=== PATIENT | female | born 1960 | race Caucasian/White ===

== ENCOUNTER → 2017-12-06 09:48 | Outpatient (CLI) | payer BC, SELFPAY ==
--- NOTE | 2017-12-06 09:54 | RAD_ITS ---
STUDY: X-RAY - LUMBAR SPINE REASON FOR EXAM: Female, 57 years old. Low back pain TECHNIQUE: 5 view(s) of the lumbar spine were obtained. COMPARISON: Prior study of 09/21/2014 FINDINGS: There is straightening of the normal lumbar lordosis. There is no substantial scoliosis. There is a 5 mm anterolisthesis of L3 relative to L4, stable in the interval. There are status post posterior spinal fusion changes with interpedicular screws and rods from L3 to S1. There are status post laminectomy changes of L3-L5. There is multi-level degenerative disc disease with multi-level disc space narrowing. There is no evidence of acute fracture. There are calcified plaques of the abdominal aorta. RAD/L/S Spine Min 4 Views IMPRESSION: Status post posterior spinal fusion changes with interpeduncular screws and rods from L3 to S1. Status post laminectomy of L3-L5. Multilevel disc space narrowing. There is no evidence of acute fracture. 5 mm anterolisthesis of L3 relative to L4. Findings are similar to the previous study. Electronically Signed: Linwood Cevallos MD at 23:57 EDT , Service support ,
== END ==
PROVIDERS: Family Provider Family Medicine; PCP Family Medicine; Referring Provider Anesthesiology Pain Medicine; Visit Provider Anesthesiology Pain Medicine
DX: M51.36 Other intervertebral disc degeneration, lumbar region (principal); M48.061 Spinal stenosis, lumbar region without neurogenic claudication; Z98.1 Arthrodesis status
CPT/HCPCS: 72110

== ENCOUNTER 2017-12-28 11:06 | Observation (INO) | payer BC, SELFPAY ==
[2017-12-28] VITALS (8 sets, daily range): BP systolic 113–155; BP diastolic 68–114; PULSE 81–96; RESP 14–20; TEMP 36.7–36.8; O2SAT 93–96; BMI 32.1
--- NOTE | 2017-12-28 13:09 | MRI_ITS ---
STUDY: MRA NECK WITH AND WITHOUT CONTRAST REASON FOR EXAM: Female, 57 years old. Vertigo TECHNIQUE: 3-D yzyp-yh-ccafam (TOF) imaging was performed in an 1.5 T MRI scanner. 9 ml of Gadavist was administered for the contrast enhanced images. # of Images: 324 COMPARISON: None. FINDINGS: RIGHT CAROTID ARTERIES: Normal right common carotid artery (CCA). Normal right common carotid bulb. Normal origin of the right internal carotid (ICA) artery without a hemodynamically significant stenosis. Normal visualized cervical portion of the right internal carotid artery. Normal origin of the right external carotid artery (ECA). LEFT CAROTID ARTERIES: Normal left common carotid artery (CCA). Normal left common carotid bulb. Normal origin of the left internal carotid (ICA) artery without a hemodynamically significant stenosis. Normal visualized cervical portion of the left internal carotid artery. Normal origin of the left external carotid artery (ECA). VERTEBRAL ARTERIES: Normal antegrade flow within the bilateral vertebral artery with minor diffuse narrowing of the distal right vertebral. MRI/MRA Neck WITH and W/O Contrast IMPRESSION: Mild diffuse narrowing of the distal right vertebral. No evidence for hemodynamically significant stenosis of the carotids Electronically Signed: Miles Ruano MD at 17:46 EDT , Service support ,
--- NOTE | 2017-12-28 13:09 | MRI_ITS ---
STUDY: MRI BRAIN WITHOUT CONTRAST REASON FOR EXAM: Female, 57 years old. Posttraumatic vertigo TECHNIQUE: Standardized multiplanar fat and water weighted pulse sequences were obtained. # of Images: 284 COMPARISON: None. FINDINGS: Normal size of the ventricles and extra-axial spaces for the patient's age. Minor periventricular white matter ischemic changes without evidence for mass effect or restricted diffusion. Mild chronic ischemic changes within the jace. Chronic ischemic changes within the left cerebellar hemisphere Normal bilateral basal ganglia. Normal thalami. There is no extra-axial fluid accumulation. Normal flow voids within the major intracranial circulation suggesting patency by spin echo criteria. Normal sella turcica, pituitary gland, infundibular stalk, optic chiasm and hypothalamus. Normal tectal plate and pineal gland. Normal midbrain, and medulla. Normal basal cisterns. Normal bilateral temporal bones. Normal bilateral internal auditory canals. There is signal dropout within the inferior frontal lobes on the gradient echo weighted imaging sequence which could represent hemosiderin secondary to old hemorrhagic contusions. No demonstrated orbital abnormality, within the constraints of a routine brain study. Advanced mucosal thickening in the right maxillary and ethmoid sinuses. Normal calvarium and skull base. Normal visualized soft tissue structures. Normal visualized upper cervical spine. MRI/Brain without Contrast IMPRESSION: Minor periventricular white matter ischemic changes without evidence for acute infarct. Chronic ischemic changes within the jace and left cerebellar hemisphere. Findings which may be consistent with old hemorrhagic contusions within the frontal lobes. Recommend correlation with clinical history Electronically Signed: Miles Ruano MD at 17:35 EDT , Service support ,
--- NOTE | 2017-12-28 13:09 | MRI_ITS ---
STUDY: MRA OF THE HEAD WITHOUT CONTRAST REASON FOR EXAM: Female, 57 years old. Vertigo TECHNIQUE: 3-D guph-fy-psiznt (TOF) imaging was performed with MIPs. The study was performed unenhanced. # of Images: 195 COMPARISON: None. FINDINGS: Normal bilateral petrous carotid arteries. Normal right cavernous carotid artery with a normal supraclinoid bifurcation. Normal left cavernous carotid artery with a normal supraclinoid bifurcation. Normal right A1 segments of the anterior cerebral artery. Normal left A1 segments of the anterior cerebral artery. Normal intact anterior communicating artery (ACOM). Normal bilateral A2 segments of the anterior cerebral arteries. Normal right M1 and M2 segments of the middle cerebral arteries, with a normal M1 bifurcation. Normal left M1 and M2 segments of the middle cerebral arteries, with a normal M1 bifurcation. Normal right posterior communicating artery (PCOM). Left posterior communicating artery not identified consistent with normal variant. Normal bilateral vertebral arteries. Normal basilar artery with a normal basilar bifurcation. The visualized bilateral superior cerebellar (SCA) arteries are normal. Normal bilateral P1, P2 and visualized P3 segments of the posterior cerebral arteries. There is no demonstrated aneurysm of the [place]. There is no major vessel occlusion or hemodynamically significant stenosis. There is no demonstrated abnormality of the visualized brain. MRI/MRA Head ONLY without Contrast IMPRESSION: Normal MRA of the head Electronically Signed: Miles Ruano MD at 17:45 EDT , Service support ,
[2017-12-28] MEDS: Rivaroxaban 20 MG Tablet PO (13:15)
[2017-12-28] MEDS: diazePAM 2 MG Tablet PO ×3 (13:15→22:01)
[2017-12-28] MEDS: oxyCODONE 5 MG Tablet PO (13:16)
[2017-12-28] MEDS: oxyCODONE 5 MG Tablet 10 MG PO (15:18)
[2017-12-28] MEDS: Gabapentin 400 MG Capsule PO ×2 (17:48)
[2017-12-28] MEDS: Sertraline 100 MG Tablet PO ×2 (17:49)
--- NOTE | 2017-12-28 18:01 | PCM.HP.STD ---
Problem List (1) Dizziness Status: Acute History of Present Illness Date of Admission: 12/28/17 Chief Complaint: Dizziness, ataxia The patient is a 57 year old F who was placed directly into observation status on PCU from [facility] with complaints of dizziness and ataxia which started last night approximately 9:30 PM. Patient states that she cannot walk without maximal effort because she feels unsteady and wobbly. Patient denies any focal motor deficits, she denies any visual disturbances, and she denies any speech disturbances. She sought medical attention this morning at [facility] ER and a workup was done including a CT of the brain and lab work all of which were unremarkable. It was felt that the patient needed an MRI to rule out the presence of an acute CVA and she was placed into observation status here on PCU. Past Medical History Allergies No Known Allergies Allergy (Verified 12/28/17 15:21) Home Medications: Ambulatory Orders Medication Instructions Recorded Levothyroxine [Synthroid] 75 mcg PO DAILY 11/12/13 Albuterol Sulfate [Proventil Hfa] 2 puff IH Q4H PRN PRN 12/28/17 Baclofen [Lioresal] 10 mg PO BID PRN 12/28/17 Gabapentin [Neurontin] 400 mg PO 1500 12/28/17 Gabapentin [Neurontin] 400 mg PO BREAKFAST 12/28/17 Gabapentin [Neurontin] 800 mg PO QHS 12/28/17 Ipratropium/Albuterol Sulfate 3 ml INHALATION TID 12/28/17 [Duoneb] Oxycodone HCl/Acetaminophen 1 tablet PO TID 12/28/17 [Percocet 5/325] Rivaroxaban [Xarelto] 20 mg PO DAILY 12/28/17 Sertraline HCl [Zoloft] 100 mg PO DAILY 12/28/17 Surgical History: cholecystectomy, tonsillectomy, - - 2 lumbar spinal fusions Psychiatric History: Depression 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 Lives: Alone Smoking Status: Former smoker Tobacco Use: Cigarettes Alcohol: Occasional Drugs: None - *Family History Maternal History Items: Diabetes, Hypertension Paternal History Items: Stroke Review of Systems Constitutional: Denies: Anorexia, Chills, Fever, Night Sweats, Malaise, Weakness, Weight Change, Fatigue Eyes: Denies: Blurred vision, Cataracts, Conjunctivae Inflammation, Double vision, Drainage HEENT: Denies: Difficulty Swallowing, Dysphasia, Ear Pain, Eye Pain, Hearing Changes, Nasal bleeding, Nasal Congestion, Post Nasal Drip Cardiovascular: Denies: Chest Pain, Claudication, Chest Pressure, Chest Tightness, Edema, Heaviness, Light Headedness, Orthopnea, Palpitations Respiratory: Denies: Cough, Hemoptysis, Pleuritic Pain, Shortness of Breath, Shortness of breath at rest, Shortness of breath upon exertion, Sputum production Gastrointestinal: Denies: Abdominal Pain, Constipation, Diarrhea, Hematemesis, Hematochezia, Nausea, Melena, Vomiting Genitourinary: Denies: Dysuria, Frequency, Hematuria, Hesitancy, Incontinence, Nocturia, Urgency Gynecological: Denies: Breast symptoms Musculoskeletal: Reports: Back Pain. Denies: Foot Pain, Hand Pain, Joint Pain, Joint stiffness, Joint swelling, Joint Tenderness, Leg Pain, Neck Pain Skin: Denies: Dryness, Jaundice, Pruritis, Rash Neurological: Reports: Balance problems, Headaches - Patient reports a mild headache since this a.m. predominantly on the right side. Denies: Blurred vision, Double vision, Change in Speech, Slurred speech, Difficulty swallowing, Focal weakness, Numbness, Tingling, Tremor Psychiatric: Reports: Depression. Denies: Anxiety, Homicidal Ideations, Suicidal Ideations Endocrine: Denies: Change in Body Habitus, Heat/ Cold Intolerance, Polydipsia, Polyuria Hematologic/ Lymphatic: Denies: Adenopathy, Anemia, Easy Bruising, Easy Bleeding, Petechiae, Purpura VTE Information - Inpt Only VTE Present on Admission: No VTE Mechan Device Prophylaxis: None VTE Pharm Prophylaxis ordered?: Yes Patient Problems: Active and Suspected Problems Dizziness (Acute) - Physical Exam General: Alert, Oriented x3, Cooperative, No apparent distress, Well developed, Well nourished HEENT: Atraumatic, PERRLA, EOMI, Normocephalic Oral: Moist Mucosa Neck: Supple, No JVD, Negative Carotid Bruits, No Nuchal Rigidity, Trachea Midline, Thyroid Normal Size and Texture Lungs: Clear to auscultation, Normal air movement, No rhonchi, No wheeze, No rales Cardiovascular: Regular rate, Regular Rhythm, Normal S1, Normal S2, No murmurs, No Ectopic Activity, PMI Normal, No rub noted, No Gallop Abdomen: Bowel Sounds Present, Soft, Non Tender, Non-Distended, No hernias noted Extremities: No clubbing, No cyanosis, No edema, Capillary Refill Less than 3 Seconds Skin: No rashes, No breakdown Musculoskeletal: No Tenderness to Palpation of Joints or Extremities Neurological: Cranial nerves II-XII grossly intact, Neuro grossly intact, Motor Exam 5/5 strength throughout, Muscle tone normal, Sensory exam intact to light touch and pain Psych/Mental Status: Normal Affect, Appropriate, Alert and oriented to time, place, person, mood and affect Vital Signs Temp Pulse Resp BP Pulse Ox 98.1 F 87 16 136/90 H 93 12/28/17 17:57 12/28/17 17:57 12/28/17 17:57 12/28/17 17:57 12/28/17 17:57 Oxygen Delivery Method Room Air Weight: 85.049 kg Body Mass Index (BMI) 32.1 Intake and Output for Last 24 Hours 12/26/17 12/27/17 12/28/17 23:59 23:59 23:59 Intake Total 120 / 120 Balance 120 / 120 Assessment/Plan All Active Problems Dizziness (Acute) #1 dizziness-patient was placed and observation status on PCU, she will be seen by PT and OT, NIH stroke scores will be obtained at periodic intervals, MRA of the head and neck and MRI of the brain will be obtained. 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 Patient will remain on Xarelto during this hospitalization Code Visit OBSV E&M: 49435 Initial observation care L3
--- NOTE | 2017-12-28 18:06 | HP.PCM_ITS ---
Problem List (1) Dizziness Status: Acute History of Present Illness Date of Admission: 12/28/17 Chief Complaint: Dizziness, ataxia The patient is a 57 year old F who was placed directly into observation status on PCU from [facility] with complaints of dizziness and ataxia which started last night approximately 9:30 PM. Patient states that she cannot walk without maximal effort because she feels unsteady and wobbly. Patient denies any focal motor deficits, she denies any visual disturbances, and she denies any speech disturbances. She sought medical attention this morning at [facility] ER and a workup was done including a CT of the brain and lab work all of which were unremarkable. It was felt that the patient needed an MRI to rule out the presence of an acute CVA and she was placed into observation status here on PCU. Past Medical History Allergies No Known Allergies Allergy (Verified 12/28/17 15:21) Home Medications: Ambulatory Orders Medication Instructions Recorded Levothyroxine [Synthroid] 75 mcg PO DAILY 11/12/13 Albuterol Sulfate [Proventil Hfa] 2 puff IH Q4H PRN PRN 12/28/17 Baclofen [Lioresal] 10 mg PO BID PRN 12/28/17 Gabapentin [Neurontin] 400 mg PO 1500 12/28/17 Gabapentin [Neurontin] 400 mg PO BREAKFAST 12/28/17 Gabapentin [Neurontin] 800 mg PO QHS 12/28/17 Ipratropium/Albuterol Sulfate 3 ml INHALATION TID 12/28/17 [Duoneb] Oxycodone HCl/Acetaminophen 1 tablet PO TID 12/28/17 [Percocet 5/325] Rivaroxaban [Xarelto] 20 mg PO DAILY 12/28/17 Sertraline HCl [Zoloft] 100 mg PO DAILY 12/28/17 Surgical History: cholecystectomy, tonsillectomy, - - 2 lumbar spinal fusions Psychiatric History: Depression 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 Lives: Alone Smoking Status: Former smoker Tobacco Use: Cigarettes Alcohol: Occasional Drugs: None - *Family History Maternal History Items: Diabetes, Hypertension Paternal History Items: Stroke Review of Systems Constitutional: Denies: Anorexia, Chills, Fever, Night Sweats, Malaise, Weakness, Weight Change, Fatigue Eyes: Denies: Blurred vision, Cataracts, Conjunctivae Inflammation, Double vision, Drainage HEENT: Denies: Difficulty Swallowing, Dysphasia, Ear Pain, Eye Pain, Hearing Changes, Nasal bleeding, Nasal Congestion, Post Nasal Drip Cardiovascular: Denies: Chest Pain, Claudication, Chest Pressure, Chest Tightness, Edema, Heaviness, Light Headedness, Orthopnea, Palpitations Respiratory: Denies: Cough, Hemoptysis, Pleuritic Pain, Shortness of Breath, Shortness of breath at rest, Shortness of breath upon exertion, Sputum production Gastrointestinal: Denies: Abdominal Pain, Constipation, Diarrhea, Hematemesis, Hematochezia, Nausea, Melena, Vomiting Genitourinary: Denies: Dysuria, Frequency, Hematuria, Hesitancy, Incontinence, Nocturia, Urgency Gynecological: Denies: Breast symptoms Musculoskeletal: Reports: Back Pain. Denies: Foot Pain, Hand Pain, Joint Pain, Joint stiffness, Joint swelling, Joint Tenderness, Leg Pain, Neck Pain Skin: Denies: Dryness, Jaundice, Pruritis, Rash Neurological: Reports: Balance problems, Headaches - Patient reports a mild headache since this a.m. predominantly on the right side. Denies: Blurred vision, Double vision, Change in Speech, Slurred speech, Difficulty swallowing, Focal weakness, Numbness, Tingling, Tremor Psychiatric: Reports: Depression. Denies: Anxiety, Homicidal Ideations, Suicidal Ideations Endocrine: Denies: Change in Body Habitus, Heat/ Cold Intolerance, Polydipsia, Polyuria Hematologic/ Lymphatic: Denies: Adenopathy, Anemia, Easy Bruising, Easy Bleeding, Petechiae, Purpura VTE Information - Inpt Only VTE Present on Admission: No VTE Mechan Device Prophylaxis: None VTE Pharm Prophylaxis ordered?: Yes Patient Problems: Active and Suspected Problems Dizziness (Acute) - Physical Exam General: Alert, Oriented x3, Cooperative, No apparent distress, Well developed, Well nourished HEENT: Atraumatic, PERRLA, EOMI, Normocephalic Oral: Moist Mucosa Neck: Supple, No JVD, Negative Carotid Bruits, No Nuchal Rigidity, Trachea Midline, Thyroid Normal Size and Texture Lungs: Clear to auscultation, Normal air movement, No rhonchi, No wheeze, No rales Cardiovascular: Regular rate, Regular Rhythm, Normal S1, Normal S2, No murmurs, No Ectopic Activity, PMI Normal, No rub noted, No Gallop Abdomen: Bowel Sounds Present, Soft, Non Tender, Non-Distended, No hernias noted Extremities: No clubbing, No cyanosis, No edema, Capillary Refill Less than 3 Seconds Skin: No rashes, No breakdown Musculoskeletal: No Tenderness to Palpation of Joints or Extremities Neurological: Cranial nerves II-XII grossly intact, Neuro grossly intact, Motor Exam 5/5 strength throughout, Muscle tone normal, Sensory exam intact to light touch and pain Psych/Mental Status: Normal Affect, Appropriate, Alert and oriented to time, place, person, mood and affect Vital Signs Temp Pulse Resp BP Pulse Ox 98.1 F 87 16 136/90 H 93 12/28/17 17:57 12/28/17 17:57 12/28/17 17:57 12/28/17 17:57 12/28/17 17:57 Oxygen Delivery Method Room Air Weight: 85.049 kg Body Mass Index (BMI) 32.1 Intake and Output for Last 24 Hours 12/26/17 12/27/17 12/28/17 23:59 23:59 23:59 Intake Total 120 / 120 Balance 120 / 120 Assessment/Plan All Active Problems Dizziness (Acute) #1 dizziness-patient was placed and observation status on PCU, she will be seen by PT and OT, NIH stroke scores will be obtained at periodic intervals, MRA of the head and neck and MRI of the brain will be obtained. 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 Patient will remain on Xarelto during this hospitalization Code Visit OBSV E&M: 15969 Initial observation care L3
[2017-12-28] MEDS: Ipratropium/Albuterol Sulfate 3 ML AMPUL.NEB INHALATION (18:48)
[2017-12-28] MEDS: Gabapentin 400 MG Capsule 800 MG PO (21:59)
[2017-12-29 03:00] VITALS: PULSE 74
[2017-12-29 04:00] VITALS: BP 140/85; PULSE 89; RESP 14; TEMP 36.8; O2SAT 93
[2017-12-29 07:17] VITALS: PULSE 76
[2017-12-29] MEDS: Ipratropium/Albuterol Sulfate 3 ML AMPUL.NEB INHALATION (07:34)
[2017-12-29 07:35] VITALS: PULSE 91; RESP 18
[2017-12-29 09:01] VITALS: BP 136/79; PULSE 89; RESP 18; TEMP 36.8; O2SAT 93
--- NOTE | 2017-12-29 09:01 | DCINST_ITS ---
- Discharge Diagnoses Current Active Problems: Current Active and Chronic Problems Dizziness (Acute) You will use the following diet at home:: No restrictions Your food should be the consistency of: Regular Your liquids should be the consistency of: Regular/Thin Discharge Activity: Return to Normal Activity Weight Bearing Status: Full weight bearing Allergies/Adverse Reactions: Allergies No Known Allergies Allergy (Verified 12/28/17 15:21) Medications to take at Discharge Levothyroxine [Synthroid] 75 mcg PO DAILY 11/12/13 Albuterol Sulfate [Proventil Hfa] 2 puff IH Q4H PRN PRN 12/28/17 Baclofen [Lioresal] 10 mg PO BID PRN 12/28/17 Gabapentin [Neurontin] 400 mg PO 1500 12/28/17 Gabapentin [Neurontin] 400 mg PO BREAKFAST 12/28/17 Gabapentin [Neurontin] 800 mg PO QHS 12/28/17 Ipratropium/Albuterol Sulfate [Duoneb] 3 ml INHALATION TID 12/28/17 Oxycodone HCl/Acetaminophen [Percocet 5-325] 1 tablet PO TID 12/28/17 Rivaroxaban [Xarelto] 20 mg PO DAILY 12/28/17 Sertraline HCl [Zoloft] 100 mg PO DAILY 12/28/17 Diazepam [Valium] 2 mg PO 4X/DAY PRN PRN 7 Days #20 tab 12/29/17 The following prescriptions were given: Diazepam [Valium] 2 mg PO 4X/DAY PRN PRN 7 Days #20 tab PRN Reason: Dizziness Primary Care Physician: Kirby Bautista [Primary Care Provider] - Please follow up with your Primary Care Physician in: in 1-2 weeks Test Results: Test results from this visit will be discussed in further detail at your follow- up appointment, if applicable.
[2017-12-29] MEDS: Rivaroxaban 20 MG Tablet PO (09:06)
[2017-12-29] MEDS: Gabapentin 400 MG Capsule PO (09:06)
[2017-12-29] MEDS: diazePAM 2 MG Tablet PO (09:06)
--- NOTE | 2017-12-30 09:12 | DS.PCM_ITS ---
Discharge Date and Diagnosis Date of Admission: 12/28/17 Date of Discharge: 12/29/17 - Primary Discharge Diagnosis #1 benign vertigo #2 chronic back pain #3 hypothyroidism #4 degenerative joint disease of the lumbar spine #5 COPD Hospital Course and Treatment Operations: None Procedures: None Summary of Care Provided: The patient is a 57 year old F was directly admitted to PCU from [facility] with complaints of dizziness and ataxia. Workup in the emergency room at [facility] included a CT of the brain which was unremarkable, patient's labs were also unremarkable. Patient was placed and observation status on PCU, neurochecks initially were carried out on the patient, patient had an MRA of the head and neck and an MRI of the brain, these tests did not show any acute process and it was felt that the patient did not have a stroke. It was felt that the patient's ataxia and dizzy sensation was from benign vertigo. She was seen by PT and OT. Physical exam: On examination she appeared in good health and spirits. Vital signs as documented. Skin warm and dry and without overt rashes. Neck without JVD. Lungs clear. Heart exam notable for regular rhythm, normal sounds and absence of murmurs, rubs or gallops. Abdomen unremarkable and without evidence of organomegaly, masses, or abdominal aortic enlargement. Extremities nonedematous. Neuro: Cranial nerves II through XII are grossly intact, no focal motor deficits were noted, sensation was intact to light touch and pinprick. Psych: Patient was alert and oriented x3, she did not appear to be anxious or de pressed. Patient was placed on Valium during her hospital stay and this improved her vertiginous symptoms. On 12/29/17, patient was seen and examined and felt to be in stable condition for discharge home - Physical Exam Vital Signs Temp Pulse Resp BP Pulse Ox 98.3 F 89 18 136/79 H 93 12/29/17 09:01 12/29/17 09:01 12/29/17 09:01 12/29/17 09:01 12/29/17 09:01 Oxygen Delivery Method Room Air Weight: 85.049 kg Body Mass Index (BMI) 32.1 Intake and Output for Last 24 Hours 12/28/17 12/29/17 12/30/17 23:59 23:59 23:59 Intake Total 120 / 120 Balance 120 / 120 Discharge Activity: Return to Normal Activity Weight Bearing Status: Full weight bearing Home Medications: Medications to take at Discharge Levothyroxine [Synthroid] 75 mcg PO DAILY 11/12/13 Albuterol Sulfate [Proventil Hfa] 2 puff IH Q4H PRN PRN 12/28/17 Baclofen [Lioresal] 10 mg PO BID PRN 12/28/17 Gabapentin [Neurontin] 400 mg PO 1500 12/28/17 Gabapentin [Neurontin] 400 mg PO BREAKFAST 12/28/17 Gabapentin [Neurontin] 800 mg PO QHS 12/28/17 Ipratropium/Albuterol Sulfate [Duoneb] 3 ml INHALATION TID 12/28/17 Oxycodone HCl/Acetaminophen [Percocet 5-325] 1 tablet PO TID 12/28/17 Rivaroxaban [Xarelto] 20 mg PO DAILY 12/28/17 Sertraline HCl [Zoloft] 100 mg PO DAILY 12/28/17 Diazepam [Valium] 2 mg PO 4X/DAY PRN PRN 7 Days #20 tab 12/29/17 Following Prescrptions Were Given to Patient: Diazepam [Valium] 2 mg PO 4X/DAY PRN PRN 7 Days #20 tab PRN Reason: Dizziness Primary Care Physician: Kirby Bautista [Primary Care Provider] - Please follow up with your Primary Care Physician in: in 1-2 weeks Disposition: Home Minutes spent on discharge:: 31 Patient Condition:: Stable Medical Necessity - Tobacco Use Smoking Status: Former smoker Tobacco Use: Cigarettes Meaningful Use Info Meaningful Use Diagnoses (Choose all that apply): None applicable Code Visit OBSV E&M: 93171 Observation care discharge
== END 2017-12-29 09:00 | disposition home or self-care (01) ==
PROVIDERS: Admitting Provider Internal Medicine; Family Provider Family Medicine; PCP Family Medicine; Referring Provider Internal Medicine; Visit Provider Internal Medicine
DX: R42 Dizziness and giddiness (principal); M47.896 Other spondylosis, lumbar region; J44.9 Chronic obstructive pulmonary disease, unspecified; E03.9 Hypothyroidism, unspecified; Z79.899 Other long term (current) drug therapy; Z79.01 Long term (current) use of 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; Z79.891 Long term (current) use of opiate analgesic; Z87.891 Personal history of nicotine dependence; F32.9 Major depressive disorder, single episode, unspecified; G89.4 Chronic pain syndrome; Z86.711 Personal history of pulmonary embolism
CPT/HCPCS: 70544; 70549; 70551; 94640; 99218; A9585; G0378

== ENCOUNTER → 2021-12-23 | Outpatient (CLI) | payer BC, SELFPAY ==
[2021-12-23 09:29] LABS: Erythrocyte Sedimentation Rate 14 mm/hr (0-30)
[2021-12-23 09:30] LABS: Absolute Lymphocyte Count 2.28 X10^3/uL (0.83-4.51); Basophil# 0.09 X10^3/uL; Basophil% 1.2 % (0-1); Eosinophil# 0.29 X10^3/uL; Hematocrit 41.6 % (37-47); Hemoglobin 14.1 g/dL (12.0-15.0); Lymphocyte # 2.28 X10^3/ul (0.83-4.51); Lymphocyte % 31.4 % (19-41); Mean Corp Hgb Conc 33.9 g/dL (32-36); Mean Corpuscular Hgb 29.4 pg (27.0-32.0); Mean Corpuscular Volume 86.7 fL (81-99); Mean Platelet Vol. 9.5 fl (6.2-12.0); Monocyte# 0.64 X10^3/uL; Monocyte% 8.8 % (0-10); NRBC Flagged by Analyzer 0 % (0-5); Neutrophil # 3.96 X10^3/uL (2.7-7.7); Neutrophil % 54.5 % (47-70); Platelet Count 151 K/mm3 (150-450); RBC Distribution Width CV 12.3 % (11.6-14.6); RBC Distribution Width SD 38.9 fl (35.1-43.9); White Blood Count 7.3 K/mm3 (4.4-11.0)
[2021-12-23 10:02] LABS: ALB/GLOB Ratio 0.9 RATIO (0.9-2.4); AST(SGOT) 19 U/L (15-37); Alanine Aminotransfer ALT/SGPT 28 U/L (13-56); Albumin, Serum 3.7 g/dL (3.2-5.0); Alkaline Phosphatase 77 U/L (45-117); Anion Gap 6 (5-15); BUN 14 mg/dL (7-18); BUN/Creat Ratio 19.5 RATIO (10-20); CRP 4.46 mg/L (0.0-3.0); Chloride 109 mmol/L (98-107); Creatinine, Serum 0.72 mg/dL (0.55-1.02); EST Glomerular Filtration Rate 88 mL/min (>60); Est Glom Filt Rate - Afr Amer 106 mL/min (>60); Glucose 100 mg/dL (74-106); LDH 206 U/L (84-246); Potassium 3.7 mmol/L (3.5-5.1); Protein, Total 7.7 g/dL (6.4-8.2); Sodium Level 143 mmol/L (136-145)
[2021-12-26 16:09] LABS: Endomysial Antibody IgA Negative (Negative)
[2021-12-26 18:48] LABS: Immunoglobulin A 406 mg/dL (87-352); t-Transglutaminase IgA <2 U/mL (0-3)
[2021-12-27 14:29] LABS: Anti-Centromere B Ab <0.2 AI (0.0-0.9); Anti-Chromatin <0.2 AI (0.0-0.9); Anti-Jo <0.2 AI (0.0-0.9); Anti-Scleroderma-70 AB <0.2 AI (0.0-0.9); RNP Ab 0.8 AI (0.0-0.9); SJOGREN'S Anti-SS-A test < 0.2 AI (0.0-0.9); SJOGREN'S Anti-SS-B test < 0.2 AI (0.0-0.9); Smith Ab <0.2 AI (0.0-0.9)
[2021-12-27 16:11] LABS: Anti-dsDNA Ab 2 IU/mL (0-9)
[2021-12-31 02:07] LABS: Alpha-1-Globulins 0.3 g/dL (0.0-0.4); Alpha-2-Globulins 0.7 g/dL (0.4-1.0); Gamma Globulin 0.9 g/dL (0.4-1.8); Immunoglobulin A 395 mg/dL (87-352); Immunoglobulin G 1003 mg/dL (586-1602); Immunoglobulin M 57 mg/dL (26-217); PROEL- TOTAL PROTEIN 7.1 g/dL (6.0-8.5)
[2022-01-01 09:47] LABS: IMMUNOFIXATION RESULT,S Comment: (.); Immunoglobulin E 72 IU/mL (6-495)
== END | disposition home or self-care (01) ==
PROVIDERS: PCP Internal Medicine Infectious Disease; Referring Provider Nurse Practitioner Adult Health; Visit Provider Nurse Practitioner Adult Health
DX: K52.9 Noninfective gastroenteritis and colitis, unspecified (principal)
CPT/HCPCS: 36415; 80053; 82784; 82785; 83516; 83615; 84165; 85025; 85652; 86140; 86225; 86235; 86255; 86334

== ENCOUNTER 2022-02-15 07:42 | Day surgery (SDC) | payer BC, SELFPAY ==
[2022-02-15] VITALS (8 sets, daily range): BP systolic 109–159; BP diastolic 56–93; PULSE 72–88; RESP 16–18; TEMP 36.4–37.1; O2SAT 93–98; BMI 27.6
--- NOTE | 2022-02-15 07:54 | HP.PCM_ITS ---
History and Physical Date of Admission: 02/15/22 [facility] [address] [place] [address] OFFICE VISIT Date of Service:? 12/23/21 MR#: [id number] Acct: [id number] Name:SOFIA WHITAKER Rep #: [id number] : 1960 ? ? Provider: ?RAGINI Parker Age/Sex:? 61/F ? ? [place] [facility] [place] Status: Signed Intake Vital Signs ? 12/28/1810:34 12/23/2206:55 Height 5 ft 4 in 5 ft 4 in Weight: ? 167 lb BMI ? 28.6 BP ? 173/107 H Blood Pressure LocationB ? Rt brachial Position ? Sitting Pulse ? 68 Pulse Oximetry (%) ? 96 Oxygen Delivery Method ? room air Intake Visit Reasons:?HISTORY OF COLON POLYPS Chief Complaint: diarrhea Allergies No Known Allergies Allergy (Verified 12/23/21 07:55) Medications albuterol sulfate 90 mcg/actuation aerosol inhaler (Proventil HFA) 2 puff IH Q4H PRN PRN Sob &/Or Wheezing 12/28/17 [History Confirmed 12/23/21] gabapentin 400 mg capsule (Neurontin) 800 mg PO QHS 12/28/17 [History Confirmed 11/23/21] ipratropium 0.5 mg-albuterol 3 mg (2.5 mg base)/3 mL nebulization soln 3 ml inhalation TID SOB 12/28/17 [History Confirmed 11/23/21] oxycodone-acetaminophen 5 mg-325 mg tablet 1 tab PO TID 12/28/17 [History Confirmed 12/23/21] rivaroxaban 20 mg tablet (Xarelto) 20 mg PO DAILY 12/28/17 [History Confirmed 11/23/21] sertraline 100 mg tablet 100 mg PO DAILY 12/28/17 [History Confirmed 11/23/21] atorvastatin 10 mg tablet 10 mg PO DAILY 11/23/21 [History Confirmed 11/23/21] celecoxib 200 mg capsule (Celebrex) 200 mg PO BID 11/23/21 [History Confirmed 11/23/21] levothyroxine 88 mcg capsule 88 mcg PO DAILY 11/23/21 [History Confirmed 11/23/21] lisinopril 10 mg tablet 20 mg PO DAILY 11/23/21 [History Confirmed 11/23/21] melatonin 10 mg capsule 10 mg PO HS PRN 11/23/21 [History Confirmed 11/23/21] tizanidine 4 mg capsule 4 mg PO TID PRN 11/23/21 [History Confirmed 11/23/21] trazodone 50 mg tablet 50 mg PO QHS PRN 11/23/21 [History Confirmed 11/23/21] cholestyramine (with sugar) 4 gram oral powder 4 g PO BID #378 grams 12/23/21 [Rx Confirmed 12/23/21] PFSH Medical History?(Reviewed 12/23/21 @ 08:50 by Jenni Parker DIRECTOR OF OFFICIATING, DIRECTOR OF OFFICIATING-C) Acute insomnia CAD (coronary artery disease) COPD (chronic obstructive pulmonary disease) Depression Diarrhea ROY (dyspnea on exertion) DVT (deep venous thrombosis) History of colon polyps Hyperglycemia Hypotension Hypothyroidism IBS (irritable bowel syndrome) residential (current) use of 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 Neuropathy Other pulmonary embolism without acute cor pulmonale Paroxysmal atrial fibrillation PAT (paroxysmal atrial tachycardia) Renal insufficiency Rotator cuff tear SOB (shortness of breath) Weight gain Surgical History? History of cholecystectomy Family History? Mother Diabetes Social History?(Reviewed 12/23/21 @ 08:50 by Jenni Parker DIRECTOR OF OFFICIATING, DIRECTOR OF OFFICIATING-C) Smoking Status:? Former smoker alcohol intake:? current alcohol intake frequency: a few times a week HPI HPI Chief Complaint: diarrhea Details: SOFIA HINDS, is a 61 F who presents to the office today for chronic diarrhea which began more than 12 yrs ago. This diarrhea didn't begin immediately after her cholecystectomy in 2006. Diarrhea is like water, urgent, rare fecal incontinence. Only has semi-formed stool once a month or so. At least 6 BMs per day but typically many more. Diarrhea can wake her up. Gets immed diarrhea after eating, so she limits her intake. No relief with dicyclomine, pepto bismol, imodium, fiber. [facility] ED visit in 09/2021 for dehydration due to diarrhea. Stools tests in 09/2021 negative for O&P, enteric pathogens and C diff. 10/05/21 CT: liquid stool in colon, small bowel changes suggestive of enteritis, diverticula. Remote hx of EGD. Most recent colonoscopy 2018. Review of records shows diagnosis of collagenous colitis in 2009. Treated for parasite infection in , had diarrhea then but it resolved with treatment. Has had hemorrhoids since then. They bleed frequently. Works 3rd shift at [employer] Const Constitutional: No fatigue Eyes Eyes: Positive for visual disturbances ENT ENT: No difficulty swallowing Gastro GI: Positive for diarrhea; No abdominal pain, belching, bloating, change in bowel habits, change in stool character, coffee ground emesis, constipation, cramping, heartburn, difficulty swallowing, feeling full early, excessive flatus, incontinent of stools, Vomiting blood/hematemesis, Blood in stool, loose stools, Black,tarry stools, nausea/dyspepsia, pain with swallowing, vomiting or other Musc Musculoskeletal: Positive for back pain; No joint pain Skin Skin: No yellowing of the eye or itchy eyes Neuro Neurology: Positive for visual disturbances Psych Psychiatric: No anxiety and No depression Endo Endocrine: No fatigue Aller/Imm Allergy/Immunologic: No itchy eyes Marvel/Lymp Hematologic/Lymphatic: No easy bleeding or easy bruising Exam Const General: cooperative and comfortable Nutritional Appearance: overweight Orientation: alert, awake and oriented x3 HENMT Head: normal to inspection Eyes General: appearance normal, both eyes and all related structures Neck Neck: normal visual inspection Chest Chest palpation & inspection: normal inspection of the chest Resp Effort & Inspection: normal respiratory effort GI Inspection: normal to inspection Palpation: soft, no hepatosplenomegaly, no masses and nontender Skin General: no jaundice Quality Reporting Tobacco Screening ([facility] 138) Smoking Status: Former smoker Assessment and Plan Assessment and Plan (1) Chronic diarrhea: ?Status:?Chronic ?Plan: 61 yr old female with >12 yrs of chronic watery urgent diarrhea. DDx includes microscopic colitis, IBD, bile acid diarrhea. Recent tests for infection were negative. We will get blood tests to include labs for IBD, celiac, stool tests for inflammation. Start cholestyramine bid, let me know how that works. Consider rx for budesonide considering hx of collagenous colitis. Consider capsule endoscopy. Will schedule her for EGD and colonoscopy, f/u 2 wks after that. ? ? ? Orders: Orders Comprehensive Metabolic Profil Today K52.9 - Noninfective gastroenteritis and colitis, unspecified ? CRP Today K52.9 - Noninfective gastroenteritis and colitis, unspecified ? LDH Today K52.9 - Noninfective gastroenteritis and colitis, unspecified ? CBC W/Diff, Automated Today K52.9 - Noninfective gastroenteritis and colitis, unspecified ? Erythrocyte Sed Rate Today K52.9 - Noninfective gastroenteritis and colitis, unspecified ? OMI Comprehensive Panel Today K52.9 - Noninfective gastroenteritis and colitis, unspecified ? Calprotectin, Stool Today K52.9 - Noninfective gastroenteritis and colitis, unspecified ? Stool Lactoferrin/WBC Today K52.9 - Noninfective gastroenteritis and colitis, unspecified ? Celiac Disease Profile Today K52.9 - Noninfective gastroenteritis and colitis, unspecified ? Immunoglobulins G/A/M/E Today K52.9 - Noninfective gastroenteritis and colitis, unspecified ? RORY + Protein Elect, Serum Today K52.9 - Noninfective gastroenteritis and colitis, unspecified ? Miscellaneous Lab Procedure Today K52.9 - Noninfective gastroenteritis and colitis, unspecified ? Medications: New cholestyramine (with sugar) 4 gram ?? administer w/meal; avoid other meds within 1hr before or 4 hr after dose 4 grams? PO BID 378 grams 1RF ? ? I have examined the patient and the H&P has been reviewed. There are no clinical changes since date of exam.
[2022-02-15] MEDS: Lactated Ringers 1,000 ML 15 ML IV (08:35)
--- NOTE | 2022-02-15 08:45 | IMM_PTH ---
PATIENT: SOFIA HINDS LOC: EN U#:[id number] AGE/SX: 61/F ROOM: RE02/15/[address]: Dr. Cruz Zavala DO : 1960 BED: DIS: 02/15/2022 SPEC #: [id number] RECD: 02/15/22 15:17 STATUS: YG REQ #: [id number] JOHNY: 02/15/22 08:[address]: Cruz Zavala DEPT: IMMUNOHISTOCHEMISTRY RECD BY: Verónica Diaz ENTERED: 02/15/22 15:17 SP TYPE: IMMUNO OTHR DR: Dr. Shae Durham MD Tissues: A - Stomach, NOS Procedures: H Pylori (initial) PHYSICIAN & [place] [address] SPECIMEN INFORMATION: Tissue Source: A ? Gastric antrum Clinical Info: Chronic diarrhea Specimen Number: [id number] CPT code: 66792 METHODOLOGY: Deparaffinized sections of prefer/formalin-fixed tissue or PAP/DQ stained slides are incubated with monoclonal/polyclonal antibodies/oligonucleotide probes. Localization is made via biotin free immunoperoxidase method. Appropriate controls are performed and reacted as expected. Results on target cell population are indicated in the following table: RESULTS: ANTIBODY / CLONE RESULT Block A H Pylori (polyclonal) negative These tests were developed and their performance characteristics determined by [facility]. They may not have been cleared or approved by the U.S. Food and Drug Administration. The FDA has determined that such clearance or approval is not necessary. The above immunohistochemical/dualISH markers are ordered and reviewed by the Pathologist. INTERPRETATION: A. Gastric antrum, biopsy: Negative for Helicobacter pylori organisms. AM:sena 02/16/2022
--- NOTE | 2022-02-15 08:45 | EGD_PTH ---
PATIENT: SOFIA HINDS LOC: EN U#:[id number] AGE/SX: 61/F ROOM: RE02/15/[address]: Dr. Cruz Zavala DO : 1960 BED: DIS: 02/15/2022 SPEC #: [id number] RECD: 02/15/22 12:42 STATUS: YG REEricka #: [id number] JOHNY: 02/15/22 08:[address]: Cruz Zavala DEPT: SURGICAL PATHOLOGY RECD BY: Anny Brown ENTERED: 02/15/22 13:28 SP TYPE: EGD BIOPSY OT DR: Dr. Shae Durham MD Tissues: A - Gastric mucous membrane B - Duodenum, NOS C - Esophagus, NOS D - Ileum, NOS E - COLON BIOPSY Procedures: Trichrome (control) Special Stain Group II Surgery Specimen Level IV Alcian Blue/PAS (control) HEADER OPERATION: Colonoscopy, EGD (MAC), biopsy, electrohemostasis PRE-OP DIAGNOSIS: Chronic diarrhea TISSUE SUBMITTED: A ? Gastric antrum biopsy for histo and H. pylori, B ? Duodenum biopsy, C ? Distal esophagus biopsy, D ? Terminal ileum biopsy, E ? Random colonic biopsy MICROSCOPIC DIAGNOSIS A. Gastric antrum, biopsy: Chronic gastritis. See comment. B. Duodenum, biopsy: No pathologic change. C. Distal esophagus, biopsy: Gastroesophageal junction with chronic inflammation. Focal changes of reflux. No evidence of goblet cell metaplasia. See comment. D. Terminal ileum, biopsy: No pathologic change. E. Colon, random biopsy: Consistent with lymphocytic colitis. See comment. AM:sena 02/16/2022 COMMENT A. The results of immunohistochemistry for Helicobacter pylori will be reported separately ([id number]). C. Alcian blue/PAS stain with matched control supports the above diagnosis. E. Trichrome stain with matched control was used in the evaluation of this case. Case has been reviewed in consultation with Dr. Marie who concurs with the above diagnosis. IDC:RENATO MICROSCOPIC DESCRIPTION Slides are reviewed. GROSS DESCRIPTION A - Received in fixative is one container labeled with the patient's name and designated antrum biopsy. The specimen consists of multiple irregular fragments of light jj soft tissue that in aggregate measure 2 x 0.3 x 0.1 cm. The specimen is totally submitted in one cassette. B - Received in fixative is one container labeled with the patient's name and designated duodenum biopsy. The specimen consists of multiple irregular fragments of light jj soft tissue that in aggregate measure 1.5 x 0.2 x 0.1 cm. The specimen is totally submitted in one cassette. C - Received in fixative is one container labeled with the patient's name and designated distal esophagus biopsy. The specimen consists of multiple irregular fragments of light jj soft tissue that in aggregate measure 1 x 0.3 x 0.1 cm. The specimen is totally submitted in one cassette. D - Received in fixative is one container labeled with the patient's name and designated terminal ileum biopsy. The specimen consists of two irregular fragments of light jj soft tissue that in aggregate measure 0.6 x 0.5 x 0.1 cm. The specimen is totally submitted in one cassette. E - Received in fixative is one container labeled with the patient's name and designated random colon biopsy. The specimen consists of multiple irregular fragments of light jj soft tissue that in aggregate measure 2.5 x 0.7 x 0.1 cm. The specimen is totally submitted in one cassette. / SJ:rg 02/15/2022 TC:3 CPT: 40370 x5, 39766 x2
--- NOTE | 2022-02-15 09:06 | OP.EGD_ITS ---
Patient Name: Opal Adamson Procedure Date: 02/15/2022 8:27 AM Date of : 1960 Age: 61 Procedure: Upper GI endoscopy Indications: Dyspepsia, Suspected esophageal reflux, Failure to respond to medical treatment Providers: Cruz Zavala DO Referring MD: Shae Durham Medicines: Monitored Anesthesia Care Patient Profile: This is a 61 year old female. Refer to note in patient chart for documentation of history and physical. Patient has symptoms of chronic abdominal cramping, chronic epigastric abdominal pain, chronic dyspepsia and chronic nausea. Complications: No immediate complications. Procedure: Pre-Anesthesia Assessment: - Prior to the procedure, a History and Physical was performed, and patient medications and allergies were reviewed. The risks and benefits of the procedure and the sedation options and risks were discussed with the patient. All questions were answered and informed consent was obtained. Patient identification and proposed procedure were verified by the physician. Mental Status Examination: normal. Respiratory Examination: clear to auscultation. Prophylactic Antibiotics: The patient does not require prophylactic antibiotics. Prior Anticoagulants: The patient has taken no previous anticoagulant or antiplatelet agents. ASA Grade Assessment: II - A patient with mild systemic disease. After reviewing the risks and benefits, the patient was deemed in satisfactory condition to undergo the procedure. The anesthesia plan was to use monitored anesthesia care (MAC). Immediately prior to administration of medications, the patient was re-assessed for adequacy to receive sedatives. The heart rate, respiratory rate, oxygen saturations, blood pressure, adequacy of pulmonary ventilation, and response to care were monitored throughout the procedure. The physical status of the patient was re-assessed after the procedure. After obtaining informed consent, the endoscope was passed under direct vision. Throughout the procedure, the patient's blood pressure, pulse, and oxygen saturations were monitored continuously. The pediatric colonoscope was introduced through the mouth, and advanced to the second part of duodenum. The upper GI endoscopy was accomplished without difficulty. The patient tolerated the procedure well. Scope In: 8:38:18 AM Scope Out: 8:43:03 AM Total Procedure Duration Time 0 hours 4 minutes 45 seconds Findings: LA Grade A (one or more mucosal breaks less than 5 mm, not extending between tops of 2 mucosal folds) esophagitis with no bleeding was found 35 to 37 cm from the incisors. Biopsies were taken with a cold forceps for histology. Verification of patient identification for the specimen was done. Estimated blood loss was minimal. A small hiatal hernia was present. Patchy moderate inflammation characterized by erosions and erythema was found in the gastric body and at the pylorus. Biopsies were taken with a cold forceps for histology. Verification of patient identification for the specimen was done. Estimated blood loss was minimal. Patchy moderate inflammation characterized by erythema and granularity was found in the duodenal bulb and in the first portion of the duodenum. Impression: - LA Grade A reflux esophagitis. Biopsied. - Small hiatal hernia. - Gastritis. Biopsied. - Duodenitis. Recommendation: - Discharge patient to home. - Resume previous diet. - Continue present medications. - Await pathology results. - Repeat upper endoscopy for surveillance based on pathology results. Procedure Code(s): --- Professional --- 50213, Esophagogastroduodenoscopy, flexible, transoral; with biopsy, single or multiple CPT copyright 2017 [employer]. All rights reserved. The codes documented in this report are preliminary and upon animal humane agent supervisor review may be revised to meet current compliance requirements. Cruz Zavala DO 02/15/2022 9:06:00 AM This report has been signed electronically. Number of Addenda: 0 Note Initiated On: 02/15/2022 8:27 AM
--- NOTE | 2022-02-15 09:07 | OP.CCLET_ITS ---
02/15/2022 Shae Durham [address] [place] [address] Re : Upper GI endoscopy procedure for Opal Snow Dear Dr. Durham This procedure was performed on Tuesday, February 15, 2022. My impressions and recommendations are as follows: Impressions : - LA Grade A reflux esophagitis. Biopsied. - Small hiatal hernia. - Gastritis. Biopsied. - Duodenitis. Recommendations : - Discharge patient to home. - Resume previous diet. - Continue present medications. - Await pathology results. - Repeat upper endoscopy for surveillance based on pathology results. My findings are described in the full procedure note, which is enclosed. If I can be of further assistance, please feel free to contact me at . Sincerely, Cruz Zavala, 02/15/2022 9:06:00 AM This report has been signed electronically.
--- NOTE | 2022-02-15 09:13 | OP.CCLET_ITS ---
02/15/2022 Shae Durham [address] [place] [address] Re : Colonoscopy procedure for Opal Adamson Dear Dr. Durham This procedure was performed on Tuesday, February 15, 2022. My impressions and recommendations are as follows: Impressions : - Congested mucosa in the sigmoid colon, in the descending colon, in the transverse colon, at the hepatic flexure and in the ascending colon. Biopsied. - Diverticulosis in the sigmoid colon. - Two bleeding colonic angiodysplastic lesions. Treated with a heater probe. - The examined portion of the ileum was normal. Biopsied. Recommendations : - Discharge patient to home. - Resume previous diet. - Continue present medications. - Await pathology results. - Repeat colonoscopy in 5 years for surveillance. My findings are described in the full procedure note, which is enclosed. If I can be of further assistance, please feel free to contact me at . Sincerely, Cruz Zavala, 02/15/2022 9:12:35 AM This report has been signed electronically.
--- NOTE | 2022-02-15 09:13 | OP.COLON_ITS ---
Patient Name: Opal Adamson Procedure Date: 02/15/2022 8:43 AM Date of : 1960 Age: 61 Procedure: Colonoscopy Indications: Clinically significant diarrhea of unexplained origin Providers: Cruz Zavala DO Referring MD: Shae Durham Medicines: Monitored Anesthesia Care Patient Profile: This is a 61 year old female. Refer to note in patient chart for documentation of history and physical. Patient has symptoms of chronic abdominal cramping, chronic epigastric abdominal pain, chronic dyspepsia and chronic nausea. Last Colonoscopy: within the past 3 years. Complications: No immediate complications. Procedure: Pre-Anesthesia Assessment: - Prior to the procedure, a History and Physical was performed, and patient medications and allergies were reviewed. The risks and benefits of the procedure and the sedation options and risks were discussed with the patient. All questions were answered and informed consent was obtained. Patient identification and proposed procedure were verified by the physician. Mental Status Examination: normal. Respiratory Examination: clear to auscultation. Prophylactic Antibiotics: The patient does not require prophylactic antibiotics. Prior Anticoagulants: The patient has taken no previous anticoagulant or antiplatelet agents. ASA Grade Assessment: II - A patient with mild systemic disease. After reviewing the risks and benefits, the patient was deemed in satisfactory condition to undergo the procedure. The anesthesia plan was to use monitored anesthesia care (MAC). Immediately prior to administration of medications, the patient was re-assessed for adequacy to receive sedatives. The heart rate, respiratory rate, oxygen saturations, blood pressure, adequacy of pulmonary ventilation, and response to care were monitored throughout the procedure. The physical status of the patient was re-assessed after the procedure. After I obtained informed consent, the scope was passed under direct vision. Throughout the procedure, the patient's blood pressure, pulse, and oxygen saturations were monitored continuously. The pediatric colonoscope was introduced through the anus and advanced to the terminal ileum. The colonoscopy was performed without difficulty. The patient tolerated the procedure well. The quality of the bowel preparation was good. Scope In: 8:45:17 AM Scope Withdrawal Time 0 hours 11 minutes 7 seconds Scope Out: 8:59:13 AM Total Procedure Duration Time 0 hours 13 minutes 56 seconds Findings: The perianal and digital rectal examinations were normal. An area of mildly congested mucosa was found in the sigmoid colon, in the descending colon, in the transverse colon, at the hepatic flexure and in the ascending colon. Biopsies were taken with a cold forceps for histology. Verification of patient identification for the specimen was done. Estimated blood loss was minimal. A few small-mouthed diverticula were found in the sigmoid colon. Two medium-sized localized angiodysplastic lesions with bleeding were found in the sigmoid colon and in the cecum. Coagulation for hemostasis using heater probe was successful. Estimated blood loss was minimal. The terminal ileum appeared normal. Biopsies were taken with a cold forceps for histology. Verification of patient identification for the specimen was done. Estimated blood loss was minimal. Non-bleeding hemorrhoids were found [Method Found]. [Size/Grade]. Impression: - Congested mucosa in the sigmoid colon, in the descending colon, in the transverse colon, at the hepatic flexure and in the ascending colon. Biopsied. - Diverticulosis in the sigmoid colon. - Two bleeding colonic angiodysplastic lesions. Treated with a heater probe. - The examined portion of the ileum was normal. Biopsied. Recommendation: - Discharge patient to home. - Resume previous diet. - Continue present medications. - Await pathology results. - Repeat colonoscopy in 5 years for surveillance. Procedure Code(s): --- Professional --- 65267, 59, Colonoscopy, flexible; with control of bleeding, any method 70716, Colonoscopy, flexible; with biopsy, single or multiple CPT copyright 2017 [employer]. All rights reserved. The codes documented in this report are preliminary and upon floor framer review may be revised to meet current compliance requirements. Cruz Zavala DO 02/15/2022 9:12:35 AM This report has been signed electronically. Number of Addenda: 0 Note Initiated On: 02/15/2022 8:43 AM
== END 2022-02-15 10:20 | disposition home or self-care (01) ==
LOC: EN 07:42 → AC 07:43
PROVIDERS: PCP Internal Medicine Infectious Disease; Referring Provider Internal Medicine Infectious Disease; Visit Provider Internal Medicine Gastroenterology
PROC: 0DJD8ZZ Inspection of Lower Intestinal Tract, Via Natural or Artificial Opening Endoscopic (ICD-10-PCS; CPT 45378; principal; 2022-02-15 08:40)
DX: J44.9 Chronic obstructive pulmonary disease, unspecified (principal); I48.0 Paroxysmal atrial fibrillation; K44.9 Diaphragmatic hernia without obstruction or gangrene; K29.80 Duodenitis without bleeding; K29.50 Unspecified chronic gastritis without bleeding; K57.30 Diverticulosis of large intestine without perforation or abscess without bleeding; K64.9 Unspecified hemorrhoids; K21.00 Gastro-esophageal reflux disease with esophagitis, without bleeding; K52.832 Lymphocytic colitis; I25.10 Atherosclerotic heart disease of native coronary artery without angina pectoris; F32.A Depression, unspecified; I10 Essential (primary) hypertension; E03.9 Hypothyroidism, unspecified; Z86.718 Personal history of other venous thrombosis and embolism; Z79.899 Other long term (current) drug therapy; Z86.010 Personal history of colon polyps; Z86.711 Personal history of pulmonary embolism; Z87.891 Personal history of nicotine dependence; Z79.01 Long term (current) use of 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; K31.89 Other diseases of stomach and duodenum
CPT/HCPCS: 45380; 45382; 43239; 88305; 88313; 88342; J7120; J2405

== ENCOUNTER → 2022-08-28 | Outpatient (CLI) | payer BC, SELFPAY ==
[2022-08-29 14:09] LABS: Albumin 3.6 g/dL (2.9-4.4); Alpha-1-Globulins 0.2 g/dL (0.0-0.4); Alpha-2-Globulins 0.8 g/dL (0.4-1.0); Gamma Globulin 0.9 g/dL (0.4-1.8); Immunoglobulin A 395 mg/dL (87-352); Immunoglobulin G 878 mg/dL (586-1602); Immunoglobulin M 51 mg/dL (26-217); PROEL- TOTAL PROTEIN 6.7 g/dL (6.0-8.5)
== END | disposition home or self-care (01) ==
LOC: LAB 08:18
PROVIDERS: PCP Internal Medicine Infectious Disease; Referring Provider Nurse Practitioner Adult Health; Visit Provider Nurse Practitioner Adult Health
DX: R77.8 Other specified abnormalities of plasma proteins (principal)
CPT/HCPCS: 36415; 82784; 84165; 86334

== ENCOUNTER 2023-04-04 08:37 | Day surgery (SDC) | payer BC, SELFPAY ==
--- NOTE | 2023-03-27 07:31 | EKG12_ITS ---
Test Reason : PRE OP Blood Pressure : / mmHG Vent. Rate : 088 BPM Atrial Rate : 088 BPM P-R Int : 164 ms QRS Dur : 070 ms QT Int : 352 ms P-R-T Axes : 080 074 088 degrees QTc Int : 425 ms Normal sinus rhythm Nonspecific ST abnormality Abnormal ECG Confirmed by TARUN GIVENS, RICARDO ([id number]), clinical editor VERENA FRAGA ([id number]) on 03/27/2023 1:04:15 PM Referred By: Freedom Luciano Confirmed By:RICARDO MCNEIL MD
[2023-03-27 08:35] LABS: Hemoglobin 13.8 g/dL (12.0-15.0); Mean Corp Hgb Conc 32.9 g/dL (32-36); Mean Corpuscular Volume 88.2 fL (81-99); Mean Platelet Vol. 9.1 fl (6.2-12.0); Platelet Count 236 K/mm3 (150-450); RBC Distribution Width CV 13.1 % (11.6-14.6); RBC Distribution Width SD 42.5 fl (35.1-43.9); Red Blood Count 4.76 M/mm3 (4.2-5.4); White Blood Count 11.5 K/mm3 (4.4-11.0)
[2023-03-27 09:10] LABS: Anion Gap 3 (5-15); BUN 36 mg/dL (7-18); BUN/Creat Ratio 30.8 RATIO (10-20); Calcium,Total 9.4 mg/dL (8.5-10.1); Chloride 105 mmol/L (98-107); Creatinine, Serum 1.17 mg/dL (0.55-1.02); EST Glomerular Filtration Rate 50 mL/min (>60); Est Glom Filt Rate - Afr Amer 60 mL/min (>60); Glucose 159 mg/dL (74-106); Potassium 4.4 mmol/L (3.5-5.1); Sodium Level 137 mmol/L (136-145); Thyroid Stim Hormone (TSH) 0.83 uIU/mL (0.358-3.74)
[2023-04-04] VITALS (22 sets, daily range): BP systolic 96–188; BP diastolic 64–151; PULSE 85–123; RESP 16–19; TEMP 36.4–37.2; O2SAT 88–95; BMI 29.5
--- OUTSIDE RECORDS SUMMARY | 2023-04-04 09:09 | XMS RPT_ITS | CCD ---
Author Name Unknown Address [address] [facility] [place] [address] Organization [facility] Care Team Providers Care Pegger Name Role Phone BERT WARD Attending Unavailable IMCA Referring Unavailable MOOK MCCLAIN Primary Care Unavailable BERT WARD Attending Unavailable IMCA Referring Unavailable MOOK MCCLAIN Primary Care Unavailable BERT WARD Attending Unavailable MOOK MCCLAIN Referring Unavailable MOOK MCCLAIN Primary Care Unavailable BERT WARD Attending Unavailable MOOK MCCLAIN Referring Unavailable MOOK MCCLAIN Primary Care Unavailable Bert Ward MD Unavailable Anastasia Mendezsser Primary Care Provider [phone] Syd Ramirez Unavailable [phone] Bert Ward MD Unavailable Chuyita Mendez Primary Care Provider Syd Ramirez Unavailable [phone] Bert Ward MD Unavailable Chuyita Mendez MD Primary Care Provider Syd Ramirez Unavailable Chuyita Mendez MD Primary Care Provider DHARA DIAZ Attending Unavailable PRIETO THACKER Referring Unavailable OMRAN, YASSER Primary Care Unavailable CHELSIE BELLE Attending Unavailable OMRAN, YASSER Primary Care Unavailable PRIETO THACKER Attending Unavailable OMRAN, YASSER Primary Care Unavailable PRIETO THACKER Referring Unavailable OMRAN, YASSER Primary Care Unavailable PRIETO THACKER Referring Unavailable OMRAN, YASSER Primary Care Unavailable OMRAN, YASSER MD Primary Care Unavailable CHUYITA MENDEZ MD Consulting Unavailable CHUYITA MENDEZ MD Attending Unavailable CHUYITA MENDEZ MD Admitting Unavailable PROVIDER, UNKNOWN Consulting Unavailable PROVIDER, UNKNOWN Consulting Unavailable PROVIDER, UNKNOWN Consulting Unavailable CHUYITA MENDEZ MD Primary Care Unavailable CHUYITA MENDEZ MD Consulting Unavailable CHUYITA MENDEZ MD Attending Unavailable CHUYITA MENDEZ MD Admitting Unavailable PROVIDER, UNKNOWN Consulting Unavailable PROVIDER, UNKNOWN Consulting Unavailable PROVIDER, UNKNOWN Consulting Unavailable CHUYITA MENDEZ MD Consulting Unavailable CHUYITA MENDEZ MD Referring Unavailable JAIME MCKENNA MD Primary Care Unavailable JAIME MCKENNA MD Attending Unavailable JAIME MCKENNA MD Admitting Unavailable PROVIDER, UNKNOWN Consulting Unavailable PROVIDER, UNKNOWN Consulting Unavailable PROVIDER, UNKNOWN Consulting Unavailable VIKTOR SOMMER MD Primary Care Unavailable VIKTOR SOMMER MD Attending Unavailable CHUYITA MENDEZ MD Consulting Unavailable VIKTOR SOMMER MD Admitting Unavailable PROVIDER, UNKNOWN Consulting Unavailable PROVIDER, UNKNOWN Consulting Unavailable PROVIDER, UNKNOWN Consulting Unavailable VIKTOR SOMMER MD Primary Care Unavailable VIKTOR SOMMER MD Attending Unavailable VIKTOR SOMMER MD Admitting Unavailable CHUYITA MENDEZ MD Consulting Unavailable PROVIDER, UNKNOWN Consulting Unavailable PROVIDER, UNKNOWN Consulting Unavailable PROVIDER, UNKNOWN Consulting Unavailable MUKESH CHAMBERS Attending Unavailable CHUYITA MENDEZ MD Consulting Unavailable MUKESH CHAMBERS Admitting Unavailable MUKESH CHAMBERS Primary Care Unavailable PROVIDER, UNKNOWN Consulting Unavailable PROVIDER, UNKNOWN Consulting Unavailable PROVIDER, UNKNOWN Consulting Unavailable Allergies Allergy Classification Reported Allergen(s) Allergy Type Date of Onset Reaction(s) Facility (11 sources) Metoprolol; Translations: [METOPROLOL] Drug Allergy 7 Intolerance [facility] (11 sources) predniSONE; Translations: [PREDNISONE] Drug Allergy 7 Mental Status Change [facility] Medications Current Medications Medication Drug Class(es) Dates Sig (Normalized) Sig (Original) baclofen 10 mg oral tablet (1 source) gamma-Aminobutyri c Acid-ergic Agonist Start: 03-08-2016 End: 07-21-2021 take 1 tablet by mouth every twelve hours as needed baclofen (LIORESAL) 10 mg tablet Take 1 tablet by mouth twice daily as needed. 0 03/08/2016 07/21/2021 Discontinued Completed/Discontinued Medications Medication Drug Class(es) Dates Sig (Normalized) Sig (Original) acetaminophen 325 mg / oxyCODONE hydrochloride 5 mg oral tablet (9 sources) Opioid Agonist Start: 04-12-2016 take 1 tablet by mouth every four hours as needed oxyCODONE-acetami nophen (PERCOCET) 5-325 mg tablet Take 1 tablet by mouth every 4 hours as needed for Pain. 80 tablet 0 04/12/2016 Active Problems Active Problems Problem Classification Problem Date Documented Da te Episodic/Chronic Aortic and peripheral arterial embolism or thrombosis (9 sources) Lower limb arterial embolus; Translations: [Embolism and thrombosis of arteries of the lower extremities] Onset: 04-28-2016 04-28-2016 Chronic Cardiac dysrhythmias (2 sources) Atrial paroxysmal tachycardia; Translations: [Supraventricular tachycardia] Onset: 04-14-2022 Chronic Chronic obstructive pulmonary disease and bronchiectasis (9 sources) Chronic obstructive lung disease; Translations: [Chronic obstructive pulmonary disease, unspecified] 05-31-2016 Chronic Coronary atherosclerosis and other heart disease (11 sources) Coronary arteriosclerosis; Translations: [Atherosclerotic heart disease of [place] coronary artery without angina pectoris] Onset: 10-06-2016 11-03-2016 Chronic Diabetes mellitus without complication (1 source) Hyperglycemia, unspecified; Translations: [Hyperglycemia, unspecified] Onset: 10-30-2022 Episodic Disorders of lipid metabolism (11 sources) Mixed hyperlipidemia; Translations: [Mixed hyperlipidemia] Onset: 05-31-2016 05-31-2016 Chronic Nonspecific chest pain (9 sources) Chest pain; Translations: [Chest pain, unspecified] 05-31-2016 Episodic Other acquired deformities (1 source) Scoliosis, unspecified; Translations: [Scoliosis, unspecified scoliosis type, unspecified spinal region] Onset: 08-11-2021 Chronic Other aftercare (1 source) Long-term current use of anticoagulant; Translations: [MCFP (current) use of 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] Episodic Other aftercare (1 source) 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; Translations: [Chronic anticoagulation] Onset: 04-14-2022 Episodic Peripheral and visceral atherosclerosis (2 sources) Peripheral vascular disease; Translations: [Peripheral vascular disease, unspecified] Onset: 04-14-2022 Chronic Spondylosis; intervertebral disc disorders; other back problems (2 sources) Lumbar spondylosis; Translations: [Spondylosis without myelopathy or radiculopathy, lumbar region] Onset: 07-21-2021 Chronic Substance-related disorders (9 sources) Tobacco dependence in remission; Translations: [Nicotine dependence, unspecified, in remission] Onset: 05-31-2016 05-31-2016 Chronic Thyroid disorders (1 source) Hypothyroidism, unspecified; Translations: [Hypothyroidism, unspecified] Onset: 10-30-2022 Chronic Unclassified (2 sources) Coronary artery disease involving [place] heart, angina presence unspecified, unspecified vessel or lesion type Onset: 11-03-2016 Past or Other Problems Problem Classification Problem Date Documented Date Episodic/Chronic Other connective tissue disease (9 sources) Pain in left lower limb; Translations: [Pain in left leg] Onset: 04-28-2016 04-28-2016 Episodic Other screening for suspected conditions (not mental disorders or infectious disease) (3 sources) Radiology result abnormal; Translations: [Abnormal findings on diagnostic imaging of other parts of musculoskeletal system] Onset: 07-21-2021 Episodic Pulmonary heart disease (9 sources) Pulmonary embolism; Translations: [Other pulmonary embolism without acute cor pulmonale] Onset: 04-28-2016 04-28-2016 Episodic Spondylosis; intervertebral disc disorders; other back problems (18 sources) Acute back pain with sciatica; Translations: [Lumbago with sciatica, left side] Onset: 08-11-2021 Episodic Results Test Name Value Interpretation Reference Range Facil ity Vital Signs Date Time Vital Sign Value Performing Clinician Deshawn gonzales 04-14-2022 08:38-0500 Body height 162.6 cm Chelsie Belle APRN.CNP Work Phone: [facility] 04-14-2022 08:38-0500 Body weight 78.02 kg Chelsie Belle APRN.CNP Work Phone: [facility] 04-14-2022 08:38-0500 Diastolic blood pressure 72 mm[Hg] Chelsie Belle APRN.CNP Work Phone: [facility] 04-14-2022 08:38-0500 Heart rate 87 /min Chelsie Belle APRN.CNP Work Phone: [facility] 04-14-2022 08:38-0500 SaO2% (BldA) [Mass fraction] 96 % Chelsie Blele [employer] SUPERVISOR.[employer] CLEANING SUPERVISOR Work Phone: [facility] 04-14-2022 08:38-0500 Systolic blood pressure 140 mm[Hg] Chelsie Belle [employer] SUPERVISOR.[employer] CLEANING SUPERVISOR Work Phone: [facility] 08-11-2021 11:11-0400 Body height 162.6 cm Dhara Curtis MD Work Phone: [facility] 08-11-2021 11:11-0400 Body weight 76.5 kg Dhara Curtis MD Work Phone: [facility] 08-11-2021 11:11-0400 Diastolic blood pressure 84 mm[Hg] Dhara Curtis MD Work Phone: [facility] 08-11-2021 11:11-0400 Heart rate 76 /min Dhara Curtis MD Work Phone: [facility] 08-11-2021 11:11-0400 SaO2% (BldA) [Mass fraction] 97 % Dhara Curtis MD Work Phone: [facility] 08-11-2021 11:11-0400 Systolic blood pressure 138 mm[Hg] Dhara Curtis MD Work Phone: [facility] 07-21-2021 08:58-0400 Body height 162.6 cm Prieto Thacker PA-C Work Phone: [facility] 07-21-2021 08:58-0400 Body weight 76.2 kg Prieto Thacker PA-C Work Phone: [facility] 07-21-2021 08:58-0400 Diastolic blood pressure 81 mm[Hg] Prieto Thacker PA-C Work Phone: [facility] 07-21-2021 08:58-0400 Heart rate 88 /min Prieto Thacker PA-C Work Phone: [facility] 07-21-2021 08:58-0400 Respiratory rate 16 /min Prieto Thacker PA-C Work Phone: [facility] 07-21-2021 08:58-0400 SaO2% (BldA) [Mass fraction] 98 % Prieto Thacker PA-C Work Phone: [facility] 07-21-2021 08:58-0400 Systolic blood pressure 132 mm[Hg] Prieto Thacker PA-C Work Phone: [facility] Encounters Encounter Date Encounter Type Care Provider Facility Start: 10-30-2022 End: 10-30-2022 ambulatory CHUYITA GIVENS [facility] Start: 09-29-2022 End: 09-29-2022 ambulatory VIKTOR GIVENS [facility] Start: 07-12-2022 End: 07-12-2022 Emergency department patient visit CHYUITA GIVENS [facility] Start: 07-11-2022 End: 07-11-2022 ambulatory VIKTOR GIVENS [facility] Start: 04-18-2022 Patient encounter procedure [facility] Provider [facility] Department Start: 04-14-2022 End: 04-14-2022 ambulatory CHELSIE COLPO Facility:[facility] Start: 04-14-2022 End: 04-14-2022 Patient encounter procedure Chelsie Colpo [employer] SUPERVISOR.[employer] CLEANING SUPERVISOR Work Phone: [facility] Procedures Date Procedure Procedure Detail Performing Clinician Start: 10-30-2022 Urinalysis CHUYITA SUE Plan of Treatment Date Care Activity Detail Author Start: 08-07-2024 LIPID SCREEN LIPID SCREEN [facility] Start: 06-08-2024 DIABETES SCREEN DIABETES SCREEN [facility] Start: 04-14-2022 End: 06-14-2022 CBC W Auto Differential panel - Blood CBC + DIFF Lab Routine Chronic anticoagulation Expected: 04/14/2022, Expires: 06/14/2022 [facility] Work Phone: Payers Date Payer Category Payer Unknown [employer] P[employer] [id number] 2021-Present [phone] [address] [place] [address] PPO [id number] 2021 Unknown [employer] PPO [id number] 2021-Present [phone] [address] [place] [address] PPO [id number] 2021 Unknown [id number] 1960 Unknown [id number] 1960 Unknown [id number] 1960 Unknown [id number] 1960 Unknown [id number] 1960 Unknown [id number] 1960 Unknown [id number] 1960 Unknown [id number] 1960 Unknown [id number] 1960 Unknown [id number] 1960 Unknown [id number] Unknown [id number] Social History Date Type Detail Facility Start: 05-31-2016 End: 04-14-2022 Tobacco smoking status NHIS Ex-smoker [facility] End: 04-02-2016 History of tobacco use Current smoker [facility] End: 04-02-2016 History of tobacco use Cigarette Smoker [facility] Start: 05-31-2016 End: 04-14-2022 Tobacco use and exposure Smokeless tobacco non-user [facility] Start: 07-21-2021 End: 04-14-2022 Alcohol intake Current drinker of alcohol (finding) [facility] Start: 04-28-2016 History SDOH Alcohol Comment social [facility] Start: 1960 Sex Assigned At Not on file C [facility] Start: 07-11-2021 End: 08-11-2021 Exposure to SARS-CoV-2 (event) Not sure [facility] Clinical Notes 07-21-2021 to 04-14-2022 Patient InstructionsErnestine Shanks, LILIANE - 04/14/2022 8:36 AM ESTScamilla Belle APRN.CNP - 04/14/2022 8:30 AM ESTTelephone Encounter - Calli Cole, LILIANE - 03/07/2022 11:40 AM EST Note Date & Type Note Facility 04-14-2022 Note HNO ID: [id number] Author: Chelsie Belle APRN.CNP Service: ? Author Type: Nurse Practitioner Type: Progress Notes Filed: 04/14/2022 9:30 AM Note Text: Chief Complaint: Patient presents with: Cardiology Follow Up : Mixed hyperlipidemia History of Present Illness: Sofia Hinds is a 61 year old female with history of paroxysmal atrial tachycardia -found on the 30-day monitor, after having findings of thrombus requiring embolectomy, and right lung PE. History of PVD, moderate nonobstructive CAD, history of hypertension, hyperlipidemia, COPD and previous tobacco abuse. As you recall, she presented in 2016 with acute left foot pain found to have arterial thrombus, status post thrombectomy of the left common iliac artery. She has previous history of right upper lobe PE at the same time as well. She had heart cath during that admission with findings of moderate nonobstructive CAD, and subsequent thrombectomy. Patient is known to Dr. Ward who has just retired, she was seen in the office in February 2021 today she is seen for follow-up appointment. She seems to be doing fairly well, currently she denies complaints of chest pain, palpitations, orthopnea, or PND. She has had no dizziness, no lightheadedness and no near, jean-pierre syncope. She did have a fall about a week ago she was carrying a load of laundry up the stairs Over a baby gate to keep her dog away from her cat who resides upstairs, and fell, she did hit the back of her head she did not seek emergency evaluation. She seems stable today, I did caution her if she would fall again and hit her head likely should should be evaluated given her use of Xarelto. 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 Recently she has had some diarrhea issues that have been chronic and persistent despite use of Previous Questran she had EGD and colonoscopy recently, EGD revealed chronic gastritis and small hiatal hernia, colonoscopy apparently showed diverticulosis, and 2 bleeding angiodysplastic lesions requiring heater probe. She has been diagnosed with lymphocytic colitis. She is currently on budesonide. Her diarrhea has improved, she denies any bleeding issues in her gut.. PAST MEDICAL HISTORY Diagnosis Date CAD (coronary artery disease) 10/06/2016 mild to moderate noted on heart cath done 10-06-2016 Chest pain COPD (chronic obstructive pulmonary disease) (HCC) Embolism (HCC) 03/2016 LT LOWER EXT Hyperlipidemia Hypothyroidism Ulcerative colitis (HCC) PAST SURGICAL HISTORY Procedure Laterality Date BACK SURGERY HX CARDIAC CATH 10/06/2016 Right and Left CHOLECYSTECTOMY ECHO TRANSESOPHAG CONGEN PROBE [facility] IMGNG IANDR 04/10/2016 EVENT MONITOR 05/17/2016 30 day LUMBAR SPINE FUSION COMBINED L4-S1 Dr. Proctor 2013 NUCLEAR STRESS LEXISCAN (CARD) 06/20/2016 PAST SURGICAL HISTORY OF 04/07/2016 LEFT LOWER EXT EMBOLECTOMY FAMILY HISTORY Problem Relation Age of Onset Stroke Father Heart Attack Maternal Grandmother Social History Tobacco Use Smoking status: Former Years: 40.00 Types: Cigarettes Quit date: 04/02/2016 Years since quittin.0 Smokeless tobacco: Never Vaping Use Vaping Use: Never used Substance Use Topics Alcohol use: Yes Comment: social Drug use: No Current Outpatient Medications Medication Sig budesonide, enteric coated (ENTOCORT EC) 3 mg 24 hr capsule TAKE 3 CAPSULES BY MOUTH ONCE DAILY IN THE MORNING tiZANidine (ZANAFLEX) 4 mg tablet TAKE 1 TABLET BY MOUTH UP TO THREE TIMES DAILY NEEDED FOR SPASM traZODone (DESYREL) 50 mg tablet Take 50 mg by mouth daily at bedtime. lisinopril (ZESTRIL, PRINIVIL) 10 mg tablet Take 1 tablet by mouth once daily. levothyroxine (SYNTHROID) 88 mcg tablet 1 tablet by mouth daily celecoxib (CELEBREX) 200 mg capsule Take 200 mg by mouth twice daily. ipratropium-albuterol (DUONEB) 0.5 mg-3 mg(2.5 mg base)/3 mL nebu three times daily. As needed. albuterol HFA (PROVENTIL HFA, VENTOLIN HFA) 90 mcg/actuation inhaler Inhale 2 Puffs as instructed every 4 hours as needed. gabapentin (NEURONTIN) 400 mg capsule Take 800 mg by mouth three times daily. sertraline (ZOLOFT) 100 mg tablet Take 1 tablet by mouth once daily. oxyCODONE-acetaminophen (PERCOCET) 5-325 mg tablet Take 1 tablet by mouth every 4 hours as needed for Pain. rivaroxaban (XARELTO) 20 mg tablet Take 1 tablet by mouth once daily. atorvastatin (LIPITOR) 10 mg tablet TAKE 1 TABLET BY MOUTH ONCE DAILY. NEED FOLLOW UP APPOINTMENT WITH iv contrast (will be provided with radiology test) MRI LSP Inject, intravenously, once for 1 dose. No IV access, insert saline lock prior to the beginning of sedation, infusion, injection of imaging exam. Discontinue saline lock post exam. If Pt. has a central line or IVAD, may access for administration according to line specific nursing protocol. Once exam is complete flush line and de-access according to (more content not included)... [facility] 04-14-2022 Instructions Chelsie Belle APRN.CAR CLEANING SUPERVISOR - 04/14/2022 8:58 AM EST Images from the original note were not included. Coronary Artery Disease View image View image What is coronary artery disease? Coronary artery disease (CAD) is a type of heart disease caused by a problem with the blood vessels that bring blood and oxygen to the heart muscle. These arteries are called the coronary arteries. This disease increases your risk for heart attack and sudden . What is the cause? Fatty deposits called plaque may build up in blood vessels and make them narrower. The narrowing decreases the amount of blood flow to the heart. Plaque also increases the chance that blood clots may form and block a blood vessel, which can cause a heart attack or stroke. Your risk for CAD may be higher if you: Have a family history of coronary artery disease at an early age Smoke Have high blood pressure Have diabetes Are very overweight Don t get enough exercise Have high levels of blood fat--for example, high cholesterol What are the symptoms? Coronary artery disease may not cause any symptoms. When there are symptoms, the most common one is chest pain, called angina. You may feel: A feeling of tightness or heaviness in the chest Squeezing, pressure, or burning in the chest Angina symptoms usually: Last for 5 minutes or less and go away with rest or medicine such as nitroglycerin. Happen when the heart has to work harder, such as after a heavy meal or during physical activity or emotional stress. Angina may also happen when you are resting. Call 911 for emergency help right away if you have symptoms of a heart attack. The most common symptoms include: Chest pain or pressure, squeezing, or fullness in the center of your chest that lasts more than a few minutes, or goes away and comes back (may feel like indigestion or heartburn) Pain or discomfort in one or both arms or shoulders, or in your back, neck, jaw, or stomach Trouble breathing Breaking out in a cold sweat for no known reason If your provider has prescribed nitroglycerin for angina, pain that does not go away after taking your nitroglycerin as directed Along with these symptoms, you may also feel very tired, faint, or be sick to your stomach. How is it diagnosed? Your healthcare provider will ask about your symptoms and medical history and examine you. Tests may include: Blood tests An ECG (also called an EKG or electrocardiogram), which measures and records your heartbeat. An exercise treadmill test to see how your heart works when you exercise An echocardiogram, which uses sound waves (ultrasound) to see how well your heart is pumping Angiogram, which is a series of X-rays taken after your healthcare provider injects a special dye into your blood vessels to show the fontana of the arteries and any blockage CT scan, which uses X-rays and a computer to show detailed pictures of the arteries How is it treated? Your treatment depends on many factors, such as your age, heart muscle function, and other health problems. At first, treatment may include diet changes and an exercise program. Your healthcare provider may prescribe medicine. Many people need to take 2 or more medicines to help prevent a heart attack or stroke. It may take several weeks or months to find the best treatment for you. Your provider may also prescribe other types of medicine to lower blood pressure, help stop chest pain, control an irregular heartbeat, help prevent blood clots, or lower blood fat (cholesterol). Your provider may recommend a daily low dose of aspirin. Taking an aspirin every day may lower your risk for a heart attack or stroke. Not everyone should take aspirin. Daily use of aspirin can cause problems, such as stomach irritation, bleeding, and hearing loss. Ask your healthcare provider if you should take aspirin and if so, how much to take. If your coronary arteries are badly blocked, you may need balloon angioplasty or bypass surgery. A balloon angioplasty opens blocked blood vessels and improves blood flow. A metal mesh device called a stent is usually left in the blood vessels to help keep them open. Bypass surgery uses blood vessels from other parts of the body, or manmade material, to make a new path around a blocked area. How can I take care of myself? If you have coronary artery disease, there are things you can do to take care of yourself now and prevent problems in the future. Follow your provider's advice about activity, exercise, medicine, and follow-up visits. Lower the amount of salt, saturated and trans fats, and cholesterol in your diet. Work with your healthcare provider to control diabetes, blood pressure, or other health problems you may have. Try to keep a healthy weight. If you are overweight, talk to your provider about ways to lose weight. If you smoke, try to quit. Talk to your healthcare provider about ways to quit smoking. Ask your healthcare provider: How and when you will hear your test results How long it will take to recover What activities you should avoid and when you can return to your normal activities How to take care of yourself at home What symptoms or problems you should watch for and what to do if you have them Make sure you know when you should come back for a checkup. How can I help prevent coronary artery disease? You can prevent this disease with a heart-healthy lifestyle: Eat a healthy diet and keep a healthy weight. Stay fit with the right kind of exercise for you. Find ways to manage stress. Don t smoke. Limit your use of alcohol. Talk to your healthcare provider about your personal and family medical history and your lifestyle habits. This will help you know what you can do to lower your risk for coronary artery disease. If you have a strong family history of CAD, a healthy lifestyle may slow the start of the disease and maybe even keep you from getting it. However, you must have regular checkups to keep a close watch on the health of your heart. Developed by [employer]. Published by [employer]. Copyright 2014 [employer] and/or one of its subsidiaries. All rights reserved. documented in this encounter [facility] 04-14-2022 Nurse Note Patient denies any cardiac complains or symptoms. Ernestine Shanks LPN documented in this encounter [facility] 04-14-2022 History of Presen t illness Narrative Chief Complaint: Patient presents with: Cardiology Follow Up : Mixed hyperlipidemia History of Present Illness: Sofia Hinds is a 61 year old female with history of paroxysmal atrial tachycardia -found on the 30-day monitor, after having findings of thrombus requiring embolectomy, and right lung PE. History of PVD, moderate nonobstructive CAD, history of hypertension, hyperlipidemia, COPD and previous tobacco abuse. As you recall, she presented in 2017 with acute left foot pain found to have arterial thrombus, status post thrombectomy of the left common iliac artery. She has previous history of right upper lobe PE at the same time as well. She had heart cath during that admission with findings of moderate nonobstructive CAD, and subsequent thrombectomy. Patient is known to Dr. Ward who has just retired, she was seen in the office in February 2021 today she is seen for follow-up appointment. She seems to be doing fairly well, currently she denies complaints of chest pain, palpitations, orthopnea, or PND. She has had no dizziness, no lightheadedness and no near, jean-pierre syncope. She did have a fall about a week ago she was carrying a load of laundry up the stairs Over a baby gate to keep her dog away from her cat who resides upstairs, and fell, she did hit the back of her head she did not seek emergency evaluation. She seems stable today, I did caution her if she would fall again and hit her head likely should should be evaluated given her use of Xarelto. 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 Recently she has had some diarrhea issues that have been chronic and persistent despite use of Previous Questran she had EGD and colonoscopy recently, EGD revealed chronic gastritis and small hiatal hernia, colonoscopy apparently showed diverticulosis, and 2 bleeding angiodysplastic lesions requiring heater probe. She has been diagnosed with lymphocytic colitis. She is currently on budesonide. Her diarrhea has improved, she denies any bleeding issues in her gut.. PAST MEDICAL HISTORY Diagnosis Date CAD (coronary artery disease) 10/06/2016 mild to moderate noted on heart cath done 10-06-2016 Chest pain COPD (chronic obstructive pulmonary disease) (HCC) Embolism (HCC) 03/2016 LT LOWER EXT Hyperlipidemia Hypothyroidism Ulcerative colitis (HCC) PAST SURGICAL HISTORY Procedure Laterality Date BACK SURGERY HX CARDIAC CATH 10/06/2016 Right and Left CHOLECYSTECTOMY ECHO TRANSESOPHAG CONGEN PROBE [facility] IMGNG I&R 04/10/2016 EVENT MONITOR 05/17/2016 30 day LUMBAR SPINE FUSION COMBINED L4-S1 Dr. Proctor 2013 NUCLEAR STRESS LEXISCAN (CARD) 06/20/2016 PAST SURGICAL HISTORY OF 04/07/2016 LEFT LOWER EXT EMBOLECTOMY FAMILY HISTORY Problem Relation Age of Onset Stroke Father Heart Attack Maternal Grandmother Social History Tobacco Use Smoking status: Former Years: 40.00 Types: Cigarettes Quit date: 04/02/2016 Years since quittin.0 Smokeless tobacco: Never Vaping Use Vaping Use: Never used Substance Use Topics Alcohol use: Yes Comment: social Drug use: No Current Outpatient Medications Medication Sig budesonide, enteric coated (ENTOCORT EC) 3 mg 24 hr capsule TAKE 3 CAPSULES BY MOUTH ONCE DAILY IN THE MORNING tiZANidine (ZANAFLEX) 4 mg tablet TAKE 1 TABLET BY MOUTH UP TO THREE TIMES DAILY NEEDED FOR SPASM traZODone (DESYREL) 50 mg tablet Take 50 mg by mouth daily at bedtime. lisinopril (ZESTRIL, PRINIVIL) 10 mg tablet Take 1 tablet by mouth once daily. levothyroxine (SYNTHROID) 88 mcg tablet 1 tablet by mouth daily celecoxib (CELEBREX) 200 mg capsule Take 200 mg by mouth twice daily. ipratropium-albuterol (DUONEB) 0.5 mg-3 mg(2.5 mg base)/3 mL nebu three times daily. As needed. albuterol HFA (PROVENTIL HFA, VENTOLIN HFA) 90 mcg/actuation inhaler Inhale 2 Puffs as instructed every 4 hours as needed. gabapentin (NEURONTIN) 400 mg capsule Take 800 mg by mouth three times daily. sertraline (ZOLOFT) 100 mg tablet Take 1 tablet by mouth once daily. oxyCODONE-acetaminophen (PERCOCET) 5-325 mg tablet Take 1 tablet by mouth every 4 hours as needed for Pain. rivaroxaban (XARELTO) 20 mg tablet Take 1 tablet by mouth once daily. atorvastatin (LIPITOR) 10 mg tablet TAKE 1 TABLET BY MOUTH ONCE DAILY. NEED FOLLOW UP APPOINTMENT WITH iv contrast (will be provided with radiology test) MRI LSP Inject, intravenously, once for 1 dose. No IV access, insert saline lock prior to the beginning of sedation, infusion, injection of imaging exam. Discontinue saline lock post exam. If Pt. has a central line or IVAD, may access for administration according to line specific nursing protocol. Once exam is complete flush line and de-access according to line specific nursing protocol in the MR contrast administration guidelines link. No current facility-administered medications for this visit. ALLERGIES Allergen Reactions Metoprolol Intolerance Significant joint pain Prednisone Mental Status Change Review of Systems: Review of Systems Constitutional: Positive for malaise/fatigue and weight loss (up and down). Negative for chills, diaphoresis and fever. HENT: Negative for congestion, ear pain, hearing loss, nosebleeds, sore throat and tinnitus. Eyes: Negative for blurred vision, double vision, photophobia and redness. Respiratory: Negative for cough, shortness of breath, wheezing and stridor. Cardiovascular: Negative for chest pain, palpitations, orthopnea, claudication, leg swelling and PND. Gastrointestinal: Positive for diarrhea (Better). Negative for abdominal pain, blood in stool, constipation, heartburn, melena, nausea and vomiting. Genitourinary: Negative for dysuria, flank pain, frequency, hematuria and urgency. Musculoskeletal: Positive for falls (fell recently/tripped over a baby gate going up the stairs). Negative for back pain, joint pain, myalgias and neck pain. Skin: Negative for rash. Neurological: Negative for dizziness, tingling, tremors, sensory change, speech change, focal weakness, seizures, loss of consciousness, weakness and headaches. Endo/Heme/Allergies: Negative for environmental allergies and polydipsia. Does not bruise/bleed easily. Psychiatric/Behavioral: Negative for depression, hallucinations, memory loss, substance abuse and suicidal ideas. The patient is not nervous/anxious and does not have insomnia. Physical Examination: BP 140/72 (BP Site: Left Arm, BP Position: Sitting, BP Cuff Size: Regular Adult) Pulse 87 Ht 5' 4 (1.626 m) Wt 172 lb (78 kg) SpO2 96% BMI 29.52 kg/m BMI 29.52 kg/(m^2) Physical Exam Constitutional: Appearance: Normal appearance. HENT: Head: Normocephalic and atraumatic. Eyes: General: No scleral icterus. Conjunctiva/sclera: Conjunctivae normal. Neck: Vascular: No carotid bruit or JVD. Cardiovascular: Rate and Rhythm: Normal rate and regular rhythm. Pulses: Normal pulses. Radial pulses are 2+ on the right side and 2+ on the left side. Dorsalis pedis pulses are 2+ on the right side and 2+ on the left side. Heart sounds: Normal heart sounds, S1 normal and S2 normal. Heart sounds not distant. No murmur heard. No systolic murmur is present. No diastolic murmur is present. No friction rub. No gallop. No S3 sounds. Pulmonary: Effort: Pulmonary effort is normal. No respiratory distress. Breath sounds: Normal breath sounds. No wheezing or rales. Chest: Chest wall: No tenderness. Abdominal: General: Bowel sounds are normal. There is no distension. Palpations: Abdomen is soft. Tenderness: There is no abdominal tenderness. There is no guarding. Musculoskeletal: General: No tenderness. Normal range of motion. Cervical back: Normal range of motion and neck supple. Right lower leg: No edema. Left lower leg: No edema. Skin: General: Skin is warm and dry. Coloration: Skin is not pale. Findings: No erythema or rash. Neurological: Mental Status: She is alert and oriented to person, place, and time. Cranial Nerves: No cranial nerve deficit. Coordination: Coordination normal. Gait: Gait is intact. Psychiatric: Mood and Affect: Mood and affect normal. Cognition and Memory: Memory normal. Judgment: Judgment normal. Cardiac Testing and Procedures: EKG 02/15/2021: Normal sinus rhythm, heart rate 69 bpm BAMBI April 2016: EF 60 to 65%, normal left atrium, found to have ulcerated plaque in the descending thoracic aorta with mild LVH Lexiscan stress 06/20/2016: Negative ischemia, negative scar EF 85% Cardiac catheterization 03/08/2017: Left main moderate-sized vessel, LAD moderate sized with 30 to 40% diffuse stenosis, single diagonal artery present, left circumflex with 2 OM arteries, OM1 50 to 60% diffuse stenosis, OM 2 small vessel, 50 to 60% ostial/proximal stenosis, RCA dominant posterior circulation, 40 to 50% diffuse stenosis in the PDA. Pulmonary wedge pressure 16 mmHg, medical treatment. ABIs in May 2016: normal perfusion bilaterally to her ankles, resting ankle indices normal, right digital branch normal, left digital branch with marked diminished waveforms, suggestive of severe distal small vessel arterial closer disease left lower extremity. 30-day event monitor 04/17/2016 through 05/17/2016: Sinus rhythm with bursts of PAT, 69 beats, rates to 180 Recommendations: 1. CAD: She presented as above, she had cardiac cath by Dr. Ward in 2017 with findings of moderate nonobstructive CAD recommended for medical treatment, she is on Xarelto and lieu of aspirin, she is on lisinopril and statin. She has thankfully quit smoking in 2017 encouraged heart healthy diet, regular daily exercise, and efforts at weight loss. 2. PVD: She presented as above, felt to have acute foot pain and status post left common iliac artery thrombectomy. She had followed with Dr. Ba previously is no longer following with her apparently. She is on Xarelto, and statin she should continue aggressive risk factor modifications. Encouraged walking program. 3. Hypertension: Blood pressure is a little elevated, this morning appointment she is not taking her meds she takes them in the evening before work. Would continue lisinopril. 4. Hyperlipidemia: She is on low-dose atorvastatin, she is due for lipids we will send for lipid lab work as well as hepatic profile. 5. COPD: Previously she was a heavy smoker she has quit since 2017. 6. Diarrhea: She had problems with diarrhea she recently had EGD and colonoscopy as above. We will set up for repeat CBC to reassess her blood count given that she is on Xarelto. 7. Remote history of right upper PE Follow-up: She will follow-up to establish as new with Dr. Astudillo in [place], she is instructed to call with other symptoms or complaints. Thank you Chelsie Belle APRN.[employer] Please Note: This office note has been created using [employer], a speech recognition software program, and may contain errors including punctuation, grammar, spelling, gender, and inappropriate words or phrases that pertain to the sytem. documented in this encounter [facility] 03-07-2022 Miscellaneous Notes Last seen 02/15/2021. Patient missed appointment scheduled for 02/15/2022. Please call patient with over due appointment. Calli Galvan LPN documented in this encounter [facility] 03-07-2022 Miscellaneous Notes Patient's request for medication is as follows: Requested Prescriptions Pending Prescriptions Disp Refills XARELTO 20 mg tablet [Pharmacy Med Name: Xarelto 20 MG Oral Tablet] 30 tablet 0 Sig: Take 1 tablet by mouth once daily Last seen 02/15/2021. Patient missed appointment scheduled for 02/15/2022. Message sent to clerical requesting they call patient with over due appointment. Prescription(s) as above. Please process accordingly. Calli Galvan LPN documented in this encounter [facility] 01-17-2022 Miscellaneous Notes Opened in Error Yina Louis LPN documented in this encounter [facility] 08-11-2021 Note HNO ID: [id number] Author: Dhara Camacho I, MD Service: ? Author Type: Physician Type: Progress Notes Filed: 08/11/2021 11:41 AM Note Text: NEUROSURGERY FOLLOW UP OFFICE NOTE Chair, Clinical Neurosciences Director, Spinal Neurosurgery [facility] Date of visit: August 11, 2021 Patient Name: Ms.Marilee Micheal Hinds Date of : 1960 Current Age: [age] year old Sex: female MRN/E# [id number] Last Office Visit: 07/21/2021 Chief Complaint: Patient presents with: Established Patient Past Medical/Surgical History: Sofia Hinds is a 60 year old female who is self-referred for neurosurgical evaluation of lumbar spine. She has a known history of DVT, PE, thrombectomy on Xarelto, pain management, nonobstructive CAD, COPD and former smoker. She reports social alcohol use. HPI: She presented to the office as a new patient 07/21/2021 and was seen by Prieto Thacker PA-C. She has a prior history of lumbar fusion in the 80s followed by L3-S1 fusion by Dr. Proctor in 2012. She found both surgeries to be very helpful. She reported a 3 to 4-week history of central low back pain which started when she awoke from sleep. Her pain was worse if she leaned forward. She had radicular leg pain worse on the left with discomfort that traveled down the back of her left leg stopping at the knee. She had not had any leg pain over the past week. She denied any motor weakness. No fever, chills, weight loss or recent injury. She did have some discomfort to her left hip and stated that she had bad arthritis and had been told that she needed a hip replacement. Conservative options versus more definitive evaluation with lumbar spine MRI were discussed and patient elected to undergo MRI. She presents to the office today for follow up and image review. She states that her symptoms started a couple months ago with no inciting event. She states they feel very similar to her preoperative symptoms and this was concerning to her. She describes midline low back pain into the bilateral gluteal regions that travels the posterior thighs stopping at the knee L>R. She states the the bilateral gluteal regions can be the most bothersome to her when sitting. She denies any numbness or tingling. Reports some discomfort in the left hip. She denies any bowel/bladder incontinence but reports urinary/bowel urgency. She has not had any recent conservative treatment other than oral medications. Has underwent lumbar CHAYA around a year prior. She presents for image review, evaluation and plan of care. ? Symptoms: midline low back pain into the bilateral gluteal regions that travels the posterior thighs stopping at the knee L>R ? ? PREVIOUS CONSERVATIVE TREATMENTS: Pain management Injections Percocet Muscle Relaxants Gabapentin NSAIDS; celebrex ? PREVIOUS SURGERY: L3-S1 fusion Dr Proctor 2012 ? PAIN EVALUATION 08/11/2021 1109 Pain Level: 7 Pain Location: Back-Lower L leg, L buttock Description: Numbness;Tingling;Aching;Radiat ing Duration Amount of Time: 2 Duration Units: Months Frequency: Intermittent Intervention/Comfort measure: Medication PAST MEDICAL HISTORY Diagnosis Date - CAD (coronary artery disease) 10/06/2016 mild to moderate noted on heart cath done 10-06-2016 - Chest pain - COPD (chronic obstructive pulmonary disease) (HCC) - Embolism (HCC) 03/2016 LT LOWER EXT - Hyperlipidemia - Hypothyroidism PAST SURGICAL HISTORY Procedure Laterality Date - BACK SURGERY HX - CARDIAC CATH 10/06/2016 Right and Left - CHOLECYSTECTOMY - ECHO TRANSESOPHAG CONGEN PROBE [facility] IMGNG IANDR 04/10/2016 - EVENT MONITOR 05/17/2016 30 day - LUMBAR SPINE FUSION COMBINED L4-S1 Dr. Proctor 2012 - NUCLEAR STRESS LEXISCAN (CARD) 06/20/2016 - PAST SURGICAL HISTORY OF 04/07/2016 LEFT LOWER EXT EMBOLECTOMY FAMILY HISTORY Problem Relation Age of Onset - Stroke Father - Heart Attack Maternal Grandmother ALLERGIES Allergen Reactions - Metoprolol Intolerance Significant joint pain - Prednisone Mental Status Change Current Outpatient Medications Medication Sig Dispense Refill - rivaroxaban (XARELTO) 20 mg tablet Take 1 tablet by mouth once daily. 90 tablet 3 - atorvastatin (LIPITOR) 10 mg tablet Take 1 tablet by mouth once daily 90 tablet 3 - tiZANidine (ZANAFLEX) 4 mg tablet TAKE 1 TABLET BY MOUTH UP TO THREE TIMES DAILY NEEDED FOR SPASM - traZODone (DESYREL) 50 mg tablet Take 50 mg by mouth daily at bedtime. - lisinopril (ZESTRIL, PRINIVIL) 10 mg tablet Take 1 tablet by mouth once daily. 90 tablet 3 - levothyroxine (SYNTHROID) 88 mcg tablet 1 tablet by mouth daily - celecoxib (CELEBREX) 200 mg capsule Take 200 mg by mouth twice daily. - ipratropium-albuterol (DUONEB) 0.5 mg-3 mg(2.5 mg base)/3 mL nebu three times daily. As needed. - albuterol HFA (PROVENTIL HFA, VENTOLIN HFA) 90 mcg/actuation inhaler Inhale 2 Puffs as instructed every 4 (more content not included)... [facility] 08-11-2021 History of Presen t illness Narrative Images from the original note were not included. NEUROSURGERY FOLLOW UP OFFICE NOTE Chair, Clinical Neurosciences Director, Spinal Neurosurgery [facility] Date of visit: August 11, 2021 Patient Name: Ms.Marilee Micheal Hinds Date of : 1960 Current Age: [age] year old Sex: female MRN/E# [id number] Last Office Visit: 07/21/2021 Chief Complaint: Patient presents with: Established Patient Past Medical/Surgical History: Sofia Hinds is a 60 year old female who is self-referred for neurosurgical evaluation of lumbar spine. She has a known history of DVT, PE, thrombectomy on Xarelto, pain management, nonobstructive CAD, COPD and former smoker. She reports social alcohol use. HPI: She presented to the office as a new patient 07/21/2021 and was seen by Prieto Thacker PA-C. She has a prior history of lumbar fusion in the 80s followed by L3-S1 fusion by Dr. Proctor in 2012. She found both surgeries to be very helpful. She reported a 3 to 4-week history of central low back pain which started when she awoke from sleep. Her pain was worse if she leaned forward. She had radicular leg pain worse on the left with discomfort that traveled down the back of her left leg stopping at the knee. She had not had any leg pain over the past week. She denied any motor weakness. No fever, chills, weight loss or recent injury. She did have some discomfort to her left hip and stated that she had bad arthritis and had been told that she needed a hip replacement. Conservative options versus more definitive evaluation with lumbar spine MRI were discussed and patient elected to undergo MRI. She presents to the office today for follow up and image review. She states that her symptoms started a couple months ago with no inciting event. She states they feel very similar to her preoperative symptoms and this was concerning to her. She describes midline low back pain into the bilateral gluteal regions that travels the posterior thighs stopping at the knee L>R. She states the the bilateral gluteal regions can be the most bothersome to her when sitting. She denies any numbness or tingling. Reports some discomfort in the left hip. She denies any bowel/bladder incontinence but reports urinary/bowel urgency. She has not had any recent conservative treatment other than oral medications. Has underwent lumbar CHAYA around a year prior. She presents for image review, evaluation and plan of care. Symptoms: midline low back pain into the bilateral gluteal regions that travels the posterior thighs stopping at the knee L>R PREVIOUS CONSERVATIVE TREATMENTS: Pain management Injections Percocet Muscle Relaxants Gabapentin NSAIDS; celebrex PREVIOUS SURGERY: L3-S1 fusion Dr Proctor 2013 PAIN EVALUATION 08/11/2021 1109 Pain Level: 7 Pain Location: Back-Lower L leg, L buttock Description: Numbness;Tingling;Aching;Radiat ing Duration Amount of Time: 2 Duration Units: Months Frequency: Intermittent Intervention/Comfort measure: Medication PAST MEDICAL HISTORY Diagnosis Date CAD (coronary artery disease) 10/06/2016 mild to moderate noted on heart cath done 10-06-2016 Chest pain COPD (chronic obstructive pulmonary disease) (HCC) Embolism (HCC) 03/2016 LT LOWER EXT Hyperlipidemia Hypothyroidism PAST SURGICAL HISTORY Procedure Laterality Date BACK SURGERY HX CARDIAC CATH 10/06/2016 Right and Left CHOLECYSTECTOMY ECHO TRANSESOPHAG CONGEN PROBE [facility] IMGNG I&R 04/10/2016 EVENT MONITOR 05/17/2016 30 day LUMBAR SPINE FUSION COMBINED L4-S1 Dr. Proctor 2013 NUCLEAR STRESS LEXISCAN (CARD) 06/20/2016 PAST SURGICAL HISTORY OF 04/07/2016 LEFT LOWER EXT EMBOLECTOMY FAMILY HISTORY Problem Relation Age of Onset Stroke Father Heart Attack Maternal Grandmother ALLERGIES Allergen Reactions Metoprolol Intolerance Significant joint pain Prednisone Mental Status Change Current Outpatient Medications Medication Sig Dispense Refill rivaroxaban (XARELTO) 20 mg tablet Take 1 tablet by mouth once daily. 90 tablet 3 atorvastatin (LIPITOR) 10 mg tablet Take 1 tablet by mouth once daily 90 tablet 3 tiZANidine (ZANAFLEX) 4 mg tablet TAKE 1 TABLET BY MOUTH UP TO THREE TIMES DAILY NEEDED FOR SPASM traZODone (DESYREL) 50 mg tablet Take 50 mg by mouth daily at bedtime. lisinopril (ZESTRIL, PRINIVIL) 10 mg tablet Take 1 tablet by mouth once daily. 90 tablet 3 levothyroxine (SYNTHROID) 88 mcg tablet 1 tablet by mouth daily celecoxib (CELEBREX) 200 mg capsule Take 200 mg by mouth twice daily. ipratropium-albuterol (DUONEB) 0.5 mg-3 mg(2.5 mg base)/3 mL nebu three times daily. As needed. albuterol HFA (PROVENTIL HFA, VENTOLIN HFA) 90 mcg/actuation inhaler Inhale 2 Puffs as instructed every 4 hours as needed. gabapentin (NEURONTIN) 400 mg capsule Take 800 mg by mouth three times daily. sertraline (ZOLOFT) 100 mg tablet Take 1 tablet by mouth once daily. oxyCODONE-acetaminophen (PERCOCET) 5-325 mg tablet Take 1 tablet by mouth every 4 hours as needed for Pain. 80 tablet 0 iv contrast (will be provided with radiology test) MRI LSP Inject, intravenously, once for 1 dose. No IV access, insert saline lock prior to the beginning of sedation, infusion, injection of imaging exam. Discontinue saline lock post exam. If Pt. has a central line or IVAD, may access for administration according to line specific nursing protocol. Once exam is complete flush line and de-access according to line specific nursing protocol in the MR contrast administration guidelines link. 1 Each 0 No current facility-administered medications for this visit. REVIEW OF SYSTEMS Review of Systems Constitutional: Negative for chills, fatigue and fever. HENT: Negative for congestion, ear discharge and trouble swallowing. Eyes: Negative for discharge, itching and visual disturbance. Respiratory: Negative for cough, shortness of breath and wheezing. Cardiovascular: Negative for chest pain, palpitations and leg swelling. Gastrointestinal: Negative for constipation, diarrhea, nausea and vomiting. Endocrine: Negative for cold intolerance and heat intolerance. Genitourinary: Negative for difficulty urinating, frequency and urgency. Musculoskeletal: Positive for back pain. Negative for gait problem and neck pain. Skin: Negative for rash and wound. Allergic/Immunologic: Negative for environmental allergies and food allergies. Neurological: Negative for dizziness, weakness and numbness. Hematological: Does not bruise/bleed easily. Psychiatric/Behavioral: Negative for agitation. The patient is not nervous/anxious. OBJECTIVE: BP 138/84 Pulse 76 Ht 5' 4 (1.63m) Wt 168 lb 10.4 oz (76.5kg) SpO2 97% BMI 28.93 kg/(m^2). On examination today in clinic patient looks well. No acute distress. On motor examination patient has 5-5 power throughout the upper and lower extremities bilaterally. Reflexes are normal in the upper extremities and slightly decreased in the lowers. Sensory exam is unremarkable. Data Review IMAGING STUDIES: In clinic today reviewed x-rays as well as a lumbar MRI scan the lumbar MRI imaging there is evidence of prior fusion from L3 down through S1 with associated laminectomy there. The most significant finding is that of moderate central canal stenosis/adjacent segment disease at L to 3. It does result in narrowing of the spinal canal at that level with a small right-sided acute disc herniation. On flexion-extension films the patient has reasonable alignment. No evidence of subluxation on flexion compared to extension. Assessment & Plan: An extensive conversation with the patient in clinic today regarding her imaging. 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 Options for treatment include nonsurgical ones such as physical therapy and consideration for an epidural steroid at L2-3. Failing that then she would be a candidate for a surgical approach. Possibly laminectomy alone versus an extension of her fusion. After thorough discussion she is elected to try nonsurgical intervention first and will follow up with her pain management physician next week to discuss injection. She is also willing to try physical therapy and we prescribed some core muscle strengthening for her at today's visit. If her symptoms are not improved with these then she will give us a call to follow-up in 6 to 8 weeks time. At that time I will have her undergo scoliosis films as well as CT scan to check the structural integrity of the fusion and then further discuss surgical options. 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 If not, she has options. The following portions of the patient's history were reviewed, confirmed, and updated as necessary: allergies, current medications, past family history, past medical history, past social history, past surgical history, problem list, HPI, and ROS obtained by others. Some elements may be copied from a previous office note and have been reviewed/updated where appropriate. All portions reflect current medical decision making from today. The clinical and radiographic findings as well as the risks, benefits and alternatives of treatment have been reviewed in detail with the patient. Advised to call the office if symptoms worsen or new symptoms develop. Patient expressed understanding and is in agreement with plan. Dhara Camacho MD Chair, Clinical Neurosciences Director, Spinal Neurosurgery [facility] This note was partially generated using [email or web address] voice recognition system, and there may be some incorrect words, spellings, and punctuation that were not noted in checking the note before saving. documented in this encounter [facility] 08-11-2021 Note HNO ID: [id number] Author: RT Evin(Nikia) Service: Radiology Author Type: Technologist Type: Progress Notes Filed: 08/11/2021 10:23 AM Note Text: Radiology Service Progress Note DATE OF SERVICE: August 11, 2021 TIME: 10:22 AM PATIENT IDENTITY VERIFICATION COMPLETED USING TWO (2) STANDARD IDENTIFIERS: Name and Date of confirmed by patient verbally. FALL SCREENING: Has the patient had 2 falls in the last year or 1 fall with injury or currently using an Ambulatory Assistive Device (Walker, Cane, Wheelchair, Crutches, etc.)? No PATIENT GENDER DATA: Female. status: : No status: NO. PATIENT RELEVANT IMPLANT DATA REVIEWED: Yes ALLERGIES: Reviewed and unchanged CONTRAST ALLERGY: NO. EXAM: MRI - CONTRAST TYPE: GROUP II PERIPHERAL IV DATA: Ambulatory: A peripheral IV was started in the Right antecubital site with a Butterfly: 25 gauge. RADIOLOGY DEPARTMENT: MR; Exam(s) Completed: Spine: Lumbar spine SIGNATURE: RT Evin(R) PATIENT NAME: Sofia Hinds DATE: August 11, 2021 TIME: 10:22 AM [facility] 08-11-2021 History of Presen t illness Narrative Radiology Service Progress Note DATE OF SERVICE: August 11, 2021 TIME: 10:22 AM PATIENT IDENTITY VERIFICATION COMPLETED USING TWO (2) STANDARD IDENTIFIERS: Name and Date of confirmed by patient verbally. FALL SCREENING: Has the patient had 2 falls in the last year or 1 fall with injury or currently using an Ambulatory Assistive Device (Walker, Cane, Wheelchair, Crutches, etc.)? No PATIENT GENDER DATA: Female. status: : No status: NO. PATIENT RELEVANT IMPLANT DATA REVIEWED: Yes ALLERGIES: Reviewed and unchanged CONTRAST ALLERGY: NO. EXAM: MRI - CONTRAST TYPE: GROUP II PERIPHERAL IV DATA: Ambulatory: A peripheral IV was started in the Right antecubital site with a Butterfly: 25 gauge. RADIOLOGY DEPARTMENT: MR; Exam(s) Completed: Spine: Lumbar spine SIGNATURE: RT Evin(Nikia) PATIENT NAME: Sofia Hinds DATE: August 11, 2021 TIME: 10:22 AM documented in this encounter [facility] 07-21-2021 Note HNO ID: [id number] Author: Prieto Thacker PA-C Service: ? Author Type: Physician Special Education Educational Assistant Type: Progress Notes Filed: 07/21/2021 9:37 AM Note Text: NEUROSURGERY CONSULT NOTE Prieto Thacker PA-C Date of visit: July 21, 2021 Patient Name: Ms.Marilee Micheal Hinds Date of : 1960 Current Age: [age] year old Sex: female MRN/E# [id number] Chief Complaint: Patient presents with: New Patient LBP x 3-4 weeks HISTORY OF PRESENT ILLNESS : The patient is a 60 year old female who is self referred for neurosurgical evaluation. HPI This is a very pleasant 60-year-old female with prior history of lumbar fusion in the 80s followed by L3-S1 fusion by Dr. Proctor in 2012. She found both surgeries to be very helpful. She also has a known history of DVT, PE, thrombectomy on Xarelto, pain management, nonobstructive CAD, COPD and remote history of tobacco use. She comes in today with a 3 to 4-week history of central low back pain which started when she awoke from sleep. Her pain is worse if she leans forward. She has had radicular leg pain worse on the left with discomfort that travels down the back of her left leg stopping at the knee. She has not had any leg pain over the past week. She denies any motor weakness. No fever, chills, weight loss or recent injury. She does have some discomfort to her left hip and tells me that she has bad arthritis and has been told that she needs a hip replacement. Symptoms: LBP x 3-4 weeks DERMATOMAL DISTRIBUTION: ll defined PREVIOUS CONSERVATIVE TREATMENTS: Pain management Injections Percocet PREVIOUS SURGERY: L3-S1 fusion L3-S1 Dr Proctor 2012 PAIN EVALUATION 07/21/2021 0856 Pain Level: 7 Pain Location: Back-Lower Description: Aching;Sore;Sharp;Shooting Duration Amount of Time: 3 Duration Units: Weeks Frequency: Continuous PAST MEDICAL HISTORY Diagnosis Date - CAD (coronary artery disease) 10/06/2016 mild to moderate noted on heart cath done 10-06-2016 - Chest pain - COPD (chronic obstructive pulmonary disease) (HCC) - Embolism (HCC) 03/2016 LT LOWER EXT - Hyperlipidemia - Hypothyroidism PAST SURGICAL HISTORY Procedure Laterality Date - BACK SURGERY HX - CARDIAC CATH 10/06/2016 Right and Left - CHOLECYSTECTOMY - ECHO TRANSESOPHAG CONGEN PROBE [facility] IMGNG IANDR 04/10/2016 - EVENT MONITOR 05/17/2016 30 day - LUMBAR SPINE FUSION COMBINED L4-S1 Dr. Proctor 2012 - NUCLEAR STRESS LEXISCAN (CARD) 06/20/2016 - PAST SURGICAL HISTORY OF 04/07/2016 LEFT LOWER EXT EMBOLECTOMY Social History Tobacco Use - Smoking status: Former Smoker Years: 40.00 Types: Cigarettes Quit date: 04/02/2016 Years since quittin.3 - Smokeless tobacco: Never Used Vaping Use - Vaping Use: Never used Substance Use Topics - Alcohol use: Yes Comment: social - Drug use: No FAMILY HISTORY Problem Relation Age of Onset - Stroke Father - Heart Attack Maternal Grandmother ALLERGIES Allergen Reactions - Metoprolol Intolerance Significant joint pain - Prednisone Mental Status Change Current Outpatient Medications Medication Sig Dispense Refill - rivaroxaban (XARELTO) 20 mg tablet Take 1 tablet by mouth once daily. 90 tablet 3 - atorvastatin (LIPITOR) 10 mg tablet Take 1 tablet by mouth once daily 90 tablet 3 - tiZANidine (ZANAFLEX) 4 mg tablet TAKE 1 TABLET BY MOUTH UP TO THREE TIMES DAILY NEEDED FOR SPASM - traZODone (DESYREL) 50 mg tablet Take 50 mg by mouth daily at bedtime. - lisinopril (ZESTRIL, PRINIVIL) 10 mg tablet Take 1 tablet by mouth once daily. 90 tablet 3 - levothyroxine (SYNTHROID) 88 mcg tablet 1 tablet by mouth daily - celecoxib (CELEBREX) 200 mg capsule Take 200 mg by mouth twice daily. - ipratropium-albuterol (DUONEB) 0.5 mg-3 mg(2.5 mg base)/3 mL nebu three times daily. As needed. - albuterol HFA (PROVENTIL HFA, VENTOLIN HFA) 90 mcg/actuation inhaler Inhale 2 Puffs as instructed every 4 hours as needed. - gabapentin (NEURONTIN) 400 mg capsule Take 800 mg by mouth three times daily. - sertraline (ZOLOFT) 100 mg tablet Take 1 tablet by mouth once daily. - oxyCODONE-acetaminophen (PERCOCET) 5-325 mg tablet Take 1 tablet by mouth every 4 hours as needed for Pain. 80 tablet 0 - iv contrast (will be provided with radiology test) MRI LSP Inject, intravenously, once for 1 dose. No IV access, insert saline lock prior to the beginning of sedation, infusion, injection of imaging exam. Discontinue saline lock post exam. If Pt. has a central line or IVAD, may access for administration according to line specific nursing protocol. Once exam is complete flush line and de-access according to line specific nursing protocol in the MR contrast administration guidelines link. 1 Each 0 No current facility-administered medications for this visit. REVIEW OF SYSTEMS Review of Systems Constitutional: Negative for activity change, chills, diaphoresis, fatigue and unexpected weigh (more content not included)... [facility] 07-21-2021 History of Presen t illness Narrative NEUROSURGERY CONSULT NOTE Prieto Thacker PA-C Date of visit: July 21, 2021 Patient Name: Ms.Marilee Micheal Hinds Date of : 1960 Current Age: [age] year old Sex: female MRN/E# [id number] Chief Complaint: Patient presents with: New Patient LBP x 3-4 weeks HISTORY OF PRESENT ILLNESS : The patient is a 60 year old female who is self referred for neurosurgical evaluation. HPI This is a very pleasant 60-year-old female with prior history of lumbar fusion in the 80s followed by L3-S1 fusion by Dr. Proctor in 2012. She found both surgeries to be very helpful. She also has a known history of DVT, PE, thrombectomy on Xarelto, pain management, nonobstructive CAD, COPD and remote history of tobacco use. She comes in today with a 3 to 4-week history of central low back pain which started when she awoke from sleep. Her pain is worse if she leans forward. She has had radicular leg pain worse on the left with discomfort that travels down the back of her left leg stopping at the knee. She has not had any leg pain over the past week. She denies any motor weakness. No fever, chills, weight loss or recent injury. She does have some discomfort to her left hip and tells me that she has bad arthritis and has been told that she needs a hip replacement. Symptoms: LBP x 3-4 weeks DERMATOMAL DISTRIBUTION: ll defined PREVIOUS CONSERVATIVE TREATMENTS: Pain management Injections Percocet PREVIOUS SURGERY: L3-S1 fusion L3-S1 Dr Proctor 2012 PAIN EVALUATION 07/21/2021 0856 Pain Level: 7 Pain Location: Back-Lower Description: Aching;Sore;Sharp;Shooting Duration Amount of Time: 3 Duration Units: Weeks Frequency: Continuous PAST MEDICAL HISTORY Diagnosis Date CAD (coronary artery disease) 10/06/2016 mild to moderate noted on heart cath done 10-06-2016 Chest pain COPD (chronic obstructive pulmonary disease) (HCC) Embolism (HCC) 03/2016 LT LOWER EXT Hyperlipidemia Hypothyroidism PAST SURGICAL HISTORY Procedure Laterality Date BACK SURGERY HX CARDIAC CATH 10/06/2016 Right and Left CHOLECYSTECTOMY ECHO TRANSESOPHAG CONGEN PROBE [facility] IMGNG I&R 04/10/2016 EVENT MONITOR 05/17/2016 30 day LUMBAR SPINE FUSION COMBINED L4-S1 Dr. Proctor 2013 NUCLEAR STRESS LEXISCAN (CARD) 06/20/2016 PAST SURGICAL HISTORY OF 04/07/2016 LEFT LOWER EXT EMBOLECTOMY Social History Tobacco Use Smoking status: Former Smoker Years: 40.00 Types: Cigarettes Quit date: 04/02/2016 Years since quittin.3 Smokeless tobacco: Never Used Vaping Use Vaping Use: Never used Substance Use Topics Alcohol use: Yes Comment: social Drug use: No FAMILY HISTORY Problem Relation Age of Onset Stroke Father Heart Attack Maternal Grandmother ALLERGIES Allergen Reactions Metoprolol Intolerance Significant joint pain Prednisone Mental Status Change Current Outpatient Medications Medication Sig Dispense Refill rivaroxaban (XARELTO) 20 mg tablet Take 1 tablet by mouth once daily. 90 tablet 3 atorvastatin (LIPITOR) 10 mg tablet Take 1 tablet by mouth once daily 90 tablet 3 tiZANidine (ZANAFLEX) 4 mg tablet TAKE 1 TABLET BY MOUTH UP TO THREE TIMES DAILY NEEDED FOR SPASM traZODone (DESYREL) 50 mg tablet Take 50 mg by mouth daily at bedtime. lisinopril (ZESTRIL, PRINIVIL) 10 mg tablet Take 1 tablet by mouth once daily. 90 tablet 3 levothyroxine (SYNTHROID) 88 mcg tablet 1 tablet by mouth daily celecoxib (CELEBREX) 200 mg capsule Take 200 mg by mouth twice daily. ipratropium-albuterol (DUONEB) 0.5 mg-3 mg(2.5 mg base)/3 mL nebu three times daily. As needed. albuterol HFA (PROVENTIL HFA, VENTOLIN HFA) 90 mcg/actuation inhaler Inhale 2 Puffs as instructed every 4 hours as needed. gabapentin (NEURONTIN) 400 mg capsule Take 800 mg by mouth three times daily. sertraline (ZOLOFT) 100 mg tablet Take 1 tablet by mouth once daily. oxyCODONE-acetaminophen (PERCOCET) 5-325 mg tablet Take 1 tablet by mouth every 4 hours as needed for Pain. 80 tablet 0 iv contrast (will be provided with radiology test) MRI LSP Inject, intravenously, once for 1 dose. No IV access, insert saline lock prior to the beginning of sedation, infusion, injection of imaging exam. Discontinue saline lock post exam. If Pt. has a central line or IVAD, may access for administration according to line specific nursing protocol. Once exam is complete flush line and de-access according to line specific nursing protocol in the MR contrast administration guidelines link. 1 Each 0 No current facility-administered medications for this visit. REVIEW OF SYSTEMS Review of Systems Constitutional: Negative for activity change, chills, diaphoresis, fatigue and unexpected weight change. Respiratory: Negative for chest tightness. Cardiovascular: Negative for chest pain. Genitourinary: Negative for difficulty urinating. Musculoskeletal: Positive for back pain. Neurological: Positive for numbness ( Medial left thigh since thrombectomy 2017). Negative for weakness. Psychiatric/Behavioral: Negative for agitation. The patient is not nervous/anxious. OBJECTIVE: BP 132/81 Pulse 88 Resp 16 Ht 5' 4 (1.63m) Wt 167 lb 15.9 oz (76.2kg) SpO2 98% BMI 28.82 kg/(m^2). Physical Exam Neurological Exam Mental State : Alert, memory function unremarkable. Attention span and concentration Normal for patient's age. Recent and remote memory normal Orientation : Oriented to time place and person Higher Cortical Function : Intact speech and language. Spontaneous speech and comprehension normal. Fund of knowledge intact for pt level of education. Cranial Nerves : II: No visual field cut no blurring. Makes and sustains eye contact III, IV, normal, no double vision or drooping. Pupils equal and reactive to light. Extraocular muscles intact. No nystagmus V Normal sensation on the face, normal jaw movements VII No paresis on either side. VIII No gross hearing deficit IX Normal palatal movements XI Good and equal shoulder shrus XII Tongue midline, no fasciculation Sensory : Normal Sensation in upper and lower extremities and trunk to touch and Noxious stimuli. Motor : Normal muscle tone and bulk. No tremor or uncontrollable movements No spasticity . Strength: Upper Extremities : R L Deltoid 5 5 Biceps 5 5 Triceps 5 5 Wrist Ext 5 5 Wrist Flx 5 5 Hand Int. 5 5 Lower Extremities : Hip Flexors 5 5 Hip Extensors 5 5 Hip Abductors 5 5 Hip Adductors 5 5 Quads 5 5 Hamstrings 5 5 Ankle dorsiflex 5 5 Ankle plantars 5 5 Reflexes : Biceps 2 2 Triceps 2 2 Wrist 2 2 Patellar 2 2 Achilles 2 2 Holm's Neg Neg Plantars Neg Neg Gait and Station: Normal Data Review IMAGING STUDIES: Prior CT scan of the lumbar spine from 2013 shows instrumentation be in good position without evidence of hardware failure. There does appear to be some degree of fusion at surgical levels from L3-S1 as well. Personal review of medical records: I reviewed with the patient, history, physical exam, the images and the chart. ASSESSMENT/PLAN: 1. Lumbar spondylosis - ICD9: 721.3, ICD10: M47.816 (primary diagnosis) - XR LUMBAR MOTION 4V AP/LAT/ FLEX/EXT 2. Abnormal findings on diagnostic imaging of other parts of musculoskeletal system - ICD9: 793.7, ICD10: R93.7 - MRI LUMBAR SPINE WO/W IVCON This is a very pleasant 60-year-old female comes in with a 3 to 4-week history of central low back pain. She has some degree of chronic low back pain with recent exacerbation. Her symptoms feel somewhat similar to her back pain she experienced before surgery previously. I have discussed both conservative options versus more definitive evaluation with lumbar spine MRI. She would like to figure out what is going on with her back and has subsequently opted to undergo MRI. I have ordered lumbar spine MRI with and without contrast. She will follow-up with Dr. Camacho afterwards to discuss results and treatment options. Prieto Thacker PA-C documented in this encounter [facility] Diagnosis Acute midline low back pain with bilateral sciatica- Primary Spinal stenosis of lumbar region without neurogenic claudication Spinal stenosis, lumbar region, without neurogenic claudication [facility] Diagnosis Abnormal findings on diagnostic imaging of other parts of musculoskeletal system [facility] Diagnosis PVD (peripheral vascular disease) (HCC)- Primary Peripheral vascular disease, unspecified Coronary artery disease involving [place] heart without angina pectoris, unspecified vessel or lesion type PAT (paroxysmal atrial tachycardia) (HCC) Paroxysmal supraventricular tachycardia Chronic anticoagulation Long-term (current) use of 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 Mixed hyperlipidemia [facility] Diagnostic Procedure Only (Routine) - Closed Specialty Diagnoses / Procedures Referred By Brionnaac t Referred To Contact XR IMAGING Diagnoses Lumbar spondylosis Procedures XR LUMBAR MOTION 4V AP/LAT/ FLEX/EXT RADEX SPINE LUMBOSACRAL MINIMUM 4 VIEWS Prieto Thacker PA-C [address] [facility] [place] [address] Xr Imaging Referral ID Status Reason Start Date Expiration Date V isits Requested Visits Authorized [id number] Closed Auto-Generate d Referral 07/21/2021 08/20/2022 1 1 * MRI/CT (Routine) - Additional Clinical Info Needed Specialty Diagnoses / Procedures Referred By Contac t Referred To Contact MR IMAGING Diagnoses Abnormal findings on diagnostic imaging of other parts of musculoskeletal system Procedures MRI LUMBAR SPINE WO/W IVCON MRI SPINAL CANAL LUMBAR W/O & W/CONTR MATRL Prieto Thacker PA-C [address] [place] [address] Mr Imaging Referral ID Status Reason Start Date Expiration Date Visits Requested Visits Authorized [id number] Additional Clinical Info Needed Auto-Generat ed Referral 07/21/2021 08/20/2022 1 1 [facility] Diagnostic Procedure Only (Routine) - Closed Specialty Diagnoses / Procedures Referred By Contac t Referred To Contact XR IMAGING Diagnoses Lumbar spondylosis Procedures XR LUMBAR MOTION 4V AP/LAT/ FLEX/EXT RADEX SPINE LUMBOSACRAL MINIMUM 4 VIEWS Prieto Thacker PA-C [address] [place] [address] Xr Imaging Referral ID Status Reason Start Date Expiration Date V isits Requested Visits Authorized [id number] Closed Auto-Generate d Referral 07/21/2021 08/20/2022 1 1 [facility] Summary Purpose Family History No Family History Records FoundNo Family History Records FoundNo Family History Records FoundNo Family History Records FoundNo Family History Records FoundNo Family History Records Found Advance Directives No Advanced Directives Records FoundNo Advanced Directives Records FoundNo Advanced Directives Records FoundNo Advanced Directives Records FoundNo Advanced Directives Records FoundNo Advanced Directives Records Found Reason for Referral Specialty Diagnoses / Procedures Referred By Contac t Referred To Contact [facility] Diagnoses Acute midline low back pain with bilateral sciatica Procedures CONSULT TO PHYSICAL THERAPY PHYSICAL THERAPY EVALUATION HIGH COMPLEX 45 MINS Dhara Camacho I, MD [address] [facility] [address] [facility] [place] [address] [place] [address] Referral ID Status Reason Start Date Expiration Date Visits Requested Visits Authorized [id number] Pending Review Auto-Generat ed Referral 08/11/2021 08/11/2022 1 1 Specialty Diagnoses / Procedures Referred By Contac t Referred To Contact MR IMAGING Diagnoses Abnormal findings on diagnostic imaging of other parts of musculoskeletal system Procedures MRI LUMBAR SPINE WO/W IVCON MRI SPINAL CANAL LUMBAR W/O & W/CONTR SCOOBYL Prieto Thacker PA-C [address] [place] [address] Mr Imaging Referral ID Status Reason Start Date Expiration Date V isits Requested Visits Authorized [id number] Closed Auto-Generate d Referral 07/21/2021 08/19/2021 1 1 Additional Source Comments INFORMATION SOURCE (unrecogn ized section and content) DATE CREATED AUTHOR AUTHOR'S ORGANIZ ATION 08/14/2018 [facility] ([place]) DATE CREATED AUTHOR AUTHOR'S ORGANIZ ATION 03/19/2021 [facility] DATE CREATED AUTHOR AUTHOR'S ORGANIZ ATION 04/15/2022 [facility] DATE CREATED AUTHOR AUTHOR'S ORGANIZ ATION 10/31/2022 [facility] DATE CREATED AUTHOR AUTHOR'S ORGANIZ ATION 11/01/2022 [facility] Source Comments (unrecognize d section and content) In the event this informatio n is protected by the Federal Confidentiality of Alcohol and Drug Abuse Patient Records regulations: The Federal rules restrict any use of the information to criminally investigate or prosecute any alcohol or drug abuse patient.[facility] the event this information is protected by the Federal Confidentiality of Alcohol and Drug Abuse Patient Records regulations: The Federal rules restrict any use of the information to criminally investigate or prosecute any alcohol or drug abuse patient.[facility] the event this information is protected by the Federal Confidentiality of Alcohol and Drug Abuse Patient Records regulations: The Federal rules restrict any use of the information to criminally investigate or prosecute any alcohol or drug abuse patient.[facility] the event this information is protected by the Federal Confidentiality of Alcohol and Drug Abuse Patient Records regulations: The Federal rules restrict any use of the information to criminally investigate or prosecute any alcohol or drug abuse patient.[facility] Hospital[facility] the event this information is protected by the Federal Confidentiality of Alcohol and Drug Abuse Patient Records regulations: The Federal rules restrict any use of the information to criminally investigate or prosecute any alcohol or drug abuse patient.[facility] Hospital[facility] the event this information is protected by the Federal Confidentiality of Alcohol and Drug Abuse Patient Records regulations: The Federal rules restrict any use of the information to criminally investigate or prosecute any alcohol or drug abuse patient.[facility] Hospital[facility] the event this information is protected by the Federal Confidentiality of Alcohol and Drug Abuse Patient Records regulations: The Federal rules restrict any use of the information to criminally investigate or prosecute any alcohol or drug abuse patient.[facility] the event this information is protected by the Federal Confidentiality of Alcohol and Drug Abuse Patient Records regulations: The Federal rules restrict any use of the information to criminally investigate or prosecute any alcohol or drug abuse patient.[facility] HospitalIn the event this information is protected by the Federal Confidentiality of Alcohol and Drug Abuse Patient Records regulations: The Federal rules restrict any use of the information to criminally investigate or prosecute any alcohol or drug abuse patient.[facility] Reason for Visit (unrecogniz ed section and content) Specialty Diagnoses / Procedures Referred By Contac t Referred To Contact Neurosurgery / NEUROSURGERY Diagnoses Lumbar getting worse saw 2013 - needs work up Procedures OFFICE/OUTPATIENT NEW MODERATE MDM 45-59 MINUTES NEW PATIENT Self Prieto Thacker PA-C [address] [place] [place] [address] Referral ID Status Reason Start Date Expiration Date V isits Requested Visits Authorized [id number] Closed Financial Clearance Required - Self Pay Patient Cleared - Admin/Optical Model Maker And Tester /Director advise to proceed 07/18/2021 10/16/2021 1 1 Reason Comments Established Patient Specialty Diagnoses / Procedures Referred By Contac t Referred To Contact XR IMAGING Diagnoses Lumbar spondylosis Procedures XR LUMBAR MOTION 4V AP/LAT/ FLEX/EXT RADEX SPINE LUMBOSACRAL MINIMUM 4 VIEWS Prieto Thacker PA-C [address] [facility] [address] Xr Imaging Referral ID Status Reason Start Date Expiration Date V isits Requested Visits Authorized [id number] Closed Auto-Generate d Referral 07/21/2021 08/20/2022 1 1 Specialty Diagnoses / Procedures Referred By Contac t Referred To Contact MR IMAGING Diagnoses Abnormal findings on diagnostic imaging of other parts of musculoskeletal system Procedures MRI LUMBAR SPINE WO/W IVCON MRI SPINAL CANAL LUMBAR W/O & W/CONTR MATRL Prieto Thacker PA-C [address] [facility] [place] [address] Mr Imaging Referral ID Status Reason Start Date Expiration Date V isits Requested Visits Authorized [id number] Closed Auto-Generate d Referral 07/21/2021 08/19/2021 1 1 Reason Onset Date Comments Opened In Error 01/17/2022 Reason Comments Appointment Reason Comments Refill Request Reason Comments Cardiology Follow Up Mixed hyperlipidemi a Care Teams (unrecognized sec tion and content) Pegger Relationship Specialty Start Date End Date Chuyita Mendez [address] [place] [address] PCP - General Infectious Diseases 12/19/19 Bert Ward MD [address] [place] [address] Cardiology 09/15/16 Pegger Relationship Specialty Start Date End Date Chuyita Mendez [address] [place] [address] PCP - General Infectious Diseases 12/19/19 Bert Ward MD [address] [place] [address] Cardiology 09/15/16 Syd Ramirez [address] [place] [address] Pain Management 08/11/21 Pegger Relationship Specialty Start Date End Date Chuyita Mendez [address] [place] [address] PCP - General Infectious Diseases 12/19/19 Bert Ward MD [address] [place] [address] Cardiology 09/15/16 Syd Ramirez [address] [place] [address] Pain Management 08/11/21 Pegger Relationship Specialty Start Date End Date Chuyita Mendez [address] [place] [address] PCP - General Infectious Diseases 12/19/19 Bert Ward MD [address] [place] [address] Cardiology 09/15/16 Syd Ramirez [address] [place] [address] Pain Management 08/11/21 Pegger Relationship Specialty Start Date End Date Chuyita Mendez MD [address] [place] [address] PCP - General Infectious Diseases 12/19/19 Bert Ward MD [address] [place] [address] Cardiology 09/15/16 Syd Ramirez [address] [place] [address] Pain Management 08/11/21 Pegger Relationship Specialty Start Date End Date Chuyita Mendez MD [address] [place] [address] PCP - General Infectious Diseases 12/19/19 Bert Ward MD [address] [place] [address] Cardiology 09/15/16 Syd aRmirez [address] [place] [address] Pain Management 08/11/21 Pegger Relationship Specialty Start Date End Date Chuyita Mendez MD [address] [place] [address] PCP - General Infectious Diseases 12/19/19 Bert Ward MD [address] [place] [address] Cardiology 09/15/16 Linda Ramirezshilo Castaneda [address] [place], [place] [address] Pain Management 08/11/21 Pegger Relationship Specialty Start Date End Date Chuyita Mendez MD [address] [place] [address] PCP - General Infectious Diseases 12/19/19 Bert Ward MD [address] [place] [address] Cardiology 09/15/16 Linda Ramirezshilo Castaneda [address] [place], [place] [id number] Pain Management 08/11/21 FOR RECORDS PERTAINING TO PATIENTS WHO ARE OR HAVE BEEN ENROLLED IN A CHEMICAL DEPENDENCY/SUBSTANCEABUSE PROGRAM, SOME INFORMATION MAY BE OMITTED. This clinical summary was aggregated from multiple sources. Caution should be exercised in using it in the provision of clinical care. This summary normalizes information from multiple sources, and as a consequence, information in this document may materially change the coding, format and clinical context of patient data. In addition, data may be omitted in some cases. CLINICAL DECISIONS SHOULD BE BASED ON THE PRIMARY CLINICAL RECORDS. [facility]. provides no warranty or guarantee of the accuracy or completeness of information in this document.
[2023-04-04] MEDS: Lactated Ringers 1,000 ML 15 ML IV (09:11)
--- NOTE | 2023-04-04 11:19 | PCM.HP.STD ---
HPI - General General Date of Admission: 04/04/23 Chief Complaint: Significant stress incontinence and urgency HPI Narrative SOFIA HINDS, is a 62 F who presents for placement of a tension-free vaginal sling on cystoscopy and exam she was found to have significant stress incontinence she does report also a lot of urgency she understands the sling will help with her stress incontinence but it may not address her urgency incontinence and this will be have to manage with other methods such as pharmaceutical methods or interventions but for now organ to proceed with a tension-free vaginal sling to improve her bladder control and stress incontinence FORMERLY [facility], [facility] Medical History Alcohol use Arthritis Back pain Bite from insect CAD (coronary artery disease) Cardiology follow-up encounter COPD (chronic obstructive pulmonary disease) Depression ROY (dyspnea on exertion) DVT (deep venous thrombosis) Easy bruising Former smoker History of atrial fibrillation History of colon polyps History of hiatal hernia History of stress test Hyperglycemia Hypertension Hypothyroidism IBS (irritable bowel syndrome) Leg cramps FCI (current) use of 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 Neuropathy Other pulmonary embolism without acute cor pulmonale Pain PAT (paroxysmal atrial tachycardia) Renal insufficiency Wears glasses Weight gain Home Medications albuterol sulfate 90 mcg/actuation aerosol inhaler (Proventil HFA) 2 puff IH Q4H PRN PRN Sob &/Or Wheezing 12/28/17 [History Last Taken Unknown] gabapentin 400 mg capsule (Neurontin) 800 mg PO QHS 12/28/17 [History Last Taken 04/03/23] ipratropium 0.5 mg-albuterol 3 mg (2.5 mg base)/3 mL nebulization soln 3 ml inhalation TID PRN SOB 12/28/17 [History Last Taken Unknown] oxycodone-acetaminophen 5 mg-325 mg tablet 1 tab PO BID Pain 12/28/17 [History Last Taken 04/03/23] rivaroxaban 20 mg tablet (Xarelto) 20 mg PO DAILY 12/28/17 [History Last Taken 03/31/23] sertraline 100 mg tablet 100 mg PO DAILY 12/28/17 [History Last Taken 04/03/23] atorvastatin 10 mg tablet 10 mg PO DAILY 11/23/21 [History Last Taken 04/04/23] celecoxib 200 mg capsule (Celebrex) 200 mg PO BID 11/23/21 [History Last Taken 04/03/23] levothyroxine 88 mcg capsule 88 mcg PO QHS 11/23/21 [History Last Taken 04/03/23] lisinopril 10 mg tablet 20 mg PO DAILY 11/23/21 [History Last Taken 04/04/23] melatonin 10 mg capsule 10 mg PO HS PRN Sleep 11/23/21 [History Last Taken 04/03/23] tizanidine 4 mg capsule 4 mg PO TID PRN MUSCLE RELAX 11/23/21 [History Last Taken Unknown] trazodone 50 mg tablet 50 mg PO QHS PRN Sleep 11/23/21 [History Last Taken Unknown] budesonide 3 mg capsule,delayed,extended release 9 mg (3 x 3 mg) PO QAM 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 ea 08/28/22 [Rx Last Taken 04/04/23] amlodipine 5 mg tablet 5 mg PO DAILY 03/26/23 [History Last Taken 04/04/23] Allergy/AdvReac Type Severity Reaction Status Date / Time No Known Allergies Allergy Verified 04/04/23 08:47 Family History Mother Diabetes Surgical History History of cholecystectomy Hx of colonoscopy Social History Smoking Status: Former smoker alcohol intake: current alcohol intake frequency: a few times a week Vital Signs Vital Signs Vital Signs: 04/04/23 09:12 04/04/23 09:12 Temperature 98.6 F Temperature Source Temporal Pulse Rate 87 Respiratory Rate 17 Respiratory Pattern Normal Blood Pressure 141/85 H Blood Pressure Mean 103 Blood Pressure Source Monitor Blood Pressure Position Semi-Fowlers Blood Pressure Location Left Arm Pulse Ox 95 Oxygen Delivery Method Room Air Weight Weight: 78 kg Body Mass Index (BMI) 29.5 Results Lab / Micro Data 03/27/23 07:50 03/27/23 07:50
--- NOTE | 2023-04-04 11:20 | DCINST_ITS ---
Discharge Instructions Diet Discharge Diet: No restrictions Activity Discharge Activity: Return to Normal Activity and May Not Drive (while taking narcotic pain medications.) Dressing / Incision Call your doctor if you observe: Fever of 101 or Higher Follow Up Care Please Follow Up With: Freedom Luciano MD When: Call [phone] for an appointment Test Results: Test results from this visit will be discussed in further detail at your follow- up appointment, if applicable. Discharge Plan Admission Primary Reason for Your Visit: TVT sling Attending Provider: Freedom Luciano Primary Care Provider: Shae Durham Discharge Orders/Prescriptions Prescriptions: Continued lisinopril 10 mg tablet 20 mg PO DAILY celecoxib [Celebrex] 200 mg capsule 200 mg PO BID levothyroxine 88 mcg capsule 88 mcg PO QHS trazodone 50 mg tablet 50 mg PO QHS PRN (Reason: Sleep) atorvastatin 10 mg tablet 10 mg PO DAILY melatonin 10 mg capsule 10 mg PO HS PRN (Reason: Sleep) tizanidine 4 mg capsule 4 mg PO TID PRN (Reason: MUSCLE RELAX) budesonide 3 mg capsule,delayed,extend.release 9 mg PO QAM Qty: 270 3RF oxycodone-acetaminophen 1 TABLET tablet 1 tab PO BID Patient Comments: PAIN albuterol sulfate [Proventil HFA] 6.7 GM HFA aerosol inhaler 2 puff IH Q4H PRN PRN (Reason: Sob &/Or Wheezing) Patient Comments: COPD Xarelto 20 MG tablet 20 mg PO DAILY Patient Comments: BLOOD THINNER ipratropium-albuterol 3 ML solution for nebulization 3 ml inhalation TID PRN (Reason: SOB) gabapentin [Neurontin] 400 MG capsule 800 mg PO QHS amlodipine 5 mg tablet 5 mg PO DAILY Patient Comments: TAKE ONE TABLET BY MOUTH DAILY Held sertraline 100 MG tablet 100 mg PO DAILY Hold Instructions: Resume on 04/11/23. Referrals / Follow Up: Freedom Luciano MD [Med Staff - Active Staff] - Shae Durham MD [Primary Care Provider] - Disposition Disposition (needs filled in before D/C Order can be placed): Home, Self Care
[2023-04-04] MEDS: Cefazolin 2 GM in 0.9% Normal Saline (100mL Bag) 100 ML IV (11:49)
[2023-04-04] MEDS: Lidocaine 1% /Epi 1:100 (20ml) 20 ML Vial (12:13)
--- NOTE | 2023-04-04 12:36 | OP.PCM_ITS ---
Report of Operation Date of Procedure: 04/04/23 Pre-Operative Diagnosis: Stress urinary incontinence Post-Operative Diagnosis: Stress urinary incontinence Surgery/Procedure Performed:: Placement of a tension-free vaginal sling Description of Surgical Findings:: Patient presents today for placement of a tension-free vaginal sling, she has a diagnosis of incontinence and has been evaluated in the preoperative setting. We discussed how the procedure will be done what to expect afterwards. She understands is possible she may need a catheter in the short-term. We discussed the risk of bleeding and also the possibility of infection with the placement of the sling. We discussed the fact that we can be using artificial mesh and that there is a small risk of infection, erosion into the urethra, vaginal area, bladder and a small risk that she may require surgery down the road to address any problems or erosions with the mesh in the long-term. She was also given no guarantees as to how well the sling would work and that her incontinence may not improved to her satisfaction. After reviewing this with the patient she agreed to proceed with the placement of the sling. Patient was taken back to the operating room, after smooth induction of general anesthesia she was placed in dorsolithotomy position. She underwent vaginal prep and was placed in dorsolithotomy position. A Kelley catheter was placed into the bladder and Inflated with 10 cc of sterile water into the balloon. I then marked out the bladder neck with a marking pen and marked out the mid urethra. The urethra was then infiltrated with lidocaine with 1:1000 epin ephrine, after the injecting into the urethra then a midline incision was made in the urethra long enough to create a space for the trocar. I then used curved Metzenbaum scissors to dissect periurethrally up to the right side underneath the pubic bone, and then dissect periurethrally up to the left side underneath the pubic bone creating the tunnel for the sling. I then went up to the pubic bone and the patient was in Trendelenburg position and marked two incision site 2 cm from the midline on the left and right side. I then infiltrated the skin with lidocaine and then made a small stab incision in the right and left side exactly where the cameron were above the pubic bone. Making sure that the bladder was completely empty I then guided the suprpubid desera trocar top-down on the right side first coming behind the pubic bone following it into the incision below the urethra. Once the suprapubic trocar was passed then I deflated the balloon and remove the Kelley catheter went into the bladder with a 70 degree lens and inspected the bladder and there was no perforation damage or injury to the bladder, no damage to the ureter, and no damage to the urethra. I then hooked the end of the desara sling to the suprapubic trocar and advanced it up through the tunnel and then put a snap on the end of the sling. I then went to the other side to pass the sling. The 18fr Kelley catheter was replaced into the bladder with 10 cc of water into the balloon and then drained the bladder completely and then I guided the suprapubic trocar down on the left side from top down behind the pubic bone into the incision below the urethra. I then deflated the balloon removed the Kelley catheter and performed a cystoscopy again and inspected the bladder with a 70 degree there was no injury to the bladder, the ureter, or the urethra on inspection. I then grabbed the other end of the sling and using the suprapubic trocar pulled the sling on the other side and put a snap on the sling end. I then put a snap in the middle the sling and then both ends of the slings were then pulled up and then the sling was tensioned below the urethra ensuring that the sling was flat that there was no kinking or pulling or twisting and laid nicely tension-free underneath the urethra. Then both ends of the slings were cut and then the plastic sheath covering the mesh was removed deploying the sling, the excess mesh was then trimmed from the suprapubic area and the mesh ends were dunked down deep in the subcutaneous fat. The Kelley catheter was removed and we checked the bladder with a 30 and 70 degree lens making sure there is no injury to the urethra, bladder and no perforation with a mesh. The urine was nice and clear with no blood. I then closed the incision below the urethra with a running 3-0 Vicryl and thenclosed the 2 suprapubic incisions with interrupted 4-0 Monocryl. The bladder was left empty anesthetic was reversed and she was taken back to the PACU and will undergo a voiding trial before discharge. Surgeon: Freedom Luciano Type of Anesthesia: General Drains: kelley Estimated Blood Loss (mL): 5 Admit VTE Documentation VTE Present on Admission: No VTE Mechan Device Prophylaxis: SCD's VTE Pharm Prophylaxis ordered?: No
[2023-04-04] MEDS: Ipratropium/Albuterol Sulfate 3 ML AMPUL.NEB INHALATION (14:30)
--- NOTE | 2023-04-04 15:26 | RAD_ITS ---
STUDY: X-RAY CHEST REASON FOR EXAM: Female, 62 years old. SOB HYPOXIA TECHNIQUE: Single AP portable view of the chest. COMPARISON: None. FINDINGS: EKG electrodes are seen. Hyperinflation. Mild increased linear markings at the left lung base suggestive of lingular atelectasis. There is no demonstrated pleural abnormality. Normal size heart. Normal mediastinum and bashir. Normal visualized pulmonary arteries. Normal visualized aortic arch and descending thoracic aorta. Normal visualized thoracic spine. Normal visualized ribs, clavicles, and shoulders. There is no demonstrated abnormality of the visualized soft tissue structures of the upper abdomen. RAD/Chest 1 View (Portable) IMPRESSION: Hyperinflation. Mild increased linear markings at the left lung base suggestive of the linear atelectasis. Electronically Signed: Abram Jones MD at 15:42 EST ,
[2023-04-04] MEDS: oxyCODONE 5 MG Tablet PO (15:57)
[2023-04-04] MEDS: Acetaminophen 325 MG Tablet 650 MG PO (15:57)
[2023-04-04] MEDS: Cephalexin 500 MG Capsule PO (18:11)
== END 2023-04-04 18:30 | disposition home or self-care (01) ==
LOC: SDC 08:42 → AC 08:43
PROVIDERS: Anesthesiology; PCP Internal Medicine Infectious Disease; Referring Provider Urology; Visit Provider Urology
PROC: (CPT 57288; principal; 2023-04-04 10:50)
DX: N39.3 Stress incontinence (female) (male) (principal); J44.9 Chronic obstructive pulmonary disease, unspecified; I10 Essential (primary) hypertension; I25.10 Atherosclerotic heart disease of native coronary artery without angina pectoris; F32.A Depression, unspecified; E03.9 Hypothyroidism, unspecified; Z79.899 Other long term (current) drug therapy; Z79.01 Long term (current) use of 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; Z87.891 Personal history of nicotine dependence; Z86.718 Personal history of other venous thrombosis and embolism; Z86.010 Personal history of colon polyps; Z86.711 Personal history of pulmonary embolism
CPT/HCPCS: 51990; 36415; 71045; 80048; 84443; 85027; 93005; 94640; J7120; C1771; J2405

== ENCOUNTER → 2023-04-19 | Outpatient (CLI) | payer BC, SELFPAY | END | disposition home or self-care (01) | PROVIDERS: PCP Internal Medicine Infectious Disease; Referring Provider Urology; Visit Provider Urology | DX: R30.9 Painful micturition, unspecified (principal) | CPT/HCPCS: 87086 ==

== ENCOUNTER → 2023-05-03 | Outpatient (CLI) | payer BC, SELFPAY ==
--- NOTE | 2023-05-03 16:50 | CT_ITS ---
EXAM: CT ABDOMEN AND PELVIS WITH INTRAVENOUS CONTRAST CLINICAL INDICATION: ABD PAIN TECHNIQUE: Helically acquired images were obtained of the abdomen and pelvis with intravenous contrast. This CT exam was performed using one or more of the following dose reduction techniques: automated exposure control, adjustment of the mA and/or kV according to patient size, and/or use of iterative reconstruction technique. CONTRAST: IV 100mL [id number] COMPARISON: MRI lumbar spine, 09/30/2014 and whole-body bone scan, 09/11/2013 FINDINGS: LOWER THORAX: No significant abnormality. Lung bases are clear. No cardiomegaly. No significant pericardial effusion. ABDOMEN: LIVER: No significant abnormality. Homogeneous. No focal mass. GALLBLADDER AND BILE DUCTS: Nonvisualized likely surgically absent gallbladder. No intra- or extrahepatic biliary ductal dilation. PANCREAS: No significant abnormality. No focal cystic or solid mass. SPLEEN: No significant abnormality. Normal size without focal cystic or solid mass. ADRENALS: No significant abnormality. No nodules. KIDNEYS AND URETERS: No significant abnormality. Normal renal size and position. No hydronephrosis. STOMACH AND BOWEL: Mild distal colorectal stool retention. Colonic diverticulosis without evidence of diverticulitis. No stomach or bowel distention. PELVIS: APPENDIX: No evidence of acute appendicitis. BLADDER: Thickening of the urinary bladder wall likely secondary to its decompressed state. No overwhelming evidence of cystitis. REPRODUCTIVE: Normal as visualized. No mass. ABDOMEN and PELVIS: INTRAPERITONEAL SPACE: No significant abnormality. No ascites or other fluid collection. No free air. BONES/JOINTS: Status post L3-S1 posterior fusion with multilevel lower lumbar laminectomy. Anterolisthesis of L3 upon L4. Bony fusion from L3 through S1 posteriorly. Additional degenerative changes in the visualized thoracic and lumbar spine. No suspicious lytic or blastic abnormality. SOFT TISSUES: Fat-containing umbilical hernia. VASCULATURE: Atherosclerosis of the aorta and its branch vessels. Abdominal aorta is non-dilated. LYMPH NODES: No significant abnormality. No enlarged lymph nodes. CT/Abdomen/Pelvis WITH Contrast IMPRESSION: 1. Thickening of the urinary bladder wall likely secondary to its decompressed state. No overwhelming evidence of cystitis. 2. Status post L3-S1 posterior fusion with multilevel lower lumbar laminectomy. Anterolisthesis of L3 upon L4. Bony fusion from L3 through S1 posteriorly. Additional degenerative changes in the visualized thoracic and lumbar spine. 3. Mild distal colorectal stool retention. 4. Colonic diverticulosis without evidence of diverticulitis. Electronically Signed: Solomon Martin DO at 22:38 EST ,
[2023-05-03 17:28] LABS: CREATININE FINGERSTICK < 1.0 mg/dL (0.55-1.02); EGFR FINGERSTICK > 60.0000 mL/min (>60)
--- OUTSIDE RECORDS SUMMARY | 2023-05-03 19:25 | XMS RPT_ITS | CCD ---
Author Name Unknown Address [address] [facility] [facility] [address] [place] [address] Organization [facility] Care Team Providers Care Housing Director Name Role Phone BERT WARD Attending Unavailable IMCA Referring Unavailable MOOK MCCLAIN Primary Care Unavailable BERT WARD Attending Unavailable IMCA Referring Unavailable MOOK MCCLAIN Primary Care Unavailable BERT WARD Attending Unavailable MOOK MCCLAIN Referring Unavailable MOOK MCCLAIN Primary Care Unavailable BERT WARD Attending Unavailable MOOK MCCLAIN Referring Unavailable MOOK MCCLAIN Primary Care Unavailable Bert Ward MD Unavailable Anastsaia Mendezsser Primary Care Provider Syd Ramirez Unavailable [phone] Bert Ward MD Unavailable Chuyita Mendez Primary Care Provider Syd Ramirez Unavailable [phone] Bert Ward MD Unavailable Chuyita Mendez MD [...] Consulting Unavailable CHUYITA MENDEZ MD Attending Unavailable CHUIYTA MENDEZ MD Admitting Unavailable PROVIDER, UNKNOWN Consulting [...] Metoprolol; Translations: [METOPROLOL] Drug Allergy 7 Intolerance [facility] Repository (11 sources) predniSONE; Translations: [PREDNISONE] Drug Allergy 7 Mental Status Change [facility] Repository Medications Current Medications Medication Drug Class(es) [...] Coronary arteriosclerosis; Translations: [Atherosclerotic heart disease of [place] coronary artery without angina pectoris] Onset: 10-06-2016 [...] source) Long-term current use of anticoagulant; Translations: [[facility] (current) use of 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] Episodic Other aftercare (1 source) [facility] (current) use of 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; Translations: [Chronic anticoagulation] [...] Unclassified (2 sources) Coronary artery disease involving [place] heart, angina presence unspecified, unspecified vessel or [...] 162.6 cm Chelsie Belle APRN.CNP Work Phone: [facility] 04-14-2022 08:38-0500 Body weight 78.02 kg Chelsie Belle APRN.CNP Work Phone: [facility] 04-14-2022 08:38-0500 Diastolic blood pressure 72 mm[Hg] Chelsie Belle APRN.CNP Work Phone: [facility] 04-14-2022 08:38-0500 Heart rate 87 /min Chelsie Belle APRN.CNP Work Phone: [facility] 04-14-2022 08:38-0500 SaO2% (BldA) [Mass fraction] 96 % Chelsie Belle CAMERA PERSON.PLANE TABLEMAN Work Phone: [facility] 04-14-2022 08:38-0500 Systolic blood pressure 140 mm[Hg] Chelsie Belle CAMERA PERSON.PLANE TABLEMAN Work Phone: [facility] 08-11-2021 11:11-0400 Body height 162.6 cm Dhara Curtis MD Work Phone: [facility] 08-11-2021 11:11-0400 Body weight 76.5 kg Dhara Curtis MD Work Phone: [facility] 08-11-2021 11:11-0400 Diastolic blood pressure 84 mm[Hg] Dhara Curtis MD Work Phone: [facility] 08-11-2021 11:11-0400 Heart rate 76 /min Dhara Curtis MD Work Phone: [facility] 08-11-2021 11:11-0400 SaO2% (BldA) [Mass fraction] 97 % Dhara Curtis MD Work Phone: [facility] 08-11-2021 11:11-0400 Systolic blood pressure 138 mm[Hg] Dhara Curtis MD Work Phone: [facility] 07-21-2021 08:58-0400 Body height 162.6 cm Prieto Thacker PA-C Work Phone: [facility] 07-21-2021 08:58-0400 Body weight 76.2 kg Prieto Thacker PA-C Work Phone: [facility] 07-21-2021 08:58-0400 Diastolic blood pressure 81 mm[Hg] Prieto Thacker PA-C Work Phone: [facility] 07-21-2021 08:58-0400 Heart rate 88 /min Prieto Thacker PA-C Work Phone: [facility] 07-21-2021 08:58-0400 Respiratory rate 16 /min Prieto Thacker PA-C Work Phone: [facility] 07-21-2021 08:58-0400 SaO2% (BldA) [Mass fraction] 98 % Prieto Thacker PA-C Work Phone: [facility] 07-21-2021 08:58-0400 Systolic blood pressure 132 mm[Hg] Prieto Thacker PA-C Work Phone: [facility] Encounters Encounter Date Encounter Type Care Provider Facility Start: 10-30-2022 End: 10-30-2022 ambulatory CHUYITA GIVENS [facility] Start: 09-29-2022 End: 09-29-2022 ambulatory VIKTOR GIVENS [facility] Start: 07-12-2022 End: 07-12-2022 Emergency department patient visit CHUYITA GIVENS [facility] Start: 07-11-2022 End: 07-11-2022 ambulatory VIKTOR GIVENS [facility] Start: 04-18-2022 Patient encounter procedure [facility] Provider [facility] Department Start: 04-14-2022 End: 04-14-2022 ambulatory CHELSIE COLPO Facility:[facility] Start: 04-14-2022 End: 04-14-2022 Patient encounter procedure Chelsie Colpo CAMERA PERSON.PLANE TABLEMAN Work Phone: [facility] Procedures Date Procedure Procedure Detail Performing Clinician Start: 10-30-2022 Urinalysis CHUYITA SUE Plan of Treatment Date Care Activity Detail Author Start: 08-07-2024 LIPID SCREEN LIPID SCREEN [facility] Start: 06-08-2024 DIABETES SCREEN DIABETES SCREEN [facility] Start: 04-14-2022 End: 06-14-2022 CBC W Auto Differential panel - Blood CBC + DIFF Lab Routine Chronic anticoagulation Expected: 04/14/2022, Expires: 06/14/2022 [facility] Work Phone: Payers Date Payer Category Payer Unknown [employer] PPO [id number] 2021-Present [phone] [address] [place] [address] PPO [id number] 2021 Unknown [employer] PPO [id number] 2021-Present [phone] [address] [place] [address] PPO [id number] 2021 Unknown [id number] 1960 Unknown [id number] 1960 Unknown [id number] 1960 Unknown [id number] 1960 Unknown [id number] 1960 Unknown [id number] [id number] 1960 Unknown [id number] [id number] 1960 Unknown [id number] [id number] 1960 Unknown [id number] [id number] 1960 Unknown [id number] 1960 Unknown [id number] Unknown [id number] Social History Date Type Detail Facility Start: 05-31-2016 End: 04-14-2022 Tobacco smoking status NHIS Ex-smoker [facility] End: 04-02-2016 History of tobacco use Current smoker [facility] End: 04-02-2016 History of tobacco use Cigarette Smoker [facility] Start: 05-31-2016 End: 04-14-2022 Tobacco use and exposure Smokeless tobacco non-user [facility] Start: 07-21-2021 End: 04-14-2022 Alcohol intake Current drinker of alcohol (finding) [facility] Start: 04-28-2016 History SDOH Alcohol Comment social [facility] Start: 1960 Sex Assigned At Not on file [facility] Start: 07-11-2021 End: 08-11-2021 Exposure to SARS-CoV-2 (event) Not sure [facility] Clinical Notes 07-21-2021 to 04-14-2022 Patient InstructionsErnestine Shanks, LILIANE - 04/14/2022 8:36 AM ESTScamilla Belle APRN.CNP - 04/14/2022 8:30 AM ESTTelephone Encounter - Calli Cole, LILIANE - 03/07/2022 11:40 AM EST Note Date & Type Note Facility 04-14-2022 Note HNO ID: [id number] Author: Chelsie Belle APRN.CNP Service: ? 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 Recently she has had some diarrhea issues [...] and Left CHOLECYSTECTOMY ECHO TRANSESOPHAG CONGEN [facility]BE [facility] IMGNG IANDR 04/10/2016 EVENT MONITOR 05/17/2016 30 [...] de-access according to (more content not included)... [facility] 04-14-2022 Instructions Chelsie Belle APRN.PLANE TABLEMAN - 04/14/2022 8:58 AM EST Images from [...] the health of your heart. Developed by [employer]. Published by [employer]. Copyright 2014 [employer] and/or one of its subsidiaries. All rights reserved. documented in this encounter [facility] 04-14-2022 Nurse Note Patient denies any cardiac complains or symptoms. 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 Recently she has had some diarrhea issues [...] and Left CHOLECYSTECTOMY ECHO TRANSESOPHAG CONGEN PROBE [facility] IMGNG I&R 04/10/2016 EVENT MONITOR 05/17/2016 30 [...] establish as new with Dr. Astudillo in [place], she is instructed to call with other symptoms or complaints. Thank you Chelsie Belle APRN.PLANE TABLEMAN Please Note: This office note has been created using [employer], a speech recognition software program, and may contain errors including punctuation, grammar, spelling, gender, and inappropriate words or phrases that pertain to the sytem. documented in this encounter [facility] 03-07-2022 Miscellaneous Notes Last seen 02/15/2021. Patient missed appointment scheduled for 02/15/2022. Please call patient with over due appointment. Calli Galvan LPN documented in this encounter [facility] 03-07-2022 Miscellaneous Notes Patient's request for [...] Calli Galvan LPN documented in this encounter [facility] 01-17-2022 Miscellaneous Notes Opened in Error Yina Louis LPN documented in this encounter [facility] 08-11-2021 Note HNO ID: [id number] Author: Dhara Camacho I, MD Service: ? Author Type: Physician Type: Progress Notes Filed: 08/11/2021 11:41 AM Note Text: NEUROSURGERY FOLLOW UP OFFICE NOTE Chair, Clinical Neurosciences Director, Spinal Neurosurgery [facility] Date of visit: August 11, 2021 Patient Name: Ms.Marilee Micheal Hinds Date of : 1960 Current Age: [age] year old Sex: female MRN/E# [id number] Last Office Visit: 07/21/2021 Chief Complaint: Patient [...] - CHOLECYSTECTOMY - ECHO TRANSESOPHAG CONGEN [facility]BE [facility] IMGNG IANDR 04/10/2016 - EVENT MONITOR 05/17/2016 [...] instructed every 4 (more content not included)... [facility] 08-11-2021 History of Presen t illness Narrative Images from the original note were not included. NEUROSURGERY FOLLOW UP OFFICE NOTE Chair, Clinical Neurosciences Director, Spinal Neurosurgery [facility] Date of visit: August 11, 2021 Patient Name: Ms.Marilee Micheal Hinds Date of : 1960 Current Age: [age] year old Sex: female MRN/E# [id number] Last Office Visit: 07/21/2021 Chief Complaint: Patient [...] and Left CHOLECYSTECTOMY ECHO TRANSESOPHAG CONGEN PROBE [facility] IMGNG I&R 04/10/2016 EVENT MONITOR 05/17/2016 30 [...] MD Chair, Clinical Neurosciences Director, Spinal Neurosurgery [facility] This note was partially generated using citizenmade voice recognition system, and there may be some incorrect words, spellings, and punctuation that were not noted in checking the note before saving. documented in this encounter [facility] 08-11-2021 Note HNO ID: [id number] Author: RT Evin(Nikia) Service: Radiology Author Type: [...] DATE: August 11, 2021 TIME: 10:22 AM [facility] 08-11-2021 History of Presen t illness [...] TIME: 10:22 AM documented in this encounter [facility] 07-21-2021 Note HNO ID: [id number] Author: Prieto Thacker PA-C Service: ? Author Type: Physician Rn Licensed Practical Type: Progress Notes Filed: 07/21/2021 9:37 AM Note Text: NEUROSURGERY CONSULT NOTE Prieto Thacker PA-C Date of visit: July 21, 2021 Patient Name: Ms.Marilee Micheal Hinds Date of : 1960 Current Age: [age] year old Sex: female MRN/E# [id number] Chief Complaint: Patient presents with: New Patient [...] - CHOLECYSTECTOMY - ECHO TRANSESOPHAG CONGEN PROBE [facility] IMGNG IANDR 04/10/2016 - EVENT MONITOR 05/17/2016 [...] and unexpected weigh (more content not included)... [facility] 07-21-2021 History of Presen t illness Narrative NEUROSURGERY CONSULT NOTE Prieto Thacker PA-C Date of visit: July 21, 2021 Patient Name: Ms.Marilee Micheal Hinds Date of : 1960 Current Age: [age] year old Sex: female MRN/E# [id number] Chief Complaint: Patient presents with: New Patient [...] and Left CHOLECYSTECTOMY ECHO TRANSESOPHAG CONGEN PROBE [facility] IMGNG I&R 04/10/2016 EVENT MONITOR 05/17/2016 30 [...] Prieto Thacker PA-C documented in this encounter [facility] documented [facility] this [facility] Diagnosis Acute midline low back pain with bilateral sciatica- Primary Spinal stenosis of lumbar region without neurogenic claudication Spinal stenosis, lumbar region, without neurogenic claudication [facility] Diagnosis Abnormal findings on diagnostic imaging of other parts of musculoskeletal system documented [facility] Diagnosis PVD (peripheral vascular disease) (HCC)- Primary Peripheral vascular disease, unspecified Coronary artery disease involving [place] heart without angina pectoris, unspecified vessel or lesion type PAT (paroxysmal atrial tachycardia) (HCC) Paroxysmal supraventricular tachycardia Chronic anticoagulation Long-term (current) use of 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 Mixed hyperlipidemia [facility] this [facility] Diagnostic Procedure Only (Routine) - Closed Specialty Diagnoses / Procedures Referred By Brionnaac t Referred To Contact XR IMAGING Diagnoses Lumbar spondylosis Procedures XR LUMBAR MOTION 4V AP/LAT/ FLEX/EXT RADEX SPINE LUMBOSACRAL MINIMUM 4 VIEWS Prieto Thacker PA-C [address] [place] [address] Xr Imaging Referral ID Status Reason Start Date Expiration Date V isits Requested Visits Authorized [id number] Closed Auto-Generate d Referral 07/21/2021 08/20/2022 1 [...] [address] [place] [address] Mr Imaging Referral ID Status Reason Start Date Expiration Date Visits Requested Visits Authorized [id number] Additional Clinical Info Needed Auto-Generat ed Referral 07/21/2021 08/20/2022 1 1 [facility]* Diagnostic Procedure Only (Routine) - Closed Specialty Diagnoses / Procedures Referred By Contac t Referred To Contact XR IMAGING Diagnoses Lumbar spondylosis Procedures XR LUMBAR MOTION 4V AP/LAT/ FLEX/EXT RADEX SPINE LUMBOSACRAL MINIMUM 4 VIEWS Prieto Thacker PA-C [address] [place] [address] Xr Imaging Referral ID Status Reason Start Date Expiration Date V isits Requested Visits Authorized [id number] Closed Auto-Generate d Referral 07/21/2021 08/20/2022 1 1 [facility] Summary Purpose Family History No Family [...] MINS Dhara Camacho I, MD [address] [place] [address] [facility] [place] [address] [place] [address] Referral ID Status Reason Start Date Expiration Date Visits Requested Visits Authorized [id number] Pending Review Auto-Generat ed Referral 08/11/2021 08/11/2022 1 1 Specialty Diagnoses / Procedures Referred By Contac t Referred To Contact MR IMAGING Diagnoses Abnormal findings on diagnostic imaging of other parts of musculoskeletal system Procedures MRI LUMBAR SPINE WO/W IVCON MRI SPINAL CANAL LUMBAR W/O & W/CONTR SCOOBYL Prieto Thacker PA-C [address] [place] [address] Mr Imaging Referral ID Status Reason Start Date Expiration Date V isits Requested Visits Authorized [id number] Closed Auto-Generate d Referral 07/21/2021 08/19/2021 1 1 Additional Source Comments INFORMATION SOURCE (unrecogn ized section and content) DATE CREATED AUTHOR AUTHOR'S ORGANIZ ATION 08/14/2018 [facility] ([place]) DATE CREATED AUTHOR AUTHOR'S ORGANIZ ATION 03/19/2021 [facility] DATE CREATED AUTHOR AUTHOR'S ORGANIZ ATION 04/15/2022 [facility] DATE CREATED AUTHOR AUTHOR'S ORGANIZ ATION 10/31/2022 [facility] DATE CREATED AUTHOR AUTHOR'S ORGANIZ ATION 11/01/2022 [facility] Source Comments (unrecognize d section and content) In the event this informatio n is protected by the Federal Confidentiality of Alcohol and Drug Abuse Patient Records regulations: The Federal rules restrict any use of the information to criminally investigate or prosecute any alcohol or drug abuse patient.[facility] the event this information is protected by the Federal Confidentiality of Alcohol and Drug Abuse Patient Records regulations: The Federal rules restrict any use of the information to criminally investigate or prosecute any alcohol or drug abuse patient.[facility] the event this information is protected by the Federal Confidentiality of Alcohol and Drug Abuse Patient Records regulations: The Federal rules restrict any use of the information to criminally investigate or prosecute any alcohol or drug abuse patient.[facility] the event this information is protected by the Federal Confidentiality of Alcohol and Drug Abuse Patient Records regulations: The Federal rules restrict any use of the information to criminally investigate or prosecute any alcohol or drug abuse patient.[facility] the event this information is protected by the Federal Confidentiality of Alcohol and Drug Abuse Patient Records regulations: The Federal rules restrict any use of the information to criminally investigate or prosecute any alcohol or drug abuse patient.[facility] the event this information is protected by the Federal Confidentiality of Alcohol and Drug Abuse Patient Records regulations: The Federal rules restrict any use of the information to criminally investigate or prosecute any alcohol or drug abuse patient.[facility] the event this information is protected by the Federal Confidentiality of Alcohol and Drug Abuse Patient Records regulations: The Federal rules restrict any use of the information to criminally investigate or prosecute any alcohol or drug abuse patient.[facility] Hospital[facility] the event this information is protected by the Federal Confidentiality of Alcohol and Drug Abuse Patient Records regulations: The Federal rules restrict any use of the information to criminally investigate or prosecute any alcohol or drug abuse patient.[facility] Hospital[facility] the event this information is protected by the Federal Confidentiality of Alcohol and Drug Abuse Patient Records regulations: The Federal rules restrict any use of the information to criminally investigate or prosecute any alcohol or drug abuse patient.[facility] Reason for Visit (unrecogniz ed section and content) Specialty Diagnoses / Procedures Referred By Contac t Referred To Contact Neurosurgery / NEUROSURGERY Diagnoses Lumbar getting worse saw 2013 - needs work up Procedures OFFICE/OUTPATIENT NEW MODERATE MDM 45-59 MINUTES NEW PATIENT Self Prieto Thacker PA-C [address] [place] [address] Referral ID Status Reason Start Date Expiration Date V isits Requested Visits Authorized [id number] Closed Financial Clearance Required - Self Pay Patient Cleared - Admin/Tankroom Tender /Director advise to proceed 07/18/2021 10/16/2021 1 1 Reason Comments Established Patient Specialty Diagnoses / Procedures Referred By Contac t Referred To Contact XR IMAGING Diagnoses Lumbar spondylosis Procedures XR LUMBAR MOTION 4V AP/LAT/ FLEX/EXT RADEX SPINE LUMBOSACRAL MINIMUM 4 VIEWS Prieto Thacker PA-C [address] [address] Xr Imaging Referral ID Status Reason Start Date Expiration Date V isits Requested Visits Authorized [id number] Closed Auto-Generate d Referral 07/21/2021 08/20/2022 1 1 Specialty Diagnoses / Procedures Referred By Contac t Referred To Contact MR IMAGING Diagnoses Abnormal findings on diagnostic imaging of other parts of musculoskeletal system Procedures MRI LUMBAR SPINE WO/W IVCON MRI SPINAL CANAL LUMBAR W/O & W/CONTR MATRL Prieto Thacker PA-C [address] [place] [address] Mr Imaging Referral ID Status Reason Start Date Expiration Date V isits Requested Visits Authorized [id number] Closed Auto-Generate d Referral 07/21/2021 08/19/2021 1 1 Reason Onset Date Comments Opened In Error 01/17/2022 Reason Comments Appointment Reason Comments Refill Request Reason Comments Cardiology Follow Up Mixed hyperlipidemi a Care Teams (unrecognized sec tion and content) Housing Director Relationship Specialty Start Date End Date Chuyita Mendez [address] [place] [address] PCP - General Infectious Diseases 12/19/19 Bert Ward MD [address] [place] [address] Cardiology 09/15/16 Housing Director Relationship Specialty Start Date End Date Chuyita Mendez [address] [place] [address] PCP - General Infectious Diseases 12/19/19 Bert Ward MD [address] [place] [address] Cardiology 09/15/16 Syd Ramirez [address] [place] [address] Pain Management 08/11/21 Housing Director Relationship Specialty Start Date End Date Chuyita Mendez [address] [place] [address] PCP - General Infectious Diseases 12/19/19 Bert Ward MD [address] [place] [address] Cardiology 09/15/16 Syd Ramirez [address] [place] [address] Pain Management 08/11/21 Housing Director Relationship Specialty Start Date End Date Chuyita Mendez [address] [place] [address] PCP - General Infectious Diseases 12/19/19 Bert Ward MD [address] [place] [address] Cardiology 09/15/16 Syd Ramirez [address] [place] [address] Pain Management 08/11/21 Housing Director Relationship Specialty Start Date End Date Chuyita Mendez MD [address] [place] [address] PCP - General Infectious Diseases 12/19/19 Bert Ward MD [address] [place] [address] Cardiology 09/15/16 Syd Ramirez [address] [place] [address] Pain Management 08/11/21 Housing Director Relationship Specialty Start Date End Date Chuyita Mendez MD [address] [place] [address] PCP - General Infectious Diseases 12/19/19 Bert Ward MD [address] [place] [address] Cardiology 09/15/16 Syd Ramirez [address] [place] [address] Pain Management 08/11/21 Housing Director Relationship Specialty Start Date End Date Chuyita Mendez MD [address] [place] [address] PCP - General Infectious Diseases 12/19/19 Bert Ward MD [address] [place] [address] Cardiology 09/15/16 Linda Ramirezshilo Castaneda [address] [place], [place] [address] Pain Management 08/11/21 Housing Director Relationship Specialty Start Date End Date Chuyita Mendez MD [address] [place] [address] PCP - General Infectious Diseases 12/19/19 Bert Ward MD [address] [place] [address] Cardiology 09/15/16 Linda Ramirezshilo Castaneda [address] [place], [place] [id number] Pain Management 08/11/21 FOR RECORDS PERTAINING TO [...] BE BASED ON THE PRIMARY CLINICAL RECORDS. [facility]. provides no warranty or guarantee of the accuracy or completeness of information in this document.
== END | disposition home or self-care (01) ==
LOC: CT 16:48
PROVIDERS: PCP Internal Medicine Infectious Disease; Referring Provider Urology; Visit Provider Urology
DX: R10.84 Generalized abdominal pain (principal)
CPT/HCPCS: 74177; Q9967

== ENCOUNTER → 2023-10-08 | Outpatient (CLI) | payer BC, SELFPAY ==
--- NOTE | 2023-10-08 10:48 | RAD_ITS ---
INDICATION: RIGHT SHOULDER PAIN EXAMINATION/TECHNIQUE: X-RAY - RIGHT XR Shoulder Min 2 Views 4 VIEWS COMPARISON: No relevant prior comparison study available FINDINGS: BONES: No fracture demonstrated. Degenerative changes at the glenohumeral and acromioclavicular joints. JOINTS: No dislocation. SOFT TISSUES: Small density adjacent to the humeral head likely calcific tendinitis. RAD/Shoulder min 2 Views IMPRESSION: No evidence of fracture. Probable calcific tendinitis. Electronically Signed: Gracie Rodriguez MD at 7:57 EDT ,
== END | disposition home or self-care (01) ==
LOC: RAD 10:41
PROVIDERS: PCP Internal Medicine Infectious Disease; Referring Provider Clinical Nurse Specialist Adult Health; Visit Provider Clinical Nurse Specialist Adult Health
DX: M25.511 Pain in right shoulder (principal)
CPT/HCPCS: 73030

== ENCOUNTER 2025-03-02 06:16 | Day surgery (SDC) | payer BC, SELFPAY ==
[2025-03-02] VITALS (10 sets, daily range): BP systolic 107–156; BP diastolic 71–99; PULSE 74–86; RESP 16; TEMP 36.1–36.2; O2SAT 90–98; BMI 30.2
--- OUTSIDE RECORDS SUMMARY | 2025-03-02 06:20 | XMS RPT_ITS | CCD ---
Author Organization [facility] Care Team Providers Care Financial Engineer Name Role Phone BERT WARD Attending Unavailable IMCA Referring Unavailable KIRBY MCCLAIN Primary Care Unavailable BERT WARD Attending Unavailable IMCA Referring Unavailable KIRBY MCCLAIN Primary Care Unavailable BERT WARD Attending Unavailable KIRBY MCCLAIN Referring Unavailable KIRBY MCCLAIN Primary Care Unavailable BERT WARD Attending Unavailable KIRBY MCCLAIN Referring Unavailable KIRBY MCCLAIN Primary Care Unavailable Ed GIVENS, Bert Del Valle Unavailable Shae Mendez Primary Care Provider Syd Ramirez Unavailable Dr. Kirby Mcclain Primary Care Provider Dr. Kirby Mcclain Referring Provider Keith CASE CONSULTANT, CASE CONSULTANT-C Jenni Grande Attending Provider Ed GIVENS, Bert Del Valle Unavailable Shae Mendez Primary Care Provider Syd Ramirez Unavailable Dr. Kirby Mcclain Primary Care Provider Dr. Kirby Mcclain Referring Provider Keith MORFIN NP-C Jenni Grande Attending Provider Dr. Shae Mendez Primary Care Provider [phone] Dr. Shae Mendez Referring Provider FriendDr. Arroyo Attending Provider FriendDr. Arroyo Other Provider Ed GIVENS, Bert Del Valle Unavailable Marva GIVENS, [facility] Primary Care Provider Syd Ramirez Unavailable Marva GIVENS, [facility] [phone] Dr. Kehinde Brennan Attending Provider Dr. Freedom Luciano Referring Provider Ed GIVENS, Bert Del Valle Unavailable Marva GIVENS, [facility] Primary Care Provider [phone] Syd Ramirez MD Unavailable Omran, Yasser Primary Care Unavailable Sabi Laws Attending Unavailable Sabi Laws Referring Unavailable Omran, Yasser Primary Care Unavailable Omran, Yasser Referring Unavailable Cruz Zavala Attending Unavailable Omran, Yasser Primary Care Unavailable Kehinde Brennan Attending Unavailable AnkitaFreedom Referring Unavailable Omran, Yasser Primary Care Unavailable AnkitaFreedom Attending Unavailable Ankita, Freedom Metz Referring Unavailable Omran, Yasser Primary Care Unavailable AnkitaFreedom Attending Unavailable AnkitaFreedom Referring Unavailable Omran, Yasser Primary Care Unavailable Freedom Luciano Attending Unavailable AnkitaFreedom Referring Unavailable Marva GIVENS, [facility] Primary Care Provider [phone] Bert Ward MD Unavailable JEWELS BARRERA Admitting Unavailable JEWELS BARRERA Attending Unavailable JEWELS BARRERA Referring Unavailable OMRAN, YASSER Primary Care Unavailable BERT WARD Attending Unavailab le OMRAN, YASSER Primary Care Unavailable BERT WARD Attending Unavailab le OMRAN, YASSER Primary Care Unavailable BERT WARD Attending Unavailab le OMRAN, YASSER Primary Care Unavailable MACK RODRIGUEZ Admitting Unavailable MACK RODRIGUEZ Attending Unavailable MACK RODRIGUEZ Primary Care Unavailable OMRAN, YASSER Primary Care Unavailable WARD, BERT ANABEL Referring Unavailab le OMRAN, YASSER Primary Care Unavailable WARD, BERT ANABEL Referring Unavailab le OMRAN, YASSER Primary Care Unavailable WARD, BERT ANABEL Referring Unavailab le OMRAN, YASSER Primary Care Unavailable WARD, BERT ANABEL Referring Unavailab le OMRAN, YASSER Primary Care Unavailable WARD, BERT ANABEL Referring Unavailab le LEMASTERSCRISTOFER Attending Unavailable CRISTOFER AGARWAL Admitting Unavailable SHAE MENDEZ MD Referring Unavailable SHAE MENDEZ MD Consulting Unavailable CRISTOFER AGARWAL Primary Care Unavailable PROVIDER, UNKNOWN Consulting Unavailable PROVIDER, UNKNOWN Consulting Unavailable PROVIDER, UNKNOWN Consulting Unavailable VIKTOR SOMMER MD Attending Unavailable VIKTOR SOMMER MD Admitting Unavailable SHAE MENDEZ MD Referring Unavailable SHAE MENDEZ MD Consulting Unavailable VIKTOR SOMMER MD Primary Care Unavailable PROVIDER, UNKNOWN Consulting Unavailable PROVIDER, UNKNOWN Consulting Unavailable PROVIDER, UNKNOWN Consulting Unavailable SHAE MENDEZ MD Consulting Unavailable RAISA CANNON Attending Unavailable CANNON, RAISA Admitting Unavailable CANNON, RAISA Primary Care Unavailable PROVIDER, UNKNOWN Consulting Unavailable PROVIDER, UNKNOWN Consulting Unavailable PROVIDER, UNKNOWN Consulting Unavailable PAOLA JAIN Attending Unavailable SUSY, PAOLA Admitting Unavailable SHAE MENDEZ MD Consulting Unavailable NASHAWATI, PAOLA Primary Care Unavailable PROVIDER, UNKNOWN Consulting Unavailable PROVIDER, UNKNOWN Consulting Unavailable PROVIDER, UNKNOWN Consulting Unavailable NASHAWATI, PAOLA Admitting Unavailable NASHAWATI, PAOLA Primary Care Unavailable SHAE MENDEZ MD Consulting Unavailable PAOLA JAIN Attending Unavailable PROVIDER, UNKNOWN Consulting Unavailable PROVIDER, UNKNOWN Consulting Unavailable PROVIDER, UNKNOWN Consulting Unavailable SHAE MENDEZ MD Consulting Unavailable CANNONRAISA Attending Unavailable CANNON, RAISA Primary Care Unavailable CANNON, RAISA Admitting Unavailable PROVIDER, UNKNOWN Consulting Unavailable PROVIDER, UNKNOWN Consulting Unavailable PROVIDER, UNKNOWN Consulting Unavailable SABI LAWS Attending Unavailable SABI LAWS Admitting Unavailable SHAE MENDEZ MD Consulting Unavailable SABI LAWS Primary Care Unavailable PROVIDER, UNKNOWN Consulting Unavailable PROVIDER, UNKNOWN Consulting Unavailable PROVIDER, UNKNOWN Consulting Unavailable SHAE MENDEZ MD Attending Unavailable SHAE MENDEZ MD Admitting Unavailable SHAE MENDEZ MD Primary Care Unavailable SHAE MENDEZ MD Consulting Unavailable PROVIDER, UNKNOWN Consulting Unavailable PROVIDER, UNKNOWN Consulting Unavailable PROVIDER, UNKNOWN Consulting Unavailable SHAE MENDEZ MD Consulting Unavailable RAISA CANNON Attending Unavailable RAISA CANNON Primary Care Unavailable RAISA CANNON Admitting Unavailable PROVIDER, UNKNOWN Consulting Unavailable PROVIDER, UNKNOWN Consulting Unavailable PROVIDER, UNKNOWN Consulting Unavailable VIKTOR SOMMER MD Attending Unavailable VIKTOR SOMMER MD Admitting Unavailable VIKTOR SOMMER MD Primary Care Unavailable SHAE MENDEZ MD Consulting Unavailable PROVIDER, UNKNOWN Consulting Unavailable PROVIDER, UNKNOWN Consulting Unavailable PROVIDER, UNKNOWN Consulting Unavailable SHAE MENDEZ MD Attending Unavailable SHAE MENDEZ MD Admitting Unavailable SHAE MENDEZ MD Consulting Unavailable SHAE MENDEZ MD Primary Care Unavailable PROVIDER, UNKNOWN Consulting Unavailable PROVIDER, UNKNOWN Consulting Unavailable PROVIDER, UNKNOWN Consulting Unavailable SHAE MENDEZ MD Referring Unavailable SHAE MENDEZ MD Consulting Unavailable BEVERLY MONTANA MD Attending Unavailable BEVERLY MONTANA MD Admitting Unavailable BEVERLY MONTANA MD Primary Care Unavailable PROVIDER, UNKNOWN Consulting Unavailable PROVIDER, UNKNOWN Consulting Unavailable PROVIDER, UNKNOWN Consulting Unavailable SHAE MENDEZ MD Consulting Unavailable SHAE MENDEZ MD Referring Unavailable JAYCE GUTIERREZ MD Attending Unavailable JAYCE GUTIERREZ MD Admitting Unavailable JAYCE GUTIERREZ MD Primary Care Unavailable PROVIDER, UNKNOWN Consulting Unavailable PROVIDER, UNKNOWN Consulting Unavailable PROVIDER, UNKNOWN Consulting Unavailable Allergies Allergy Classification Reported Allergen(s) Allergy Type Date of Onset Reaction(s) Facility (20 sources) Metoprolol; Translations: [METOPROLOL] Drug Allergy 7 Intolerance [facility] Repository (20 sources) predniSONE; Translations: [PREDNISONE] Drug Allergy 7 Mental Status Change [facility] Repository Medications Current Medications Medication Drug Class(es) Dates Sig (Normalized) Sig (Original) acetaminophen 325 mg / oxyCODONE hydrochloride 5 mg oral tablet (20 sources) Opioid Agonist Start: 12-28-2017 take 1 tablet by mouth twice daily Oxycodone-Acetami nophen Active 1 TABLET PO TWICE A DAY December 27, 2017 11:00pm Start: 12-28-2017 take 1 tablet by sergei th three times daily Oxycodone-Acetaminophen Active 1 TABLET PO THREE TIMES A DAY December 27, 2017 11:00pm Start: 04-12-2016 take 1 tablet by sergei th every four hours as needed oxyCODONE-acetaminophen (PERCOCET) 5-325 mg tablet Take 1 tablet by mouth every 4 hours as needed for Pain. 80 tablet 04/12/2016 Active Comment on above: Take 1 tablet by sergei th every 4 hours as needed for Pain. Albuterol (20 sources) beta2-Adrenergic Agonist Start: 12-28-2017 take 1 puff(s) by inhalation every four hours as needed Albuterol Sulfate (Proventil Hfa) 6.7 GM HFA aerosol inhaler Active 2 PUFF IH EVERY 4 HOURS NEEDED December 27, 2017 11:00pm Start: 12-28-2017 take 1 puff(s) by in halation every four hours as needed Albuterol Sulfate (Proventil Hfa) 6.7 GM HFA aerosol inhaler Active 2 PUFF IH EVERY 4 HOURS NEEDED December 28, 2017 12:00am take 2 puff(s) by in halation every four hours as needed albuterol HFA (PROVENTIL HFA, VENTOLIN HFA) 90 mcg/actuation inhaler Inhale 2 Puffs as instructed every 4 hours as needed. Active Comment on above: Inhale 2 Puffs as in structed every 4 hours as needed. albuterol 0.833 mg/ml / ipratropium bromide 0.167 mg/ml inhalation solution (20 sources) Anticholinergic, beta2-Adrenergic Agonist Start: 04-21-19 17 ipratropium-albuter ol (DUONEB) 0.5 mg-3 mg(2.5 mg base)/3 mL nebu three times daily. As needed. 04/21/2016 Active Comment on above: three times daily. A s needed. amLODIPine 5 mg oral tablet (9 sources) Dihydropyridine Calcium Channel Jermain Start: 03-26-19 24 take 5 mg by mouth once daily Amlodipine Active 5 MG PO DAILY March 26, 2023 12:00am aspirin 81 mg oral tablet (1 source) Platelet Aggregation Inhibitor, Nonsteroidal Anti-inflammatory Drug take 4 capsules by mouth once daily aspirin 81 mg cap Take 324 mg by mouth once daily. For heart cath Active atorvastatin 10 mg oral tablet (20 sources) HMG-CoA Reductase Inhibitor Start: 10-13-19 21 End: 02-11-20 24 take 1 tablet by mouth once daily atorvastatin (LIPITOR) 10 mg tablet TAKE 1 TABLET BY MOUTH ONCE DAILY. NEED FOLLOW UP APPOINTMENT WITH 90 tablet 3 04/14/2022 02/11/2024 Discontinued Comment on above: Take 1 tablet by sergei th once daily TAKE 1 TABLET BY SERGEI TH ONCE DAILY. NEED FOLLOW UP APPOINTMENT WITH budesonide 3 mg delayed release oral capsule (20 sources) Corticosteroid Start: 03-22-19 take 1 capsule by mouth every twenty-four hours in the morning budesonide, enteric coated (ENTOCORT EC) 3 mg 24 hr capsule TAKE 3 CAPSULES BY MOUTH ONCE DAILY IN THE MORNING 03/22/2022 Active Start: 02-20-2022 End: 08-28-2022 take 9 mg by mouth once daily in the morning Budesonide Discontinued 9 MG PO EVERY MORNING February 20, 2022 11:17am August 28, 2022 7:03am Comment on above: TAKE 3 CAPSULES BY M OUTH ONCE DAILY IN THE MORNING cephalexin 500 mg oral capsule (3 sources) Cephalosporin Antibacterial Start: take 500 mg by mouth three times daily Cephalexin Active 500 MG PO THREE TIMES A DAY April 04, 2023 12:00am Cholestyramine Resin (1 source) Bile Acid Sequestrant Start: take 1 dose by mouth twice daily Cholestyramine (With Sugar) Active 4 GM PO TWICE A DAY December 23, 2021 12:00am administer w/meal; avoid other meds within 1hr before or 4 hr after dose cyclobenzaprine hydrochloride 10 mg oral tablet (1 source) Muscle Relaxant Start: End: take 1 tablet by mouth twice daily as needed cyclobenzaprine (FLEXERIL) 10 mg tablet Indications: Coronary artery disease involving [place] heart, angina presence unspecified, unspecified vessel or lesion type , PAT (paroxysmal atrial tachycardia) (HCC) , Pulmonary embolism on right (HCC) , Embolus to lower extremity (HCC) , Mixed hyperlipidemia , Essential hypertension 1 tablet by mouth twice daily prn 0 02/12/2018 07/21/2021 Discontinued Comment on above: 1 tablet by mouth tw ice daily prn gabapentin 400 mg oral capsule (20 sources) Anti-epileptic Agent Start: take 2 capsules by mouth at bedtime Gabapentin (Neurontin) 400 MG capsule Active 800 MG PO AT BEDTIME December 27, 2017 11:00pm Start: 12-28-2017 End: 11-23-2021 take 1 capsule by mouth at breakfast Gabapentin (Neurontin) 400 MG capsule Discontinued 400 MG PO WITH BREAKFAST December 27, 2017 11:00pm November 23, 2021 11:42am Comment on above: Take 800 mg by mouth three times daily. iv contrast (will be provided with radiology test) (20 sources) Start: 07-21-2021 iv contrast (will be provided with radiology [...] MR contrast administration guidelines link. 1 Each 07/21/2021 Active Start: 07-21-2021 iv contrast (w ill be provided with radiology test) MRI LSP [...] contrast administration guidelines link. 1 Each 0 07/21/2021 Active Comment on above: MRI LSP Inject, intr avenously, once for 1 dose. No IV access, [...] in the MR contrast administration guidelines link. levothyroxine sodium 0.088 mg oral capsule (20 sources) l-Thyroxine Start: 11-24-19 take 88 ug by mouth at bedtime Levothyroxine Active 88 MCG PO AT BEDTIME November 22, 2021 11:00pm Start: 01-01-2018 take 1 tablet by sergei th once daily levothyroxine (SYNTHROID) 88 mcg tablet Indications: Coronary artery disease involving [place] heart, angina presence unspecified, unspecified vessel or lesion type , PAT (paroxysmal atrial tachycardia) (HCC) , Pulmonary embolism on right (HCC) , Embolus to lower extremity (HCC) , Mixed hyperlipidemia , Essential hypertension 1 tablet by mouth daily 01/01/2018 Active Start: 11-12-2013 End: 11-23-2021 take 75 ug by mouth once daily Levothyroxine Discontin ued 75 MCG PO DAILY November 11, 2013 11:00pm November 23, 2021 11:41am Comment on above: 1 tablet by mouth da lizeth lisinopril 10 mg oral tablet (20 sources) Angiotensin Converting Enzyme Inhibitor Start: 11-23-2021 take 20 mg by mouth once daily Lisinopril Active 20 MG PO DAILY November 22, 2021 11:00pm Start: 12-19-2019 take 1 tablet by sergei once daily lisinopril (ZESTRIL, PRINIVIL) 10 mg tablet Indications: Coronary artery disease involving [place] heart, angina presence unspecified, unspecified vessel or lesion type , PAT (paroxysmal atrial tachycardia) (HCC) , Pulmonary embolism on right (HCC) , Embolus to lower extremity (HCC) , Mixed hyperlipidemia , Essential hypertension Take 1 tablet by mouth once daily. 90 tablet 3 12/19/2019 Active Comment on above: Take 1 tablet by sergei once daily. magnesium oxide 400 mg oral capsule (1 source) End: 07-22-19 take 1 capsule by mouth once daily magnesium oxide 400 mg cap Take 1 capsule by mouth once daily. 0 07/21/2021 Discontinued Comment on above: Take [address] [facility] once daily. melatonin 10 mg oral capsule (5 sources) Start: 11-24-19 take 10 mg by mouth at bedtime Melatonin Active 10 MG PO BEDTIME November 22, 2021 11:00pm 24 hr metoprolol succinate 25 mg extended release oral tablet (5 sources) beta-Adrenergic Jermain Start: 08-12-19 End: 09-11-19 take 1 tablet by mouth once daily metoprolol succinate ER (TOPROL XL) 25 mg 24 hr tablet Take 1 tablet by mouth once daily. 30 tablet 08/11/2024 Active nitroglycerin 0.4 mg sublingual tablet (5 sources) Nitrate Vasodilator Start: 08-12-19 nitroglycerin sublingual (NITROQUICK) 0.4 mg SL tablet Dissolve 1 tablet under the tongue as needed for chest pain. If no pain relief call 911. 25 tablet 3 08/11/2024 Active rivaroxaban 20 mg oral tablet (20 sources) Factor Xa Inhibitor Start: 12-29-19 End: 08-15-19 take 1 tablet by mouth once daily rivaroxaban (XARELTO) 20 mg tablet Indications: Coronary artery disease involving [place] coronary artery of [place] heart without angina pectoris , Mixed hyperlipidemia , Primary hypertension , Pulmonary embolism on right (HCC) , Embolus to lower extremity (HCC) , HERNANDEZ (dyspnea on exertion) Take 1 tablet by mouth once daily. 90 tablet 3 08/14/2024 08/14/2025 Active Comment on above: Take 1 tablet by sergei th once daily. Take 1 tablet by sergei th once daily rosuvastatin calcium 5 mg oral tablet (5 sources) HMG-CoA Reductase Inhibitor Start: 08-12-19 take 1 tablet by mouth once daily at bedtime rosuvastatin (CRESTOR) 5 mg tablet Indications: Coronary artery disease involving [place] coronary artery of [place] heart without angina pectoris , Mixed hyperlipidemia , Primary hypertension , Pulmonary embolism on right (HCC) , Embolus to lower extremity (HCC) , HERNANDEZ (dyspnea on exertion) Take 1 tablet by mouth daily at bedtime. 90 tablet 3 08/11/2024 Active sertraline 100 mg oral tablet (20 sources) Serotonin Reuptake Inhibitor Start: 03-16-19 17 take 1 tablet by mouth once daily sertraline (ZOLOFT) 100 mg tablet Take 1 tablet by mouth once daily. 03/16/2016 Active Comment on above: Take 1 tablet by sergei once daily. tiZANidine 4 mg oral capsule (20 sources) Central alpha-2 Adrenergic Agonist Start: 11-24-19 take 4 mg by mouth three times daily Tizanidine Active 4 MG PO THREE TIMES A DAY November 22, 2021 11:00pm Start: 09-05-2019 take 1 tablet by sergei th three times daily as needed for muscle spasms tiZANidine (ZANAFLEX) 4 mg tablet TAKE 1 TABLET BY MOUTH UP TO THREE TIMES DAILY NEEDED FOR SPASM 09/05/2019 Active Comment on above: TAKE 1 TABLET BY SERGEI TH UP TO THREE TIMES DAILY NEEDED FOR SPASM traZODone hydrochloride 50 mg oral tablet (20 sources) Serotonin Reuptake Inhibitor Start: take 1 tablet by mouth once daily at bedtime traZODone (DESYREL) 50 mg tablet Take 50 mg by mouth daily at bedtime. 11/24/2019 Active Comment on above: Take 50 mg by mouth daily at bedtime. Completed/Discontinued Medications Medication Drug Class(es) Dates Sig (Normalized) Sig (Original) baclofen 10 mg oral tablet (6 sources) gamma-Aminobutyric Acid-ergic Agonist Start: 03-08-2016 End: 11-23-2021 take 10 mg by mouth twice daily Baclofen Discontinued 10 MG PO TWICE A DAY December 27, 2017 11:00pm November 23, 2021 11:43am Comment on above: Take 1 tablet by sergei th twice daily as needed. celecoxib 200 mg oral capsule (20 sources) Nonsteroidal Anti-inflammatory Drug Start: 09-14-2016 End: 08-11-2024 take 1 capsule by mouth twice daily celecoxib (CELEBREX) 200 mg capsule Take 200 mg by mouth twice daily. 09/14/2016 08/11/2024 Discontinued (Course of therapy completed) Comment on above: Take 200 mg by mouth twice daily. diazePAM 2 mg oral tablet (5 sources) Benzodiazepine Start: 12-29-2017 End: 01-05-2018 take 2 mg by mouth four times daily as needed Diazepam Discontinued 2 MG PO 4 TIMES DAILY NEEDED 28 09December 29, 2017 7:58am January 04, 2018 11:12pm pantoprazole 40 mg delayed release oral tablet (3 sources) Proton Pump Inhibitor Start: 03-02-2022 End: 08-28-2022 take 40 mg by mouth once daily in the morning Pantoprazole Discontinued 40 MG PO EVERY MORNING 60 March 02, 2022 12:00am August 28, 2022 7:03am regadenoson 0.4 mg injection (LEXISCAN) (2 sources) Start: 01-28-2024 End: 01-28-2024 regadenoson 0.4 mg injection (LEXISCAN) Start: 01-28-2024 End: 01-28-2024 0.4 mg, INTRAVENOUS, DIRE CTED NEEDED, 1 dose, Starting on Sun01/28/24 at 1022, Until Sun01/28/24 at 0850, Per-Protocol - for use during STRESS TEST procedure only, Give 0.4 mg (5 mL) over ~10 seconds, followed immediately by a 5 mL saline flush. Wait 10-20 seconds, then administer the radionuclide myocardial perfusion imaging agent., Cardiac Procedure Med Orders sucralfate 1000 mg oral tablet (3 sources) Aluminum Complex Start: 03-02-2022 End: 08-28-2022 take 1 g by mouth before mealtime Sucralfate Discontinued 1 GM PO before meals 90 March 02, 2022 12:00am August 28, 2022 7:01am Problems Active Problems Problem Classification Problem Date Documented Da te Episodic/Chronic Aortic and peripheral arterial embolism or thrombosis (20 sources) Lower limb arterial embolus; Translations: [Embolism and thrombosis of arteries of the lower extremities] Onset: 04-28-2016 04-28-2016 Chronic Cardiac dysrhythmias (1 source) Atrial paroxysmal tachycardia; Translations: [Supraventricular tachycardia] Chronic Chronic obstructive pulmonary disease and bronchiectasis (20 sources) Chronic obstructive lung disease; Translations: [Chronic obstructive pulmonary disease, unspecified] Onset: 05-31-2016 05-31-2016 Chronic Conditions associated with dizziness or vertigo (5 sources) Dizziness; Translations: [Dizziness and giddiness] 12-28-2017 Episodic Coronary atherosclerosis and other heart disease (20 sources) Coronary arteriosclerosis; Translations: [Atherosclerotic heart disease of [place] coronary artery without angina pectoris] Onset: 10-06-2016 Resolved: 02-11-2024 11-03-2016 Chronic Diabetes mellitus without complication (4 sources) Hyperglycemia, unspecified; Translations: [Hyperglycemia, unspecified] Onset: 12-03-2024 Episodic Disorders of lipid metabolism (20 sources) Mixed hyperlipidemia; Translations: [Mixed hyperlipidemia] Onset: 05-31-2016 Resolved: 08-11-2024 05-31-2016 Chronic Diverticulosis and diverticulitis (1 source) Diverticulosis of intestine, part unspecified, without perforation or abscess without bleeding; Translations: [Diverticulosis of intestine, part unspecified, without perforation or abscess without bleeding] Onset: 12-03-2024 Chronic Esophageal disorders (1 source) Gastro-esophageal reflux disease without esophagitis; Translations: [Gastro-esophageal reflux disease without esophagitis] Onset: 10-20-2024 Chronic Essential hypertension (12 sources) Essential hypertension; Translations: [Essential (primary) hypertension] Onset: 02-11-2024 02-11-2024 Chronic Gastritis and duodenitis (3 sources) Gastritis; Translations: [Gastritis, unspecified, without bleeding] 03-02-2022 Episodic Genitourinary symptoms and ill-defined conditions (1 source) Stress incontinence (female) (male); Translations: [Stress incontinence (female) (male)] Onset: 04-09-2023 Chronic Hemorrhoids (1 source) Other hemorrhoids; Translations: [Other hemorrhoids] Onset: 12-03-2024 Episodic Mood disorders (1 source) Mood disorders; Translations: [Depression, unspecified] Onset: 12-03-2024 Noninfectious gastroenteritis (3 sources) Lymphocytic colitis; Translations: [Lymphocytic colitis] 08-28-2022 Chronic Nonspecific chest pain (20 sources) Chest pain; Translations: [Chest pain, unspecified] 05-31-2016 Episodic Nutritional deficiencies (1 source) Vitamin D deficiency, unspecified; Translations: [Vitamin D deficiency, unspecified] Onset: 02-01-2024 Chronic Other and unspecified benign neoplasm (1 source) Benign neoplasm of colon, unspecified; Translations: [Benign neoplasm of colon, unspecified] Onset: 12-03-2024 Episodic Other gastrointestinal disorders (1 source) Disease of intestine, unspecified; Translations: [Disease of intestine, unspecified] Onset: 12-25-2024 Episodic Other hematologic conditions (4 sources) Protein electrophoresis abnormal; Translations: [Other specified abnormalities of plasma proteins] 01-27-2022 Episodic Other lower respiratory disease (20 sources) Dyspnea on exertion; Translations: [Other forms of dyspnea] Onset: 10-08-2023 10-08-2023 Episodic Other lower respiratory disease (1 source) Hypoxemia; Translations: [Hypoxemia] Onset: 10-20-2024 Episodic Other lower respiratory disease (2 sources) Shortness of breath; Translations: [Shortness of breath] Onset: 10-20-2024 Episodic Other nervous system disorders (1 source) Other chronic pain; Translations: [Other chronic pain] Onset: 02-01-2024 Chronic Other non-traumatic joint disorders (1 source) Pain in right shoulder; Translations: [Pain in right shoulder] Onset: 10-30-2023 Episodic Other nutritional; endocrine; and metabolic disorders (1 source) Hypomagnesemia; Translations: [Hypomagnesemia] Onset: 12-03-2024 Chronic Other screening for suspected conditions (not mental disorders or infectious disease) (5 sources) Radiology result abnormal; Translations: [Abnormal findings on diagnostic imaging of other parts of musculoskeletal system] Onset: 12-03-2024 Episodic Peripheral and visceral atherosclerosis (1 source) Peripheral vascular disease; Translations: [Peripheral vascular disease, unspecified] Chronic Residual codes; unclassified (1 source) Acquired absence of other specified parts of digestive tract; Translations: [Acquired absence of other specified parts of digestive tract] Onset: 10-20-2024 Episodic Screening and history of mental health and substance abuse codes (1 source) Personal history of nicotine dependence; Translations: [Personal history of nicotine dependence] Onset: 10-20-2024 Episodic Spondylosis; intervertebral disc disorders; other back problems (1 source) Lumbar spondylosis; Translations: [Spondylosis without myelopathy or radiculopathy, lumbar region] Chronic Substance-related disorders (20 sources) Tobacco dependence in remission; Translations: [Nicotine dependence, unspecified, in remission] Onset: 05-31-2016 05-31-2016 Chronic Thyroid disorders (1 source) Hypothyroidism, unspecified; Translations: [Hypothyroidism, unspecified] Onset: 12-18-2024 Chronic Unclassified (2 sources) Coronary artery disease involving [place] heart, angina presence unspecified, unspecified vessel or lesion type Onset: 11-03-2016 Unclassified (2 sources) Other intervertebral disc degeneration, lumbosacral region without mention of lumbar back pain or lower extremity pain; Translations: [Other intervertebral disc degeneration, lumbosacral region without mention of lumbar back pain or lower extremity pain] Onset: 06-06-2024 Past or Other Problems Problem Classification Problem Date Documented Da te Episodic/Chronic Abdominal pain (1 source) Generalized abdominal pain; Translations: [Generalized abdominal pain] Onset: 05-09-2023 Episodic Acute and unspecified renal failure (1 source) Acute kidney failure, unspecified; Translations: [Acute kidney failure, unspecified] Onset: 02-01-2024 Episodic Fluid and electrolyte disorders (1 source) Hyperkalemia; Translations: [Hyperkalemia] Onset: 02-01-2024 Episodic Genitourinary symptoms and ill-defined conditions (1 source) Painful micturition, unspecified; Translations: [Painful micturition, unspecified] Onset: 04-24-2023 Episodic Noninfectious gastroenteritis (8 sources) Chronic diarrhea; Translations: [Noninfective gastroenteritis and colitis, unspecified] Onset: 02-01-2024 Episodic Other aftercare (8 sources) Long-term current use of anticoagulant; Translations: [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] Onset: 02-11-2024 Episodic Other 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 (2 sources) 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; Translations: [Chronic anticoagulation] Onset: 02-01-2024 Episodic Other connective tissue disease (20 sources) Pain in left lower limb; Translations: [Pain in left leg] Onset: 04-28-2016 04-28-2016 Episodic Other connective tissue disease (3 sources) Myalgia, unspecified site; Translations: [Myalgia, unspecified site] Onset: 01-21-2024 Episodic Other gastrointestinal disorders (3 sources) Diarrhea, unspecified; Translations: [Diarrhea, unspecified] Onset: 02-09-2024 Episodic Other lower respiratory disease (3 sources) Other forms of dyspnea; Translations: [Dyspnea on exertion] Onset: 10-08-2023 Episodic Phlebitis; thrombophlebitis and thromboembolism (1 source) Personal history of other venous thrombosis and embolism; Translations: [Personal history of other venous thrombosis and embolism] Onset: 02-01-2024 Episodic Pneumonia (except that caused by tuberculosis or sexually transmitted disease) (1 source) Pneumonia, unspecified organism; Translations: [Pneumonia, unspecified organism] Onset: 02-01-2024 Episodic Pulmonary heart disease (20 sources) Pulmonary embolism; Translations: [Other pulmonary embolism without acute cor pulmonale] Onset: 04-28-2016 04-28-2016 Episodic Spondylosis; intervertebral disc disorders; other back problems (20 sources) Acute back pain with sciatica; Translations: [Lumbago with sciatica, left side] Onset: 08-11-2021 Episodic Unclassified (1 source) Other intervertebral disc degeneration, lumbosacral region without mention of lumbar back pain or lower extremity pain; Translations: [Other intervertebral disc degeneration, lumbosacral region without mention of lumbar back pain or lower extremity pain] Onset: 06-06-2024 Results Test Name Value Interpretation Reference Range Facility CT ABDOMEN/PELVIS Won 2024 CT ABDOMEN/PELVIS W Normal [facility] CREATININEon 12-25-2024 AGE 64 years Normal [facility] Comment on above: Performed By: #### 2 [id number] ####[facility],[address] [place], [place] [id number] Creatinine [Mass/Vol] 0.83 mg/dL Normal 0.55 - 1.02 [facility] Comment on above: Performed By: #### 2 66484 ####[facility],[address] [place], [place] [id number] GFR/1.73 sq M.predicted among non-blacks MDRD (S/P/Bld) [Vol rate/Area] mL/min/{1.73_m2} Normal 60 - 999 [facility] Comment on above: Performed By: #### 2 68333 ####[place] [address] Final Surgical Pathology Rep [facility] 12-08-2024 Final Surgical Pathology Report . Pathology Reports Accession: Collected Date/Time: Received Date/Time: Pathologist: [id number] 12/03/2024 12:18 EDT 12/05/2024 07:46 EDT MD TACOS JONES Final Surgical Pathology Report DIAGNOSIS: A. COLON, 45 CM, BIOPSY: - SLIGHTLY POLYPOID FRAGMENTS OF COLONIC MUCOSA WITH MILD CHRONIC INFLAMMATION AND NONSPECIFIC REACTIVE CHANGES B. COLON, 60 CM, BIOPSY: - TUBULAR ADENOMA COMMENT: [facility] - [id number] CLINICAL INFORMATION: SCREENING SPECIMEN: A 45cm COLON B 60cm COLON GROSS DESCRIPTION: All parts labelled with patient name and [id number] A. Received in formalin labeled 45 cm colon are 4 jj-brown tissue fragments measuring 0.3 x 0.1 to 0.5 x 0.3 cm. TS-1 B. Received in formalin labeled 60 cm colon are 3 jj tissue fragments measuring 0.2 x 0.1 to 0.4 x 0.2 cm. TS-1 Debora Singh, Grossing Wildlife Forensic Geneticist/ Dr. Thor Salmeron, Pathologist Performed by Debora Singh MICROSCOPIC DESCRIPTION: The microscopic examination is performed, except in the case of Gross Only. Verified by Pathology Report verified by [facility] TACOS JONES MD Sign out Date: 12/08/2024 08:17 Performing Lab: [facility], [address] [place] [address] Pathology Dept Disclaimer If ancillary studies were utilized, the following Laboratory Developed Test (LDT) disclaimer will apply: Under CLIA requirements, [facility]ology [facility] is qualified to perform high complexity testing. For all ancillary stains, positive and negative controls stain appropriately. Performance characteristics of immunohistochemical and chromogenic in-situ hybridization tests have been determined by [facility]ology [facility]. These tests are used for clinical purposes, They should not be regarded as investigational or for research. Normal [facility] OPERATIVE PROCEDURESon 12-04 OPERATIVE PROCEDURES Normal [facility] CBC + DIFFon 12-03-2024 Baso # 0.02 x10EE3/UL Normal 0.00 - 0.10 [facility] Comment on above: Performed By: #### 2 80087 ####[facility],[address] [place], [place] [phone] Basophils/100 WBC (Bld) 0.3 % Normal 0.0 - 2.0 [facility] Comment on above: Performed By: #### 2 73600 ####[place] [address] CBC + DIFF Normal [facility] Comment on above: Result Comment: CBC- COMPLETE BLOOD COUNT Performed By: #### 2 66244 ####[facility],[address] [place] [address]874 EO # 0.10 x10EE3/UL Normal 0.00 - 0.50 [facility] Comment on above: Performed By: #### 2 46322 ####[facility],[address] [place] [address] 37949 Eosinophils/100 WBC (Bld) 1.4 % Normal 0.0 - 7.0 [facility] Comment on above: Performed By: #### 2 64588 ####[place] [address],[place] [address] Erythrocyte distribution width (RBC) [Ratio] 12.8 % Normal 12.0 - 15.6 [facility] Comment on above: Performed By: #### 2 76929 ####[facility],[address] [place] [address] 46307 Hematocrit (Bld) [Volume fraction] 44.6 % Normal 34.0 - 46.0 [facility] Comment on above: Performed By: #### 2 22360 ####[facility],[address] [place] [address] Hemoglobin (Bld) [Mass/Vol] 15.7 g/dL Normal 12.0 - 16.0 [facility] Comment on above: Performed By: #### 2 96014 ####[facility],[address] [place], [place] [id number] Lymph # 1.65 x10EE3/UL Normal 0.80 - 2.80 [facility] Comment on above: Performed By: #### 2 33931 ####[facility],[address] [place] [address] 63943 Lymphocytes/100 WBC (Bld) 24.4 % Normal 20.0 - 45.0 [facility] Comment on above: Performed By: #### 2 61165 ####[facility],[address] [place] [address] 51714 MANUAL DIFF N/A Normal [facility] Comment on above: Performed By: #### 2 49217 ####[facility],[address] [place] [address] 52161 MCH (RBC) [Entitic mass] 31 pg Normal 27 - 33 [facility] Comment on above: Performed By: #### 2 21982 ####[facility],[address] [place] [address] 75445 MCHC 35 X10 3 Normal 32 - 36 [facility] Comment on above: Performed By: #### 2 82520 ####[facility],[address] [place] [address] 22891 MCV (RBC) [Entitic vol] 87 fL Normal 80 - 99 [facility] Comment on above: Performed By: #### 2 88311 ####[facility],[address] [place] [address] 89244 Amelia # 0.57 x10EE3/UL Normal 0.20 - 1.00 [facility] Comment on above: Performed By: #### 2 73852 ####[facility],[address] [place] [address] 80531 MONOS % 8.5 % Normal 0.0 - 10.0 [facility] Comment on above: Performed By: #### 2 37492 ####[facility],[address] [place] [address] 58007 Morphology Niranjan (Bld) [Interp] N/A Normal [facility] Comment on above: Performed By: #### 2 68560 ####[facility],[address] [place] [address] Neut # 4.42 x10EE3/UL Normal 1.50 - 7.10 [facility] Comment on above: Performed By: #### 2 15635 ####[facility],[address] [place] [address] 46172 Neutrophils/100 WBC (Bld) 65.4 % Normal 46.0 - 76.0 [facility] Comment on above: Performed By: #### 2 82617 ####[facility],[address] [place] [address] 71117 PLATELET 173 x10EE3/UL Normal 150 - 450 [facility] Comment on above: Performed By: #### 2 60669 ####[facility],[address] [place] [address] 93721 Platelet mean volume (Bld) [Entitic vol] 7.6 fL Normal 6.6 - 10.5 [facility] Comment on above: Result Comment: AUTO MATED DIFFERENTIAL Performed By: #### 2 61243 ####[facility],[address] [place] [address] 30310 RBC 5.14 x 10EE6/UL Normal 4.10 - 5.30 [facility] Comment on above: Performed By: #### 2 73239 ####[facility],[address] [place] [address] 20823 WBC 6.8 x 10EE3/UL Normal 4.5 - 10.8 [facility] Comment on above: Performed By: #### 2 32854 ####[facility],[address] [place] [address] 56924 CMP with eGFRon 12-03-2024 AGE 64 years Normal [facility] Comment on above: Performed By: #### 2 81905 ####[facility],[address] [place] [address] 08574 Albumin [Mass/Vol] 3.5 g/dL Normal 3.4 - 5.0 [facility] Comment on above: Performed By: #### 2 66863 ####[facility],[address] [place] [address] 67348 Albumin/Globulin [Mass ratio] 0.9 {ratio} Normal 0.9 - 1.6 [facility] Comment on above: Performed By: #### 2 14233 ####[facility],[address] [place] [address] 30213 ALK PHOS 70 U/L Normal 46 - 116 [facility] Comment on above: Performed By: #### 2 23208 ####[facility],[address] [place] [address] 67365 ALT [Catalytic activity/Vol] 29 U/L Normal 16 - 63 [facility] Comment on above: Performed By: #### 2 40620 ####[facility],[address] [place] [address] 80208 Anion gap [Moles/Vol] 10 mmol/L Normal 10 - 20 [facility] Comment on above: Performed By: #### 2 91491 ####[facility],[address] [place] [address] 16112 AST [Catalytic activity/Vol] 27 U/L Normal 13 - 39 [facility] Comment on above: Performed By: #### 2 13441 ####[facility],[address] [place] [address] 35806 B/C RATIO 18 ratio Normal 0 - 30 [facility] Comment on above: Performed By: #### 2 19319 ####[facility],[address] [place] [address] 56893 Bilirubin [Mass/Vol] 0.6 mg/dL Normal 0.2 - 1.0 [facility] Comment on above: Performed By: #### 2 58830 ####[facility],[address] [place] [address] 12830 Calcium [Mass/Vol] 9.2 mg/dL Normal 8.5 - 10.1 [facility] Comment on above: Performed By: #### 2 55823 ####[facility],[address] [place] [address] 64302 Chloride [Moles/Vol] 101 mmol/L Normal 98 - 107 [facility] Comment on above: Performed By: #### 2 54139 ####[facility],[address] [place] [address] 37831 CMP with eGFR Normal [facility] Comment on above: Result Comment: COMP REHENSIVE METABOLIC PANEL Performed By: #### 2 77501 ####[facility],[address] [place] [address] 08752 CO2 [Moles/Vol] 28.2 mmol/L Normal 21.0 - 32.0 [facility] Comment on above: Performed By: #### 2 81405 ####[facility],[address] [place] [address] 54849 Creatinine [Mass/Vol] 0.92 mg/dL Normal 0.55 - 1.02 [facility] Comment on above: Performed By: #### 2 03055 ####[facility],[address] [place] [address] 95745 GFR/1.73 sq M.predicted among non-blacks MDRD (S/P/Bld) [Vol rate/Area] mL/min/{1.73_m2} Normal 60 - 999 [facility] Comment on above: Performed By: #### 2 77220 ####[facility],[address] [place] [address] 30789 Result Comment: ACCO RDING TO THE NATIONAL KIDNEY DISEASE EDUCATION PROGRAM(NKDE), A NORMAL eGFRIS A VALUE GREATER THAN OR EQUAL TO 60 ML/MIN/1.73 SQ METERS.CHRONIC KIDNEY DISEASE: <60mL/MIN/1.73 SQ METERSKIDNEY FAILURE: <15mL/MIN/1.73 SQ METERSTHIS TEST SHOULD ONLY BE USED FOR PATIENTS 18 YEARS OF AGE AND OLDER. Globulin (S) [Mass/Vol] 3.7 g/dL Normal 1.5 - 3.8 [facility] Comment on above: Performed By: #### 2 81357 ####[facility],[address] [place] [address] 23425 Glucose [Mass/Vol] 108 mg/dL High 74 - 106 [facility] Comment on above: Performed By: #### 2 60287 ####[facility],[address] [place] [address] 75290 Potassium [Moles/Vol] 3.8 mmol/L Normal 3.5 - 5.1 [facility] Comment on above: Performed By: #### 2 78669 ####[facility],[address] [place] [address] 91790 Protein [Mass/Vol] 7.2 g/dL Normal 6.4 - 8.2 [facility] Comment on above: Performed By: #### 2 52427 ####[facility],[address] [place] [address] 13936 Sodium [Moles/Vol] 135 mmol/L Low 136 - 145 [facility] Comment on above: Performed By: #### 2 96520 ####[facility],[address] [place] [address] 11125 Urea nitrogen [Mass/Vol] 17 mg/dL Normal 7 - 18 [facility] Comment on above: Performed By: #### 2 09511 ####[facility],[address] [place] [address] 05543 HEMOGLOBIN A1C (POM)on 12-03 Glucose [Mass/Vol] 137.0 mg/dL High 0.0 - 0.0 [facility] Comment on above: Result Comment: BLDo HEMOGLOBIN A1C REFERENCE RANGESBLDo Suggested Diagnosis HbA1c(%) HbA1C (mmol/mol Diabetic >/=6.5 >/=48 Prediabetes 5.7 - 6.4 39 - 47 Normal <5.7 <39 Performed By: #### 2 85479 ####[facility],[address] [place] [address] 49141 HbA1c (Bld) [Mass fraction] 6.4 % Normal 0.0 - 6.5 [facility] Comment on above: Performed By: #### 2 00808 ####[facility],[address] [place] [address] 12989 LIPID PROFILEon 12-03-2024 Cholesterol [Mass/Vol] 169 mg/dL Normal 0 - 240 [facility] Comment on above: Performed By: #### 2 73869 ####[facility],[address] [place] [address] 09274 Cholesterol in HDL [Mass/Vol] 46 mg/dL Normal 40 - 60 [facility] Comment on above: Performed By: #### 2 47458 ####[facility],[address] [place] [address] 16526 Cholesterol in LDL [Mass/Vol] 101 mg/dL Normal 0 - 129 [facility] Comment on above: Performed By: #### 2 47049 ####[facility],[address] [place] [address] 14709 Cholesterol.total/Amanda sterol in HDL [Mass ratio] 3.7 {ratio} Normal 0.0 - 5.0 [facility] Comment on above: Performed By: #### 2 36005 ####[facility],[address] [place] [address] 98665 Lipid 1996 panel Normal [facility] Comment on above: Result Comment: LIPI D PROFILE Performed By: #### 2 28764 ####[facility],[address] [place] [address] 86761 Triglyceride [Mass/Vol] 110 mg/dL Normal 0 - 150 [facility] Comment on above: Performed By: #### 2 66108 ####[facility],[address] [place] [address] 06905 MAGNESIUMon 12-03-2024 Magnesium [Mass/Vol] 1.8 mg/dL Normal 1.8 - 2.4 [facility] Comment on above: Performed By: #### 2 90893 ####[facility],[address] [place] [address] 66107 T4-FREE (FREE THYROXINE)on 0 12-03-2024 Free T4 [Mass/Vol] 1.29 ng/dL Normal 0.76 - 1.46 [facility] Comment on above: Result Comment: P otential of falsely elevated results when biotin concentrations are > 10ng/mL. Performed By: #### 2 67309 ####[facility],[address] [place] [address] 39607 TSHon 12-03-2024 TSH Qn 2.10 m[IU]/L Normal 0.35 - 3.74 [facility] Comment on above: Performed By: #### 2 80783 ####[facility],[address] [place] [address] 61745 URINALYSISon 12-03-2024 Amorphous NONE Normal [facility] Comment on above: Performed By: #### 2 11616 ####[facility],[address] [place] [address] 70634 Bacteria NONE Normal [facility] Comment on above: Performed By: #### 2 85842 ####[facility],[address] [place] [address] 04064 Bilirubin Ql (U) 1 Abnormal NORMAL: NEGATIVE [facility] Comment on above: Performed By: #### 2 20436 ####[facility],[address] [place] [address] 74508 Casts NONE Normal [facility] Comment on above: Performed By: #### 2 57128 ####[facility],[address] [place] [address] 28250 Clarity (U) clear Normal NORMAL: CLEAR [facility] Comment on above: Performed By: #### 2 93727 ####[facility],[address] [place] [address] 09006 Color (U) nancy Normal NORMAL: YELLOW [facility] Comment on above: Performed By: #### 2 98365 ####[facility],[address] [place] [address] 59870 Crystals LM Nom (Urine sed) NONE Normal [facility] Comment on above: Performed By: #### 2 93008 ####[facility],[address] [place] [address] 19893 Epi Cells MANY Normal [facility] Comment on above: Performed By: #### 2 03130 ####[facility],[address] [place] [address] 10375 Glucose Ql (U) NORM Normal NORMAL: NORMAL [facility] Comment on above: Performed By: #### 2 44126 ####[facility],[address] [place] [address] 37300 Hemoglobin Ql (U) 25 Abnormal NORMAL: NEGATIVE [facility] Comment on above: Performed By: #### 2 39230 ####[facility],[address] [place] [address] 68011 Ketone 5 Abnormal NORMAL: NEGATIVE [facility] Comment on above: Performed By: #### 2 29932 ####[facility],[address] [place] [address] 99825 Leukocytes Negative Normal NORMAL: NEGATIVE [facility] Comment on above: Performed By: #### 2 07121 ####[facility],[address] [place] [address] 25432 Mucous 2+ Normal [facility] Comment on above: Performed By: #### 2 25932 ####[facility],[address] [place] [address] 38011 Nitrite Ql (U) Negative Normal NORMAL: NEGATIVE [facility] Comment on above: Performed By: #### 2 50753 ####[facility],[address] [place] [address] 74561 pH (U) 5 [pH] Normal NORMAL: 5.0-8.0 [facility] Comment on above: Performed By: #### 2 09162 ####[facility],[address] [place] [address] 84544 Protein Ql (U) 30 Abnormal NORMAL: NEGATIVE [facility] Comment on above: Performed By: #### 2 51426 ####[facility],[address] [place] [address] 50415 Rbc NONE Normal 0-3/hpf [facility] Comment on above: Performed By: #### 2 33960 ####[facility],[address] [place] [address] 26584 Sp Bennett 1.030 Normal NORMAL: 1.010-1.030 [facility] Comment on above: Performed By: #### 2 50416 ####[facility],[address] [place], [place] [phone] Specimen Type R Normal [facility] Comment on above: Performed By: #### 2 70864 ####[facility],[address] [place], [place] [address] Urinalysis dipstick W Reflex Microscopic panel (U) SEE BELOW Normal [facility] Comment on above: Result Comment: MICR OSCOPIC Performed By: #### 2 63289 ####[facility],[address] [place] [address] Urobilinog NORM Normal NORMAL: NORMAL [facility] Comment on above: Performed By: #### 2 08333 ####[facility],[address] [place] [address] Wbc 1-5 Normal 0-5/hpf [facility] Comment on above: Performed By: #### 2 73795 ####[facility],[address] [place] [address] Yeast NONE Normal [facility] Comment on above: Performed By: #### 2 74339 ####[facility],[address] [place] [address] BMP with eGFRon 10-21-2024 AGE 63 years Normal [facility] Comment on above: Performed By: #### 2 05514 ####[facility],[address] [place] [address] Anion gap [Moles/Vol] 11 mmol/L Normal 10 - 20 [facility] Comment on above: Performed By: #### 2 82104 ####[facility],[address] [place] [address] BMP with eGFR Normal [facility] Comment on above: Result Comment: BASI C METABOLIC PANEL Performed By: #### 2 78012 ####[facility],[address] [place] [address] Calcium [Mass/Vol] 8.6 mg/dL Normal 8.5 - 10.1 [facility] Comment on above: Performed By: #### 2 41306 ####[facility],[address] [place], [place] [address] Chloride [Moles/Vol] 107 mmol/L Normal 98 - 107 [facility] Comment on above: Performed By: #### 2 77086 ####[facility],[address] [place] [address] 14533 CO2 [Moles/Vol] 27.9 mmol/L Normal 21.0 - 32.0 [facility] Comment on above: Performed By: #### 2 82985 ####[facility],[address] [place], [place] [phone] Creatinine [Mass/Vol] 0.91 mg/dL Normal 0.55 - 1.02 [facility] Comment on above: Performed By: #### 2 40305 ####[facility],[address] [place], [place] [address] GFR/1.73 sq M.predicted among non-blacks MDRD (S/P/Bld) [Vol rate/Area] mL/min/{1.73_m2} Normal 60 - 999 [facility] Comment on above: Performed By: #### 2 17500 ####[facility],[address] [place] [address] Result Comment: ACCO RDING TO THE NATIONAL KIDNEY DISEASE EDUCATION PROGRAM(NKDE), A NORMAL eGFRIS A VALUE GREATER THAN OR EQUAL TO 60 ML/MIN/1.73 SQ METERS.CHRONIC KIDNEY DISEASE: <60mL/MIN/1.73 SQ METERSKIDNEY FAILURE: <15mL/MIN/1.73 SQ METERSTHIS TEST SHOULD ONLY BE USED FOR PATIENTS 18 YEARS OF AGE AND OLDER. Glucose [Mass/Vol] 189 mg/dL High 74 - 106 [facility] Comment on above: Performed By: #### 2 34962 ####[facility],[address] [place] [address] 23867 Potassium [Moles/Vol] 5.0 mmol/L Normal 3.5 - 5.1 [facility] Comment on above: Performed By: #### 2 19462 ####[facility],[address] [place], [place] [id number] Sodium [Moles/Vol] 141 mmol/L Normal 136 - 145 [facility] Comment on above: Performed By: #### 2 18303 ####[facility],[address] [place] [address] Urea nitrogen [Mass/Vol] 24 mg/dL High 7 - 18 [facility] Comment on above: Performed By: #### 2 67167 ####[facility],[address] [place] [address] CBC + DIFF DAILYon 5 Baso # 0.01 x10EE3/UL Normal 0.00 - 0.10 [facility] Comment on above: Performed By: #### 2 05687 ####[facility],[address] [place] [address] Basophils/100 WBC (Bld) 0.1 % Normal 0.0 - 2.0 [facility] Comment on above: Performed By: #### 2 70894 ####[facility],[address] [place] [address] CBC + DIFF DAILY Normal [facility] Comment on above: Result Comment: CBC- COMPLETE BLOOD COUNT Performed By: #### 2 75856 ####[facility],[address] [place] [address] EO # 0.04 x10EE3/UL Normal 0.00 - 0.50 [facility] Comment on above: Performed By: #### 2 93307 ####[facility],[address] [place], [place] [id number] Eosinophils/100 WBC (Bld) 0.4 % Normal 0.0 - 7.0 [facility] Comment on above: Performed By: #### 2 31263 ####[facility],[address] [place] [address] Erythrocyte distribution width (RBC) [Ratio] 12.8 % Normal 12.0 - 15.6 [facility] Comment on above: Performed By: #### 2 33946 ####[address],[place] [address] Hematocrit (Bld) [Volume fraction] 40.4 % Normal 34.0 - 46.0 [facility] Comment on above: Performed By: #### 2 59497 ####[facility],[address] [place] [address] Hemoglobin (Bld) [Mass/Vol] 13.8 g/dL Normal 12.0 - 16.0 [facility] Comment on above: Performed By: #### 2 63203 ####[facility],[address] [place] [address] Lymph # 0.45 x10EE3/UL Low 0.80 - 2.80 [facility] Comment on above: Performed By: #### 2 32950 ####[facility],[address] [place] [address] Lymphocytes/100 WBC (Bld) 4.6 % Low 20.0 - 45.0 [facility] Comment on above: Performed By: #### 2 96181 ####[facility],[address] [place], [place] [phone] MANUAL DIFF N/A Normal [facility] Comment on above: Performed By: #### 2 93311 ####[facility],[address] [place], [place] [phone] MCH (RBC) [Entitic mass] 30 pg Normal 27 - 33 [facility] Comment on above: Performed By: #### 2 08416 ####[facility],[address] [place] [address] MCHC 34 X10 3 Normal 32 - 36 [facility] Comment on above: Performed By: #### 2 32006 ####[facility],[address] [place], [place] [address] MCV (RBC) [Entitic vol] 87 fL Normal 80 - 99 [facility] Comment on above: Performed By: #### 2 67830 ####[facility],[address] [place] [address] 37823 Amelia # 0.10 x10EE3/UL Low 0.20 - 1.00 [facility] Comment on above: Performed By: #### 2 52456 ####[facility],[address] [place] [address] 20816 MONOS % 1.0 % Normal 0.0 - 10.0 [facility] Comment on above: Performed By: #### 2 97314 ####[facility],[address] [place] [address] Morphology Niranjan (Bld) [Interp] N/A Normal [facility] Comment on above: Performed By: #### 2 03218 ####[facility],[address] [place] [address] Neut # 9.14 x10EE3/UL High 1.50 - 7.10 [facility] Comment on above: Performed By: #### 2 00484 ####[facility],[address] [place], [place] [address] Neutrophils/100 WBC (Bld) 93.9 % High 46.0 - 76.0 [facility] Comment on above: Performed By: #### 2 92014 ####[facility],[address] [place] [address] PLATELET 187 x10EE3/UL Normal 150 - 450 [facility] Comment on above: Performed By: #### 2 87481 ####[facility],[address] [place] [address] 78187 Platelet mean volume (Bld) [Entitic vol] 7.5 fL Normal 6.6 - 10.5 [facility] Comment on above: Result Comment: AUTO MATED DIFFERENTIAL Performed By: #### 2 87875 ####[facility],[address] [place] [address] 58676 RBC 4.66 x 10EE6/UL Normal 4.10 - 5.30 [facility] Comment on above: Performed By: #### 2 43791 ####[facility],[address] [place] [address] 76264 WBC 9.7 x 10EE3/UL Normal 4.5 - 10.8 [facility] Comment on above: Performed By: #### 2 44801 ####[facility],[address] [place] [address] 64095 LYME EARLY (SIGNS/SYMP <=30 DAYS) [CCL]on 10-21-2024 Lyme Antibodies, Screen Negative Normal Negative [facility] Comment on above: Result Comment: Rece nt infection with B. burgdorferi sensu lato cannot be excluded ifthe specimen collected within four weeks after the onset of signs andsymptoms or within six weeks after a known tick exposure. Clinical andepidemiological correlation is required.[facility] [place], [place] [address]Geovanni Scott III, M.D.[id number] Performed By: #### 2 91655 ####[facility],[address] [place], [place] [id number] B. burgdorferi IgG and IgM p eulalia (S)on 10-20-2024 B. burgdorferi IgG+IgM Qn (S) Negative Normal Negative [facility] Comment on above: Order Comment: Speci men Type: BLOOD SPECIMEN Ordering Facility: [facility] Address: [address] [place] [address] Result Comment: Rece nt infection with B. burgdorferi sensu lato cannot be excluded if the specimen collected within four weeks after the onset of signs and symptoms or within six weeks after a known tick exposure. Clinical and epidemiological correlation is required. Performed By: #### 3 4942-3 #### [facility] CLIA [id number] [address] [place] [address] [place] C-REACTIVE PROTEINon 025 CRP 0.34 mg/dl Normal 0.00 - 0.90 [facility] Comment on above: Performed By: #### 2 61888 ####[facility],[address] [place], [place] [id number] CBC + DIFFon 10-20-2024 Baso # 0.03 x10EE3/UL Normal 0.00 - 0.10 [facility] Comment on above: Performed By: #### 2 84673 ####[facility],[address] [place] [address] 93317 Basophils/100 WBC (Bld) 0.4 % Normal 0.0 - 2.0 [facility] Comment on above: Performed By: #### 2 69040 ####[facility],[address] [place] [address] CBC + DIFF Normal [facility] Comment on above: Result Comment: CBC- COMPLETE BLOOD COUNT Performed By: #### 2 91621 ####[facility],[address] [place] [address] 03224 EO # 0.23 x10EE3/UL Normal 0.00 - 0.50 [facility] Comment on above: Performed By: #### 2 82303 ####[facility],[address] [place] [address] 41967 Eosinophils/100 WBC (Bld) 2.6 % Normal 0.0 - 7.0 [facility] Comment on above: Performed By: #### 2 94943 ####[facility],[address] [place] [address] 82200 Erythrocyte distribution width (RBC) [Ratio] 13.2 % Normal 12.0 - 15.6 [facility] Comment on above: Performed By: #### 2 26546 ####[facility],[address] [place] [address] 44464 Hematocrit (Bld) [Volume fraction] 44.6 % Normal 34.0 - 46.0 [facility] Comment on above: Performed By: #### 2 19039 ####[facility],[address] [place] [address] 00051 Hemoglobin (Bld) [Mass/Vol] 14.9 g/dL Normal 12.0 - 16.0 [facility] Comment on above: Performed By: #### 2 85137 ####[facility],[address] [place] [address] Lymph # 2.30 x10EE3/UL Normal 0.80 - 2.80 [facility] Comment on above: Performed By: #### 2 94075 ####[facility],[address] [place] [address] Lymphocytes/100 WBC (Bld) 25.7 % Normal 20.0 - 45.0 [facility] Comment on above: Performed By: #### 2 47380 ####[facility],[address] [place] [address] MANUAL DIFF N/A Normal [facility] Comment on above: Performed By: #### 2 28623 ####[facility],[address] [place] [address] MCH (RBC) [Entitic mass] 29 pg Normal 27 - 33 [facility] Comment on above: Performed By: #### 2 95403 ####[facility],[address] [place] [address] MCHC 33 X10 3 Normal 32 - 36 [facility] Comment on above: Performed By: #### 2 76226 ####[facility],[address] [place] [address] 04894 MCV (RBC) [Entitic vol] 88 fL Normal 80 - 99 [facility] Comment on above: Performed By: #### 2 54930 ####[facility],[address] [place] [address] 22321 Amelia # 0.76 x10EE3/UL Normal 0.20 - 1.00 [facility] Comment on above: Performed By: #### 2 15389 ####[facility],[address] [place] [address] 17237 MONOS % 8.5 % Normal 0.0 - 10.0 [facility] Comment on above: Performed By: #### 2 09664 ####[facility],[address] [place] [address] 02350 Morphology Niranjan (Bld) [Interp] N/A Normal [facility] Comment on above: Performed By: #### 2 45402 ####[facility],[address] [place] [address] 90879 Neut # 5.60 x10EE3/UL Normal 1.50 - 7.10 [facility] Comment on above: Performed By: #### 2 72896 ####[facility],[address] [place] [address] 41081 Neutrophils/100 WBC (Bld) 62.8 % Normal 46.0 - 76.0 [facility] Comment on above: Performed By: #### 2 34856 ####[facility],[address] [place] [address] 38210 PLATELET 187 x10EE3/UL Normal 150 - 450 [facility] Comment on above: Performed By: #### 2 73897 ####[facility],[address] [place] [address] 32639 Platelet mean volume (Bld) [Entitic vol] 6.8 fL Normal 6.6 - 10.5 [facility] Comment on above: Result Comment: AUTO MATED DIFFERENTIAL Performed By: #### 2 14052 ####[facility],[address] [place] [address] 27151 RBC 5.10 x 10EE6/UL Normal 4.10 - 5.30 [facility] Comment on above: Performed By: #### 2 59927 ####[facility],[address] [place] [address] 84361 WBC 8.9 x 10EE3/UL Normal 4.5 - 10.8 [facility] Comment on above: Performed By: #### 2 81070 ####[facility],[address] [place] [address] 23961 CHEST 1 VIEWon 10-20-2024 CHEST 1 VIEW Normal [facility] CMP with eGFRon 10-20-2024 AGE 63 years Normal [facility] Comment on above: Performed By: #### 2 33991 ####[facility],[address] [place] [address] 78922 Albumin [Mass/Vol] 3.6 g/dL Normal 3.4 - 5.0 [facility] Comment on above: Performed By: #### 2 38193 ####[facility],[address] [place] [address] 71888 Albumin/Globulin [Mass ratio] 0.9 {ratio} Normal 0.9 - 1.6 [facility] Comment on above: Performed By: #### 2 06973 ####[facility],[address] [place] [address] 91885 ALK PHOS 73 U/L Normal 46 - 116 [facility] Comment on above: Performed By: #### 2 41154 ####[facility],[address] [place] [address] 63521 ALT [Catalytic activity/Vol] 32 U/L Normal 16 - 63 [facility] Comment on above: Performed By: #### 2 57077 ####[facility],[address] [place] [address] 11680 Anion gap [Moles/Vol] 9 mmol/L Low 10 - 20 [facility] Comment on above: Performed By: #### 2 01686 ####[facility],[address] [place] [address] 55968 AST [Catalytic activity/Vol] 18 U/L Normal 13 - 39 [facility] Comment on above: Performed By: #### 2 31861 ####[facility],[address] [place] [address] 95056 B/C RATIO 15 ratio Normal 0 - 30 [facility] Comment on above: Performed By: #### 2 07614 ####[facility],[address] [place] [address] 68567 Bilirubin [Mass/Vol] 0.3 mg/dL Normal 0.2 - 1.0 [facility] Comment on above: Performed By: #### 2 24242 ####[facility],[address] [place] [address] 28564 Calcium [Mass/Vol] 8.8 mg/dL Normal 8.5 - 10.1 [facility] Comment on above: Performed By: #### 2 70511 ####[facility],[address] [place] [address] 10224 Chloride [Moles/Vol] 102 mmol/L Normal 98 - 107 [facility] Comment on above: Performed By: #### 2 39554 ####[facility],[address] [place], [place] [phone] CMP with eGFR Normal [facility] Comment on above: Result Comment: COMP REHENSIVE METABOLIC PANEL Performed By: #### 2 97993 ####[facility],[address] [place] [address] 27603 CO2 [Moles/Vol] 34.8 mmol/L High 21.0 - 32.0 [facility] Comment on above: Performed By: #### 2 14391 ####[facility],[address] [place] [address] 53752 Creatinine [Mass/Vol] 1.33 mg/dL High 0.55 - 1.02 [facility] Comment on above: Performed By: #### 2 74713 ####[facility],[address] [place] [address] 36393 eGFR 40 ML/MINUTE Low 60 - 999 [facility] Comment on above: Performed By: #### 2 39149 ####[facility],[address] [place] [address] 32342 eGFR(AA) 49 ML/MINUTE Low 60 - 999 [facility] Comment on above: Result Comment: ACCO RDING TO THE NATIONAL KIDNEY DISEASE EDUCATION PROGRAM(NKDE), A NORMAL eGFRIS A VALUE GREATER THAN OR EQUAL TO 60 ML/MIN/1.73 SQ METERS.CHRONIC KIDNEY DISEASE: <60mL/MIN/1.73 SQ METERSKIDNEY FAILURE: <15mL/MIN/1.73 SQ METERSTHIS TEST SHOULD ONLY BE USED FOR PATIENTS 18 YEARS OF AGE AND OLDER. Performed By: #### 2 91442 ####[facility],[address] [place] [address] 14696 Globulin (S) [Mass/Vol] 4.1 g/dL High 1.5 - 3.8 [facility] Comment on above: Performed By: #### 2 11763 ####[facility],[address] [place] [address] 68255 Glucose [Mass/Vol] 94 mg/dL Normal 74 - 106 [facility] Comment on above: Performed By: #### 2 50432 ####[facility],[address] [place] [address] 21787 Potassium [Moles/Vol] 4.9 mmol/L Normal 3.5 - 5.1 [facility] Comment on above: Performed By: #### 2 63779 ####[facility],[address] [place] [address] 06849 Protein [Mass/Vol] 7.7 g/dL Normal 6.4 - 8.2 [facility] Comment on above: Performed By: #### 2 62772 ####[facility],[address] [place] [address] 27413 Sodium [Moles/Vol] 141 mmol/L Normal 136 - 145 [facility] Comment on above: Performed By: #### 2 05925 ####[facility],[address] [place] [address] 47974 Urea nitrogen [Mass/Vol] 20 mg/dL High 7 - 18 [facility] Comment on above: Performed By: #### 2 55845 ####[facility],[address] [place] [address] CHEST (PE PROTOCOL)on CT CHEST (PE PROTOCOL) Normal [facility] CT KUB (KIDNEY STONE PROTOCO L)on 10-20-2024 CT KUB (KIDNEY STONE PROTOCOL) Normal [facility] CULTURE BLOOD [NORY]on Microscopic examination of blood, culture CULTURE BLOOD [NORY] _BLOOD CULTURE_ [facility] REPOR[facility] AND ATTACHMENTS FOR SCANNED REPORT 10/27/24.0936.DNP.COMPLET E Normal [facility] Comment on above: Performed By: #### 2 51010 ####[facility],[address] [place], [place] [id number] D-DIMER, QUANTITATIVEon 10-10 D-DIMER QUANT <200 Normal 0 - 230 [facility] Comment on above: Performed By: #### 2 37526 ####[facility],[address] [place] [address] 40456 D-DIMER, QUANTITATIVE Normal [facility] Comment on above: Result Comment: ZAK T D-DIMER Performed By: #### 2 20016 ####[facility],[address] [place] [address] 94385 ED MED ADMINISTRATION DETAIL on 10-20-2024 ED MED ADMINISTRATION DETAIL Normal [facility] ED NURSES CLINICAL NOTEon ED NURSES CLINICAL NOTE Normal [facility] ED ORDER SHEET (CPOE ONLY)on 10-20-2024 ED ORDER SHEET (CPOE ONLY) Normal [facility] ED PHYSICIAN CLINICAL REPORT on 10-20-2024 ED PHYSICIAN CLINICAL REPORT Normal [facility] ED SUPER BILLon 10-20-2024 ED SUPER BILL Normal [facility] ED VISIT SUMMARYon ED VISIT SUMMARY Normal [facility] ED VITALS FLOW SHEETon 10-20 ED VITALS FLOW SHEET Normal [facility] LACTATEon 10-20-2024 Lactate [Moles/Vol] 0.8 mmol/L Normal 0.4 - 2.0 [facility] Comment on above: Performed By: #### 2 73889 ####[facility],[address] [place] [address] 51595 LIPASEon 10-20-2024 Lipase [Catalytic activity/Vol] 44.0 U/L Normal 15.0 - 78.0 [facility] Comment on above: Result Comment: *PLE ASE NOTE THAT RANGES FOR LIPASE HAVE CHANGED OF 03/09/23 DUE TO AN ASSAYUPDATE BY THE COAL FEEDER OPERATOR.THE NEW ASSAY RANGE IS 6-250 U/L, WITH A REFERENCERANGE OF 16-77 U/L. Performed By: #### 2 62076 ####[facility],[address] [place] [address] NT-proBNPon 10-20-2024 Natriuretic peptide B (Bld) [Mass/Vol] 18 pg/mL Normal 0 - 125 [facility] Comment on above: Performed By: #### 2 16730 ####[facility],[address] [place] [address] URINALYSISon 10-20-2024 Amorphous NONE Normal [facility] Comment on above: Performed By: #### 2 58660 ####[facility],[address] [place] [address] Bacteria NONE Normal [facility] Comment on above: Performed By: #### 2 25946 ####[facility],[address] [place] [address] Bilirubin Ql (U) Negative Normal NORMAL: NEGATIVE [facility] Comment on above: Performed By: #### 2 77712 ####[facility],[address] [place] [address] Casts NONE Normal [facility] Comment on above: Performed By: #### 2 26752 ####[facility],[address] [place] [address] 13413 Clarity (U) clear Normal NORMAL: CLEAR [facility] Comment on above: Performed By: #### 2 01270 ####[facility],[address] [place], [place] [id number] Color (U) p.yel Normal NORMAL: YELLOW [facility] Comment on above: Performed By: #### 2 06616 ####[facility],[address] [place] [address] 58434 Crystals LM Nom (Urine sed) NONE Normal [facility] Comment on above: Performed By: #### 2 47310 ####[facility],[address] [place], [place] [id number] Epi Cells OCC Normal [facility] Comment on above: Performed By: #### 2 69844 ####[facility],[address] [place] [address] Glucose Ql (U) NORM Normal NORMAL: NORMAL [facility] Comment on above: Performed By: #### 2 43555 ####[facility],[address] [place], [place] [id number] Hemoglobin Ql (U) 10 Abnormal NORMAL: NEGATIVE [facility] Comment on above: Performed By: #### 2 87890 ####[facility],[address] [place] [address] 25305 Ketone Negative Normal NORMAL: NEGATIVE [facility] Comment on above: Performed By: #### 2 58785 ####[facility],[address] [place] [address] 12438 Leukocytes Negative Normal NORMAL: NEGATIVE [facility] Comment on above: Performed By: #### 2 51169 ####[facility],[address] [place] [address] 73006 Mucous NONE Normal [facility] Comment on above: Performed By: #### 2 97502 ####[facility],[address] [place] [address] 29366 Nitrite Ql (U) Negative Normal NORMAL: NEGATIVE [facility] Comment on above: Performed By: #### 2 31704 ####[facility],[address] [place], [place] [id number] pH (U) 6.5 [pH] Normal NORMAL: 5.0-8.0 [facility] Comment on above: Performed By: #### 2 22390 ####[facility],[address] [place] [address] Protein Ql (U) Negative Normal NORMAL: NEGATIVE [facility] Comment on above: Performed By: #### 2 78399 ####[facility],[address] [place] [address] Rbc NONE Normal 0-3/hpf [facility] Comment on above: Performed By: #### 2 26177 ####[facility],[address] [place] [address] Sp Bennett 1.010 Normal NORMAL: 1.010-1.030 [facility] Comment on above: Performed By: #### 2 80292 ####[facility],[address] [place] [address] Specimen Type R Normal [facility] Comment on above: Performed By: #### 2 13384 ####[facility],[address] [place] [address] Urinalysis dipstick W Reflex Microscopic panel (U) SEE BELOW Normal [facility] Comment on above: Result Comment: MICR OSCOPIC Performed By: #### 2 11170 ####[facility],[address] [place], [place] [id number] Urobilinog NORM Normal NORMAL: NORMAL [facility] [place] Comment on above: Performed By: #### 2 [id number] ####[facility],[address] [place] [address] Wbc NONE Normal 0-5/hpf [facility] Comment on above: Performed By: #### 2 [id number] ####[facility],[address] [place] [address] Yeast NONE Normal [facility] Comment on above: Performed By: #### 2 [id number] ####[facility],[address] [place], [place] [id number] ECHOon 09-11-2024 Echocardiography Echocardiography Rep ort: Transthoracic Echo [facility] Date of service: 09/11/2024 8:09:23 AM Ordering physician: BERT WARD Exam indication: Shortness of Breath Technologist: Linn Jules [facility] Interpreting physician: Thor Martinez MD PATIENT: Name: OPAL HINDS : 1960 Age: 63 years Gender: F History of hypertension, dyslipidemia and coronary artery disease. Primary rhythm: sinus. Height: 162.60 cm BSA: 1.85 m Weight: 75.75 kg BMI: 28.7 kg/m Heart rate 81 bpm Blood pressure 193/107 mmHg Technically difficult exam due to body habitus and COPD. Color Doppler was utilized to interrogate the cardiac valves assessed and spectral Doppler was utilized to determine the flow velocities and pressure gradients reported in this exam. Myocardial strain analysis was performed in this exam to aid in the assessment of cardiac function. MEASUREMENTS: Value Indexed Normal Max aortic dimension 3.4 cm Ao < 3.8 Left atrial volume 37 ml (biplane A-L) 20 ml/m Annamaria <= 34 LV ID (diastole) 3.6 cm (2D) 1.95 cm/m LV ID (systole) 2.7 cm (2D) 1.47 cm/m IVS, leaflet tips 1.0 cm (2D) Posterior wall thickness 0.9 cm (2D) Left ventricular mass 101 g (2D) 55 g/m Global peak long strain -16.5 % LV stroke volume 37 ml (2D biplane) LV end diastolic volume 60 ml (2D biplane) 32.3 ml/m 29<=EDVi<62 LV end systolic volume 23 ml (2D biplane) 12.3 ml/m Ejection Fraction 62 % (2D biplane) EF > 54 FINDINGS: LEFT VENTRICLE The left ventricle is normal in size. Left ventricular systolic function is normal. Global LV myocardial strain is normal. Grade I left ventricular diastolic dysfunction. Mitral annular lateral E/e': 9.3. Mitral annular septal E/e': 13.9. Wall Motion: All scored segments are normal. RIGHT VENTRICLE The right ventricle is normal in size. Right ventricular systolic function is normal. RV systolic tissue Doppler velocity is 12.0 cm/s. Tricuspid annular displacement is 2.1 cm. Estimated right atrial pressure is not included as the IVC was not seen. LEFT ATRIUM The left atrial cavity is normal in size. RIGHT ATRIUM The right atrial cavity is normal in size. MITRAL VALVE The mitral valve leaflets are structurally normal. There is trace (trace - 1+) mitral valve regurgitation. The pressure half time is 35 msec. The peak mitral E/A ratio is 0.83. The average mitral E/e' ratio is 11.6. The mitral flow deceleration time is 121 msec. TRICUSPID VALVE The tricuspid valve leaflets are structurally normal. There is no tricuspid valve regurgitation. AORTIC VALVE The aortic valve cusps are structurally normal. There is trace (trace - 1+) aortic valve regurgitation. The peak gradient is 9 mmHg (peak velocity = 150.9 cm/s). PULMONIC VALVE The pulmonic valve cusps are structurally normal. There is no pulmonic valve regurgitation. AORTA The visualized aorta is normal in size. Measurements - Mid ascending aorta 3.4 cm. INTERATRIAL SEPTUM There is no evidence of intracardiac shunting as detected by Doppler. PERICARDIUM There is no pericardial effusion. There is an epicardial fat pad. CONCLUSIONS: - Technically difficult exam due to body habitus and COPD. - Exam indication: Shortness of Breath - The left ventricle is normal in size. Left ventricular systolic function is normal. EF = 62 5% (2D biplane) Grade I left ventricular diastolic dysfunction. - The right ventricle is normal in size. Right ventricular systolic function is normal. - There are no significant valvular abnormalities. - The patient has not had a prior CC echocardiographic exam for comparison. * * * Final * * * CC [employer] [facility] Image : [id number] Normal [facility] Timmy 09-03-2024 MIRNA Telephone (AGCARDPOB ) ----- OPAL HINDS ([id number]) 1960 F Date Time Provider Department 09/03/24 PIPPA NESS During your visit today, we recorded the following information about you: Marli Cooper 09/03/2024 11:05 AM Signed Cardiac Clearance received from [facility] for pain management procedure on TBD Form scanned and placed in Pippa Ness box for review. Good [place] APRN.ANIKA 09/05/2024 12:59 PM Signed Covering for Pippa eNss, Reviewed patient's chart, Patient has upcoming appointment with Pippa on 09/22/2024. They will discuss clearance then. Pippa Ness will also review result when she returns to the office and make any additional recommendations. Thanks, Good Bravo APRN.Nancy Morales 09/23/2024 8:48 AM Signed Same Clearance form received from [facility] only with the surgery date of 10/03/2024. Form re-scanned in system. Thank you, Pippa Mullins APRN.CNP 09/23/2024 9:58 AM Signed Patient canceled this appointment via MyChart Pippa Ness APRN.Sri Pandey LPN 09/30/2024 8:27 AM Signed Spoke to Ms. Hinds about cancelled appointment. Patient had work the day of the appointment and needed rescheduled. Patient transferred to clerical staff to reschedule appointment at this time. Patient was seen on 08/11/2024 and had a heart cath on 08/18/2024. Patient is asking if she can go off of xarelto medication for 2 days prior to pain management injections on 10/03/2024 at this time. LILIANE Epstein Karla A, APRN.CNP 09/30/2024 9:35 AM Signed She is on Xarelto for history of pulmonary embolism she needs to ask whoever cares for her pulmonology/primary care regarding that. In regards to her heart catheterization she did not require any stenting Pippa Ness APRN.Sri Pandey LPN 09/30/2024 9:46 AM Signed Spoke with Opal Hinds on September 30, 2024. Informed of communication as stated above. Patient voiced understanding at this time. 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 Ward is the provider who started patient on Xarelto medication. LILIANE Epstein Karla A, APRN.ANIKA 09/30/2024 10:05 AM Signed She needs to be made aware that anytime and electively coming off of Xarelto for 48 hour for elective injections she does have a risk of developing blood clots. Pippa Ness APRN.Sri Pandey LPN 09/30/2024 10:23 AM Signed Spoke with Opal Hinds on September 30, 2024. Informed of communications as stated above. Patient voiced understanding at this time. Sri Piña LPN Allergies As of Date: 09/03/2024 Noted Allergy Reaction METOPROLOL 06/27/2016 5 - Intolerance Comments: Significant joint pain PREDNISONE 04/28/2016 1 - Mental Status Change Date Reviewed: 08/18/2024 Reviewed by: Mary Holbrook RN - Fully Assessed Reason for Visit: Cardiac Clearance [4105] Prescriptions as of 09/30/2024 - aspirin 81 mg cap Take 324 mg by mouth once daily. For heart cath - rivaroxaban (XARELTO) 20 mg tablet Take 1 tablet by mouth once daily. - rosuvastatin (CRESTOR) 5 mg tablet Take 1 tablet by mouth daily at bedtime. - metoprolol succinate ER (TOPROL XL) 25 mg 24 hr tablet Take 1 tablet by mouth once daily. - nitroglycerin sublingual (NITROQUICK) 0.4 mg SL tablet Dissolve 1 tablet under the tongue as needed for chest pain. If no pain relief call 911. - amLODIPine (NORVASC) 5 mg tablet Take 5 mg by mouth once daily. - budesonide, enteric coated (ENTOCORT EC) 3 mg 24 hr capsule TAKE 3 CAPSULES BY MOUTH ONCE DAILY IN THE MORNING - iv contrast (will be provided with [...] in the MR contrast administration guidelines link. - tiZANidine (ZANAFLEX) 4 mg tablet TAKE 1 TABLET BY MOUTH UP TO THREE TIMES DAILY NEEDED FOR SPASM - traZODone (DESYREL) 50 mg tablet Take 50 mg by mouth daily at bedtime. - lisinopril (ZESTRIL, PRINIVIL) 10 mg tablet Take 1 tablet by mouth once daily. - levothyroxine (SYNTHROID) 88 mcg tablet 1 tablet by mouth daily - ipratropium-albuterol (DUONEB) 0.5 mg-3 mg(2.5 mg base)/3 mL nebu three times daily. As needed. - albuterol HFA (PROVENTIL HFA, VENTOLIN HFA) 90 mcg/actuation inhaler Inhale 2 Puffs as instructed every 4 hours as needed. - gabapentin (NEURONTIN) 400 mg capsule Take 800 mg by mouth three times daily. - sertraline (ZOLOFT) 100 mg tablet Take 1 tab (more content not included)... Normal [facility] BRIEF OP NOTon 08-18-2024 BRIEF OP NOT HNO ID: [id number] Author: JEWELS BARRERA MD Service: Interventional Cardiology Author Type: Physician Type: Brief Op Note Filed: 08/18/2024 08:09 Note Text: CARDIAC CATHETERIZATION REPORT PATIENT NAME: Opal Hinds SERVICE DATE: 08/18/2024 SERVICE TIME: 8:05 AM Quality Nurse: Bert Ward MD Attending: Jewels Barrera MD RECOMMENDATIONS: Continue medical therapy and risk factor modification Pre-Procedure Diagnosis: 63-year-old woman with mild coronary artery disease on prior catheterization who presents for repeat coronary angiogram due to worsening dyspnea on exertion Post- Procedure Diagnosis: Mild diffuse coronary artery disease right coronary dominant system. Normal LVEDP Procedure: Left Heart Catheterization Access: Right Radial Artery Under Local anesthesia the Right Radial Artery was entered by Modified Seldinger's technique using a micro puncture needle. A 6F sheath was introduced into the Right Radial Artery . Selective injections were made in the left and right coronary arteries in various right and left anterior oblique views. An LV pressure was performed in 30 degree MONTE. The sheath was removed and hemostatsis was established using TR band closure device. There was no bleeding at the end of the procedure. The pt was returned to the recovery room in a stable condition. FINDINGS: Hemodynamics: LVEDP: 24 mmHg LV - AORTA: No gradient. Coronary Angiography: Left Main: Moderate-caliber normal vessel Left Anterior Descending: Moderate caliber vessel mild luminal regularities Circumflex: Moderate caliber nondominant vessel with mild diffuse disease in the proximal to mid segment Right Coronary Artery: Moderate to large caliber dominant vessel with no significant disease Collaterals: None Complications: None SIGNATURE: Jewels Barrera MD DATE: August 18, 2024 TIME: 8:05 AM Normal [facility] CARD CATH DIAGNOSTICon 08-18 CARD CATH DIAGNOSTIC Site Id: [facility] Lab #: DEFAULT Study Date: 08/18/2024 Start Time: End Time: Name Duty Jewels Barrera MD PROC MD 1 Jaime Pineda PROC SCRUB 1 Cristiano Sosa RN PROC CIRC 1 Mary Holbrook RN PROC RECORD 1 + + PATIENT INFORMATION + + Name: OPAL HINDS [facility] : 1960 Age: 63 years Gender: Height: 64 in / 163 cm Weight: 167.15 lb / 75.82 kg BMI: 28.69 kg/m BSA: 1.81 m + ----+ CLINICAL HISTORY/INDICATIONS + ----+ Dyspnea. Appropriate Use Criteria (Diag): Unstable angina with high risk score; AUC score = 9. Procedural Status: Elective CAD Presentation: Unstable Angina Angina Classification (within 2 weeks): CCS III Anti-Angina Meds (within 2 weeks): Yes. No Heart Failure Clinical History: 63-year-old woman with mild coronary artery disease on prior catheterization who presents for repeat coronary angiogram due to worsening dyspnea on exertion + + DIAGNOSTIC FINDINGS + + Coronary Anatomy: Right Dominant Injection Site(s): Coronary Artery LMT: The LMT is normal. LAD: The LAD has mild luminal irregularities. LCX: The Circumflex has mild diffuse disease. Additional Comment: Moderate caliber nondominant vessel with mild diffuse disease in the proximal to mid segment. RAMUS: Ramus Status: Not Applicable. RCA: The RCA has mild luminal irregularities. Additional Comment: Moderate to large caliber dominant vessel with no significant disease. + + IMPRESSION/PLAN + + Impression:Mild diffuse coronary artery disease right coronary dominant system. Normal LVEDP Recommended Treatment: Medical Therapy. Plan: Continue medical therapy and risk factor modification + + HEMODYNAMICS - XPER + + + +------+ -----+-------+-----+----- -+------+ Measurement Name Sys Nereida End Nereida Mean A Wave V Wave + +------+ -----+-------+-----+----- -+------+ LV 114.00 11.00 26.00 + +------+ -----+-------+-----+----- -+------+ LVp 120.00 7.00 24.00 + +------+ -----+-------+-----+----- -+------+ AOp 127.00 61.00 88.00 + +------+ -----+-------+-----+----- -+------+ AO 126.00 67.00 91.00 + +------+ -----+-------+-----+----- -+------+ Oximetry: + +---- ---+ +--+---+ -----+ Time Site O2 Saturation O2 PO2 HB + +---- ---+ +--+---+ -----+ 08/18/2024 7:36:32 AM SYS ART 14.70 + +---- ---+ +--+---+ -----+ 08/18/2024 7:36:32 AM SYS DEEJAY 14.70 + +---- ---+ +--+---+ -----+ 08/18/2024 7:36:32 AM PUL ART 14.70 + +---- ---+ +--+---+ -----+ 08/18/2024 7:36:32 AM PUL DEEJAY 14.70 + +---- ---+ +--+---+ -----+ + + ADVERSE OUTCOME(s)/COMPLICATION(s ) + + None + ------+ PROCEDURAL & TECHNICAL DETAILS + ------+ Date Time Description 08/18/2024 12:00:00 AM Left Heart Cath *MEDICAL HISTORY* CAD Presentation: Unstable Angina Angina Classification (within 2 weeks): CCS III Anti-Angina Meds (within 2 weeks): Yes. No Heart Failure Family History of CAD: No Congenital Heart Disease: No Coronary Artery Disease: Yes Dyslipidemia: Yes Hypertension: Yes Creatinine > 2: No Dialysis: Currently not on dialysis Left Ventricle EF: 68 on 01/28/2024 by SPECT. LVEF at Discharge: Procedure Details: Blood Loss: < 30ml Specimen: No Specimen Obtained Recent PCI Failure of Treated Vessel: Contrast: Radiation: Procedure performed under Fluoroscopic Guidance Total Dose 114.66 mGy Dose Area Product 0.00 Gy*m Total Exposure Time 140.20 sec Baseline: HGB: Creatinine: Glucose: INR: Conscious Sedation Summary: Moderate sedation consisting of continuous ECG, pulse oxymetry and cardiopulmonary monitoring was performed by the Cardiology Nurse, overseen by the performing physician(s). Attending Physician Presence Attestation: Entire Procedure Electronically Submitted by: Jewels Barrera MD On: 08/20/2024 at 1:37:12 PM Final CC [employer] [facility] : [id number] See Link below for Image Normal [facility] HISTORY PHYSICALon HISTORY PHYSICAL HNO ID: [id number] Author: JEWELS BARRERA MD Service: Interventional Cardiology Author Type: Physician Type: H&P Filed: 08/18/2024 07:28 Note Text: UPDATED HANDP PRE-CARDIAC CATHETERIZATION SERVICE DATE: 08/18/2024 SERVICE TIME: 7:27 AM PHYSICAL EXAM MUST BE COMPLETED ON ADMISSION The History and Physical (completed in the past 30 days) has been reviewed and the patient has been examined. The contents accurately reflect the patient's condition with the following additions or revisions since the HANDP was completed. Examination indicates no changes. Planned Procedure: Left Heart Cath + Possible PCI Primary Indication for Procedure: Angina, Stable High Risk Features: History of Prior CABG: No History of Prior PCI: No Cardiomyopathy: No Anti-ischemic Meds in Past 2 Weeks: Beta blockers and Calcium channel blockers Ejection Fraction: 73% from Previous Stress Test Risk Appropriateness: Angina Class in Past 2 Weeks: Class III - Marked limitation of ordinary physical activity Stress Test Results: Low risk Cardiogenic Shock: No CHF in Past 2 Weeks: No HISTORY OF BLEEDING: No This HANDP can be found in the Electronic Medical Record dated 08/11/2024. SIGNATURE: Jewels Barrera MD PATIENT NAME: Opal Hinds DATE: August 18, 2024 TIME: 7:27 AM Normal [facility] CBC panel Auto (Bld)on 08-13 Erythrocyte distribution width (RBC) [Ratio] 13.7 % Normal 11.5-15.[address] [facility] Comment on above: Order Comment: Speci men Type: BLOOD SPECIMEN Ordering Facility: [facility] Address: [address] [place] [address] Performed By: #### 5 8410-2 #### [facility] CLIA [id number] [address] [place] [address] [place] Hematocrit (Bld) [Volume fraction] 43.8 % Normal 36.0-46.[address] [facility] Comment on above: Order Comment: Speci men Type: BLOOD SPECIMEN Ordering Facility: [facility] Address: [address] [place] [address] Performed By: #### 5 8410-2 #### [facility] CLIA [id number] [address] [place] [address] [place] Hemoglobin (Bld) [Mass/Vol] 14.7 g/dL Normal 11.5-15.[address] [facility] Comment on above: Order Comment: Speci men Type: BLOOD SPECIMEN Ordering Facility: [facility] Address: [address] [place] [address] Performed By: #### 5 8410-2 #### [facility] CLIA [id number] [address] [place] [address] [place] MCH (RBC) [Entitic mass] 28.2 pg Normal 26.0-34.[address] [facility] Comment on above: Order Comment: Speci men Type: BLOOD SPECIMEN Ordering Facility: [facility] Address: [address] [place] [address] Performed By: #### 5 8410-2 #### [facility] CLIA [id number] [address] [place] [address] [place] MCHC (RBC) [Mass/Vol] 33.6 g/dL Normal 30.5-36.0 [facility] Comment on above: Order Comment: Speci men Type: BLOOD SPECIMEN Ordering Facility: [facility] Address: [address] [place] [address] Performed By: #### 5 8410-2 #### [facility] CLIA [id number] [address] [place] [address] [place] MCV (RBC) [Entitic vol] 83.9 fL Normal 80.0-100.0 [facility] Comment on above: Order Comment: Speci men Type: BLOOD SPECIMEN Ordering Facility: [facility] Address: [address] [place] [address] Performed By: #### 5 8410-2 #### [facility] CLIA [id number] [address] [place] [address] [place] Nucleated RBC (Bld) [#/Vol] 10*3/uL Normal <0.[address] [facility] Comment on above: Order Comment: Speci men Type: BLOOD SPECIMEN Ordering Facility: [facility] Address: [address] [place] [address] Performed By: #### 5 8410-2 #### [facility] CLIA [id number] [address] [place] [address] [place] Platelet mean volume (Bld) [Entitic vol] 8.6 fL Low 9.0-12.[address] [facility] Comment on above: Order Comment: Speci men Type: BLOOD SPECIMEN Ordering Facility: [facility] Address: [address] [place] [address] Performed By: #### 5 8410-2 #### [facility] CLIA [id number] [address] [place] [address] [place] Platelets (Bld) [#/Vol] 218 10*3/uL Normal 150-[address] [facility] Comment on above: Order Comment: Speci men Type: BLOOD SPECIMEN Ordering Facility: [facility] Address: [address] [place] [address] Performed By: #### 5 8410-2 #### [facility] CLIA [id number] [address] [place] [address] [place] RBC (Bld) [#/Vol] 5.22 10*6/uL High 3.90-5.20 [facility] Comment on above: Order Comment: Speci men Type: BLOOD SPECIMEN Ordering Facility: [facility] Address: [address] [place] [address] Performed By: #### 5 8410-2 #### [facility] CLIA [id number] [address] [place] [address] [place] WBC (Bld) [#/Vol] 10.46 10*3/uL Normal 3.70-11.00 [facility] Comment on above: Order Comment: Speci men Type: BLOOD SPECIMEN Ordering Facility: [facility] Address: [address] [place] [address] Performed By: #### 5 8410-2 #### [facility] CLIA [id number] [address] [place] [address] [place] Comprehensive metabolic 2000 panelon 08-13-2024 Albumin [Mass/Vol] 4.0 g/dL Normal 3.9-4.9 [facility] Comment on above: Order Comment: Speci men Type: BLOOD SPECIMEN Ordering Facility: [facility] Address: [address] [place] [address] Performed By: #### 2 4323-8 #### [facility] CLIA [id number] [address] [place] [address] [place] ALP [Catalytic activity/Vol] 75 U/L Normal 34-[address] [facility] Comment on above: Order Comment: Speci men Type: BLOOD SPECIMEN Ordering Facility: [facility] Address: [address] [place] [address] Performed By: #### 2 4323-8 #### [facility] CLIA [id number] [address] [place] [address] [place] ALT [Catalytic activity/Vol] 18 U/L Normal 7-[address] [facility] Comment on above: Order Comment: Speci men Type: BLOOD SPECIMEN Ordering Facility: [facility] Address: [address] [place] [address] Performed By: #### 2 4323-8 #### [facility] CLIA [id number] [address] [place] [address] [place] Anion gap [Moles/Vol] 13 mmol/L Normal 8-15 [facility] Comment on above: Order Comment: Speci men Type: BLOOD SPECIMEN Ordering Facility: [facility] Address: [address] [place] [address] Performed By: #### 2 4323-8 #### [facility] CLIA [id number] [address] [place] [address] [place] AST [Catalytic activity/Vol] 18 U/L Normal 13-[address] [facility] Comment on above: Order Comment: Speci men Type: BLOOD SPECIMEN Ordering Facility: [facility] Address: [address] [place] [address] Performed By: #### 2 4323-8 #### [facility] CLIA [id number] [address] [place] [address] [place] Bilirubin [Mass/Vol] 0.5 mg/dL Normal 0.2-1.3 [facility] Comment on above: Order Comment: Speci men Type: BLOOD SPECIMEN Ordering Facility: [facility] Address: [address] [place], [place] [address] Performed By: #### 2 4323-8 #### [id number] [address] [place] [address] [place] Calcium [Mass/Vol] 9.4 mg/dL Normal 8.5-10.2 [facility] Comment on above: Order Comment: Speci men Type: BLOOD SPECIMEN Ordering Facility: [facility] Address: [address] [place] [address] Performed By: #### 2 4323-8 #### [facility] CLIA [id number] [address] [place] [address] [place] Chloride [Moles/Vol] 100 mmol/L Normal 98-107 [facility] Comment on above: Order Comment: Speci men Type: BLOOD SPECIMEN Ordering Facility: [facility] Address: [address] [place] [address] Performed By: #### 2 4323-8 #### [facility] CLIA [id number] [address] [place] [address] [place] CO2 [Moles/Vol] 25 mmol/L Normal 22-[address] [facility] Comment on above: Order Comment: Speci men Type: BLOOD SPECIMEN Ordering Facility: [facility] Address: [address] [place] [address] Performed By: #### 2 4323-8 #### [id number] [address] [place] [address] [place] Creatinine [Mass/Vol] 0.70 mg/dL Normal 0.58-0.96 [facility] Comment on above: Order Comment: Speci men Type: BLOOD SPECIMEN Ordering Facility: [facility] Address: [address] [place] [address] Performed By: #### 2 4323-8 #### [id number] [address] [place] [address] [place] Creatinine and Glomerular filtration rate.predicted panel (S/P/Bld) 97 mL/min/1.73m??? Normal >=[address] [facility] Comment on above: Order Comment: Speci men Type: BLOOD SPECIMEN Ordering Facility: [facility] Address: [address] [place] [address] Result Comment: Jennyfer mated Glomerular Filtration Rate (eGFR) is calculated using the 2020 CKD-EPI creatinine equation. This equation utilizes serum creatinine, sex, and age as parameters. The creatinine assay has traceable calibration to isotope dilution-mass spectrometry. Refer to KDIGO guidelines for clinical interpretation. In patients with unstable renal function, e.g. those with acute kidney injury, the eGFR may not accurately reflect actual GFR. Performed By: #### 2 4323-8 #### [facility] CLIA [id number] [address] [place] [address] [place] Glucose [Mass/Vol] 98 mg/dL Normal 74-99 [facility] Comment on above: Order Comment: Speci men Type: BLOOD SPECIMEN [facility] Address: [address] [place] [address]66 Result Comment: The [place] Diabetes Association (ADA) provides guidance for cutoff values for fasting glucose and random glucose. The ADA defines fasting as no caloric intake for at least 8 hours. Fasting plasma glucose results between 100 to 125 mg/dL indicate increased risk for diabetes (prediabetes). Fasting plasma glucose results greater than or equal to 126 mg/dL meet the criteria for diagnosis of diabetes. In the absence of unequivocal hyperglycemia, results should be confirmed by repeat testing. In a patient with classic symptoms of hyperglycemia or hyperglycemic crisis, random plasma glucose results greater than or equal to 200 mg/dL meet the criteria for diagnosis of diabetes. Reference: Standards of Medical Care in Diabetes 2016, [place] Diabetes Association. Diabetes Care. 2016.39(Suppl 1). Performed By: #### 2 4323-8 #### [facility] [id number] [address] [place] [address] [place] Potassium [Moles/Vol] 3.7 mmol/L Normal 3.7-5.1 [facility] Comment on above: Order Comment: Speci men Type: BLOOD SPECIMEN [facility] Address: [address] [place] [address]37 Performed By: #### 2 4323-8 #### [facility] [id number] [address] [place] [address] [place] Protein [Mass/Vol] 7.2 g/dL Normal 6.3-8.0 [facility] Comment on above: Order Comment: Speci men Type: BLOOD SPECIMEN [facility] Address: [address] [place] [address] 77764 Performed By: #### 2 4323-8 #### [facility] CLIA [id number] [address] [place] [address] [place] Sodium [Moles/Vol] 138 mmol/L Normal 136-144 [facility] Comment on above: Order Comment: Speci men Type: BLOOD SPECIMEN [facility] Address: [address] [id number] Performed By: #### 2 4323-8 #### [facility] CLIA [id number] [address] [place] [address] Urea nitrogen [Mass/Vol] 13 mg/dL Normal 7-[address] [facility] Comment on above: Order Comment: Speci men Type: BLOOD SPECIMEN [facility] Address: [address] [place] [address] Performed By: #### 2 4323-8 #### [facility] CLIA [id number] [address] [place] [address] [facility] [place] Lipid 1996 panelon 5 Cholesterol [Mass/Vol] 196 mg/dL Normal <200 [facility] Comment on above: Order Comment: Speci men Type: BLOOD SPECIMEN [facility] Address: [address] [place] [address] Result Comment: <200 mg/dL, Desirable 200-239 mg/dL, Borderline high >239 mg/dL, High Performed By: #### 2 4331-1 #### [facility] CLIA [id number] [address] [place] [address] OF [facility] CLIA [id number] [address] [place] [address] STATES [facility] Cholesterol in HDL [Mass/Vol] 54 mg/dL Normal >[address] [facility] Comment on above: Order Comment: Speci men Type: BLOOD SPECIMEN [facility] Address: [address] [id number] Result Comment: 40-5 9 mg/dL, Acceptable >59 mg/dL, High: Negative risk factor for coronary heart disease <40 mg/dL, Low: Positive risk factor for coronary heart disease Performed By: #### 2 4331-1 #### [facility] CLIA [id number] [address] [place] [address] STATES OF [facility] CLIA [id number] [address] [place] [address] [place] Cholesterol in LDL [Mass/Vol] 121 mg/dL High <[address] [facility] Comment on above: Order Comment: Elin lakhwinder Type: BLOOD SPECIMEN [facility] Address: [address] [place] [address] Result Comment: <100 mg/dL, Optimal 100-129 mg/dL, Near optimal/above optimal 130-159 mg/dL, Borderline high 160-189 mg/dL, High >189 mg/dL, Very high Secondary prevention optimal LDL Cholesterol levels are recommended to be <70 mg/dL LDL cholesterol is calculated using the Zepeda-NIH equation. Performed By: #### 2 4331-1 #### [facility] CLIA [id number] [address] [place] [address] STATES OF [facility] [id number] [address] [place] [address] STATES [facility] Cholesterol in LDL/Cholesterol in HDL [Mass ratio] 2.24 {ratio} Normal <2.[address] [facility] Comment on above: Order Comment: Elin keane Type: BLOOD SPECIMEN [facility] Address: [address] [place] [address] Result Comment: Melanie kelsey: 1. National Cholesterol Education Program ATP III Guideline At-A-Glance Quick Desk Reference: National Heart, Lung, and Blood [place]. National Institutes of Health. 2001: NIH Publication No. 01-3305. 2. An International Atherosclerosis Society position paper: global recommendations for the management of dyslipidemia: executive summary, Atherosclerosis. 2014: 232(2):410-413. Performed By: #### 2 4331-1 #### [facility] CLIA [id number] [address] [place] [address] [place] [facility] [id number] [address] [place] [address] [place] Cholesterol in VLDL [Mass/Vol] 20 mg/dL Normal <[address] [facility] Comment on above: Order Comment: Speci men Type: BLOOD SPECIMEN [facility] Address: [address] [place] [address] Performed By: #### 2 4331-1 #### [facility] CLIA [id number] [address] [place] [address] [place] [facility] CLIA [id number] [address] [place] [address] OF [facility] Cholesterol non HDL [Mass/Vol] 142 mg/dL High <[address] [facility] Comment on above: Order Comment: Speci men Type: BLOOD SPECIMEN [facility] Address: [address] [place] [address] Result Comment: <130 mg/dL, Optimal 130-159 mg/dL, Near optimal/above optimal 160-189 mg/dL, Borderline high 190-219 mg/dL, High >219 mg/dL, Very high Secondary prevention optimal non HDL Cholesterol levels are recommended to be <100 mg/dL Performed By: #### 2 4331-1 #### [facility] CLIA [id number] [address] [place] [address] [place] [facility] CLIA [id number] [address] [place] [address] Cholesterol.total/Amanda sterol in HDL [Mass ratio] 3.63 {ratio} Normal <5.[address] [facility] Comment on above: Order Comment: Speci men Type: BLOOD SPECIMEN [facility] Address: [address] [place] [address] Performed By: #### 2 4331-1 #### [facility] CLIA [id number] [address] [place] [address] [place] [facility] CLIA [id number] [address] [place] [address] [place] FASTING TIME 12 hrs Normal [facility] Comment on above: Order Comment: Speci men Type: BLOOD SPECIMEN [facility] Address: [address] [place] [address] Performed By: #### 2 4331-1 #### [facility] CLIA [id number] [address] [place] [address] STATES OF [facility] CLIA [id number] [address] [place] [address] [place] Triglyceride [Mass/Vol] 116 mg/dL Normal <150 [facility] Comment on above: Order Comment: Speci men Type: BLOOD SPECIMEN [facility] Address: [address] [place] [address] Result Comment: <150 mg/dL, Normal 150-199 mg/dL, Borderline high 200-499 mg/dL, High >499 mg/dL, Very high Performed By: #### 2 4331-1 #### [facility] CLIA [id number] [address] [place] [address] [place] [facility] CLIA [id number] [address] [place] [address] OF [facility] CNOVon 08-11-2024 CNOV Office Visit ([facility]) ----- OPAL HINDS ([id number]) 1960 F Date Time Provider Department 08/11/24 8:00 AM BERT WARD During your visit today, we recorded the following information about you: Pulse Blood pressure Weight 89/minute 150/86 75.8 kg Bert Ward MD 08/11/2024 9:58 AM Signed PRIMARY CARE PHYSICIAN: Shae Mendez ([place]) [address] [place] [address] [address] [place] [address] HISTORY OF PRESENT ILLNESS: Ms. Hinds is a 63 year old female who presents today for a cardiovascular medicine scheduled visit. CARDIOVASCULAR PROBLEMS: 1. Coronary artery disease involving [place] coronary artery of [place] heart without angina pectoris - ICD9: 414.01, ICD10: I25.10 (primary diagnosis) 2. Mixed hyperlipidemia - ICD9: 272.2, ICD10: E78.2 3. Primary hypertension - ICD9: 401.9, ICD10: I10 4. Pulmonary embolism on right (HCC) - ICD9: 415.19, ICD10: I26.99 5. Embolus to lower extremity (HCC) - ICD9: 444.22, ICD10: I74.3 Has been experiencing exertional shortness of breath when going up steps and walking. No chest pressure or chest pain. She claims that it may be secondary to her chronic COPD and is requesting an evaluation by his pulmonary. She has a history of coronary arthrosclerosis. A cardiac catheterization done in 2017 she had 50% occlusive disease in all 3 major coronary arteries. She had been on statin therapy chronically ;however , because of myalgias, this was discontinued latter part of last year. She is currently not taking any statins.. Opal denies any other active cardiac symptoms. Specifically, the patient denies orthopnea, cough, edema, palpitations, lightheadedness or syncope. The Patient claims compliance with medications and reports no side effects or allergies. Test results were reviewed with the patient. No current lipid levels.. Implications of findings were explained in layman's terms.. She is chronically anticoagulated for a history of arterial embolism and a subclinical pulmonary embolism as well. She is a former smoker. She has not smoked in nearly 10 years. HISTORICAL DATA UPDATED: 07/28/2024 Smoking: Quit smoking 2016. Diabetes: No Lipids: Yes Obesity: No HTN: Yes Sedentary Lifestyle: No Family History of M.A.C.E: Yes CHF: No Stroke /TIA: No, History of pulmonary embolism and arterioles systemic embolization as well. MOST RECENT CARDIAC TESTING: Echo: Normal EF, 2016 Cardiac Catheterization: Mar 2016: 50% LAD, cx, rca Normal EF 60% Holter / Event Recorder : - Stress Test : 01/28/24: CONCLUSIONS: 1. SPECT Perfusion Study: Normal. 2. There is no scintigraphic evidence for inducible ischemia. 3. No evidence of scarred myocardium. 4. Left ventricle is small. The left ventricle systolic function is hyperdynamic. 5. Right ventricle is normal in size. The right ventricle systolic function is normal. 6. This is a low risk scan. Gated Stress FBP Gated Rest FBP LVEF % 68 73 2017, normal, normal EF TILT: - Device: - PAST CARDIAC EVENTS: 2017 arterial embolization. Status post embolectomy. 2017 subclinical pulmonary embolism found during the same hospitalization. ALLERGIES Allergen Reactions Metoprolol Intolerance Significant joint pain Prednisone Mental Status Change MEDICATIONS: amLODIPine (NORVASC) 5 mg tablet Take 5 mg by mouth once daily. rivaroxaban (XARELTO) 20 mg tablet Take 1 tablet by mouth once daily. tiZANidine (ZANAFLEX) 4 mg tablet TAKE 1 TABLET BY MOUTH UP TO THREE TIMES DAILY NEEDED FOR SPASM traZODone (DESYREL) 50 mg tablet Take 50 mg by mouth daily at bedtime. levothyroxine (SYNTHROID) 88 mcg tablet 1 tablet by mouth daily ipratropium-albuterol (DUONEB) 0.5 mg-3 mg(2.5 mg base)/3 [...] every 4 hours as needed for Pain. budesonide, enteric coated (ENTOCORT EC) 3 mg 24 hr capsule TAKE 3 CAPSULES BY MOUTH ONCE DAILY IN THE MORNING (Patient not taking: Reported on 02/11/2024) iv contrast (will be provided with radiology [...] in the MR contrast administration guidelines link. (Patient (more content not included)... Normal [facility] LUMBO SACRAL COMPLETE MIN 4 VIEWSon 06-06-2024 LUMBO SACRAL COMPLETE MIN 4 VIEWS Normal [facility] BMP with eGFRon 04-18-2024 AGE 63 years Normal [facility] Comment on above: Performed By: #### 2 47813 ####[facility],[address] [place] [address] Anion gap [Moles/Vol] 16 mmol/L Normal 10 - 20 [facility] Comment on above: Performed By: #### 2 40534 ####[facility],[address] [place], [place] [id number] BMP with eGFR Normal [facility] Comment on above: Result Comment: BASI C METABOLIC PANEL Performed By: #### 2 50505 ####[facility],[address] [place], [place] [id number] Calcium [Mass/Vol] 8.1 mg/dL Low 8.5 - 10.1 [facility] Comment on above: Performed By: #### 2 25480 ####[facility],[address] [place], [place] [address] Chloride [Moles/Vol] 110 mmol/L High 98 - 107 [facility] Comment on above: Performed By: #### 2 71136 ####[facility],[address] [place] [address] 18859 CO2 [Moles/Vol] 19.8 mmol/L Low 21.0 - 32.0 [facility] Comment on above: Performed By: #### 2 81213 ####[facility],[address] [place] [address] 67399 Creatinine [Mass/Vol] 0.67 mg/dL Normal 0.55 - 1.02 [facility] Comment on above: Performed By: #### 2 25907 ####[facility],[address] [place] [address] 85472 GFR/1.73 sq M.predicted among non-blacks MDRD (S/P/Bld) [Vol rate/Area] mL/min/{1.73_m2} Normal 60 - 999 [facility] Comment on above: Performed By: #### 2 54974 ####[facility],[address] [place] [address] 12322 Result Comment: ACCO RDING TO THE NATIONAL KIDNEY DISEASE EDUCATION PROGRAM(NKDE), A NORMAL eGFRIS A VALUE GREATER THAN OR EQUAL TO 60 ML/MIN/1.73 SQ METERS.CHRONIC KIDNEY DISEASE: <60mL/MIN/1.73 SQ METERSKIDNEY FAILURE: <15mL/MIN/1.73 SQ METERSTHIS TEST SHOULD ONLY BE USED FOR PATIENTS 18 YEARS OF AGE AND OLDER. Glucose [Mass/Vol] 81 mg/dL Normal 74 - 106 [facility] Comment on above: Performed By: #### 2 66649 ####[facility],[address] [place] [address] 46577 Potassium [Moles/Vol] 3.6 mmol/L Normal 3.5 - 5.1 [facility] Comment on above: Performed By: #### 2 60504 ####[facility],[address] [place] [address] 15154 Sodium [Moles/Vol] 142 mmol/L Normal 136 - 145 [facility] Comment on above: Performed By: #### 2 27544 ####[facility],[address] [place] [address] 26665 Urea nitrogen [Mass/Vol] 9 mg/dL Normal 7 - 18 [facility] Comment on above: Performed By: #### 2 83479 ####[facility],[address] [place] [address] 29822 BMP with eGFRon 04-17-2024 AGE 63 years Normal [facility] Comment on above: Performed By: #### 2 58330 ####[facility],[address] [place] [address] 86256 Anion gap [Moles/Vol] 13 mmol/L Normal 10 - 20 [facility] Comment on above: Performed By: #### 2 50761 ####[facility],[address] [place] [address] 96921 BMP with eGFR Normal [facility] Comment on above: Result Comment: BASI C METABOLIC PANEL Performed By: #### 2 48567 ####[facility],[address] [place] [address] 33572 Calcium [Mass/Vol] 8.2 mg/dL Low 8.5 - 10.1 [facility] Comment on above: Performed By: #### 2 07621 ####[facility],[address] [place] [address] 84167 Chloride [Moles/Vol] 108 mmol/L High 98 - 107 [facility] Comment on above: Performed By: #### 2 26421 ####[facility],[address] [place] [address] 00541 CO2 [Moles/Vol] 21.9 mmol/L Normal 21.0 - 32.0 [facility] Comment on above: Performed By: #### 2 26526 ####[facility],[address] [place] [address] 04290 Creatinine [Mass/Vol] 0.80 mg/dL Normal 0.55 - 1.02 [facility] Comment on above: Performed By: #### 2 30796 ####[facility],[address] [place] [address] 49024 GFR/1.73 sq M.predicted among non-blacks MDRD (S/P/Bld) [Vol rate/Area] mL/min/{1.73_m2} Normal 60 - 999 [facility] Comment on above: Performed By: #### 2 32041 ####[facility],[address] [place], [place] [address] Result Comment: ACCO RDING TO THE NATIONAL KIDNEY DISEASE EDUCATION PROGRAM(NKDE), A NORMAL eGFRIS A VALUE GREATER THAN OR EQUAL TO 60 ML/MIN/1.73 SQ METERS.CHRONIC KIDNEY DISEASE: <60mL/MIN/1.73 SQ METERSKIDNEY FAILURE: <15mL/MIN/1.73 SQ METERSTHIS TEST SHOULD ONLY BE USED FOR PATIENTS 18 YEARS OF AGE AND OLDER. Glucose [Mass/Vol] 83 mg/dL Normal 74 - 106 [facility] Comment on above: Performed By: #### 2 78179 ####[facility],[address] [place] [address] 03918 Potassium [Moles/Vol] 3.3 mmol/L Low 3.5 - 5.1 [facility] Comment on above: Performed By: #### 2 67528 ####[facility],[address] [place] [address] 53397 Sodium [Moles/Vol] 140 mmol/L Normal 136 - 145 [facility] Comment on above: Performed By: #### 2 10378 ####[facility],[address] [place] [address] 43202 Urea nitrogen [Mass/Vol] 12 mg/dL Normal 7 - 18 [facility] Comment on above: Performed By: #### 2 76078 ####[facility],[address] [place] [address] 27722 CBC + DIFFon 04-17-2024 Baso # 0.01 x10EE3/UL Normal 0.00 - 0.10 [facility] Comment on above: Performed By: #### 2 75951 ####[facility],[address] [place] [address] 22668 Basophils/100 WBC (Bld) 0.2 % Normal 0.0 - 2.0 [facility] Comment on above: Performed By: #### 2 94939 ####[facility],[address] [place] [address] 59755 CBC + DIFF Normal [facility] Comment on above: Result Comment: CBC- COMPLETE BLOOD COUNT Performed By: #### 2 62654 ####[facility],[address] [place] [address] 16458 EO # 0.02 x10EE3/UL Normal 0.00 - 0.50 [facility] Comment on above: Performed By: #### 2 93324 ####[facility],[address] [place], [place] [address] Eosinophils/100 WBC (Bld) 0.3 % Normal 0.0 - 7.0 [facility] Comment on above: Performed By: #### 2 61441 ####[place] [address] Erythrocyte distribution width (RBC) [Ratio] 12.9 % Normal 12.0 - 15.6 [facility] Comment on above: Performed By: #### 2 70338 ####[place] [address] Hematocrit (Bld) [Volume fraction] 42.6 % Normal 34.0 - 46.0 [facility] Comment on above: Performed By: #### 2 99305 ####[place] [address] Hemoglobin (Bld) [Mass/Vol] 14.4 g/dL Normal 12.0 - 16.0 [facility] Comment on above: Performed By: #### 2 81366 ####[facility],[address] [place] [address] 59967 Lymph # 1.50 x10EE3/UL Normal 0.80 - 2.80 [facility] Comment on above: Performed By: #### 2 25605 ####[place] [id number] Lymphocytes/100 WBC (Bld) 29.2 % Normal 20.0 - 45.0 [facility] Comment on above: Performed By: #### 2 59718 ####[place] [address] MANUAL DIFF N/A Normal [facility] Comment on above: Performed By: #### 2 57719 ####[facility],[address] [place] [address] 30736 MCH (RBC) [Entitic mass] 29 pg Normal 27 - 33 [facility] Comment on above: Performed By: #### 2 67398 ####[facility],[address] [place] [address] 85878 MCHC 34 X10 3 Normal 32 - 36 [facility] Comment on above: Performed By: #### 2 22829 ####[facility],[address] [place] [address] 55821 MCV (RBC) [Entitic vol] 85 fL Normal 80 - 99 [facility] Comment on above: Performed By: #### 2 38164 ####[facility],[address] [place] [address] 27025 Amelia # 0.64 x10EE3/UL Normal 0.20 - 1.00 [facility] Comment on above: Performed By: #### 2 87515 ####[facility],[address] [place] [address] 65910 MONOS % 12.3 % High 0.0 - 10.0 [facility] Comment on above: Performed By: #### 2 62883 ####[facility],[address] [place] [address] 63732 Morphology Niranjan (Bld) [Interp] N/A Normal [facility] Comment on above: Performed By: #### 2 26729 ####[facility],[address] [place] [address] 95231 Neut # 2.99 x10EE3/UL Normal 1.50 - 7.10 [facility] Comment on above: Performed By: #### 2 52560 ####[facility],[address] [place] [address] 30114 Neutrophils/100 WBC (Bld) 58.0 % Normal 46.0 - 76.0 [facility] Comment on above: Performed By: #### 2 66394 ####[facility],[address] [place], [place] [address] PLATELET 199 x10EE3/UL Normal 150 - 450 [facility] Comment on above: Performed By: #### 2 33740 ####[facility],[address] [place] [address] Platelet mean volume (Bld) [Entitic vol] 7.0 fL Normal 6.6 - 10.5 [facility] Comment on above: Result Comment: AUTO MATED DIFFERENTIAL Performed By: #### 2 72396 ####[place] [address] RBC 4.99 x 10EE6/UL Normal 4.10 - 5.30 [facility] Comment on above: Performed By: #### 2 57770 ####[place] [address] WBC 5.2 x 10EE3/UL Normal 4.5 - 10.8 [facility] Comment on above: Performed By: #### 2 29115 ####[place] [address] URINE CULTURE [CCL]on 2024 Bacteria identified Cx Nom (U) Normal [facility] Comment on above: Performed By: #### 2 58686 ####[facility],[address] [place] [address] BMP with eGFRon 04-16-2024 AGE 63 years Normal [facility] Comment on above: Performed By: #### 2 78465 ####[place] [address] Anion gap [Moles/Vol] 12 mmol/L Normal 10 - 20 [facility] Comment on above: Performed By: #### 2 95819 ####[place] [address] BMP with eGFR Normal [facility] Comment on above: Result Comment: BASI C METABOLIC PANEL Performed By: #### 2 73860 ####[place] [id number] Calcium [Mass/Vol] 8.2 mg/dL Low 8.5 - 10.1 [facility] Comment on above: Performed By: #### 2 10989 ####[facility],[address] [place] [address] 91243 Chloride [Moles/Vol] 107 mmol/L Normal 98 - 107 [facility] Comment on above: Performed By: #### 2 56802 ####[place] [id number] CO2 [Moles/Vol] 26.1 mmol/L Normal 21.0 - 32.0 [facility] Comment on above: Performed By: #### 2 94308 ####[facility],[address] [place], [place] [address] Creatinine [Mass/Vol] 0.71 mg/dL Normal 0.55 - 1.02 [facility] Comment on above: Performed By: #### 2 47821 ####[place] [id number] GFR/1.73 sq M.predicted among non-blacks MDRD (S/P/Bld) [Vol rate/Area] mL/min/{1.73_m2} Normal 60 - 999 [facility] Comment on above: Performed By: #### 2 70346 ####[place] [id number] Result Comment: ACCO RDING TO THE NATIONAL KIDNEY DISEASE EDUCATION PROGRAM(NKDE), A NORMAL eGFRIS A VALUE GREATER THAN OR EQUAL TO 60 ML/MIN/1.73 SQ METERS.CHRONIC KIDNEY DISEASE: <60mL/MIN/1.73 SQ METERSKIDNEY FAILURE: <15mL/MIN/1.73 SQ METERSTHIS TEST SHOULD ONLY BE USED FOR PATIENTS 18 YEARS OF AGE AND OLDER. Glucose [Mass/Vol] 92 mg/dL Normal 74 - 106 [facility] Comment on above: Performed By: #### 2 32613 ####[facility],[address] [place] [address] 64698 Potassium [Moles/Vol] 3.3 mmol/L Low 3.5 - 5.1 [facility] Comment on above: Result Comment: RESU LTS REPEATED AND VERIFIED Performed By: #### 2 77788 ####[facility],[address] [place] [address] Sodium [Moles/Vol] 142 mmol/L Normal 136 - 145 [facility] Comment on above: Performed By: #### 2 17434 ####[facility],[address] [place] [address] 65334 Urea nitrogen [Mass/Vol] 11 mg/dL Normal 7 - 18 [facility] Comment on above: Performed By: #### 2 14873 ####[facility],[address] [place], [place] [id number] AGE 63 years Normal [facility] Comment on above: Performed By: #### 2 99356 ####[facility],[address] [place], [place] [address] Anion gap [Moles/Vol] 14 mmol/L Normal 10 - 20 [facility] Comment on above: Performed By: #### 2 72132 ####[facility],[address] [place] [address] 28583 BMP with eGFR Normal [facility] Comment on above: Result Comment: BASI C METABOLIC PANEL Performed By: #### 2 43947 ####[facility],[address] [place] [address] 45897 Calcium [Mass/Vol] 8.3 mg/dL Low 8.5 - 10.1 [facility] Comment on above: Performed By: #### 2 33814 ####[facility],[address] [place], [place] [phone] Chloride [Moles/Vol] 106 mmol/L Normal 98 - 107 [facility] Comment on above: Performed By: #### 2 60540 ####[facility],[address] [place] [address] CO2 [Moles/Vol] 24.6 mmol/L Normal 21.0 - 32.0 [facility] Comment on above: Performed By: #### 2 49226 ####[facility],[address] [place] [address] Creatinine [Mass/Vol] 0.72 mg/dL Normal 0.55 - 1.02 [facility] Comment on above: Performed By: #### 2 47874 ####[facility],[address] [place] [address] GFR/1.73 sq M.predicted among non-blacks MDRD (S/P/Bld) [Vol rate/Area] mL/min/{1.73_m2} Normal 60 - 999 [facility] Comment on above: Performed By: #### 2 70756 ####[facility],[address] [place] [address] Result Comment: ACCO RDING TO THE NATIONAL KIDNEY DISEASE EDUCATION PROGRAM(NKDE), A NORMAL eGFRIS A VALUE GREATER THAN OR EQUAL TO 60 ML/MIN/1.73 SQ METERS.CHRONIC KIDNEY DISEASE: <60mL/MIN/1.73 SQ METERSKIDNEY FAILURE: <15mL/MIN/1.73 SQ METERSTHIS TEST SHOULD ONLY BE USED FOR PATIENTS 18 YEARS OF AGE AND OLDER. Glucose [Mass/Vol] 115 mg/dL High 74 - 106 [facility] Comment on above: Performed By: #### 2 30584 ####[facility],[address] [place], [place] [id number] Potassium [Moles/Vol] 2.5 mmol/L Critically low 3.5 - 5.1 [facility] Comment on above: Result Comment: { CA LLED TO ESCOBAR BARON BY KG AT 0922{ READ BACK BY ESCOBAR BARON RA AT 0921 Performed By: #### 2 91023 ####[facility],[address] [place], [place] [address] Sodium [Moles/Vol] 142 mmol/L Normal 136 - 145 [facility] Comment on above: Performed By: #### 2 58900 ####[facility],[address] [place] [address] 61075 Urea nitrogen [Mass/Vol] 16 mg/dL Normal 7 - 18 [facility] Comment on above: Performed By: #### 2 68628 ####[facility],[address] [place], [place] [id number] ED MED ADMINISTRATION DETAIL on 04-16-2024 ED MED ADMINISTRATION DETAIL Normal [facility] ED NURSES CLINICAL NOTEon ED NURSES CLINICAL NOTE Normal [facility] ED ORDER SHEET (CPOE ONLY)on 04-16-2024 ED ORDER SHEET (CPOE ONLY) Normal [facility] ED PHYSICIAN CLINICAL REPORT on 04-16-2024 ED PHYSICIAN CLINICAL REPORT Normal [facility] ED PHYSICIAN DISCHARGE REPOR Ton 04-16-2024 ED PHYSICIAN DISCHARGE REPORT Normal [facility] ED SUPER BILLon 04-16-2024 ED SUPER BILL Normal [facility] ED VISIT SUMMARYon ED VISIT SUMMARY Normal [facility] ED VITALS FLOW SHEETon 04-16 ED VITALS FLOW SHEET Normal [facility] MAGNESIUMon 04-16-2024 Magnesium [Mass/Vol] 1.6 mg/dL Low 1.8 - 2.4 [facility] Comment on above: Performed By: #### 2 72649 ####[facility],[address] [place] [address] 30862 STOOL CULTURE [NORY]on Stool culture STOOL CULTURE [AULTM AN] 04/21/24.1029.DNP.COMPLET E Normal [facility] Comment on above: Performed By: #### 2 69593 ####[facility],[address] [place] [address] 42441 Bacteria Ur Culton 5 Bacteria identified Cx Nom (U) ORGANISM ID: 1 10,000 -<50,000 CFU/ml Mixed microbiota No further workup. Mixed microbiota can be due to???urine???contaminatio n with skin bacteria at time of collection or presence of a long-term urinary catheter. If a new culture is needed, please consider re-education of the patient on proper midstream collection technique or straight catheterization for???urine???collection. Normal [facility] Comment on above: Performed By: #### 6 30-4 #### [facility] CLIA [id number] [address] [place] [address] OF [facility] CBC + DIFFon 04-15-2024 Baso # 0.01 x10EE3/UL Normal 0.00 - 0.10 [facility] Comment on above: Performed By: #### 2 29428 ####[facility],[address] [place] [address] 39954 Basophils/100 WBC (Bld) 0.1 % Normal 0.0 - 2.0 [facility] Comment on above: Performed By: #### 2 74994 ####[facility],[address] [place] [address] 54454 CBC + DIFF Normal [facility] Comment on above: Result Comment: CBC- COMPLETE BLOOD COUNT Performed By: #### 2 65980 ####[facility],[address] [place] [address] 46830 EO # 0.03 x10EE3/UL Normal 0.00 - 0.50 [facility] Comment on above: Performed By: #### 2 33964 ####[facility],[address] [place] [address] 68134 Eosinophils/100 WBC (Bld) 0.3 % Normal 0.0 - 7.0 [facility] Comment on above: Performed By: #### 2 67486 ####[facility],[address] [place] [address] Erythrocyte distribution width (RBC) [Ratio] 13.5 % Normal 12.0 - 15.6 [facility] Comment on above: Performed By: #### 2 99099 ####[facility],[address] [place], [place] [phone] Hematocrit (Bld) [Volume fraction] 45.7 % Normal 34.0 - 46.0 [facility] Comment on above: Performed By: #### 2 70570 ####[facility],[address] [place] [address] Hemoglobin (Bld) [Mass/Vol] 15.6 g/dL Normal 12.0 - 16.0 [facility] Comment on above: Performed By: #### 2 52856 ####[facility],[address] [place] [address] Lymph # 0.34 x10EE3/UL Low 0.80 - 2.80 [facility] Comment on above: Performed By: #### 2 38477 ####[facility],[address] [place] [address] 88403 Lymphocytes/100 WBC (Bld) 4.0 % Low 20.0 - 45.0 [facility] Comment on above: Performed By: #### 2 65693 ####[facility],[address] [place] [address] 98300 MANUAL DIFF N/A Normal [facility] Comment on above: Performed By: #### 2 96531 ####[facility],[address] [place] [address] 35373 MCH (RBC) [Entitic mass] 29 pg Normal 27 - 33 [facility] Comment on above: Performed By: #### 2 63478 ####[facility],[address] [place] [address] 09523 MCHC 34 X10 3 Normal 32 - 36 [facility] Comment on above: Performed By: #### 2 16126 ####[facility],[address] [place] [address] 34218 MCV (RBC) [Entitic vol] 84 fL Normal 80 - 99 [facility] Comment on above: Performed By: #### 2 54797 ####[facility],[address] [place] [address] 09034 Amelia # 0.31 x10EE3/UL Normal 0.20 - 1.00 [facility] Comment on above: Performed By: #### 2 38682 ####[facility],[address] [place] [address] 09587 MONOS % 3.7 % Normal 0.0 - 10.0 [facility] Comment on above: Performed By: #### 2 54040 ####[facility],[address] [place] [address] 68632 Morphology Niranjan (Bld) [Interp] N/A Normal [facility] Comment on above: Performed By: #### 2 78242 ####[facility],[address] [place] [address] 85772 Neut # 7.83 x10EE3/UL High 1.50 - 7.10 [facility] Comment on above: Performed By: #### 2 06748 ####[facility],[address] [place] [address] 05175 Neutrophils/100 WBC (Bld) 91.9 % High 46.0 - 76.0 [facility] Comment on above: Performed By: #### 2 29836 ####[facility],[address] [place] [address] 24135 PLATELET 231 x10EE3/UL Normal 150 - 450 [facility] Comment on above: Performed By: #### 2 96489 ####[facility],[address] [place] [address] 19489 Platelet mean volume (Bld) [Entitic vol] 7.3 fL Normal 6.6 - 10.5 [facility] Comment on above: Result Comment: AUTO MATED DIFFERENTIAL Performed By: #### 2 05952 ####[facility],[address] [place] [address] 72949 RBC 5.43 x 10EE6/UL High 4.10 - 5.30 [facility] Comment on above: Performed By: #### 2 72546 ####[facility],[address] [place] [address] 66080 WBC 8.5 x 10EE3/UL Normal 4.5 - 10.8 [facility] Comment on above: Performed By: #### 2 42618 ####[facility],[address] [place] [address] 26549 CMP with eGFRon 04-15-2024 AGE 63 years Normal [facility] Comment on above: Performed By: #### 2 49248 ####[facility],[address] [place] [address] 45156 Albumin [Mass/Vol] 3.6 g/dL Normal 3.4 - 5.0 [facility] Comment on above: Performed By: #### 2 56997 ####[facility],[address] [place] [address] 72095 Albumin/Globulin [Mass ratio] 0.7 {ratio} Low 0.9 - 1.6 [facility] Comment on above: Performed By: #### 2 19567 ####[facility],[address] [place] [address] 96559 ALK PHOS 86 U/L Normal 46 - 116 [facility] Comment on above: Performed By: #### 2 57079 ####[facility],[address] [place] [address] 94963 ALT [Catalytic activity/Vol] 20 U/L Normal 16 - 63 [facility] Comment on above: Performed By: #### 2 34057 ####[facility],[address] [place] [address] 80746 Anion gap [Moles/Vol] 15 mmol/L Normal 10 - 20 [facility] Comment on above: Performed By: #### 2 85823 ####[facility],[address] [place] [address] 04345 AST [Catalytic activity/Vol] 26 U/L Normal 13 - 39 [facility] Comment on above: Performed By: #### 2 76318 ####[facility],[address] [place] [address] 50479 B/C RATIO 29 ratio Normal 0 - 30 [facility] Comment on above: Performed By: #### 2 52386 ####[facility],[address] [place] [address] 35463 Bilirubin [Mass/Vol] 0.6 mg/dL Normal 0.2 - 1.0 [facility] Comment on above: Performed By: #### 2 14956 ####[facility],[address] [place] [address] 79341 Calcium [Mass/Vol] 9.5 mg/dL Normal 8.5 - 10.1 [facility] Comment on above: Performed By: #### 2 69747 ####[facility],[address] [place] [address] 98446 Chloride [Moles/Vol] 102 mmol/L Normal 98 - 107 [facility] Comment on above: Performed By: #### 2 64551 ####[facility],[address] [place] [address] 31672 CMP with eGFR Normal [facility] Comment on above: Result Comment: COMP REHENSIVE METABOLIC PANEL Performed By: #### 2 19055 ####[facility],[address] [place] [address] 76531 CO2 [Moles/Vol] 28.7 mmol/L Normal 21.0 - 32.0 [facility] Comment on above: Performed By: #### 2 21786 ####[facility],[address] [place] [address] 18003 Creatinine [Mass/Vol] 0.91 mg/dL Normal 0.55 - 1.02 [facility] Comment on above: Performed By: #### 2 86339 ####[facility],[address] [place] [address] 66591 GFR/1.73 sq M.predicted among non-blacks MDRD (S/P/Bld) [Vol rate/Area] mL/min/{1.73_m2} Normal 60 - 999 [facility] Comment on above: Performed By: #### 2 73244 ####[facility],[address] [place] [address] 93740 Result Comment: ACCO RDING TO THE NATIONAL KIDNEY DISEASE EDUCATION PROGRAM(NKDE), A NORMAL eGFRIS A VALUE GREATER THAN OR EQUAL TO 60 ML/MIN/1.73 SQ METERS.CHRONIC KIDNEY DISEASE: <60mL/MIN/1.73 SQ METERSKIDNEY FAILURE: <15mL/MIN/1.73 SQ METERSTHIS TEST SHOULD ONLY BE USED FOR PATIENTS 18 YEARS OF AGE AND OLDER. Globulin (S) [Mass/Vol] 4.9 g/dL High 1.5 - 3.8 [facility] Comment on above: Performed By: #### 2 99879 ####[facility],[address] [place] [address] 18803 Glucose [Mass/Vol] 157 mg/dL High 74 - 106 [facility] Comment on above: Performed By: #### 2 18556 ####[facility],[address] [place] [address] 59525 Potassium [Moles/Vol] 2.8 mmol/L Critically low 3.5 - 5.1 [facility] Comment on above: Result Comment: { CA LLED TO ESCOBAR TORRES BY AEL AT 2134{ READ BACK BY ESCOBAR TORRES RA AT 2134 Performed By: #### 2 90605 ####[facility],[address] [place] [address] 58128 Protein [Mass/Vol] 8.5 g/dL High 6.4 - 8.2 [facility] Comment on above: Performed By: #### 2 71724 ####[facility],[address] [place] [address] 00475 Sodium [Moles/Vol] 143 mmol/L Normal 136 - 145 [facility] Comment on above: Performed By: #### 2 36685 ####[facility],[address] [place] [address] 48650 Urea nitrogen [Mass/Vol] 26 mg/dL High 7 - 18 [facility] Comment on above: Performed By: #### 2 14890 ####[facility],[address] [place], [place] [phone] CORONAVIRUS (SARS) ANTIGEN T ESTon 04-15-2024 EXTERNAL QC DONE? YES Normal [facility] Comment on above: Performed By: #### 2 93360 ####[facility],[address] [place] [address] INTERNAL CONTROL PASS Normal [facility] Comment on above: Performed By: #### 2 71199 ####[facility],[address] [place], [place] [address] SARS ANTIGEN Negative Normal NORMAL: NEGATIVE [facility] Comment on above: Performed By: #### 2 32113 ####[facility],[address] [place] [address] 58196 SEND TO ? NO Normal [facility] Comment on above: Result Comment: SARS -CoV-2THIS TEST IS BEING USED UNDER THE FDA EUA PROCEDURE. THIS ASSAY HAS BEENVALIDATED AT [facility] FOR USE WITH NASAL AND NASOPHARYNGEAL SWABSPECIMENS.INTERPRETIVE DATATEST RESULTS SHOULD ALWAYS BE CONSIDERED IN THE CONTEXT OF CLINICALOBSERVATIONS AND EPIDEMIOLOGICAL DATA IN MAKING FINAL DIAGNOSIS AND PATIENTMANAGEMENT DECISIONS. PATIENT MANAGEMENT SHOULD FOLLOW CURRENT CDC GUIDELINES.THE SHITAL SARS ANTIGEN SIN DOES NOT DIFFERENTIATE BETWEEN SARS-CoV & SARS-CoV-2.A POSITIVE TEST RESULT INDICATES THE PRESENCE OF SARS-CoV-2 NUCLEOCAPSID PROTEINANTIGEN, AND THE PATIENT IS INFECTED WITH THE VIRUS AND PRESUMED TO BECONTAGIOUS.A NEGATIVE TEST RESULT FOR THIS TEST MEANS THAT SARS-CoV-2 NUCLEOCAPSID PROTEINANTIGEN WAS NOT PRESENT IN THE SPECIMEN ABOVE THE LIMIT OF DETECTION. HOWEVER, ANEGATIVE RESULT DOES NOT RULE OUT COVID-19 AND SHOULD NOT BE USED THE SOLEBASIS FOR TREATMENT OR PATIENT MANAGEMENT DECISIONS. A NEGATIVE RESULT DOES NOTEXCLUDE THE POSSIBILITY OF COVID-19. NEGATIVE RESULTS, FROM PATIENTS WITHSYMPTOM ONSET BEYOND FIVE DAYS, SHOULD BE TREATED PRESUMPTIVE ANDCONFIRMATION WITH A MOLECULAR ASSAY, IF NECESSARY, FOR PATIENT MANAGEMENT, MAYBE PERFORMED.WHEN DIAGNOSTIC TESTING IS NEGATIVE, THE POSSIBLILTY OF A FALSE NEGATIVE RESULTSHOULD BE CONSIDERED IN THE CONTEXT OF A PATIENT'S RECENT EXPOSURES AND THEPRESENCE OF CLINICAL SIGNS AND SYMPTOMS CONSISTENT WITH COVID-19. THEPOSSIBILITY OF A FALSE NEGATIVE RESULT SHOULD ESPECIALLY BE CONSIDERED IF THEPATIENT'S RECENT EXPOSURES OR CLINICAL PRESENTATION INDICATE THAT COVID-19 ISLIKELY, AND DIAGNOSTIC TESTS FOR OTHER CAUSES OF ILLNESS (e.g., OTHERRESPIRATORY ILLNESS) ARE NEGATIVE. IF COVID-19 IS STILL SUSPECTED BASED ONEXPOSURE HISTORY TOGETHER WITH OTHER CLINICAL FINDINGS, RE-TESTING SHOULD BECONSIDERED BY HEALTHCARE PROVIDERS IN CONSULTATION WITH PUBLIC GRE[facility] CROSS HOSPITALHORITIES. Performed By: #### 2 83033 ####[facility],[address] [place] [address] 51326 INFLUENZA VIRUS RAPID A/Bon 04-15-2024 INFLUENZA VIRUS RAPID A/B Normal [facility] Comment on above: Performed By: #### 2 60515 ####[address] [address] TROPONINon 04-15-2024 HS TROPONIN 7.9 pg/mL Normal 0.0 - 51.4 [facility] Comment on above: Performed By: #### 2 10399 ####[facility],[address] [place] [address] 96585 URINALYSISon 04-15-2024 Amorphous NONE Normal [facility] Comment on above: Performed By: #### 2 86822 ####[facility],[address] [place] [address] 41029 Bacteria TRACE Normal [facility] Comment on above: Performed By: #### 2 65190 ####[facility],[address] [place] [address] 67959 Bilirubin Ql (U) Negative Normal NORMAL: NEGATIVE [facility] Comment on above: Performed By: #### 2 13134 ####[facility],[address] [place], [place] [address] Casts NONE Normal [facility] Comment on above: Performed By: #### 2 64701 ####[facility],[address] [place], [place] [address] Clarity (U) sl.cloudy Normal NORMAL: CLEAR [facility] Comment on above: Performed By: #### 2 58696 ####[facility],[address] [place] [address] Color (U) yellow Normal NORMAL: YELLOW [facility] Comment on above: Performed By: #### 2 11625 ####[facility],[address] [place] [address] Crystals LM Nom (Urine sed) NONE Normal [facility] Comment on above: Performed By: #### 2 13514 ####[facility],[address] [place], [place] [address] Epi Cells MANY Normal [facility] Comment on above: Performed By: #### 2 42926 ####[facility],[address] [place] [address] 06011 Glucose Ql (U) NORM Normal NORMAL: NORMAL [facility] Comment on above: Performed By: #### 2 15385 ####[facility],[address] [place] [address] 41475 Hemoglobin Ql (U) 50 Abnormal NORMAL: NEGATIVE [facility] Comment on above: Performed By: #### 2 44533 ####[facility],[address] [place] [address] 74386 Ketone Negative Normal NORMAL: NEGATIVE [facility] Comment on above: Performed By: #### 2 76326 ####[facility],[address] [place], [place] [address] Leukocytes 100 Abnormal NORMAL: NEGATIVE [facility] Comment on above: Performed By: #### 2 46815 ####[facility],[address] [place] [address] 82443 Mucous NONE Normal [facility] Comment on above: Performed By: #### 2 81331 ####[facility],[address] [place] [address] Nitrite Ql (U) Negative Normal NORMAL: NEGATIVE [facility] Comment on above: Performed By: #### 2 66428 ####[facility],[address] [place] [address] pH (U) 6 [pH] Normal NORMAL: 5.0-8.0 [facility] Comment on above: Performed By: #### 2 43406 ####[facility],[address] [place] [address] Protein Ql (U) 30 Abnormal NORMAL: NEGATIVE [facility] Comment on above: Performed By: #### 2 82441 ####[facility],[address] [place] [address] 23216 Rbc 0-5 Normal 0-3/hpf [facility] Comment on above: Performed By: #### 2 22712 ####[facility],[address] [place] [address] Sp Bennett 1.015 Normal NORMAL: 1.010-1.030 [facility] Comment on above: Performed By: #### 2 72437 ####[facility],[address] [place] [address] Specimen Type R Normal [facility] Comment on above: Performed By: #### 2 04001 ####[facility],[address] [place] [address] Urinalysis dipstick W Reflex Microscopic panel (U) SEE BELOW Normal [facility] Comment on above: Result Comment: MICR OSCOPIC Performed By: #### 2 33412 ####[facility],[address] [place] [address] 66217 Urobilinog NORM Normal NORMAL: NORMAL [facility] Comment on above: Performed By: #### 2 37830 ####[facility],[address] [place] [address] 93839 Wbc 6-10 Normal 0-5/hpf [facility] Comment on above: Performed By: #### 2 19027 ####[facility],[address] [place] [address] 24897 Yeast NONE Normal [facility] Comment on above: Performed By: #### 2 57403 ####[facility],[address] [place] [address] 91958 CNOVon 02-11-2024 CNOV Office Visit (CARDAG [facility]WW) ----- GUZMANEDNAOPAL Micheal ([id number]) 1960 F Date Time Provider Department 02/11/24 8:00 AM BERT WARD CARDAGHWW During your visit today, we recorded the following information about you: Pulse Respiration Blood pressure Weight 85/minute 18/minute 111/75 72.7 kg Height 1.626 m Rachael Jay MA 02/11/2024 8:01 AM Signed Patient denies any cardiac issues or symptoms. Bert Ward MD 02/11/2024 8:44 AM Signed PRIMARY CARE PHYSICIAN: Shae Mendez ([facility]) [address] [place] [address] [address] [place] [address] HISTORY OF PRESENT ILLNESS: Ms. Hinds is a 63 year old female who presents today for a cardiovascular medicine scheduled visit. CARDIOVASCULAR PROBLEMS: 1. Mixed hyperlipidemia - ICD9: 272.2, ICD10: E78.2 (primary diagnosis) 2. Chronic anticoagulation - ICD9: V58.61, ICD10: Z79.01 3. Pulmonary embolism on right (HCC) - ICD9: 415.19, ICD10: I26.99 The patient states that she was hospitalized at [facility] earlier and January. First admission was due to generalized body aches , dehydration. She was found to have bilateral pneumonia was treated accordingly. She was readmitted approximately a week after that with diarrhea profound dehydration and hypomagnesemia. She was reportedly treated with intravenous antibiotics and intravenous fluids. At time of this dictation I do not have any records from that admission. We have obtained consent from the patient for release of records and will submit a request to the appropriate hospitals if nothing but for our recordkeeping. From the cardiac standpoint, we were working her up for shortness of breath this is a chronic problem from her. She has a history of emphysema due to remote history of smoking. Since 2017, the patient quit smoking about carries a diagnosis of COPD. She also has history of chronic anticoagulation due to embolization of the lower extremities and incidental finding of right pulmonary embolism.. She has documented LAD 50% stenosis and by the last cath. We had opted to obtain a stress perfusion study to exclude any ongoing ischemia as the cause of her shortness of breath. Per most recent reports. Her stress test is normal and she continues to enjoy normal left ventricular function. Opal denies any other active cardiac symptoms. Specifically, the patient denies abdominal distention, chest pain, cough, edema, palpitations, lightheadedness or syncope. The Patient claims compliance with medications and reports no side effects or allergies. Test results were reviewed with the patient. Stress perfusion study reviewed. Except for a negative titer for Lyme disease from [facility] we do not have any other blood work.. Implications of findings were explained in layman's terms.. She stopped taking atorvastatin during her initial admission due to profound muscle aches. She is still not taking it. I believe it may be reasonable to atorvastatin until her myalgias and arthralgias resolve. I suspect they may be due to her recent viral illness. HISTORICAL DATA UPDATED: 01/28/2024 HISTORICAL DATA UPDATED: 10/01/2023 Smoking: Quit smoking 2016. Diabetes: No Lipids: Yes Obesity: No HTN: Yes Sedentary Lifestyle: No Family History of M.A.C.E: Yes CHF: No Stroke /TIA: No, History of pulmonary embolism and arterioles systemic embolization as well. MOST RECENT CARDIAC TESTING: Echo: Normal EF, 2016 Cardiac Catheterization: Mar 2016: 50% LAD, cx, rca Normal EF 60% Holter / Event Recorder : - Stress Test : 01/28/24: CONCLUSIONS: 1. SPECT Perfusion Study: Normal. 2. There is no scintigraphic evidence for inducible ischemia. 3. No evidence of scarred myocardium. 4. Left ventricle is small. The left ventricle systolic function is hyperdynamic. 5. Right ventricle is normal in size. The right ventricle systolic function is normal. 6. This is a low risk scan. Gated Stress FBP Gated Rest FBP LVEF % 68 73 2016, normal, normal EF TILT: - Device: - PAST CARDIAC EVENTS: 2017 arterial embolization. Status post embolectomy. 2017 subclinical pulmonary embolism found during the same hospitalization. ALLERGIES Allergen Reactions Metoprolol Intolerance Significant joint pain Prednisone Mental Status Change MEDICATIONS: amLODIPine (NORVASC) 5 mg tablet Take 5 mg by mouth once daily. rivaroxaban (XARELTO) 20 mg tablet Take 1 tablet by mouth once daily. atorvastatin (LIPITOR) 10 mg tablet TAKE 1 TABLET BY MOUTH ONCE DAILY. NEED FOLLOW UP APPOINTMENT WITH tiZANidine (ZANAFLEX) 4 mg tablet TAKE 1 TABLET BY MOUTH UP TO THREE TIMES DAILY NEEDED FOR SPASM traZODone (DESYREL) 50 mg tablet Take 50 mg by mouth daily at bedtime. lisinopril (ZESTRIL, PRINIVIL) 10 mg tablet Take 1 tablet by mouth once daily. lev (more content not included)... Normal [facility] STGIPCRon 02-10-2024 Adenovirus F 40/41 Not detected Normal Not Detected [facility] Comment on above: Performed By: #### S TGIPCR #### [facility] [address] [place] [address] 85695 Astrovirus Not detected Normal Not Detected [facility] Comment on above: Performed By: #### S TGIPCR #### [facility] [address] [place] [address] 66139 Campy (jejuni/coli/ups) Not detected Normal Not Detected [facility] Comment on above: Performed By: #### S TGIPCR #### [facility] [address] [place] [address] Cryptosporidium Not detected Normal Not Detected [facility] Comment on above: Performed By: #### S TGIPCR #### [facility] [address] [place] [address] Cyclospora Not detected Normal Not Detected [facility] Comment on above: Performed By: #### S TGIPCR #### [place] [address] E. coli (ETEC) Not detected Normal Not Detected [facility] Comment on above: Performed By: #### S TGIPCR #### [place] [address] E. coli O157 Not Applicable Normal Not Detected [facility] Comment on above: Performed By: #### S TGIPCR #### [place] [address] Entamoeba histolytica Not detected Normal Not Detected [facility] Comment on above: Performed By: #### S TGIPCR #### [place] [address] Enteroaggregative E. coli (EAEC) Not detected Normal Not Detected [facility] Comment on above: Performed By: #### S TGIPCR #### [place] [address] Enteropathogenic E. coli (EPEC) Not detected Normal Not Detected [facility] Comment on above: Performed By: #### S TGIPCR #### [place] [address] Giardia lamblia Not detected Normal Not Detected [facility] Comment on above: Performed By: #### S TGIPCR #### [place] [id number] Norovirus GI/GII See Below Normal Not Detected [facility] Comment on above: Result Comment: T he slumber room attendant of the Stool GI PCR panel has identified an increase of potential false positive results for Norovirus. A Norovirus positive result should correlate with the patient?s clinical history and presentation, along with travel history and disease severity. Performed By: #### S TGIPCR #### [place] [address] Plesiomonas shigelloides Not detected Normal Not Detected [facility] Comment on above: Performed By: #### S TGIPCR #### [place] [address] Rotavirus A Not detected Normal Not Detected [facility] Comment on above: Performed By: #### S TGIPCR #### [place] [address] Salmonella species, stool Not detected Normal Not Detected [facility] Comment on above: Performed By: #### S TGIPCR #### [place] [address] Sapovirus I,II,IV,V Not detected Normal Not Detected [facility] Comment on above: Performed By: #### S TGIPCR #### [place] [address] Shig Tox E. coli (STEC) Not detected Normal Not Detected [facility] Comment on above: Performed By: #### S TGIPCR #### [place] [address] Shigella/Enteroinvasive E. coli (EIEC) Not detected Normal Not Detected [facility] Comment on above: Performed By: #### S TGIPCR #### [place] [address] Stool GI Comment See Comment Normal [facility] Comment on above: Result Comment: Viru s, bacteria, and parasite nucleic acid may persist in vivo independently of organism viability. Negative Film Array GI panel results in the setting of clinical illness compatible with gastroenteritis may be due to infection by pathogens that are not detected by this test. False negatives may occur due to genetic variability in the region targeted by the primers. Performed By: #### S TGIPCR #### [place] [address] Vibrio cholerae Not detected Normal Not Detected [facility] Comment on above: Performed By: #### S TGIPCR #### [place] [address] Vibrio par/vul/chol Not detected Normal Not Detected [facility] Comment on above: Performed By: #### S TGIPCR #### [facility] [address] [place] [address] 89295 Yersinia enterocolitica Not detected Normal Not Detected [facility] Comment on above: Performed By: #### S TGIPCR #### [facility] [address] [place] [address] 69555 C DIFF COMPLETEon 02-09-2024 C DIFF COMPLETE Normal [facility] Comment on above: Performed By: #### 2 50108 ####[facility],[address] [place] [address] 44684 CBC + DIFFon 02-09-2024 Baso # 0.03 x10EE3/UL Normal 0.00 - 0.10 [facility] Comment on above: Performed By: #### 2 31265 ####[facility],[address] [place] [address] 78125 Basophils/100 WBC (Bld) 0.3 % Normal 0.0 - 2.0 [facility] Comment on above: Performed By: #### 2 53778 ####[facility],[address] [place] [address] 20185 CBC + DIFF Normal [facility] Comment on above: Result Comment: CBC- COMPLETE BLOOD COUNT Performed By: #### 2 87006 ####[facility],[address] [place] [address] 93504 EO # 0.26 x10EE3/UL Normal 0.00 - 0.50 [facility] Comment on above: Performed By: #### 2 13065 ####[facility],[address] [place] [address] 90386 Eosinophils/100 WBC (Bld) 2.6 % Normal 0.0 - 7.0 [facility] Comment on above: Performed By: #### 2 12314 ####[facility],[address] [place] [address] 62672 Erythrocyte distribution width (RBC) [Ratio] 13.2 % Normal 12.0 - 15.6 [facility] Comment on above: Performed By: #### 2 68290 ####[facility],[address] [place] [address] Hematocrit (Bld) [Volume fraction] 46.6 % High 34.0 - 46.0 [facility] Comment on above: Performed By: #### 2 11275 ####[facility],[address] [place] [address] Hemoglobin (Bld) [Mass/Vol] 15.6 g/dL Normal 12.0 - 16.0 [facility] Comment on above: Performed By: #### 2 39152 ####[facility],[address] [place] [address] Lymph # 2.43 x10EE3/UL Normal 0.80 - 2.80 [facility] Comment on above: Performed By: #### 2 39453 ####[facility],[address] [place] [address] Lymphocytes/100 WBC (Bld) 24.0 % Normal 20.0 - 45.0 [facility] Comment on above: Performed By: #### 2 30588 ####[facility],[address] [place] [address] MANUAL DIFF N/A Normal [facility] Comment on above: Performed By: #### 2 08204 ####[facility],[address] [place] [address] MCH (RBC) [Entitic mass] 29 pg Normal 27 - 33 [facility] Comment on above: Performed By: #### 2 38362 ####[facility],[address] [place] [address] MCHC 34 X10 3 Normal 32 - 36 [facility] Comment on above: Performed By: #### 2 19521 ####[facility],[address] [place], [place] [address] MCV (RBC) [Entitic vol] 87 fL Normal 80 - 99 [facility] Comment on above: Performed By: #### 2 75416 ####[facility],[address] [place] [address] 30164 Amelia # 0.61 x10EE3/UL Normal 0.20 - 1.00 [facility] Comment on above: Performed By: #### 2 92272 ####[facility],[address] [place] [address] 59170 MONOS % 6.1 % Normal 0.0 - 10.0 [facility] Comment on above: Performed By: #### 2 25617 ####[facility],[address] [place] [address] 51925 Morphology Niranjan (Bld) [Interp] N/A Normal [facility] Comment on above: Performed By: #### 2 26664 ####[facility],[address] [place] [address] 76703 Neut # 6.80 x10EE3/UL Normal 1.50 - 7.10 [facility] Comment on above: Performed By: #### 2 24027 ####[facility],[address] [place] [address] 10300 Neutrophils/100 WBC (Bld) 67.1 % Normal 46.0 - 76.0 [facility] Comment on above: Performed By: #### 2 10081 ####[facility],[address] [place] [address] 47586 PLATELET 246 x10EE3/UL Normal 150 - 450 [facility] Comment on above: Performed By: #### 2 20183 ####[facility],[address] [place] [address] 82663 Platelet mean volume (Bld) [Entitic vol] 7.1 fL Normal 6.6 - 10.5 [facility] Comment on above: Result Comment: AUTO MATED DIFFERENTIAL Performed By: #### 2 07393 ####[facility],[address] [place] [address] 03179 RBC 5.36 x 10EE6/UL High 4.10 - 5.30 [facility] Comment on above: Performed By: #### 2 11622 ####[facility],[address] [place] [address] 75082 WBC 10.1 x 10EE3/UL Normal 4.5 - 10.8 [facility] Comment on above: Performed By: #### 2 51290 ####[facility],[address] [place] [address] 52743 CHEST 1 VIEWon 02-09-2024 CHEST 1 VIEW Normal [facility] CMP with eGFRon 02-09-2024 AGE 63 years Normal [facility] Comment on above: Performed By: #### 2 14776 ####[facility],[address] [place] [address] 11667 Albumin [Mass/Vol] 3.5 g/dL Normal 3.4 - 5.0 [facility] Comment on above: Performed By: #### 2 02860 ####[facility],[address] [place] [address] 65385 Albumin/Globulin [Mass ratio] 0.8 {ratio} Low 0.9 - 1.6 [facility] Comment on above: Performed By: #### 2 27508 ####[facility],[address] [place] [address] 94709 ALK PHOS 106 U/L Normal 46 - 116 [facility] Comment on above: Performed By: #### 2 77365 ####[facility],[address] [place] [address] 21799 ALT [Catalytic activity/Vol] 18 U/L Normal 16 - 63 [facility] Comment on above: Performed By: #### 2 84040 ####[facility],[address] [place] [address] 63966 Anion gap [Moles/Vol] 13 mmol/L Normal 10 - 20 [facility] Comment on above: Performed By: #### 2 20097 ####[facility],[address] [place] [address] 19388 AST [Catalytic activity/Vol] 16 U/L Normal 13 - 39 [facility] Comment on above: Performed By: #### 2 72585 ####[facility],[address] [place] [address] 28520 B/C RATIO 32 ratio High 0 - 30 [facility] Comment on above: Performed By: #### 2 91723 ####[facility],[address] [place] [address] 27659 Bilirubin [Mass/Vol] 0.3 mg/dL Normal 0.2 - 1.0 [facility] Comment on above: Performed By: #### 2 84015 ####[facility],[address] [place] [address] 60627 Calcium [Mass/Vol] 9.7 mg/dL Normal 8.5 - 10.1 [facility] Comment on above: Performed By: #### 2 84449 ####[facility],[address] [place] [address] 69798 Chloride [Moles/Vol] 104 mmol/L Normal 98 - 107 [facility] Comment on above: Performed By: #### 2 93877 ####[facility],[address] [place] [address] 45821 CMP with eGFR Normal [facility] Comment on above: Result Comment: COMP REHENSIVE METABOLIC PANEL Performed By: #### 2 34336 ####[facility],[address] [place] [address] 11574 CO2 [Moles/Vol] 31.1 mmol/L Normal 21.0 - 32.0 [facility] Comment on above: Performed By: #### 2 79748 ####[facility],[address] [place] [address] 73959 Creatinine [Mass/Vol] 1.02 mg/dL Normal 0.55 - 1.02 [facility] Comment on above: Performed By: #### 2 90221 ####[facility],[address] [place] [address] 15250 eGFR 55 ML/MINUTE Low 60 - 999 [facility] Comment on above: Performed By: #### 2 38203 ####[facility],[address] [place] [address] 24242 GFR/1.73 sq M.predicted among non-blacks MDRD (S/P/Bld) [Vol rate/Area] mL/min/{1.73_m2} Normal 60 - 999 [facility] Comment on above: Result Comment: ACCO RDING TO THE NATIONAL KIDNEY DISEASE EDUCATION PROGRAM(NKDE), A NORMAL eGFRIS A VALUE GREATER THAN OR EQUAL TO 60 ML/MIN/1.73 SQ METERS.CHRONIC KIDNEY DISEASE: <60mL/MIN/1.73 SQ METERSKIDNEY FAILURE: <15mL/MIN/1.73 SQ METERSTHIS TEST SHOULD ONLY BE USED FOR PATIENTS 18 YEARS OF AGE AND OLDER. Performed By: #### 2 96359 ####[facility],[address] [place] [address] 86891 Globulin (S) [Mass/Vol] 4.5 g/dL High 1.5 - 3.8 [facility] Comment on above: Performed By: #### 2 16399 ####[facility],[address] [place] [address] 87059 Glucose [Mass/Vol] 131 mg/dL High 74 - 106 [facility] Comment on above: Performed By: #### 2 79660 ####[facility],[address] [place] [address] 70170 Potassium [Moles/Vol] 4.3 mmol/L Normal 3.5 - 5.1 [facility] Comment on above: Performed By: #### 2 41698 ####[facility],[address] [place] [address] 92895 Protein [Mass/Vol] 8.0 g/dL Normal 6.4 - 8.2 [facility] Comment on above: Performed By: #### 2 81083 ####[facility],[address] [place] [address] 39772 Sodium [Moles/Vol] 144 mmol/L Normal 136 - 145 [facility] Comment on above: Performed By: #### 2 00597 ####[facility],[address] [place] [address] 19433 Urea nitrogen [Mass/Vol] 33 mg/dL High 7 - 18 [facility] Comment on above: Performed By: #### 2 13848 ####[facility],[address] [place] [address] 07180 CORONAVIRUS (SARS) ANTIGEN T ESTon 02-09-2024 EXTERNAL QC DONE? YES Normal [facility] Comment on above: Performed By: #### 2 22416 ####[facility],[address] [place] [address] 62869 INTERNAL CONTROL PASS Normal [facility] Comment on above: Performed By: #### 2 51048 ####[facility],[address] [place] [address] 39462 SARS ANTIGEN Negative Normal NORMAL: NEGATIVE [facility] Comment on above: Performed By: #### 2 98013 ####[facility],[address] [place] [address] 14969 SEND TO ? YES Normal [facility] Comment on above: Result Comment: SARS -CoV-2THIS TEST IS BEING USED UNDER THE FDA EUA PROCEDURE. THIS ASSAY HAS BEENVALIDATED AT [facility] FOR USE WITH NASAL AND NASOPHARYNGEAL SWABSPECIMENS.INTERPRETIVE DATATEST RESULTS SHOULD ALWAYS BE CONSIDERED IN THE CONTEXT OF CLINICALOBSERVATIONS AND EPIDEMIOLOGICAL DATA IN MAKING FINAL DIAGNOSIS AND PATIENTMANAGEMENT DECISIONS. PATIENT MANAGEMENT SHOULD FOLLOW CURRENT CDC GUIDELINES.THE SHITAL SARS ANTIGEN SIN DOES NOT DIFFERENTIATE BETWEEN SARS-CoV & SARS-CoV-2.A POSITIVE TEST RESULT INDICATES THE PRESENCE OF SARS-CoV-2 NUCLEOCAPSID PROTEINANTIGEN, AND THE PATIENT IS INFECTED WITH THE VIRUS AND PRESUMED TO BECONTAGIOUS.A NEGATIVE TEST RESULT FOR THIS TEST MEANS THAT SARS-CoV-2 NUCLEOCAPSID PROTEINANTIGEN WAS NOT PRESENT IN THE SPECIMEN ABOVE THE LIMIT OF DETECTION. HOWEVER, ANEGATIVE RESULT DOES NOT RULE OUT COVID-19 AND SHOULD NOT BE USED THE SOLEBASIS FOR TREATMENT OR PATIENT MANAGEMENT DECISIONS. A NEGATIVE RESULT DOES NOTEXCLUDE THE POSSIBILITY OF COVID-19. NEGATIVE RESULTS, FROM PATIENTS WITHSYMPTOM ONSET BEYOND FIVE DAYS, SHOULD BE TREATED PRESUMPTIVE ANDCONFIRMATION WITH A MOLECULAR ASSAY, IF NECESSARY, FOR PATIENT MANAGEMENT, MAYBE PERFORMED.WHEN DIAGNOSTIC TESTING IS NEGATIVE, THE POSSIBLILTY OF A FALSE NEGATIVE RESULTSHOULD BE CONSIDERED IN THE CONTEXT OF A PATIENT'S RECENT EXPOSURES AND THEPRESENCE OF CLINICAL SIGNS AND SYMPTOMS CONSISTENT WITH COVID-19. THEPOSSIBILITY OF A FALSE NEGATIVE RESULT SHOULD ESPECIALLY BE CONSIDERED IF THEPATIENT'S RECENT EXPOSURES OR CLINICAL PRESENTATION INDICATE THAT COVID-19 ISLIKELY, AND DIAGNOSTIC TESTS FOR OTHER CAUSES OF ILLNESS (e.g., OTHERRESPIRATORY ILLNESS) ARE NEGATIVE. IF COVID-19 IS STILL SUSPECTED BASED ONEXPOSURE HISTORY TOGETHER WITH OTHER CLINICAL FINDINGS, RE-TESTING SHOULD BECONSIDERED BY HEALTHCARE PROVIDERS IN CONSULTATION WITH PUBLIC [facility]. Performed By: #### 2 97762 ####[facility],[address] [place] [address] ED MED ADMINISTRATION DETAIL on 02-09-2024 ED MED ADMINISTRATION DETAIL Normal [facility] ED NURSES CLINICAL NOTEon ED NURSES CLINICAL NOTE Normal [facility] ED ORDER SHEET ([facility] ONLY)on 02-09-2024 ED ORDER SHEET ([facility] ONLY) Normal [facility] ED PHYSICIAN CLINICAL REPORT on 02-09-2024 ED PHYSICIAN CLINICAL REPORT Normal [facility] ED PHYSICIAN DISCHARGE REPOR Ton 02-09-2024 ED PHYSICIAN DISCHARGE REPORT Normal [facility] ED SUPER BILLon 02-09-2024 ED SUPER BILL Normal [facility] ED VISIT SUMMARYon ED VISIT SUMMARY Normal [facility] ED VITALS FLOW SHEETon 02-08 ED VITALS FLOW SHEET Normal [facility] INFLUENZA VIRUS RAPID A/Bon 02-09-2024 INFLUENZA VIRUS RAPID A/B Normal [facility] Comment on above: Performed By: #### 2 56894 ####[facility],[address] [place] [address] 82477 MAGNESIUMon 02-09-2024 Magnesium [Mass/Vol] 1.7 mg/dL Low 1.8 - 2.4 [facility] Comment on above: Performed By: #### 2 70537 ####[facility],[address] [place] [address] 87291 URINALYSISon 02-09-2024 Amorphous NONE Normal [facility] Comment on above: Performed By: #### 2 32979 ####[facility],[address] [place] [address] Bacteria NONE Normal [facility] Comment on above: Performed By: #### 2 83226 ####[facility],[address] [place], [place] [address] Bilirubin Ql (U) Negative Normal NORMAL: NEGATIVE [facility] Comment on above: Performed By: #### 2 36590 ####[facility],[address] [place], [place] [id number] Casts NONE Normal [facility] Comment on above: Performed By: #### 2 92420 ####[facility],[address] [place] [address] 18586 Clarity (U) clear Normal NORMAL: CLEAR [facility] Comment on above: Performed By: #### 2 89708 ####[facility],[address] [place] [address] 52535 Color (U) yellow Normal NORMAL: YELLOW [facility] Comment on above: Performed By: #### 2 01156 ####[facility],[address] [place] [address] 80219 Crystals LM Nom (Urine sed) NONE Normal [facility] Comment on above: Performed By: #### 2 52396 ####[facility],[address] [place] [address] 99998 Epi Cells OCC Normal [facility] Comment on above: Performed By: #### 2 45585 ####[facility],[address] [place] [address] 25639 Glucose Ql (U) NORM Normal NORMAL: NORMAL [facility] Comment on above: Performed By: #### 2 60391 ####[facility],[address] [place] [address] 24958 Hemoglobin Ql (U) 25 Abnormal NORMAL: NEGATIVE [facility] Comment on above: Performed By: #### 2 00723 ####[facility],[address] [place] [address] 16623 Ketone Negative Normal NORMAL: NEGATIVE [facility] Comment on above: Performed By: #### 2 37677 ####[facility],[address] [place] [address] 85938 Leukocytes Negative Normal NORMAL: NEGATIVE [facility] Comment on above: Performed By: #### 2 48259 ####[facility],[address] [place] [address] 46804 Mucous NONE Normal [facility] Comment on above: Performed By: #### 2 15856 ####[facility],[address] [place] [address] 63620 Nitrite Ql (U) Negative Normal NORMAL: NEGATIVE [facility] Comment on above: Performed By: #### 2 77986 ####[facility],[address] [place] [address] 98489 pH (U) 6 [pH] Normal NORMAL: 5.0-8.0 [facility] Comment on above: Performed By: #### 2 23526 ####[facility],[address] [place] [address] 79214 Protein Ql (U) 15 Abnormal NORMAL: NEGATIVE [facility] Comment on above: Performed By: #### 2 79749 ####[facility],[address] [place] [address] 60174 Rbc 0-5 Normal 0-3/hpf [facility] Comment on above: Performed By: #### 2 91250 ####[facility],[address] [place] [address] Sp Bennett 1.025 Normal NORMAL: 1.010-1.030 [facility] Comment on above: Performed By: #### 2 74106 ####[facility],[address] [place] [address] Specimen Type R Normal [facility] Comment on above: Performed By: #### 2 94948 ####[facility],[address] [place] [address] Urinalysis dipstick W Reflex Microscopic panel (U) SEE BELOW Normal [facility] Comment on above: Result Comment: MICR OSCOPIC Performed By: #### 2 77775 ####[facility],[address] [place] [address] Urobilinog NORM Normal NORMAL: NORMAL [facility] Comment on above: Performed By: #### 2 43246 ####[facility],[address] [place] [address] Wbc NONE Normal 0-5/hpf [facility] Comment on above: Performed By: #### 2 54193 ####[facility],[address] [place] [address] Yeast NONE Normal [facility] Comment on above: Performed By: #### 2 98426 ####[facility],[address] [place], [place] [id number] LYME EARLY (SIGNS/SYMP <=30 DAYS) [CCL]on 02-04-2024 Lyme IgG IgM Ab Negative Normal Negative [facility] Comment on above: Result Comment: Rece nt infection with B. burgdorferi sensu lato cannot be excluded ifthe specimen collected within four weeks after the onset of signs andsymptoms or within six weeks after a known tick exposure. Clinical andepidemiological correlation is required.[facility] [place], [place] [address]SccdgzArora III, M.D.[id number] Performed By: #### 2 43795 ####[facility],[address] [place] [address] 85059 BMP with eGFRon 02-03-2024 AGE 63 years Normal [facility] Comment on above: Performed By: #### 2 62095 ####[facility],[address] [place] [address] 06462 Anion gap [Moles/Vol] 15 mmol/L Normal 10 - 20 [facility] Comment on above: Performed By: #### 2 08386 ####[facility],[address] [place] [address] 94521 BMP with eGFR Normal [facility] Comment on above: Result Comment: BASI C METABOLIC PANEL Performed By: #### 2 14668 ####[facility],[address] [place] [address] 16869 Calcium [Mass/Vol] 9.1 mg/dL Normal 8.5 - 10.1 [facility] Comment on above: Performed By: #### 2 93912 ####[facility],[address] [place] [address] 66817 Chloride [Moles/Vol] 104 mmol/L Normal 98 - 107 [facility] Comment on above: Performed By: #### 2 08576 ####[facility],[address] [place] [address] 74931 CO2 [Moles/Vol] 25.7 mmol/L Normal 21.0 - 32.0 [facility] Comment on above: Performed By: #### 2 69618 ####[facility],[address] [place] [address] 02066 Creatinine [Mass/Vol] 0.72 mg/dL Normal 0.55 - 1.02 [facility] Comment on above: Performed By: #### 2 56216 ####[facility],[address] [place] [address] 00505 GFR/1.73 sq M.predicted among non-blacks MDRD (S/P/Bld) [Vol rate/Area] mL/min/{1.73_m2} Normal 60 - 999 [facility] Comment on above: Performed By: #### 2 12550 ####[facility],[address] [place] [address] Result Comment: ACCO RDING TO THE NATIONAL KIDNEY DISEASE EDUCATION PROGRAM(NKDE), A NORMAL eGFRIS A VALUE GREATER THAN OR EQUAL TO 60 ML/MIN/1.73 SQ METERS.CHRONIC KIDNEY DISEASE: <60mL/MIN/1.73 SQ METERSKIDNEY FAILURE: <15mL/MIN/1.73 SQ METERSTHIS TEST SHOULD ONLY BE USED FOR PATIENTS 18 YEARS OF AGE AND OLDER. Glucose [Mass/Vol] 91 mg/dL Normal 74 - 106 [facility] Comment on above: Performed By: #### 2 57275 ####[facility],[address] [place] [address] Potassium [Moles/Vol] 4.3 mmol/L Normal 3.5 - 5.1 [facility] Comment on above: Performed By: #### 2 71306 ####[facility],[address] [place], [place] [id number] Sodium [Moles/Vol] 140 mmol/L Normal 136 - 145 [facility] Comment on above: Performed By: #### 2 55325 ####[facility],[address] [place], [place] [id number] Urea nitrogen [Mass/Vol] 16 mg/dL Normal 7 - 18 [facility] Comment on above: Performed By: #### 2 42473 ####[facility],[address] [place], [place] [id number] B. burgdorferi IgG and IgM p eulalia (S)on 02-02-2024 B. burgdorferi IgG+IgM Qn (S) Negative Normal Negative [facility] Comment on above: Order Comment: Speci men Type: BLOOD SPECIMEN Ordering Facility: [facility] Address: [address], [place] [address] Result Comment: Rece nt infection with B. burgdorferi sensu lato cannot be excluded if the specimen collected within four weeks after the onset of signs and symptoms or within six weeks after a known tick exposure. Clinical and epidemiological correlation is required. Performed By: #### 3 4942-3 #### [facility] CLIA [id number] [address] [place] [address] [place] BMP with eGFRon 02-02-2024 AGE 63 years Normal [facility] Comment on above: Performed By: #### 2 22673 ####[facility],[address] [place] [address] 52606 Anion gap [Moles/Vol] 12 mmol/L Normal 10 - 20 [facility] Comment on above: Performed By: #### 2 26192 ####[address] [address] BMP with eGFR Normal [facility] Comment on above: Result Comment: BASI C METABOLIC PANEL Performed By: #### 2 10718 ####[address] [address] Calcium [Mass/Vol] 8.9 mg/dL Normal 8.5 - 10.1 [facility] Comment on above: Performed By: #### 2 31426 ####[facility],[address] [place] [address] 01573 Chloride [Moles/Vol] 109 mmol/L High 98 - 107 [facility] Comment on above: Performed By: #### 2 65071 ####[address] [address] CO2 [Moles/Vol] 28.0 mmol/L Normal 21.0 - 32.0 [facility] Comment on above: Performed By: #### 2 40698 ####[address] [address] Creatinine [Mass/Vol] 0.81 mg/dL Normal 0.55 - 1.02 [facility] Comment on above: Performed By: #### 2 18707 ####[facility],[address] [place] [address] 78056 GFR/1.73 sq M.predicted among non-blacks MDRD (S/P/Bld) [Vol rate/Area] mL/min/{1.73_m2} Normal 60 - 999 [facility] Comment on above: Performed By: #### 2 88634 ####[facility],[address] [place] [address] 51068 Result Comment: ACCO RDING TO THE NATIONAL KIDNEY DISEASE EDUCATION PROGRAM(NKDE), A NORMAL eGFRIS A VALUE GREATER THAN OR EQUAL TO 60 ML/MIN/1.73 SQ METERS.CHRONIC KIDNEY DISEASE: <60mL/MIN/1.73 SQ METERSKIDNEY FAILURE: <15mL/MIN/1.73 SQ METERSTHIS TEST SHOULD ONLY BE USED FOR PATIENTS 18 YEARS OF AGE AND OLDER. Glucose [Mass/Vol] 99 mg/dL Normal 74 - 106 [facility] Comment on above: Performed By: #### 2 38317 ####[facility],[address] [place] [address] 26457 Potassium [Moles/Vol] 5.3 mmol/L High 3.5 - 5.1 [facility] Comment on above: Performed By: #### 2 21449 ####[facility],[address] [place] [address] 49644 Sodium [Moles/Vol] 144 mmol/L Normal 136 - 145 [facility] Comment on above: Performed By: #### 2 90981 ####[facility],[address] [place] [address] 88910 Urea nitrogen [Mass/Vol] 27 mg/dL High 7 - 18 [facility] Comment on above: Performed By: #### 2 23789 ####[facility],[address] [place] [address] 99409 CBC + DIFFon 02-02-2024 Baso # 0.01 x10EE3/UL Normal 0.00 - 0.10 [facility] Comment on above: Performed By: #### 2 51430 ####[facility],[address] [place] [address] Basophils/100 WBC (Bld) 0.3 % Normal 0.0 - 2.0 [facility] Comment on above: Performed By: #### 2 92813 ####[facility],[address] [place] [address] CBC + DIFF Normal [facility] Comment on above: Result Comment: CBC- COMPLETE BLOOD COUNT Performed By: #### 2 37541 ####[facility],[address] [place] [address] EO # 0.27 x10EE3/UL Normal 0.00 - 0.50 [facility] Comment on above: Performed By: #### 2 63320 ####[facility],[address] [place] [address] Eosinophils/100 WBC (Bld) 4.9 % Normal 0.0 - 7.0 [facility] Comment on above: Performed By: #### 2 05374 ####[facility],[address] [place] [address] Erythrocyte distribution width (RBC) [Ratio] 12.8 % Normal 12.0 - 15.6 [facility] Comment on above: Performed By: #### 2 69896 ####[facility],[address] [place] [address] Hematocrit (Bld) [Volume fraction] 38.1 % Normal 34.0 - 46.0 [facility] Comment on above: Performed By: #### 2 28989 ####[facility],[address] [place] [address] Hemoglobin (Bld) [Mass/Vol] 13.3 g/dL Normal 12.0 - 16.0 [facility] Comment on above: Performed By: #### 2 83353 ####[facility],[address] [place] [address] Lymph # 1.40 x10EE3/UL Normal 0.80 - 2.80 [facility] Comment on above: Performed By: #### 2 66553 ####[facility],[address] [place] [address] Lymphocytes/100 WBC (Bld) 25.8 % Normal 20.0 - 45.0 [facility] Comment on above: Performed By: #### 2 24324 ####[facility],[address] [place] [address] MANUAL DIFF N/A Normal [facility] Comment on above: Performed By: #### 2 15011 ####[facility],[address] [place] [address] MCH (RBC) [Entitic mass] 31 pg Normal 27 - 33 [facility] Comment on above: Performed By: #### 2 67323 ####[facility],[address] [place] [address] MCHC 35 X10 3 Normal 32 - 36 [facility] Comment on above: Performed By: #### 2 33553 ####[facility],[address] [place], [place] [phone] MCV (RBC) [Entitic vol] 88 fL Normal 80 - 99 [facility] Comment on above: Performed By: #### 2 43572 ####[facility],[address] [place] [address] Amelia # 0.45 x10EE3/UL Normal 0.20 - 1.00 [facility] Comment on above: Performed By: #### 2 94879 ####[facility],[address] [place] [address] 02208 MONOS % 8.2 % Normal 0.0 - 10.0 [facility] Comment on above: Performed By: #### 2 59022 ####[facility],[address] [place], [place] [phone] Morphology Niranjan (Bld) [Interp] N/A Normal [facility] Comment on above: Performed By: #### 2 38969 ####[facility],[address] [place] [address] Neut # 3.31 x10EE3/UL Normal 1.50 - 7.10 [facility] Comment on above: Performed By: #### 2 86606 ####[facility],[address] [place] [address] Neutrophils/100 WBC (Bld) 60.8 % Normal 46.0 - 76.0 [facility] Comment on above: Performed By: #### 2 58944 ####[facility],[address] [place] [address] PLATELET 186 x10EE3/UL Normal 150 - 450 [facility] Comment on above: Performed By: #### 2 70899 ####[facility],[address] [place] [address] Platelet mean volume (Bld) [Entitic vol] 7.0 fL Normal 6.6 - 10.5 [facility] Comment on above: Result Comment: AUTO MATED DIFFERENTIAL Performed By: #### 2 68347 ####[facility],[address] [place] [address] RBC 4.34 x 10EE6/UL Normal 4.10 - 5.30 [facility] Comment on above: Performed By: #### 2 56769 ####[facility],[address] [place], [place] [id number] WBC 5.4 x 10EE3/UL Normal 4.5 - 10.8 [facility] Comment on above: Performed By: #### 2 46175 ####[facility],[address] [place] [address] CBC + DIFFon 02-01-2024 Baso # 0.02 x10EE3/UL Normal 0.00 - 0.10 [facility] Comment on above: Performed By: #### 2 62810 ####[facility],[address] [place] [address] 76479 Basophils/100 WBC (Bld) 0.2 % Normal 0.0 - 2.0 [facility] Comment on above: Performed By: #### 2 85495 ####[facility],[address] [place] [address] CBC + DIFF Normal [facility] Comment on above: Result Comment: CBC- COMPLETE BLOOD COUNT Performed By: #### 2 28937 ####[facility],[address] [place] [address] EO # 0.35 x10EE3/UL Normal 0.00 - 0.50 [facility] Comment on above: Performed By: #### 2 44632 ####[place] [address] Eosinophils/100 WBC (Bld) 4.0 % Normal 0.0 - 7.0 [facility] Comment on above: Performed By: #### 2 89738 ####[facility],[address] [place] [address] Erythrocyte distribution width (RBC) [Ratio] 13.0 % Normal 12.0 - 15.6 [facility] Comment on above: Performed By: #### 2 89201 ####[facility],[address] [place] [address] Hematocrit (Bld) [Volume fraction] 41.0 % Normal 34.0 - 46.0 [facility] Comment on above: Performed By: #### 2 10803 ####[facility],[address] [place] [address] Hemoglobin (Bld) [Mass/Vol] 14.0 g/dL Normal 12.0 - 16.0 [facility] Comment on above: Performed By: #### 2 21907 ####[facility],[address] [place] [address] Lymph # 1.69 x10EE3/UL Normal 0.80 - 2.80 [facility] Comment on above: Performed By: #### 2 89115 ####[place] [id number] Lymphocytes/100 WBC (Bld) 19.7 % Low 20.0 - 45.0 [facility] Comment on above: Performed By: #### 2 30007 ####[facility],[address] [place] [address] MANUAL DIFF N/A Normal [facility] Comment on above: Performed By: #### 2 56926 ####[place] [address] MCH (RBC) [Entitic mass] 30 pg Normal 27 - 33 [facility] Comment on above: Performed By: #### 2 04068 ####[place] [address] MCHC 34 X10 3 Normal 32 - 36 [facility] Comment on above: Performed By: #### 2 99682 ####[place] [id number] MCV (RBC) [Entitic vol] 87 fL Normal 80 - 99 [facility] Comment on above: Performed By: #### 2 70699 ####[place] [id number] Amelia # 0.90 x10EE3/UL Normal 0.20 - 1.00 [facility] Comment on above: Performed By: #### 2 54434 ####[place] [id number] MONOS % 10.5 % High 0.0 - 10.0 [facility] Comment on above: Performed By: #### 2 24973 ####[address] [address] Morphology Niranjan (Bld) [Interp] N/A Normal [facility] Comment on above: Performed By: #### 2 22545 ####[facility],[address] [place] [address]6577 Neut # 5.65 x10EE3/UL Normal 1.50 - 7.10 [facility] Comment on above: Performed By: #### 2 64583 ####[facility],[address] [place] [address]206 Neutrophils/100 WBC (Bld) 65.6 % Normal 46.0 - 76.0 [facility] Comment on above: Performed By: #### 2 62491 ####[facility],[address] [place] [address]3354 PLATELET 190 x10EE3/UL Normal 150 - 450 [facility] Comment on above: Performed By: #### 2 81622 ####[place] [address] Platelet mean volume (Bld) [Entitic vol] 7.1 fL Normal 6.6 - 10.5 [facility] Comment on above: Result Comment: AUTO MATED DIFFERENTIAL Performed By: #### 2 67181 ####[facility],[address] [place] [address] 85840 RBC 4.71 x 10EE6/UL Normal 4.10 - 5.30 [facility] Comment on above: Performed By: #### 2 47665 ####[facility],[address] [place] [address] 48401 WBC 8.6 x 10EE3/UL Normal 4.5 - 10.8 [facility] Comment on above: Performed By: #### 2 81840 ####[facility],[address] [place], [place] [phone] CHEST 1 VIEWon 02-01-2024 CHEST 1 VIEW Normal [facility] CHEST 2 VIEWSon 02-01-2024 CHEST 2 VIEWS Normal [facility] CMP with eGFRon 02-01-2024 AGE 63 years Normal [facility] Comment on above: Performed By: #### 2 92203 ####[facility],[address] [place] [address] 53027 Albumin [Mass/Vol] 3.4 g/dL Normal 3.4 - 5.0 [facility] Comment on above: Performed By: #### 2 39453 ####[facility],[address] [place] [address] 45938 Albumin/Globulin [Mass ratio] 0.8 {ratio} Low 0.9 - 1.6 [facility] Comment on above: Performed By: #### 2 73998 ####[facility],[address] [place] [address] 80509 ALK PHOS 86 U/L Normal 46 - 116 [facility] Comment on above: Performed By: #### 2 45491 ####[facility],[address] [place] [address] 56364 ALT [Catalytic activity/Vol] 21 U/L Normal 16 - 63 [facility] Comment on above: Performed By: #### 2 49896 ####[facility],[address] [place] [address] 33506 Anion gap [Moles/Vol] 16 mmol/L Normal 10 - 20 [facility] Comment on above: Performed By: #### 2 06209 ####[facility],[address] [place] [address] 54372 AST [Catalytic activity/Vol] 15 U/L Normal 13 - 39 [facility] Comment on above: Performed By: #### 2 85477 ####[facility],[address] [place] [address] 36726 B/C RATIO 26 ratio Normal 0 - 30 [facility] Comment on above: Performed By: #### 2 59130 ####[facility],[address] [place] [address] 02590 Bilirubin [Mass/Vol] 0.2 mg/dL Normal 0.2 - 1.0 [facility] Comment on above: Performed By: #### 2 55526 ####[facility],[address] [place] [address] 41728 Calcium [Mass/Vol] 8.6 mg/dL Normal 8.5 - 10.1 [facility] Comment on above: Performed By: #### 2 24036 ####[facility],[address] [place] [address] 15482 Chloride [Moles/Vol] 97 mmol/L Low 98 - 107 [facility] Comment on above: Performed By: #### 2 51019 ####[facility],[address] [place] [address] 97076 CMP with eGFR Normal [facility] Comment on above: Result Comment: COMP REHENSIVE METABOLIC PANEL Performed By: #### 2 01211 ####[facility],[address] [place] [address] 56958 CO2 [Moles/Vol] 25.7 mmol/L Normal 21.0 - 32.0 [facility] Comment on above: Performed By: #### 2 32476 ####[facility],[address] [place] [address] 95275 Creatinine [Mass/Vol] 3.17 mg/dL High 0.55 - 1.02 [facility] Comment on above: Performed By: #### 2 05095 ####[facility],[address] [place] [address] 29093 eGFR 15 ML/MINUTE Low 60 - 999 [facility] Comment on above: Performed By: #### 2 11956 ####[facility],[address] [place] [address] 58987 eGFR(AA) 18 ML/MINUTE Low 60 - 999 [facility] Comment on above: Result Comment: ACCO RDING TO THE NATIONAL KIDNEY DISEASE EDUCATION PROGRAM(NKDE), A NORMAL eGFRIS A VALUE GREATER THAN OR EQUAL TO 60 ML/MIN/1.73 SQ METERS.CHRONIC KIDNEY DISEASE: <60mL/MIN/1.73 SQ METERSKIDNEY FAILURE: <15mL/MIN/1.73 SQ METERSTHIS TEST SHOULD ONLY BE USED FOR PATIENTS 18 YEARS OF AGE AND OLDER. Performed By: #### 2 58530 ####[facility],[address] [place] [address] 61323 Globulin (S) [Mass/Vol] 4.2 g/dL High 1.5 - 3.8 [facility] Comment on above: Performed By: #### 2 71073 ####[facility],[address] [place] [address] 17583 Glucose [Mass/Vol] 132 mg/dL High 74 - 106 [facility] Comment on above: Performed By: #### 2 24297 ####[facility],[address] [place] [address] 20469 Potassium [Moles/Vol] 5.0 mmol/L Normal 3.5 - 5.1 [facility] Comment on above: Performed By: #### 2 17980 ####[facility],[address] [place] [address] 22707 Protein [Mass/Vol] 7.6 g/dL Normal 6.4 - 8.2 [facility] Comment on above: Performed By: #### 2 29416 ####[facility],[address] [place] [address] 14959 Sodium [Moles/Vol] 134 mmol/L Low 136 - 145 [facility] Comment on above: Performed By: #### 2 13198 ####[facility],[address] [place] [address] 46609 Urea nitrogen [Mass/Vol] 84 mg/dL High 7 - 18 [facility] Comment on above: Performed By: #### 2 44964 ####[facility],[address] [place] [address] 35642 CORONAVIRUS (SARS) ANTIGEN T ESTon 02-01-2024 EXTERNAL QC DONE? YES Normal [facility] Comment on above: Performed By: #### 2 38922 ####[facility],[address] [place] [address] 90743 INTERNAL CONTROL PASS Normal [facility] Comment on above: Performed By: #### 2 94390 ####[facility],[address] [place] [address],[facility] [address] SARS ANTIGEN Negative Normal NORMAL: NEGATIVE [facility] Comment on above: Performed By: #### 2 78209 ####[facility],[address] [place] [address] 74620 SEND TO IC? NO Normal [facility] Comment on above: Result Comment: SARS -CoV-2THIS TEST IS BEING USED UNDER THE FDA EUA PROCEDURE. THIS ASSAY HAS BEENVALIDATED AT [facility] FOR USE WITH NASAL AND NASOPHARYNGEAL SWABSPECIMENS.INTERPRETIVE DATATEST RESULTS SHOULD ALWAYS BE CONSIDERED IN THE CONTEXT OF CLINICALOBSERVATIONS AND EPIDEMIOLOGICAL DATA IN MAKING FINAL DIAGNOSIS AND PATIENTMANAGEMENT DECISIONS. PATIENT MANAGEMENT SHOULD FOLLOW CURRENT CDC GUIDELINES.THE SHITAL SARS ANTIGEN SIN DOES NOT DIFFERENTIATE BETWEEN SARS-CoV & SARS-CoV-2.A POSITIVE TEST RESULT INDICATES THE PRESENCE OF SARS-CoV-2 NUCLEOCAPSID PROTEINANTIGEN, AND THE PATIENT IS INFECTED WITH THE VIRUS AND PRESUMED TO BECONTAGIOUS.A NEGATIVE TEST RESULT FOR THIS TEST MEANS THAT SARS-CoV-2 NUCLEOCAPSID PROTEINANTIGEN WAS NOT PRESENT IN THE SPECIMEN ABOVE THE LIMIT OF DETECTION. HOWEVER, ANEGATIVE RESULT DOES NOT RULE OUT COVID-19 AND SHOULD NOT BE USED THE SOLEBASIS FOR TREATMENT OR PATIENT MANAGEMENT DECISIONS. A NEGATIVE RESULT DOES NOTEXCLUDE THE POSSIBILITY OF COVID-19. NEGATIVE RESULTS, FROM PATIENTS WITHSYMPTOM ONSET BEYOND FIVE DAYS, SHOULD BE TREATED PRESUMPTIVE ANDCONFIRMATION WITH A MOLECULAR ASSAY, IF NECESSARY, FOR PATIENT MANAGEMENT, MAYBE PERFORMED.WHEN DIAGNOSTIC TESTING IS NEGATIVE, THE POSSIBLILTY OF A FALSE NEGATIVE RESULTSHOULD BE CONSIDERED IN THE CONTEXT OF A PATIENT'S RECENT EXPOSURES AND THEPRESENCE OF CLINICAL SIGNS AND SYMPTOMS CONSISTENT WITH COVID-19. THEPOSSIBILITY OF A FALSE NEGATIVE RESULT SHOULD ESPECIALLY BE CONSIDERED IF THEPATIENT'S RECENT EXPOSURES OR CLINICAL PRESENTATION INDICATE THAT COVID-19 ISLIKELY, AND DIAGNOSTIC TESTS FOR OTHER CAUSES OF ILLNESS (e.g., OTHERRESPIRATORY ILLNESS) ARE NEGATIVE. IF COVID-19 IS STILL SUSPECTED BASED ONEXPOSURE HISTORY TOGETHER WITH OTHER CLINICAL FINDINGS, RE-TESTING SHOULD BECONSIDERED BY HEALTHCARE PROVIDERS IN CONSULTATION WITH [facility]. Performed By: #### 2 [id number] ####[facility],[address] [place] [address] CT ABDOMEN/PELVIS WOon 01-31 CT ABDOMEN/PELVIS WO Normal [facility] ED MED ADMINISTRATION DETAIL on 02-01-2024 ED MED ADMINISTRATION DETAIL Normal [facility] ED NURSES CLINICAL NOTEon ED NURSES CLINICAL NOTE Normal [facility] ED ORDER SHEET (CPOE ONLY)on 02-01-2024 ED ORDER SHEET (CPOE ONLY) Normal [facility] ED PHYSICIAN CLINICAL REPORT on 02-01-2024 ED PHYSICIAN CLINICAL REPORT Normal [facility] ED PHYSICIAN DISCHARGE REPOR Ton 02-01-2024 ED PHYSICIAN DISCHARGE REPORT Normal [facility] ED SUPER BILLon 02-01-2024 ED SUPER BILL Normal [facility] ED VISIT SUMMARYon ED VISIT SUMMARY Normal [facility] ED VITALS FLOW SHEETon 01-31 ED VITALS FLOW SHEET Normal [facility] MAGNESIUMon 02-01-2024 Magnesium [Mass/Vol] 2.4 mg/dL Normal 1.8 - 2.4 [facility] Comment on above: Performed By: #### 2 [id number] ####[facility],[address] [place], [place] [id number] NT-proBNPon 02-01-2024 Natriuretic peptide B (Bld) [Mass/Vol] 86 pg/mL Normal 0 - 125 [facility] Comment on above: Performed By: #### 2 [id number] ####[facility],[address] [place], [place] [id number] SODIUM,URINE,RANDOMon 2023 Sodium (U) [Moles/Vol] 58.0 mmol/L Normal [facility] Comment on above: Performed By: #### 2 56457 ####[facility],[address] [place] [address] URINALYSISon 02-01-2024 Amorphous NONE Normal [facility] Comment on above: Performed By: #### 2 45952 ####[facility],[address] [place], [place] [id number] Bacteria 2+ Normal [facility] Comment on above: Performed By: #### 2 83217 ####[facility],[address] [place] [address] Bilirubin Ql (U) Negative Normal NORMAL: NEGATIVE [facility] Comment on above: Performed By: #### 2 78359 ####[facility],[address] [place], [place] [id number] Casts SEE BELOW Normal [facility] Comment on above: Performed By: #### 2 13627 ####[facility],[address] [place], [place] [id number] Clarity (U) clear Normal NORMAL: CLEAR [facility] Comment on above: Performed By: #### 2 72907 ####[facility],[address] [place], [place] [id number] Color (U) yellow Normal NORMAL: YELLOW [facility] Comment on above: Performed By: #### 2 93975 ####[facility],[address] [place] [address] Crystals LM Nom (Urine sed) NONE Normal [facility] Comment on above: Performed By: #### 2 58969 ####[facility],[address] [place] [address] Epi Cells FEW Normal [facility] Comment on above: Performed By: #### 2 58196 ####[facility],[address] [place] [address]27 Glucose Ql (U) NORM Normal NORMAL: NORMAL [facility] Comment on above: Performed By: #### 2 96101 ####[facility],[address] [place] [address] Hemoglobin Ql (U) 10 Abnormal NORMAL: NEGATIVE [facility] Comment on above: Performed By: #### 2 07015 ####[facility],[address] [place] [address] Hyaline 1-5 Normal NORMAL: NONE [facility] Comment on above: Performed By: #### 2 85062 ####[facility],[address] [place], [place] [phone] Ketone Negative Normal NORMAL: NEGATIVE [facility] Comment on above: Performed By: #### 2 02648 ####[facility],[address] [place] [address] Leukocytes Negative Normal NORMAL: NEGATIVE [facility] Comment on above: Performed By: #### 2 37001 ####[facility],[address] [place] [address] Mucous NONE Normal [facility] Comment on above: Performed By: #### 2 38634 ####[facility],[address] [place] [address] Nitrite Ql (U) Negative Normal NORMAL: NEGATIVE [facility] Comment on above: Performed By: #### 2 30062 ####[facility],[address] [place] [address] pH (U) 5 [pH] Normal NORMAL: 5.0-8.0 [facility] Comment on above: Performed By: #### 2 61074 ####[facility],[address] [place] [address] Protein Ql (U) 30 Abnormal NORMAL: NEGATIVE [facility] Comment on above: Performed By: #### 2 87464 ####[facility],[address] [place] [address] Rbc 0-5 Normal 0-3/hpf [facility] Comment on above: Performed By: #### 2 61765 ####[facility],[address] [place] [address] Sp Bennett 1.015 Normal NORMAL: 1.010-1.030 [facility] Comment on above: Performed By: #### 2 63454 ####[facility],[address] [place] [address] Specimen Type R Normal [facility] Comment on above: Performed By: #### 2 90899 ####[facility],[address] [place] [address] Urinalysis dipstick W Reflex Microscopic panel (U) SEE BELOW Normal [facility] Comment on above: Result Comment: MICR OSCOPIC Performed By: #### 2 02202 ####[facility],[address] [place] [address] Urobilinog NORM Normal NORMAL: NORMAL [facility] Comment on above: Performed By: #### 2 32212 ####[facility],[address] [place] [address] Wbc 1-5 Normal 0-5/hpf [facility] Comment on above: Performed By: #### 2 47319 ####[facility],[address] [place] [address] Yeast NONE Normal [facility] Comment on above: Performed By: #### 2 91025 ####[facility],[address] [place] [address] URINE CREATININE,RANDOMon CREATININE UR 41.16 mg/dl Normal [facility] Comment on above: Performed By: #### 2 88332 ####[facility],[address] [place] [address] US KIDNEY / BLADDERon 2023 US KIDNEY / BLADDER Normal [facility] CNNURSEon 01-28-2024 CNNURSE Nurse Visit (CAWSTR) ----- OPAL HINDS Micheal ([id number]) 1960 F Date Time Provider Department 01/28/24 8:45 AM NURSE CARD ADMIN [facility] WSTR CAWSTR During your visit today, we recorded the following information about you: Referring Provider: BERT WARD [[id number]] Allergies As of Date: 01/28/2024 Noted Allergy Reaction METOPROLOL 06/27/2016 5 - Intolerance Comments: Significant joint pain PREDNISONE 04/28/2016 1 - Mental Status Change Date Reviewed: 10/08/2023 Reviewed by: Sara Lewis MA - Fully Assessed Visit Diagnoses:HERNANDEZ (dyspnea on exertion) [R06.09] Mixed hyperlipidemia [E78.2] Pulmonary embolism on right (HCC) [I26.99] Panlobular emphysema (HCC) [J43.1] 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 - budesonide, enteric coated (ENTOCORT EC) 3 mg 24 hr capsule TAKE 3 CAPSULES BY MOUTH ONCE DAILY IN THE MORNING - atorvastatin (LIPITOR) 10 mg tablet TAKE 1 TABLET BY MOUTH ONCE DAILY. NEED FOLLOW UP APPOINTMENT WITH - iv contrast (will be provided with [...] in the MR contrast administration guidelines link. - tiZANidine (ZANAFLEX) 4 mg tablet TAKE 1 TABLET BY MOUTH UP TO THREE TIMES DAILY NEEDED FOR SPASM - traZODone (DESYREL) 50 mg tablet Take 50 mg by mouth daily at bedtime. - lisinopril (ZESTRIL, PRINIVIL) 10 mg tablet Take 1 tablet by mouth once daily. - levothyroxine (SYNTHROID) 88 mcg tablet 1 [...] every 4 hours as needed for Pain. 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] 05/31/2016 CAD (coronary artery disease) [I25.10] 10/06/2016 Acute midline low back pain with bilateral scia*08/11/2021 Spinal stenosis of lumbar region without neurog*08/11/2021 HERNANDEZ (dyspnea on exertion) [R06.09] 10/08/2023 Hyperlipidemia [E78.5] Prescriptions ordered this encounter Disp Refills Start End REGADENOSON 0.4 MG/5 ML INTRAVENOUS * 01/28/2024 01/28/2024 Route: INTRAVENOUS Encounter Status:Closed by MIRI ARTIS on 01/28/24 [facility] Timmy 01-28-2024 [facility] Telephone (AGCARDHWG ) ----- GUZMANOPAL Micheal ([id number]) 1960 F Date Time Provider Department 01/28/24 CHELSIE BELLE AGCARDHWG During your visit today, we recorded the following information about you: Chelsie Belle APRN.ANIKA 01/28/2024 11:24 AM Signed Covering for Dr. Ward: Please let patient know I reviewed her stress test results, stress test look good no evidence of inducible ischemia, no myocardial scar normal LV function. I believe stress test was done for shortness of breath with exertion. Please ask patient how her symptoms are?, She should follow-up for appointment with Dr. Ward otherwise. Thank you, Chelsie Belle APRN.Sri Pandey LPN 01/28/2024 11:42 AM Signed Spoke with Opal Hinds on January 28, 2024. Informed of results / instructions as stated above. Patient notes that's she has shortness of breath upon going up a flight of steps. Sri Piña LPN Allergies As of Date: 01/28/2024 Noted Allergy Reaction METOPROLOL 06/27/2016 5 - Intolerance Comments: Significant joint pain PREDNISONE 04/28/2016 1 - Mental Status Change Date Reviewed: 01/28/2024 Reviewed by: Alexis Gottlieb, RT(R) - Partially Assessed Reason for Visit: Results [95] Prescriptions as of 01/28/2024 - rivaroxaban (XARELTO) 20 mg tablet Take 1 tablet by mouth once daily. - budesonide, enteric coated (ENTOCORT EC) 3 mg 24 hr capsule TAKE 3 CAPSULES BY MOUTH ONCE DAILY IN THE MORNING - atorvastatin (LIPITOR) 10 mg tablet TAKE 1 TABLET BY MOUTH ONCE DAILY. NEED FOLLOW UP APPOINTMENT WITH - iv contrast (will be provided with [...] in the MR contrast administration guidelines link. - tiZANidine (ZANAFLEX) 4 mg tablet TAKE 1 TABLET BY MOUTH UP TO THREE TIMES DAILY NEEDED FOR SPASM - traZODone (DESYREL) 50 mg tablet Take 50 mg by mouth daily at bedtime. - lisinopril (ZESTRIL, PRINIVIL) 10 mg tablet Take 1 tablet by mouth once daily. - levothyroxine (SYNTHROID) 88 mcg tablet 1 [...] every 4 hours as needed for Pain. 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] 05/31/2016 CAD (coronary artery disease) [I25.10] 10/06/2016 Acute midline low back pain with bilateral scia*08/11/2021 Spinal stenosis of lumbar region without neurog*08/11/2021 HERNANDEZ (dyspnea on exertion) [R06.09] 10/08/2023 Hyperlipidemia [E78.5] Encounter Status:Closed by CHELSIE BELLE on 01/28/24 Normal [facility] NM CARDIAC PERF STRESS/PHARM on 01-28-2024 NM CARDIAC PERF STRESS/PHARM * * *Final Report* * * DATE OF EXAM: Jan 28 2024 9:57AM WON 0006 - NM CARDIAC PERF STRESS/PHARM / PROCEDURE REASON: multiple diagnoses * * * * Physician Interpretation * * * * Stress Surgeon/President Report: [facility] Date of service: 01/28/2024 7:57:31 AM Supervising physician: Jewels Barrera MD PATIENT: Name: MS. OPAL HINDS Age: 63 years Gender: F The supervising physician was in the department and immediately available. * * * Final * * * PATIENT: Name: MS. OPAL HINDS Age: 63 years Gender: F CONCLUSIONS: 1. SPECT Perfusion Study: Normal. 2. There is no scintigraphic evidence for inducible ischemia. 3. No evidence of scarred myocardium. 4. Left ventricle is small. The left ventricle systolic function is hyperdynamic. 5. Right ventricle is normal in size. The right ventricle systolic function is normal. 6. This is a low risk scan. Gated Stress FBP Gated Rest FBP LVEF % 68 73 Prior Study Comparison Prior nuclear cardiology exam was performed on 06/20/16. Nuclear Med Report:1-Day Gated SPECT Myocardial Perfusion with Regadenoson Stress: Myocardial perfusion imaging was performed at rest 30 minutes following the IV injection of the radiotracer. The patient received 0.4 mg of regadenoson, via rapid IV push, immediately followed by radiotracer IV. Gated post stress tomographic imaging was performed 30 to 60 minutes later. See administered radiotracer and doses below. [facility] Date of service: 01/28/2024 7:57:31 AM Ordering Physician: BERT WARD. Requesting Physician: BERT WARD Indication: Assessment for suspected CAD Interpreting physician: Vernon Eli MD Previous Cardiovascular Interventions: Diagnostic cath (2017) Height: 162.56 cm BSA: 1.84 m? Weight: 74.84 kg BMI: 28.3 kg/m? Imaging Protocol Limitation Reason Poor ECG gating. Exam Type: Rest Stress Radiopharm: Tc-99m Tetrofosmin Tc-99m Tetrofosmin Dosage(mCi): 14 35 Stress Agent: Regadenoson 0.4mg Supply provided from [facility] Resting Blood Press: 132/82 mmHg Image Quality The overall study imaging quality was deemed to be poor. The following technical issues were noted: Poor ECG gating. FINDINGS: Stress IR:3D Gated Stress FBP Gated Rest FBP LVEF: 68 % 73 % ED Volume: 40 ml 49 ml ES Volume: 13 ml 13 ml TID: 0.76 Perfusion Findings Stress IR:3D - Summed Score=0 All segments demonstrate normal perfusion. Rest IR:3D - Summed Score=6 There is a moderate perfusion defect in the mid anteroseptal segment and apical inferior segment. There is a mild perfusion defect in the basal anteroseptal segment and mid inferoseptal segment. All remaining scored segments show normal perfusion. Stress IR:3D Rest IR:3D Summed Score=0 Summed Score=6 LEFT VENTRICLE The left ventricle is small. Left ventricular systolic function is hyperdynamic. There is present left ventricular hypertrophy. Right Ventricle The right ventricle is normal in size. Right ventricle systolic function is normal. Stress Test Findings: There is no scintigraphic evidence for inducible ischemia. There is no evidence of scarring. The left ventricular cavity size is unchanged with stress. * * * Final * * * Stress ECG Report: [facility] Date of service: 01/28/2024 7:57:31 AM Ordering physician: BERT WARD office specialist: Miri Artis RN Interpreting physician: Jewels Barrera MD Patient name: MS. OPAL HINDS Age: 63 years Gender: F Height: 162.56 cm BSA: 1.84 m? Weight: 74.84 kg BMI: 28.3 kg/m? Indication: Dyspnea on exertion, Atherosclerotic heart disease NOS and Encounter for screening for cardiovascular disorders Stress ECG Conclusion: Conclusion: Normal Prior exam comparison: No significant changes Stress ECG Summary: The patient's resting heart rate was 96 bpm and blood pressure was 132/82 mmHg. The test was terminated due to end of protocol. No symptoms provoked during stress. The maximum heart rate was 113 bpm, which is 72% of the predicted heart rate for age. Peak blood pressure was 120/74 mmHg. The double product achieved was [address]. Previous cardiovascular interventions: Diagnostic cath (2016) Resting ECG: Normal Sinus Rhythm Symptoms at rest: No symptoms Pharamcologic Protocol: Regadenoson Stress Exercise Table: +-----+---+---+---+ Stage HR SYS NEREIDA +-----+---+---+---+ 1 121 +-----+---+---+---+ 2 115 120 76 +-----+---+---+---+ 3 116 +-----+---+---+---+ (more content not included)... Normal [facility] Heart Perfusion W stress and W radionuclide Anam 01-28-2024 * * *Final Report* * * DATE OF EXAM: Jan 28 2024 9:57AM [address] CARDIAC PERF STRESS/PHARM / PROCEDURE REASON: multiple diagnoses * * * * Physician Interpretation * * * * Stress Surgeon/President Report: [facility] Date of service: 01/28/2024 7:57:31 AM Supervising physician: Jewels Barrera MD PATIENT: Name: MS. OPAL HINDS Age: 63 years Gender: F The supervising physician was in the department and immediately available. * * * Final * * * PATIENT: Name: MS. OPAL HINDS Age: 63 years Gender: F CONCLUSIONS: 1. SPECT Perfusion Study: Normal. 2. There is no scintigraphic evidence for inducible ischemia. 3. No evidence of scarred myocardium. 4. Left ventricle is small. The left ventricle systolic function is hyperdynamic. 5. Right ventricle is normal in size. The right ventricle systolic function is normal. 6. This is a low risk scan. Gated Stress FBP Gated Rest FBP LVEF % 68 73 Prior Study Comparison Prior nuclear cardiology exam was performed on 06/20/16. Nuclear Med Report:1-Day Gated SPECT Myocardial Perfusion with Regadenoson Stress: Myocardial perfusion imaging was performed at rest 30 minutes following the IV injection of the radiotracer. The patient received 0.4 mg of regadenoson, via rapid IV push, immediately followed by radiotracer IV. Gated post stress tomographic imaging was performed 30 to 60 minutes later. See administered radiotracer and doses below. [facility] Date of service: 01/28/2024 7:57:31 AM Ordering Physician: BERT WARD. Requesting Physician: BERT WARD Indication: Assessment for suspected CAD Interpreting physician: Vernon Eli MD Previous Cardiovascular Interventions: Diagnostic cath (2017) Height: 162.56 cm BSA: 1.84 m Weight: 74.84 kg BMI: 28.3 kg/m Imaging Protocol Limitation Reason Poor ECG gating. Exam Type: Rest Stress Radiopharm: Tc-99m Tetrofosmin Tc-99m Tetrofosmin Dosage(mCi): 14 35 Stress Agent: Regadenoson 0.4mg Supply provided from [facility] Resting Blood Press: 132/82 mmHg Image Quality The overall study imaging quality was deemed to be poor. The following technical issues were noted: Poor ECG gating. FINDINGS: Stress IR:3D Gated Stress FBP Gated Rest FBP LVEF: 68 % 73 % ED Volume: 40 ml 49 ml ES Volume: 13 ml 13 ml TID: 0.76 Perfusion Findings Stress IR:3D - Summed Score=0 All segments demonstrate normal perfusion. Rest IR:3D - Summed Score=6 There is a moderate perfusion defect in the mid anteroseptal segment and apical inferior segment. There is a mild perfusion defect in the basal anteroseptal segment and mid inferoseptal segment. All remaining scored segments show normal perfusion. Stress IR:3D Rest IR:3D Summed Score=0 Summed Score=6 LEFT VENTRICLE The left ventricle is small. Left ventricular systolic function is hyperdynamic. There is present left ventricular hypertrophy. Right Ventricle The right ventricle is normal in size. Right ventricle systolic function is normal. Stress Test Findings: There is no scintigraphic evidence for inducible ischemia. There is no evidence of scarring. The left ventricular cavity size is unchanged with stress. * * * Final * * * Stress ECG Report: [facility] Date of service: 01/28/2024 7:57:31 AM Ordering physician: BERT WARD office specialist: Miri Artis RN Interpreting physician: Jewels Barrera MD Patient name: MS. OPAL HINDS Age: 63 years Gender: F Height: 162.56 cm BSA: 1.84 m Weight: 74.84 kg BMI: 28.3 kg/m Indication: Dyspnea on exertion, Atherosclerotic heart disease NOS and Encounter for screening for cardiovascular disorders Stress ECG Conclusion: Conclusion: Normal Prior exam comparison: No significant changes Stress ECG Summary: The patient's resting heart rate was 96 bpm and blood pressure was 132/82 mmHg. The test was terminated due to end of protocol. No symptoms provoked during stress. The maximum heart rate was 113 bpm, which is 72% of the predicted heart rate for age. Peak blood pressure was 120/74 (more content not included)... DIVISION OF RADIOLOGY [facility] * * *Final Report* * * DATE OF EXAM: Jan 28 2024 9:57AM [facility] 0006 - NM CARDIAC PERF STRESS/PHARM / PROCEDURE REASON: multiple diagnoses * * * * Physician Interpretation * * * * Stress Surgeon/President Report: [facility] Date of service: 01/28/2024 7:57:31 AM Supervising physician: Jewels Barrera MD PATIENT: Name: MS. OPAL HINDS Age: 63 years Gender: F The supervising physician was in the department and immediately available. * * * Final * * * PATIENT: Name: MS. OPAL HINDS Age: 63 years Gender: F CONCLUSIONS: 1. SPECT Perfusion Study: Normal. 2. There is no scintigraphic evidence for inducible ischemia. 3. No evidence of scarred myocardium. 4. Left ventricle is small. The left ventricle systolic function is hyperdynamic. 5. Right ventricle is normal in size. The right ventricle systolic function is normal. 6. This is a low risk scan. Gated Stress FBP Gated Rest FBP LVEF % 68 73 Prior Study Comparison Prior nuclear cardiology exam was performed on 06/20/16. Nuclear Med Report:1-Day Gated SPECT Myocardial Perfusion with Regadenoson Stress: Myocardial perfusion imaging was performed at rest 30 minutes following the IV injection of the radiotracer. The patient received 0.4 mg of regadenoson, via rapid IV push, immediately followed by radiotracer IV. Gated post stress tomographic imaging was performed 30 to 60 minutes later. See administered radiotracer and doses below. [facility] Date of service: 01/28/2024 7:57:31 AM Ordering Physician: BERT WARD. Requesting Physician: BERT WARD Indication: Assessment for suspected CAD Interpreting physician: Vernon Eli MD Previous Cardiovascular Interventions: Diagnostic cath (2017) Height: 162.56 cm BSA: 1.84 m Weight: 74.84 kg BMI: 28.3 kg/m Imaging Protocol Limitation Reason Poor ECG gating. Exam Type: Rest Stress Radiopharm: Tc-99m Tetrofosmin Tc-99m Tetrofosmin Dosage(mCi): 14 35 Stress Agent: Regadenoson 0.4mg Supply provided from [facility] Resting Blood Press: 132/82 mmHg Image Quality The overall study imaging quality was deemed to be poor. The following technical issues were noted: Poor ECG gating. FINDINGS: Stress IR:3D Gated Stress FBP Gated Rest FBP LVEF: 68 % 73 % ED Volume: 40 ml 49 ml ES Volume: 13 ml 13 ml TID: 0.76 Perfusion Findings Stress IR:3D - Summed Score=0 All segments demonstrate normal perfusion. Rest IR:3D - Summed Score=6 There is a moderate perfusion defect in the mid anteroseptal segment and apical inferior segment. There is a mild perfusion defect in the basal anteroseptal segment and mid inferoseptal segment. All remaining scored segments show normal perfusion. Stress IR:3D Rest IR:3D Summed Score=0 Summed Score=6 LEFT VENTRICLE The left ventricle is small. Left ventricular systolic function is hyperdynamic. There is present left ventricular hypertrophy. Right Ventricle The right ventricle is normal in size. Right ventricle systolic function is normal. Stress Test Findings: There is no scintigraphic evidence for inducible ischemia. There is no evidence of scarring. The left ventricular cavity size is unchanged with stress. * * * Final * * * Stress ECG Report: [facility] Date of service: 01/28/2024 7:57:31 AM Ordering physician: BERT WARD office specialist: Miri Artis RN Interpreting physician: Jewels Barrera MD Patient name: MS. OPAL HINDS Age: 63 years Gender: F Height: 162.56 cm BSA: 1.84 m Weight: 74.84 kg BMI: 28.3 kg/m Indication: Dyspnea on exertion, Atherosclerotic heart disease NOS and Encounter for screening for cardiovascular disorders Stress ECG Conclusion: Conclusion: Normal Prior exam comparison: No significant changes Stress ECG Summary: The patient's resting heart rate was 96 bpm and blood pressure was 132/82 mmHg. The test was terminated due to end of protocol. No symptoms provoked during stress. The maximum heart rate was 113 bpm, which is 72% of the predicted heart rate for age. Peak blood pressure was 120/74 mmHg. The double product achieved was 77782. Previous cardiovascular interventions: Diagnostic cath (2016) Resting ECG: Normal Sinus Rhythm Symptoms at rest: No symptoms Pharamcologic Protocol: Regadenoson Stress Exercise Table: +-----+---+- (more content not included)... [facility] Radiology [facility]narrative[facility] Heart Perfusion W stress and W radionuclide IVOrdered By: Ccf Provider on 01-28-2024 [facility] CNPZara 01-22-2024 CNPN Telephone (CAWSTR) ----- OPAL HINDS ([id number]) 1960 F Date Time Provider Department 01/22/24 NURSE CARD ADMIN [facility] CAWSTR During your visit today, we recorded the following information about you: Miri Artis RN 01/22/2024 4:40 PM Signed Called and left VM asking patient to call back. If the patient calls back please review the below instructions with her. Miri Artis RN You are scheduled for a stress test on 01/28/24 at 7:30am. This stress test will appear as 3 appointments on your schedule. You may get multiple reminder calls, but please arrive at the earliest scheduled appointment. Please follow below instructions: *NOTHING BY MOUTH 4 HOURS prior to this test. (you may have sips of water) *NO CAFFEINE FOR 24 HOURS PRIOR TO TESTING (including TEA even decaf, COFFEE- even decaf, CHOCOLATE, KEVIN- even decaf) *Do NOT take MEDICATIONS CONTAINING CAFFEINE/XANTHINE for 24 HOURS prior to testing: Theophylline, Trental, Excedrin, Anacin, Goody Powders, No Doz, Vivarin, Midol, Diurex, Fiorinal, Fioricet, Esgic (butalbital) *Do NOT take Calcium Channel Blockers 24 HOURS prior to test. *Do NOT take Beta blockers 24 HOURS prior to test UNLESS your doctor tells you otherwise. *Do NOT use the following medications 48 HOURS prior to this test: Viagra(Sildenafil citrate), Cialis(Tadalafil), Vardenafil (Levitra, Stanyx), Avanfil (Stendra). *Do not take any of these meds prior to test unless provider directs you otherwise; Nitroglycerine (ex:Deponit, Nitrostat) Isosorbide (ex:Isordil, Sorbitrate,Imdur,Ismo). Medications on your list you should hold for 24 HOURS: None *All other medications may be taken as you normally would. *Guidelines for Diabetics: If you take insulin to control your blood sugar, ask you physician what amount you should take the day of the test. If you take pills to control blood sugar, on the day of the test, do NOT take them until AFTER the test. *FAILURE TO FOLLOW THESE INSTRUCTIONS WILL RESULT IN HAVING TO RESCHEDULE THE TEST. *If you use an inhaler, bring it along with you just in case *THIS TEST MAY TAKE UP TO 3 HOURS TO COMPLETE. Please check in on the first floor at Radiology: [address]; [place] [address] * If you need to cancel or reschedule this test or have any questions regarding this test, please call [phone]. Kate Peraza LPN 01/24/2024 8:53 AM Signed patient notified and verbalized all understanding of instructions. Kate Peraza LPN Allergies As of Date: 01/22/2024 Noted Allergy Reaction METOPROLOL 06/27/2016 5 - Intolerance Comments: Significant joint pain PREDNISONE 04/28/2016 1 - Mental Status Change Date Reviewed: 10/08/2023 Reviewed by: Sara Lewis MA - Fully Assessed Reason for Visit: Stress Test Instructions for 01/28/24 [Other] Prescriptions as of 01/24/2024 - rivaroxaban (XARELTO) 20 mg tablet Take 1 tablet by mouth once daily. - budesonide, enteric coated (ENTOCORT EC) 3 mg 24 hr capsule TAKE 3 CAPSULES BY MOUTH ONCE DAILY IN THE MORNING - atorvastatin (LIPITOR) 10 mg tablet TAKE 1 TABLET BY MOUTH ONCE DAILY. NEED FOLLOW UP APPOINTMENT WITH - iv contrast (will be provided with [...] in the MR contrast administration guidelines link. - tiZANidine (ZANAFLEX) 4 mg tablet TAKE 1 TABLET BY MOUTH UP TO THREE TIMES DAILY NEEDED FOR SPASM - traZODone (DESYREL) 50 mg tablet Take 50 mg by mouth daily at bedtime. - lisinopril (ZESTRIL, PRINIVIL) 10 mg tablet Take 1 tablet by mouth once daily. - levothyroxine (SYNTHROID) 88 mcg tablet 1 [...] every 4 hours as needed for Pain. Problem List As Of Date 01/22/2024 Noted Resolved Embolus to lower extremity (HCC) [I74.3] 04/28/2016 Lower extremity pain, left [M79.605] 04/28/2016 Pulmonary embolism on right (HCC) [I26.99] 04/28/2016 Chest pain [R07.9] COPD (chronic obstructive pulmonary disease) (H* Mixed hyperlipi (more content not included)... Normal [facility] with eGFRon 01-21-2024 AGE 63 years Normal [facility] Comment on above: Performed By: #### 2 91820 ####[facility],[address] [place] [address] 37064 Anion gap [Moles/Vol] 9 mmol/L Low 10 - 20 [facility] Comment on above: Performed By: #### 2 46179 ####[facility],[address] [place] [address] 19783 BMP with eGFR Normal [facility] Comment on above: Result Comment: BASI C METABOLIC PANEL Performed By: #### 2 26951 ####[facility],[address] [place] [address] 51489 Calcium [Mass/Vol] 9.2 mg/dL Normal 8.5 - 10.1 [facility] Comment on above: Performed By: #### 2 55927 ####[facility],[address] [place] [address] 34968 Chloride [Moles/Vol] 105 mmol/L Normal 98 - 107 [facility] Comment on above: Performed By: #### 2 88300 ####[facility],[address] [place] [address] 37530 CO2 [Moles/Vol] 32.0 mmol/L Normal 21.0 - 32.0 [facility] Comment on above: Performed By: #### 2 27859 ####[facility],[address] [place] [address] 13399 Creatinine [Mass/Vol] 0.87 mg/dL Normal 0.55 - 1.02 [facility] Comment on above: Performed By: #### 2 95867 ####[facility],[address] [place] [address] 38525 GFR/1.73 sq M.predicted among non-blacks MDRD (S/P/Bld) [Vol rate/Area] mL/min/{1.73_m2} Normal 60 - 999 [facility] Comment on above: Performed By: #### 2 21674 ####[facility],[address] [place], [place] [id number] Result Comment: ACCO RDING TO THE NATIONAL KIDNEY DISEASE EDUCATION PROGRAM(NKDE), A NORMAL eGFRIS A VALUE GREATER THAN OR EQUAL TO 60 ML/MIN/1.73 SQ METERS.CHRONIC KIDNEY DISEASE: <60mL/MIN/1.73 SQ METERSKIDNEY FAILURE: <15mL/MIN/1.73 SQ METERSTHIS TEST SHOULD ONLY BE USED FOR PATIENTS 18 YEARS OF AGE AND OLDER. Glucose [Mass/Vol] 166 mg/dL High 74 - 106 [facility] Comment on above: Performed By: #### 2 48078 ####[facility],[address] [place], [place] [id number] Potassium [Moles/Vol] 3.4 mmol/L Low 3.5 - 5.1 [facility] Comment on above: Performed By: #### 2 17899 ####[facility],[address] [place] [address] 07391 Sodium [Moles/Vol] 143 mmol/L Normal 136 - 145 [facility] Comment on above: Performed By: #### 2 97637 ####[facility],[address] [place] [address] 43939 Urea nitrogen [Mass/Vol] 17 mg/dL Normal 7 - 18 [facility] Comment on above: Performed By: #### 2 30852 ####[facility],[address] [place] [address] 92534 MAGNESIUMon 01-21-2024 Magnesium [Mass/Vol] 2.0 mg/dL Normal 1.8 - 2.4 [facility] Comment on above: Performed By: #### 2 68500 ####[facility],[address] [place] [address] 01695 T4-FREE (FREE THYROXINE)on 03-22-2023 Free T4 [Mass/Vol] 0.93 ng/dL Normal 0.76 - 1.46 [facility] Comment on above: Result Comment: P otential of falsely elevated results when biotin concentrations are > 10ng/mL. Performed By: #### 2 25636 ####[facility],[address] [place] [address] 50999 TSHon 01-21-2024 TSH Qn 1.38 m[IU]/L Normal 0.35 - 3.74 [facility] Comment on above: Performed By: #### 2 42253 ####[facility],[address] [place] [address] 91954 VITAMIN D, 25 HYDROXYon 01-10 VitD <7.00 Low 30.00 - 100 [facility] Comment on above: Result Comment: 25-O HD3 indicates both endogenous production and supplementation. 25-OHD2 is anindicator of exogenous sources, such as diet or supplementation. Therapy isbased on measurement of Total 25-OHD, with levels <20 ng/mL indicative ofVitamin D deficiency, while levels between 20 ng/mL and 30 ng/mL suggestinsufficiency. Optimal levels are >=30ng/mL.Vitamin D, 25-OH D3 Not EstablishedVitamin D, 25-OH D2 Not Established Performed By: #### 2 56248 ####[facility],[address] [place] [address] 75589 CNOVon 10-08-2023 CNOV Office Visit (HOLGER W) ----- OPAL HINDS ([id number]) 1960 F Date Time Provider Department 10/08/23 9:00 AM BERT WARDHWW During your visit today, we recorded the following information about you: Pulse Respiration Blood pressure Weight 81/minute 16/minute 145/86 74.8 kg Height 1.626 m Sara Lewis MA 10/08/2023 8:56 AM Signed Patient has no cardiac complaints today. Bert Monson CMA, MD 10/08/2023 9:43 AM Signed PRIMARY CARE PHYSICIAN: Shae Mendez ([facility]) [address] [place] [address] HISTORY OF PRESENT ILLNESS: Ms. Hinds is a 62 year old female who presents today for a cardiovascular medicine preprocedural visit. CARDIOVASCULAR PROBLEMS: 1. HERNANDEZ (dyspnea on exertion) - ICD9: 786.09, ICD10: R06.09 (primary diagnosis) 2. Mixed hyperlipidemia - ICD9: 272.2, ICD10: E78.2 3. Pulmonary embolism on right (HCC) - ICD9: 415.19, ICD10: I26.99 4. Panlobular emphysema (HCC) - ICD9: 492.8, ICD10: J43.1 5. Coronary artery disease due to lipid rich plaque - ICD9: 414.00, 414.3, ICD10: I25.10, I25.83 6. Pre-operative cardiovascular examination - ICD9: V72.81, ICD10: Z01.810 She is contemplating having a shoulder injections. Pain management booster wishes to hold Xarelto for 2 days prior. Benefits favor holding the medication prior to injection if necessary. It is noted the patient had a past history of pulmonary embolism and arterial embolism 7 years ago. Consider bridging. He endorses exertional shortness of breath specially when walking up at her home. No chest pain no squeezing sensation syncope or near syncope. 7 years ago, she was diagnosed as having 50% disease in all major coronary trunks. She had been maintained on medications.. Opal denies any other active cardiac symptoms. Specifically, the patient denies orthopnea, cough, edema, palpitations, lightheadedness or syncope. The Patient claims compliance with medications and reports no side effects or allergies. Test results were reviewed with the patient. Lipids are monitored through her primary requested copy of results. She bit hypertensive on today's visit she works third shift at [employer]. Not taken her medications yet she usually takes them after she gets out of work. HISTORICAL DATA UPDATED: 10/01/2023 Smoking: Quit smoking 2016. Diabetes: No Lipids: Yes Obesity: No HTN: Yes Sedentary Lifestyle: No Family History of M.A.C.E: Yes CHF: No Stroke /TIA: No, History of pulmonary embolism and arterioles systemic embolization as well. MOST RECENT CARDIAC TESTING: Echo: Normal EF, 2016 Cardiac Catheterization: Mar 2016: 50% LAD, cx, rca Normal EF 60% Holter / Event Recorder : - Stress Test : 2017, normal, normal EF TILT: - Device: - PAST CARDIAC EVENTS: 2017 arterial embolization. Status post embolectomy. 2017 subclinical pulmonary embolism found during the same hospitalization. ALLERGIES Allergen Reactions Metoprolol Intolerance Significant joint pain Prednisone Mental Status Change MEDICATIONS: atorvastatin (LIPITOR) 10 mg tablet TAKE 1 [...] in the MR contrast administration guidelines link. tiZANidine (ZANAFLEX) 4 mg tablet TAKE 1 [...] Take 1 tablet by mouth once daily. budesonide, enteric coated (ENTOCORT EC) 3 mg 24 hr capsule TAKE 3 CAPSULES BY MOUTH ONCE DAILY IN THE MORNING REVIEW OF SYSTEMS: I have edited template to reflect patient's findings GEN (more content not included)... Normal [facility] CNPNon 10-08-2023 [facility] ([facility] ) ----- OPAL HINDS ([id number]) 1960 F Date Time Provider Department 10/08/23 [facility] During your visit today, we recorded the following information about you: Sara Lewis MA 10/08/2023 10:03 AM Signed Notified patient Dr. Ward placed fasting lab orders for her to have completed. Patient verbally agreed. Sara Lewis MA October 08, 2023 10:03 AM Allergies As of Date: 10/08/2023 Noted Allergy Reaction METOPROLOL 06/27/2016 5 - Intolerance Comments: Significant joint pain PREDNISONE 04/28/2016 1 - Mental Status Change Date Reviewed: 10/08/2023 Reviewed by: Sara Lewis MA - Fully Assessed Reason for Visit: Orders [681] Cmt: Lab orders Prescriptions as of 10/08/2023 - rivaroxaban (XARELTO) 20 mg tablet Take 1 tablet by mouth once daily. - budesonide, enteric coated (ENTOCORT EC) 3 mg 24 hr capsule TAKE 3 CAPSULES BY MOUTH ONCE DAILY IN THE MORNING - atorvastatin (LIPITOR) 10 mg tablet TAKE 1 TABLET BY MOUTH ONCE DAILY. NEED FOLLOW UP APPOINTMENT WITH - iv contrast (will be provided with [...] in the MR contrast administration guidelines link. - tiZANidine (ZANAFLEX) 4 mg tablet TAKE 1 TABLET BY MOUTH UP TO THREE TIMES DAILY NEEDED FOR SPASM - traZODone (DESYREL) 50 mg tablet Take 50 mg by mouth daily at bedtime. - lisinopril (ZESTRIL, PRINIVIL) 10 mg tablet Take 1 tablet by mouth once daily. - levothyroxine (SYNTHROID) 88 mcg tablet 1 [...] every 4 hours as needed for Pain. 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 Shae Mendez MD Status: REG CLI Study: Shoulder min 2 Views Date of Exam: 10/08/23 Exam# [id number] Ordering Dr: Sabi Laws [id number] INDICATION: RIGHT SHOULDER PAIN EXAMINATION/TECHNIQUE: X-RAY - RIGHT XR Shoulder Min 2 Views 4 VIEWS COMPARISON: No relevant prior comparison study available FINDINGS: BONES: No fracture demonstrated. Degenerative changes at the glenohumeral and acromioclavicular joints. JOINTS: No dislocation. SOFT TISSUES: Small density adjacent to the humeral head likely calcific tendinitis. RAD/Shoulder min 2 Views IMPRESSION: No evidence of fracture. Probable calcific tendinitis. Electronically Signed: Gracie Rodriguez MD at 7:57 EDT , CC: Sabi Laws; Dr. Shae Mendez MD Belt Dresser: Signed Normal [facility] Abdomen/Pelvis WITH Contrast on 05-03-2023 Abdomen/Pelvis WITH Contrast [facility] Imaging Services [address] [place] [address] Abdomen/Pelvis WITH Contrast MR#: [id number] Acct: [id number] Name: OPAL HINDS Rep #: [id number] : 1960 F 62 From: Solomon hodges DO PCP: Dr. Shae Mendez MD Status: REG CLI Study: Abdomen/Pelvis WITH Contrast Date of Exam: Exam# [id number] Ordering Dr: Freedom Luciano MD [id number] EXAM: CT ABDOMEN AND PELVIS WITH INTRAVENOUS CONTRAST CLINICAL INDICATION: ABD PAIN TECHNIQUE: Helically acquired images were obtained of the abdomen and pelvis with intravenous contrast. This CT exam was performed using one or more of the following dose reduction techniques: automated exposure control, adjustment of the mA and/or kV according to patient size, and/or use of iterative reconstruction technique. CONTRAST: IV 100mL [id number] COMPARISON: MRI lumbar spine, 09/30/2014 and whole-body bone scan, 09/11/2013 FINDINGS: LOWER THORAX: No significant abnormality. Lung bases are clear. No cardiomegaly. No significant pericardial effusion. ABDOMEN: LIVER: No significant abnormality. Homogeneous. No focal mass. GALLBLADDER AND BILE DUCTS: Nonvisualized likely surgically absent gallbladder. No intra- or extrahepatic biliary ductal dilation. PANCREAS: No significant abnormality. No focal cystic or solid mass. SPLEEN: No significant abnormality. Normal size without focal cystic or solid mass. ADRENALS: No significant abnormality. No nodules. KIDNEYS AND URETERS: No significant abnormality. Normal renal size and position. No hydronephrosis. STOMACH AND BOWEL: Mild distal colorectal stool retention. Colonic diverticulosis without evidence of diverticulitis. No stomach or bowel distention. PELVIS: APPENDIX: No evidence of acute appendicitis. BLADDER: Thickening of the urinary bladder wall likely secondary to its decompressed state. No overwhelming evidence of cystitis. REPRODUCTIVE: Normal as visualized. No mass. ABDOMEN and PELVIS: INTRAPERITONEAL SPACE: No significant abnormality. No ascites or other fluid collection. No free air. BONES/JOINTS: Status post L3-S1 posterior fusion with multilevel lower lumbar laminectomy. Anterolisthesis of L3 upon L4. Bony fusion from L3 through S1 posteriorly. Additional degenerative changes in the visualized thoracic and lumbar spine. No suspicious lytic or blastic abnormality. SOFT TISSUES: Fat-containing umbilical hernia. VASCULATURE: Atherosclerosis of the aorta and its branch vessels. Abdominal aorta is non-dilated. LYMPH NODES: No significant abnormality. No enlarged lymph nodes. CT/Abdomen/Pelvis WITH Contrast IMPRESSION: 1. Thickening of the urinary bladder wall likely secondary to its decompressed state. No overwhelming evidence of cystitis. 2. Status post L3-S1 posterior fusion with multilevel lower lumbar laminectomy. Anterolisthesis of L3 upon L4. Bony fusion from L3 through S1 posteriorly. Additional degenerative changes in the visualized thoracic and lumbar spine. 3. Mild distal colorectal stool retention. 4. Colonic diverticulosis without evidence of diverticulitis. Electronically Signed: Solomon Martin DO at 22:38 EST , CC: Dr. Freedom Luciano MD; Dr. Shae Mendez MD Belt Dresser: Signed Normal [facility] Basophil percentageOrdered B y: Freedom Luciano on 05-03-2023 Basophil percentage < 1.0 mg/dL 0.55-1.02 [facility] CREATININE FINGERSTICKon CREATININE WB < 1.0 Normal 0.55-1.02 [facility] Comment on above: Performed By: #### L 9100.0200 #### [facility] [address] [place], [address] EGFR WB > 60.0000 Normal >60 [facility] Comment on above: Performed By: #### L 9100.0200 #### [facility] [address] [place], [place], [id number] No Panel InformationOrdered By: Freedom Luciano on 05-03-2023 Bedside Estimated GFR (eGFR) > 60.0000 mL/min >60 [facility] Urine Cultureon 04-20-2023 [facility] Culture exhibits no growth. Normal [facility] Comment on above: Performed By: #### M 100.2200 #### [facility] [address] [place], [address] Culture, urineOrdered By: Franny Luciano on 04-19-2023 Bacteria identified Cx Nom (U) Culture exhibits no growth. [facility] Chest 1 View (Portable)on Chest 1 View (Portable) [facility] Imaging Services [address] [place] [address] Chest 1 View (Portable) MR#: [id number] Acct: [id number] Name: OPAL HINDS Rep #: [id number] : 1960 F 62 From: Abram diaz MD PCP: Dr. Shae Mendez MD Status: [facility] Study: Chest 1 View (Portable) Date of Exam: 04/04/23 Exam# [id number] Ordering Dr: Darci Chicas MD [id number] STUDY: X-RAY CHEST REASON FOR EXAM: Female, 62 years old. SOB HYPOXIA TECHNIQUE: Single AP portable view of the chest. COMPARISON: None. FINDINGS: EKG electrodes are seen. Hyperinflation. Mild increased linear markings at the left lung base suggestive of lingular atelectasis. There is no demonstrated pleural abnormality. Normal size heart. Normal mediastinum and bashir. Normal visualized pulmonary arteries. Normal visualized aortic arch and descending thoracic aorta. Normal visualized thoracic spine. Normal visualized ribs, clavicles, and shoulders. There is no demonstrated abnormality of the visualized soft tissue structures of the upper abdomen. RAD/Chest 1 View (Portable) IMPRESSION: Hyperinflation. Mild increased linear markings at the left lung base suggestive of the linear atelectasis. Electronically Signed: Abram Jones MD at 15:42 EST , CC: Dr. Darci Chicas MD; Dr. Shae Mendez MD Belt Dresser: Signed Normal [facility] Discharge Instructionon 03-13 Discharge Instruction [facility] Medical Records Department [address] [place] [address] Instructions for Home/Discharge Instructions 04/04/23 1120 MR#: [id number] Acct: [id number] Name: OPAL HINDS Rep #: [id number] : 1960 62 From: Freedom Luciano MD PCP: Dr. Shae Mendez MD Status:REG [facility] Discharge Instructions Diet Discharge Diet: No restrictions Activity Discharge Activity: Return to Normal Activity and May Not Drive (while taking narcotic pain medications.) Dressing / Incision Call your doctor if you observe: Fever of 101 or Higher Follow Up Care Please Follow Up With: Freedom Luciano MD When: Call [phone] for an appointment Test Results: Test results from this visit will be discussed in further detail at your follow-up appointment, if applicable. Discharge Plan Admission Primary Reason for Your Visit: TVT sling Attending Provider: Freedom Luciano Primary Care Provider: Shae Mendez Discharge Orders/Prescriptions Prescriptions: Continued lisinopril 10 mg tablet 20 mg PO DAILY celecoxib [Celebrex] 200 mg capsule 200 mg PO BID levothyroxine 88 mcg capsule 88 mcg PO QHS trazodone 50 mg tablet 50 mg PO QHS PRN (Reason: Sleep) atorvastatin 10 mg tablet 10 mg PO DAILY melatonin 10 mg capsule 10 mg PO HS PRN (Reason: Sleep) tizanidine 4 mg capsule 4 mg PO TID PRN (Reason: MUSCLE RELAX) budesonide 3 mg capsule,delayed,extend.re lease 9 mg PO QAM Qty: 270 3RF oxycodone-acetaminophen 1 TABLET tablet 1 tab PO BID Patient Comments: PAIN albuterol sulfate [Proventil HFA] 6.7 GM HFA aerosol inhaler 2 puff IH Q4H PRN PRN (Reason: Sob /Or Wheezing) Patient Comments: COPD Xarelto 20 MG tablet 20 mg PO DAILY Patient Comments: BLOOD THINNER ipratropium-albuterol 3 ML solution for nebulization 3 ml inhalation TID PRN (Reason: SOB) gabapentin [Neurontin] 400 MG capsule 800 mg PO QHS amlodipine 5 mg tablet 5 mg PO DAILY Patient Comments: TAKE ONE TABLET BY MOUTH DAILY Held sertraline 100 MG tablet 100 mg PO DAILY Hold Instructions: Resume on 04/11/23. Referrals / Follow Up: Freedom Luciano MD [Med Staff - Active Staff] - Shae Mendez MD [Primary Care Provider] - Disposition Disposition (needs filled in before D/C Order can be placed): Home, Self Care 04/04/23 1120 Freedom Luciano MD CC: Dr. Shae Mendez MD Signed [facility] Operative Reporton 4 Operative Report [facility] Medical Records Department [address] [place] [address] Operative Report 04/04/23 1236 MR#: [id number] Acct: [id number] Name: OPAL HINDS Rep #: [id number] : 1960 62 From: Freedom Luciano MD PCP: Dr. Shae Mendez MD Status:[facility] Location: [place] [address] Report of Operation Date of Procedure: 04/04/23 Pre-Operative Diagnosis: Stress urinary incontinence Post-Operative Diagnosis: Stress urinary incontinence Surgery/Procedure Performed:: Placement of a tension-free vaginal sling Description of Surgical Findings:: Patient presents today for placement of a tension-free vaginal sling, she has a diagnosis of incontinence and has been evaluated in the preoperative setting. We discussed how the procedure will be done what to expect afterwards. She understands is possible she may need a catheter in the short-term. We discussed the risk of bleeding and also the possibility of infection with the placement of the sling. We discussed the fact that we can be using artificial mesh and that there is a small risk of infection, erosion into the urethra, vaginal area, bladder and a small risk that she may require surgery down the road to address any problems or erosions with the mesh in the long- term. She was also given no guarantees as to how well the sling would work and that her incontinence may not improved to her satisfaction. After reviewing this with the patient she agreed to proceed with the placement of the sling. Patient was taken back to the operating room, after smooth induction of general anesthesia she was placed in dorsolithotomy position. She underwent vaginal prep and was placed in dorsolithotomy position. A Nieto catheter was placed into the bladder and Inflated with 10 cc of sterile water into the balloon. I then marked out the bladder neck with a marking pen and marked out the mid urethra. The urethra was then infiltrated with lidocaine with 1:1000 epinephrine, after the injecting into the urethra then a midline incision was made in the urethra long enough to create a space for the trocar. I then used curved Metzenbaum scissors to dissect periurethrally up to the right side underneath the pubic bone, and then dissect periurethrally up to the left side underneath the pubic bone creating the tunnel for the sling. I then went up to the pubic bone and the patient was in Trendelenburg position and marked two incision site 2 cm from the midline on the left and right side. I then infiltrated the skin with lidocaine and then made a small stab incision in the right and left side exactly where the cameron were above the pubic bone. Making sure that the bladder was completely empty I then guided the suprpubid desera trocar top-down on the right side first coming behind the pubic bone following it into the incision below the urethra. Once the suprapubic trocar was passed then I deflated the balloon and remove the Nieto catheter went into the bladder with a 70 degree lens and inspected the bladder and there was no perforation damage or injury to the bladder, no damage to the ureter, and no damage to the urethra. I then hooked the end of the desara sling to the suprapubic trocar and advanced it up through the tunnel and then put a snap on the end of the sling. I then went to the other side to pass the sling. The 18fr Nieto catheter was replaced into the bladder with 10 cc of water into the balloon and then drained the bladder completely and then I guided the suprapubic trocar down on the left side from top down behind the pubic bone into the incision below the urethra. I then deflated the balloon removed the Nieto catheter and performed a cystoscopy again and inspected the bladder with a 70 degree there was no injury to the bladder, the ureter, or the urethra on inspection. I then grabbed the other end of the sling and using the suprapubic trocar pulled the sling on the other side and put a snap on the sling end. I then put a snap in the middle the sling and then both ends of the slings were then pulled up and then the sling was tensioned below the urethra ensuring that the sling was flat that there was no kinking or pulling or twisting and laid nicely tension-free underneath the urethra. Then both ends of the slings were cut and then the plastic sheath covering the mesh was removed deploying the sling, the excess mesh was then trimmed from the suprapubic area and the mesh ends were dunked down deep in the subcutaneous fat. The Nieto catheter was removed and we checked the bladder with a 30 and 70 degree lens making sure there is no injury to the urethra, bladder and no perforation with a mesh. The urine was nice and clear with no blood. I then closed the incision below the urethra with a running 3-0 Vicryl and thenclosed the 2 suprapubic incisions with interrupted 4-0 Monocryl. The bladder was left empty anesthetic was reversed and (more content not included)... [facility] 12 Lead EKGon 03-27-2023 12 Lead EKG [facility] Cardiovascular Services [address] [place] [address] 12 Lead EKG 03/27/23 0739 MR#: [id number] Acct: [id number] Name: OPAL HINDS OJ Rep #: [id number] : 1960 62 From: Kehinde Brennan MD Attending Dr: Dr. Freedom Luciano MD Status: PRE [facility] [place] Dr: Cale Bone MD Date: 03/27/23 Location: [facility] Sex: F C Admitted: Test Reason : PRE OP Blood Pressure : / mmHG Vent. Rate : 088 BPM Atrial Rate : 088 BPM P-R Int : 164 ms QRS Dur : 070 ms QT Int : 352 ms P-R-T Axes : 080 074 088 degrees QTc Int : 425 ms Normal sinus rhythm Nonspecific ST abnormality Abnormal ECG Confirmed by TARUN GIVENS, KEHINDE ([id number]), telegraph editor VERENA FRAGA ([id number]) on 03/27/2023 1:04:15 PM Referred By: Freedom Luciano Confirmed By:KEHINDE BRENNAN MD 03/27/23 1304 Date Kehinde Brennan MD CC: Dr. Cale Bone MD; Dr. Freedom Luciano MD; Dr. Shae Mendez MD Signed [facility] Basic Metabolic Profile (BMP )on 03-27-2023 BUN/CRE 30.8 RATIO High 10-20 [facility] Comment on above: Performed By: #### L 500.2500, L100.0500, L501.9520 #### [facility] [address] [place], [address] CA,Total 9.4 mg/dL Normal 8.5-10.1 [facility] Comment on above: Performed By: #### L 500.2500, L100.0500, L501.9520 #### [facility] [address] [place], [address] Chloride [Moles/Vol] 105 mmol/L Normal 98-107 [facility] Comment on above: Performed By: #### L 500.2500, L100.0500, L501.9520 #### [facility] [address] [place], [address] CO2 [Moles/Vol] 29.0 mmol/L Normal 21.0-32.0 [facility] Comment on above: Performed By: #### L 500.2500, L100.0500, L501.9520 #### [facility] [address] [place], [address] Creatinine [Mass/Vol] 1.17 mg/dL High 0.55-1.02 [place] Comment on above: Result Comment: The validity of the calculated GFR GFRAA in patients over 70 years has not been determined. Clinical correlation is essential. Performed By: #### L 500.2500, L100.0500, L501.9520 #### [facility] [address] [place], [address] EST GFR - AA 60 mL/min Normal >60 [facility] Comment on above: Result Comment: Afri can Lao GFR Calc Performed By: #### L 500.2500, L100.0500, L501.9520 #### [facility] [address] [place], [address] GAP 3 Low 5-15 [facility] Comment on above: Performed By: #### L 500.2500, L100.0500, L501.9520 #### [facility] [address] [place], [address] GFR/1.73 sq M.predicted among non-blacks MDRD (S/P/Bld) [Vol rate/Area] 50 mL/min/{1.73_m2} Low >60 [facility] Comment on above: Result Comment: Non- GFR Calc Performed By: #### L 500.2500, L100.0500, L501.9520 #### [facility] [address] [place], [address] Glucose [Mass/Vol] 159 mg/dL High 74-106 [facility] Comment on above: Result Comment: Fast ing Glucose result greater than or equal to 126 mg/dL suggests DIABETES MELLITUS per A.D.A. criteria. Performed By: #### L 500.2500, L100.0500, L501.9520 #### [facility] [address] [place], [address] Potassium [Moles/Vol] 4.4 mmol/L Normal 3.5-5.1 [place] Comment on above: Performed By: #### L 500.2500, L100.0500, L501.9520 #### [facility] [address] [place], [address] Sodium [Moles/Vol] 137 mmol/L Normal 136-145 [facility] Comment on above: Performed By: #### L 500.2500, L100.0500, L501.9520 #### [facility] [address] [place], [address] Urea nitrogen [Mass/Vol] 36 mg/dL High 7-18 [facility] Comment on above: Performed By: #### L 500.2500, L100.0500, L501.9520 #### [facility] [address] [place], [address] Basophil percentageOrdered B y: Cale Bone on 03-27-2023 Chloride [Moles/Vol] 105 mmol/L 98-107 [facility] Glucose [Mass/Vol] 159 mg/dL 74-106 [facility] Comment on above: Fasting Glucose resu lt greater than or equal to 126 mg/dL suggests DIABETES MELLITUS per A.D.A. criteria. Potassium [Moles/Vol] 4.4 mmol/L 3.5-5.1 [place] Sodium [Moles/Vol] 137 mmol/L 136-145 [facility] WBC (Bld) [#/Vol] 11.5 10*3/uL 4.4-11.0 [facility] Blood erythrocytes count (nu mber/volume)Ordered By: Cale Bone on 03-27-2023 RBC (Bld) [#/Vol] 4.76 10*6/uL 4.2-5.4 [facility] Blood hemoglobin measurement (mass/volume)Ordered By: Cale Bone on 03-27-2023 Hemoglobin (Bld) [Mass/Vol] 13.8 g/dL 12.0-15.0 [facility] Blood platelet mean volumeOr dered By: Cale Bone on 03-27-2023 Platelet mean volume (Bld) [Entitic vol] 9.1 fL 6.2-12.0 [facility] CBC-Complete Blood Cnt No Di ffon 03-27-2023 Erythrocyte distribution width (RBC) [Ratio] 13.1 % Normal 11.6-14.6 [facility] Comment on above: Performed By: #### L 500.2500, L100.0500, L501.9520 #### [facility] [address] [place], [address] Hematocrit (Bld) [Volume fraction] 42.0 % Normal 37-47 [facility] Comment on above: Performed By: #### L 500.2500, L100.0500, L501.9520 #### [facility] [address] [place], [address] Hemoglobin (Bld) [Mass/Vol] 13.8 g/dL Normal 12.0-15.0 [facility] Comment on above: Performed By: #### L 500.2500, L100.0500, L501.9520 #### [facility] [address] [place], [address] MCH (RBC) [Entitic mass] 29.0 pg Normal 27.0-32.0 [facility] Comment on above: Performed By: #### L 500.2500, L100.0500, L501.9520 #### [facility] [address] [place], [address] MCHC (RBC) [Mass/Vol] 32.9 g/dL Normal 32-36 [place] Comment on above: Performed By: #### L 500.2500, L100.0500, L501.9520 #### [facility] [address] [place], [address] MCV (RBC) [Entitic vol] 88.2 fL Normal 81-99 [facility] Comment on above: Performed By: #### L 500.2500, L100.0500, L501.9520 #### [facility] [address] [place], [address] Platelet mean volume (Bld) [Entitic vol] 9.1 fL Normal 6.2-12.0 [facility] Comment on above: Performed By: #### L 500.2500, L100.0500, L501.9520 #### [facility] [address] [place], [address] Platelets (Bld) [#/Vol] 236 10*3/uL Normal 150-450 [facility] Comment on above: Performed By: #### L 500.2500, L100.0500, L501.9520 #### [facility] [address] [place], [address] RBC (Bld) [#/Vol] 4.76 10*6/uL Normal 4.2-5.4 [facility] Comment on above: Performed By: #### L 500.2500, L100.0500, L501.9520 #### [facility] [address] [place], [address] RDW SD 42.5 fl Normal 35.1-43.9 [facility] Comment on above: Performed By: #### L 500.2500, L100.0500, L501.9520 #### [facility] [address] [place], [address] WBC (Bld) [#/Vol] 11.5 10*3/uL High 4.4-11.0 [facility] Comment on above: Performed By: #### L 500.2500, L100.0500, L501.9520 #### [facility] [address] [place], [address] Determination of erythrocyte mean corpuscular volume (MCV)Ordered By: Cale Bone on 03-27-2023 MCV (RBC) [Entitic vol] 88.2 fL 81-99 [facility] Hematocrit Auto (Bld) [Volum e fraction]Ordered By: Cale Bone on 01-16-2024 Hematocrit (Bld) [Volume fraction] 42.0 % 37-47 [facility] - Chemistry and C hemistry - challengeOrdered By: Cale Bone on 03-27-2023 CO2 [Moles/Vol] 29.0 mmol/L 21.0-32.0 [facility] Urea nitrogen/Creatinine [Mass ratio] 30.8 mg/mg 10-20 [facility] - Hematology and Cell countsOrdered By: Cale Bone on 03-27-2023 Erythrocyte distribution width (RBC) [Entitic vol] 42.5 fL 35.1-43.9 [facility] Erythrocyte distribution width (RBC) [Ratio] 13.1 % 11.6-14.6 [facility] MCH (RBC) [Entitic mass] 29.0 pg 27.0-32.0 [facility] MCHC Auto (RBC) [Mass/Vol]Or dered By: Cale Bone on 03-27-2023 MCHC (RBC) [Mass/Vol] 32.9 g/dL 32-36 [place] No Panel InformationOrdered By: Cale Bone on 03-27-2023 Estimated GFR (MDRD) Amer 60 mL/min >60 [facility] Comment on above: GFR Calc Estimated GFR (MDRD) Non-Af Amer 50 mL/min >60 [facility] Comment on above: Non- GFR Calc Thyroid Stimulating Hormone (TSH) 0.83 uIU/mL 0.358-3.74 [facility] Platelets bldOrdered By: Cale Bone on 03-27-2023 Platelets (Bld) [#/Vol] 236 10*3/uL 150-450 [facility] Serum or plasma calcium elvis urement (mass/volume)Ordered By: Cale Bone on 03-27-2023 Calcium [Mass/Vol] 9.4 mg/dL 8.5-10.1 [facility] Serum or plasma creatinine m easurement (mass/volume)Ordered By: Cale Bone on 03-27-2023 Creatinine [Mass/Vol] 1.17 mg/dL 0.55-1.02 [place] Comment on above: The validity of the calculated GFR & GFRAA in patients over 70 years has not been determined. Clinical correlation is essential. Serum or plasma urea nitroge n measurement (mass/volume)Ordered By: Cale Bone on 03-27-2023 Urea nitrogen [Mass/Vol] 36 mg/dL 7-18 [facility] Thin prep Papanicolaou smear with manual screeningOrdered By: Cale Bone on 03-27-2023 Thin prep Papanicolaou smear with manual screening 3 5-15 [facility] Thyroid Stim Hormone (TSH)on 03-27-2023 TSH 0.83 uIU/mL Normal 0.358-3.74 [facility] Comment on above: Performed By: #### L 500.2500, L100.0500, L501.9520 ####[facility] [address] [place], [place], [id number] Absolute lymphocyte counton 12-23-2021 Lymphocytes Auto (Unsp spec) [#/Vol] 2.28 10*3/uL 0.83-4.51 [facility] Work Phone: Albumin Elph [Mass/Vol]on Albumin [Mass/Vol] 4.0 g/dL 2.9-4.4 [facility] Work Phone: Basophil percentageon 2021 Basophil percentage < 0.2 AI 0.0-0.9 [facility] Work Phone: Basophils/100 WBC (Bld) 1.2 % 0-1 [facility] Work Phone: Bilirubin [Mass/Vol] 0.30 mg/dL 0.20-1.00 [facility] Work Phone: Comment on above: For patients on eltr ombopag therapy, use of Dimension [place] TBIL is not recommended. Chloride [Moles/Vol] 109 mmol/L 98-107 [facility] Work Phone: Eosinophils/100 WBC (Bld) 4.0 % 0-5 [facility] Work Phone: Glucose [Mass/Vol] 100 mg/dL 74-106 [facility] Work Phone: Comment on above: Fasting Glucose resu lt from 100 to 125 mg/dL suggests IMPAIRED HOMEOSTASIS per A.D.A. criteria. Neutrophils (Bld) [#/Vol] 4.0 10*3/uL 2.0-7.7 [facility] Work Phone: Neutrophils/100 WBC (Bld) 54.5 % 47-70 [facility] Work Phone: Potassium [Moles/Vol] 3.7 mmol/L 3.5-5.1 [place] Work Phone: Protein [Mass/Vol] 7.7 g/dL 6.4-8.2 [facility] Work Phone: Sodium [Moles/Vol] 143 mmol/L 136-145 [facility] Work Phone: WBC (Bld) [#/Vol] 7.3 10*3/uL 4.4-11.0 [facility] Work Phone: Blood erythrocytes count (nu mber/volume)on 12-23-2021 RBC (Bld) [#/Vol] 4.80 10*6/uL 4.2-5.4 [facility] Work Phone: [phone] Blood hemoglobin measurement (mass/volume)on 12-23-2021 Hemoglobin (Bld) [Mass/Vol] 14.1 g/dL 12.0-15.0 [facility] Work Phone: Blood lymphocytes/100 leukoc yteson 12-23-2021 Lymphocytes/100 WBC (Bld) 31.4 % 19-41 [facility] Work Phone: Blood monocytes/100 leukocyt eson 12-23-2021 Monocytes/100 WBC (Bld) 8.8 % 0-10 [facility] Work Phone: Blood platelet mean volumeon 12-23-2021 Platelet mean volume (Bld) [Entitic vol] 9.5 fL 6.2-12.0 [facility] Work Phone: Determination of erythrocyte mean corpuscular volume (MCV)on 12-23-2021 MCV (RBC) [Entitic vol] 86.7 fL 81-99 [facility] Work Phone: Erythrocyte sedimentation ra teresa 12-23-2021 ESR (Bld) [Velocity] 14 mm/h 0-30 [facility] Work Phone: Hematocrit Auto (Bld) [Volum e fraction]on 12-23-2021 Hematocrit (Bld) [Volume fraction] 41.6 % 37-47 [facility] Work Phone: Interpretation of serum or p lasma protein pattern by immunofixation (narrative resulton 12-23-2021 Protein Fractions Immunofixation Niranjan [Interp] See comment [facility] Work Phone: Comment on above: SPE shows an asymmet rical gamma. Laboratory - Chemistry and C hemistry - challengeon 12-23-2021 ALP [Catalytic activity/Vol] 77 U/L 45-117 [facility] Work Phone: ALT [Catalytic activity/Vol] 28 U/L 13-56 [facility] Work Phone: CO2 [Moles/Vol] 28.0 mmol/L 21.0-32.0 [facility] Work Phone: Globulin (S) [Mass/Vol] 4.0 g/dL 2.2-4.2 [facility] Work Phone: Urea nitrogen/Creatinine [Mass ratio] 19.5 mg/mg 10-20 [facility] Work Phone: Laboratory - Hematology and Cell countson 12-23-2021 Erythrocyte distribution width (RBC) [Entitic vol] 38.9 fL 35.1-43.9 [facility] Work Phone: Erythrocyte distribution width (RBC) [Ratio] 12.3 % 11.6-14.6 [facility] Work Phone: Immature granulocytes/100 WBC (Bld) 0.100 % 0.0-0.9 [facility] Work Phone: Comment on above: IG% - Immature Granu locytes (promyelocytes, myelocytes and metamyelocytes) > 1% indicates that a LEFT SHIFT is Present. MCH (RBC) [Entitic mass] 29.4 pg 27.0-32.0 [facility] Work Phone: Nucleated RBC/100 WBC (Bld) [Ratio] 0 % 0-5 [facility] Work Phone: MCHC Auto (RBC) [Mass/Vol]on 12-23-2021 MCHC (RBC) [Mass/Vol] 33.9 g/dL 32-36 [place] Work Phone: No Panel Informationon 12-23 Addendum Document Comment . [facility] Work Phone: Comment on above: Protein electrophore sis scan will follow via computer,mail, or media planner / buyer delivery. Centromere B Antibody <0.2 AI 0.0-0.9 [place] Work Phone: Endomysial IgA Antibody Negative Negative [facility] Work Phone: Estimated GFR (MDRD) Amer 106 mL/min >60 [facility] Work Phone: Comment on above: GFR Calc Estimated GFR (MDRD) Non-Af Amer 88 mL/min >60 [facility] Work Phone: Comment on above: Non- GFR Calc Immunoglobulin E 72 IU/mL 6-495 [facility] Work Phone: Comment on above: Performed at: [facility] - [facility] [employer] [address] [id number] Director: Luigi Garibay PhD, Phone: [phone] at: - [facility] [id number] Director: Kiesha Cameron MD, Phone: [phone] Miscellaneous Test See comment [facility] Work Phone: Comment on above: TEST RESULT LIMITSIB D Expanded PanelgASCA 40 units 0-50 Negative <45 Equivocal 45 - 50 Positive >50ACCA 28 units 0-90 Negative <80 Equivocal 80 - 90 Positive >90 ALCA 6 units 0-60 Negative <55 Equivocal 55 - 60 Positive >60AMCA 30 units 0-100 Negative < 90 Equivocal 90 - 100 Positive >100 This test was developed and its performance characteristics determined by [facility]. It has not been cleared or approved by the Food and Drug Administration. The FDA has determined that such clearance or approval is not necessary.Atypical pANCA Negative NegativeCommentsPattern is not suggestive of Inflammatory Bowel Disease. ___ TESTING PERFORMED AT [facility]. ORIGINAL REPORT ON FILE IN LAB CONTAINS ADDITIONAL TEST SITE INFORMATION. AUTOMATION CLERK Antibody 0.8 AI 0.0-0.9 [facility] Work Phone: Platelets bldon 12-23-2021 Platelets (Bld) [#/Vol] 151 10*3/uL 150-450 [facility] Work Phone: Serum DNA double strand anti body assay (units/volume)on 12-23-2021 DNA double strand Ab Qn (S) 2 [IU]/mL 0-9 [facility] Work Phone: Comment on above: Negative <5 Equivoca l 5 - 9 Positive >9 Serum IgA measurement (units /volume)on 12-23-2021 IgA Qn (S) 406 mg/dL 87-352 [facility] Work Phone: Comment on above: Performed at: [address] [id number] Director: Luigi Garibay PhD, Phone: [phone] Serum Reba-1 antibody assay (u nits/volume)on 12-23-2021 Reba-1 extractable nuclear Ab Qn (S) <0.2 AI 0.0-0.9 [facility] Work Phone: Serum Scl-70 extractable nuc lear antibody assay (units/volume)on 12-23-2021 SCL-70 extractable nuclear Ab Qn (S) <0.2 AI 0.0-0.9 [facility] Work Phone: Serum Addison extractable nucl ear antibody detectionon 12-23-2021 Addison extractable nuclear Ab Ql (S) <0.2 AI 0.0-0.9 [facility] Work Phone: Serum mlkbw-8-elxsattv measu rement by electrophoresison 12-23-2021 Alpha 1 globulin Elph [Mass/Vol] 0.3 g/dL 0.0-0.4 [facility] Work Phone: Alpha 1 globulin Elph [Mass/Vol] 0.7 g/dL 0.4-1.0 [facility] Work Phone: Serum globulin measurement ( mass/volume)on 12-23-2021 Globulin (S) [Mass/Vol] 3.1 g/dL 2.2-3.9 [facility] Work Phone: Serum or plasma C reactive p rotein measurement (mass/volume)on 12-23-2021 CRP [Mass/Vol] 4.46 mg/L 0.0-3.0 [facility] Work Phone: Comment on above: C-Reactive Protein ( CRP) provides useful information for thediagnosis, therapy and monitoring of inflammatory processesand associated diseases. For the evaluation of Relative Riskfor Cardiovascular Disease, a High Sensitivity CRP (HSCRP)should be ordered. Serum or plasma IgA measurem ent (mass/volume)on 12-23-2021 IgA [Mass/Vol] 395 mg/dL 87-352 [facility] Work Phone: Serum or plasma IgG measurem ent (mass/volume)on 12-23-2021 IgG [Mass/Vol] 1003 mg/dL [phone] [facility] Work Phone: Serum or plasma IgM measurem ent (mass/volume)on 12-23-2021 IgM [Mass/Vol] 57 mg/dL 26-217 [facility] Work Phone: Serum or plasma albumin elvis urement (mass/volume)on 12-23-2021 Albumin [Mass/Vol] 3.7 g/dL 3.2-5.0 [facility] Work Phone: Serum or plasma albumin/glob ulin mass ratioon 12-23-2021 Albumin/Globulin [Mass ratio] 0.9 {ratio} 0.9-2.4 [facility] Work Phone: Serum or plasma beta globuli n measurement by electrophoresis (mass/volume)on 12-23-2021 Beta globulin Elph [Mass/Vol] 1.2 g/dL 0.7-1.3 [facility] Work Phone: Serum or plasma calcium elvis urement (mass/volume)on 12-23-2021 Calcium [Mass/Vol] 9.0 mg/dL 8.5-10.1 [facility] Work Phone: Serum or plasma creatinine m easurement (mass/volume)on 12-23-2021 Creatinine [Mass/Vol] 0.72 mg/dL 0.55-1.02 [place] Work Phone: Comment on above: The validity of the calculated GFR & GFRAA in patients over 70 years has not been determined. Clinical correlation is essential. Serum or plasma gamma globul in measurement by electrophoresis (mass/volume)on 12-23-2021 Gamma globulin Elph [Mass/Vol] 0.9 g/dL 0.4-1.8 [facility] Work Phone: Serum or plasma immunoelectr ophoresis interpretation (nominal result)on 12-23-2021 Interpretation IEP [Interp] Comment: . [facility] Work Phone: Comment on above: Presence of monoclon al protein is unclear at this time. Suggestrepeat in 3 to 6 months if clinically indicated. Serum or plasma urea nitroge n measurement (mass/volume)on 12-23-2021 Urea nitrogen [Mass/Vol] 14 mg/dL 7-18 [facility] Work Phone: Serum tissue transglutaminas e IgA antibody assay (units/volume)on 12-23-2021 tTG IgA Qn (S) <2 U/mL 0-3 [facility] Work Phone: Comment on above: Negative 0 - 3 Weak Positive 4 - 10 Positive >10 Tissue Transglutaminase (tTG) has been identified as the endomysial antigen. Studies have demonstr- ated that endomysial IgA antibodies have over 99% specificity for gluten sensitive enteropathy. Thin prep Papanicolaou smear with manual screeningon 12-23-2021 Thin prep Papanicolaou smear with manual screening 19 U/L 15-37 [facility] Work Phone: Thin prep Papanicolaou smear with manual screening 6 5-15 [facility] Work Phone: Thin prep Papanicolaou smear with manual screening 206 U/L 84-246 [facility] Work Phone: Thin prep Papanicolaou smear with manual screening 1.3 0.7-1.7 [facility] Work Phone: Total protein bloodon 2021 Protein [Mass/Vol] 7.1 g/dL 6.0-8.5 [facility] Work Phone: MRI LUMBAR SPINE WO/W IVCONo n 08-11-2021 [facility] Coronavirus 2019on 2 SARS-CoV-2 (COVID-19) RNA MONIKA+probe Ql (Unsp spec) Abnormal Negative for COVID19 (SARS CoV2) by RT-PCR or equival [facility] Comment on above: Result Comment: Posi tive for This test was developed and its performance characteristics determined by [facility]'s [facility] [place]. This test has been authorized by FDA under an Emergency Use Authorization (EUA). This test has been validated in accordance with the FDA's Guidance Document Policy for Diagnostics Testing in Laboratories Certified to Perform High Complexity Testing under CLIA prior to Emergency use Authorization for Coronavirus Disease 2019 during the Public Health Emergency issued on May 10, 2019. Test performed by [facility], [facility], [address] [place], [place] [address]. COVID19 (SARS This test was developed and its performance characteristics determined by [facility]. This test has been authorized by FDA under an Emergency Use Authorization (EUA). This test has been validated in accordance with the FDA's Guidance Document Policy for Diagnostics Testing in Laboratories Certified to Perform High Complexity Testing under CLIA prior to Emergency use Authorization for Coronavirus Disease 2019 during the Public Health Emergency issued on May 10, 2019. Test performed by [facility], [address] [place] [id number]. CoV2) by RT-PCR This test was developed and its performance characteristics determined by [facility]. This test has been authorized by FDA under an Emergency Use Authorization (EUA). This test has been validated in accordance with the FDA's Guidance Document Policy for Diagnostics Testing in Laboratories Certified to Perform High Complexity Testing under CLIA prior to Emergency use Authorization for Coronavirus Disease 2019 during the Public Health Emergency issued on May 10, 2019. Test performed by [facility], [facility], [address] [place], [place] [address]. or equivalent This test was developed and its performance characteristics determined by [facility]. This test has been authorized by FDA under an Emergency Use Authorization (EUA). This test has been validated in accordance with the FDA's Guidance Document Policy for Diagnostics Testing in Laboratories Certified to Perform High Complexity Testing under CLIA prior to Emergency use Authorization for Coronavirus Disease 2019 during the Public Health Emergency issued on May 10, 2019. Test performed by [facility], [facility], [address] [place], [place] [address]. ethod.(*) This test was developed and its performance characteristics determined by [facility]'s [facility]. This test has been authorized by FDA under an Emergency Use Authorization (EUA). This test has been validated in accordance with the FDA's Guidance Document Policy for Diagnostics Testing in Laboratories Certified to Perform High Complexity Testing under CLIA prior to Emergency use Authorization for Coronavirus Disease 2019 during the Public Health Emergency issued on May 10, 2019. Test performed by [facility], [facility] [place], [address] [place] [address]. SARS-CoV-2 (COVID-19) RNA MONIKA+probe Ql (Unsp spec) URTS Normal [facility] OMI by IFAon 06-11-2020 OMI Pattern ANANOT Normal [facility] Comment on above: Performed By: #### C CP, ANAIFS #### [facility] Immuno Assay [address] [place] [phone] #### HBA1C, RF #### [facility] Routine Lab [address] [place] [address] OMI Titer Normal Negative [facility] Comment on above: Result Comment: Nega tive Normal range : negatie at <1:80 serum dilution. Performed By: #### C CP, ANAIFS #### [facility] Immuno Assay [address] [place] [phone] #### HBA1C, RF #### [facility] Routine Lab [address] [place] [phone] Nuclear Ab IF (S) [Titer] Negative Normal Negative [facility] Comment on above: Performed By: #### C CP, ANAIFS #### [facility]o [facility] [address] [place] [phone] #### HBA1C, RF #### [facility] Routine Lab [address] [place] [phone] CCP Antibody, IgGon 06-12-19 21 CCP Antibody, IgG <15 Normal <20 [facility] Reference Lab Comment on above: Performed By: #### C CP, ANAIFS #### [facility] Immuno Assay [address] [place] [address] #### HBA1C, RF #### [facility] Routine Lab [address] [place] [address] Hemoglobin A1con 06-10-2020 Glucose [Mass/Vol] 123 mg/dL Normal [facility] Reference Lab Comment on above: Performed By: #### C CP, ANAIFS #### [facility] Immuno Assay [address] [place] [phone] #### HBA1C, RF #### [facility] Routine Lab [address] [place] [address] HbA1c (Bld) [Mass fraction] 5.9 % High 4.3-5.6 [facility] Comment on above: Performed By: #### C CP, ANAIFS #### [facility] Immuno Assay [address] [place] [phone] #### HBA1C, RF #### [facility] Routine Lab [address] [place] [address] Rheumatoid Factoron 06-11-19 21 Rheumatoid Factor <10 Normal <16 [facility] Reference [facility] Comment on above: Performed By: #### C CP, ANAIFS #### [facility] Immuno Assay [address] [place] [phone] #### HBA1C, RF #### [facility] Routine Lab [address] [place] [phone] Final Surgical Pathology Rep [facility] 08-13-2018 Final Surgical Pathology Report . Pathology Reports Accession: Collected Date/Time: Received Date/Time: Pathologist: [id number] 08/09/2018 08:23 EDT 08/12/2018 08:23 EDT DO YOCASTA MUÑOZ Final Surgical Pathology Report DIAGNOSIS: A) SKIN EXCISION, ABDOMEN- PRURIGO NODULARIS. B) SKIN EXCISION, LEFT THIGH- PRURIGO NODULARIS. C) SKIN, LEFT POSTERIOR THIGH- PRURIGO NODULARIS. COMMENT: [facility] [id number] CLINICAL INFORMATION: SKIN LESIONS ABDOMEN AND LEFT LEG SPECIMEN: A SKIN- EPIGASTRIC LESION- ABDOMEN B SKIN- LEFT THIGH LESION C SKIN- LEFT POSTERIOR THIGH LESION GROSS DESCRIPTION: A. Received in formalin labeled a is a 2.2 x 1.2 cm jj skin ellipse excised to a greatest depth of 1.6 cm. The surface is convex and shows a 1.4 x 0.7 cm irregular area. No orientation is given. The specimen is inked, sectioned, and entirely submitted in 3 cassettes. B. Received in formalin labeled B is a 3 x 1.4 cm jj skin ellipse excised to a greatest depth of 0.7 cm. The skin surface is obscured by previously placed blue dye. There is an ill- defined, 1.3 x 0.8 cm focally abraded lesion. No orientation is given. The specimen is inked, sectioned, and entirely submitted in 2 cassettes. C. Received in formalin labeled C is a 3 x 1.8 cm jj skin ellipse excised to a greatest depth of 0.9 cm. The surface shows a 1.7 x 1 cm white to red, focally abraded lesion. No orientation is given. The specimen is inked, sectioned, and entirely submitted in 2 cassettes. Dictated by Zahida RAMÍREZ ([facility]) MICROSCOPIC DESCRIPTION: A-C Slides reviewed. Electronically Signed by Pathology Report verified by [facility] Electronically signed by YOCASTA MUÑOZ DO Sign out Date: 08/13/2018 14:27 Performing Lab: [facility], [address] [place] [address] ([place]) Comment on above: Performed By: #### S PFR #### [place] [address] Vital Signs Date Time Vital Sign Value Performing Clinician Deshawn gonzales 08-11-2024 07:47-0400 Body mass index (BMI) [Ratio] 28.67 kg/m2 Bert Ward MD Work Phone: [facility] 08-11-2024 07:47-0400 Body weight 75.75 kg Bert Ward MD Work Phone: [facility] 08-11-2024 07:47-0400 Diastolic blood pressure 86 mm[Hg] Bert Ward MD Work Phone: [facility] 08-11-2024 07:47-0400 Heart rate 89 /min Bert Ward MD Work Phone: [facility] 08-11-2024 07:47-0400 SaO2% (BldA) [Mass fraction] 97 % Bert Ward MD Work Phone: [facility] 08-11-2024 07:47-0400 Systolic blood pressure 150 mm[Hg] Bert Ward MD Work Phone: [facility] 02-11-2024 07:59-0500 Body height 162.6 cm Bert Ward MD Work Phone: [facility] 02-11-2024 07:59-0500 Body mass index (BMI) [Ratio] 27.49 kg/m2 Bert Ward MD Work Phone: [facility] 02-11-2024 07:59-0500 Body weight 72.65 kg Bert Ward MD Work Phone: [facility] 02-11-2024 07:59-0500 Diastolic blood pressure 75 mm[Hg] Bert Ward MD Work Phone: [facility] 02-11-2024 07:59-0500 Heart rate 85 /min Bert Ward MD Work Phone: [facility] 02-11-2024 07:59-0500 Respiratory rate 18 /min Bert Ward MD Work Phone: [facility] 02-11-2024 07:59-0500 SaO2% (BldA) [Mass fraction] 97 % Bert Ward MD Work Phone: [facility] 02-11-2024 07:59-0500 Systolic blood pressure 111 mm[Hg] Bert Ward MD Work Phone: [facility] 10-08-2023 08:48-0400 Body height 162.6 cm Bert Ward MD Work Phone: [facility] 10-08-2023 08:48-0400 Body mass index (BMI) [Ratio] 28.32 kg/m2 Bert Ward MD Work Phone: [facility] 10-08-2023 08:48-0400 Body weight 74.84 kg Bert Ward MD Work Phone: [facility] 10-08-2023 08:48-0400 Diastolic blood pressure 86 mm[Hg] Bert Ward MD Work Phone: [facility] 10-08-2023 08:48-0400 Heart rate 81 /min Bert Ward MD Work Phone: [facility] 10-08-2023 08:48-0400 Respiratory rate 16 /min Bert Ward MD Work Phone: [facility] 10-08-2023 08:48-0400 SaO2% (BldA) [Mass fraction] 93 % Bert Ward MD Work Phone: [facility] 10-08-2023 08:48-0400 Systolic blood pressure 145 mm[Hg] Bert Ward MD Work Phone: [facility] 04-04-2023 18:28-0500 Body temperature 97.5 [degF] Dr. Shae Mendez Work Phone: [facility] 04-04-2023 18:28-0500 Diastolic blood pressure 64 mm[Hg] Dr. Shae Mendez Work Phone: [facility] 04-04-2023 18:28-0500 Heart rate 93 /min Dr. Shae Mendez Work Phone: [facility] 04-04-2023 18:28-0500 Respiratory rate 18 /min Dr. Shae Mendez Work Phone: [facility] 04-04-2023 18:28-0500 SaO2% (BldA) [Mass fraction] 92 % Dr. Shae Mendez Work Phone: [facility] 04-04-2023 18:28-0500 Systolic blood pressure 121 mm[Hg] Dr. Shae Mendez Work Phone: [facility] 04-04-2023 15:45-0500 Inhaled oxygen flow rate 2 L/min Dr. Shae Mendez Work Phone: [facility] 04-04-2023 09:12-0500 Body height 162.[address] Shae Mendez Work Phone: [facility] 04-04-2023 09:12-0500 Body mass index (BMI) [Ratio] 29.5 kg/m2 Dr. Shae Mendez Work Phone: [facility] 04-04-2023 09:12-0500 Body weight [address] Shae Mendez Work Phone: [facility] 04-14-2022 08:38-0500 Body height 162.6 cm Chelsie Belle APRN.SCHEDULE ANALYST Work Phone: [facility] 04-14-2022 08:38-0500 Body weight 78.02 kg Chelsie Belle APRN.SCHEDULE ANALYST Work Phone: [facility] 04-14-2022 08:38-0500 Diastolic blood pressure 72 mm[Hg] Chelsie Belle TRUCK CLEANER.SCHEDULE ANALYST Work Phone: [facility] 04-14-2022 08:38-0500 Heart rate 87 /min Chelsie Belle APRN.SCHEDULE ANALYST Work Phone: [facility] 04-14-2022 08:38-0500 SaO2% (BldA) [Mass fraction] 96 % Chelsie Belle TRUCK CLEANER.SCHEDULE ANALYST Work Phone: [facility] 04-14-2022 08:38-0500 Systolic blood pressure 140 mm[Hg] Chelsie Belle TRUCK CLEANERAlcidesSCHEDULE ANALYST Work Phone: [facility] 02-15-2022 09:36-0500 Body temperature 97.8 [degF] Dr. Kirby Mcclain Work Phone: [facility] Work Phone: 02-15-2022 09:36-0500 Diastolic blood pressure 56 mm[Hg] Dr. Kirby Mcclain Work Phone: [facility] Work Phone: 02-15-2022 09:36-0500 Heart rate 72 /min Dr. Kirby Mcclain Work Phone: [facility] Work Phone: 02-15-2022 09:36-0500 Respiratory rate 18 /min Dr. Kirby Mcclain Work Phone: [facility] Work Phone: 02-15-2022 09:36-0500 SaO2% (BldA) [Mass fraction] 98 % Dr. Kirby Mcclain Work Phone: [facility] Work Phone: 02-15-2022 09:36-0500 Systolic blood pressure 138 mm[Hg] Dr. Kirby Mcclain Work Phone: [facility] Work Phone: 02-15-2022 08:04-0500 Body height 162.[address] Kirby Mcclain Work Phone: [facility] Work Phone: 02-15-2022 08:04-0500 Body mass index (BMI) [Ratio] 27.6 kg/m2 Dr. Kirby Mcclain Work Phone: [facility] Work Phone: 02-15-2022 08:04-0500 Body weight [address] Kirby Mcclain Work Phone: [facility] Work Phone: 12-23-2021 08:44-0400 Diastolic blood pressure 98 mm[Hg] Dr. Kirby Mcclain Work Phone: [facility] Work Phone: 12-23-2021 08:44-0400 Systolic blood pressure 140 mm[Hg] Dr. Kirby Mcclain Work Phone: [facility] Work Phone: 12-23-2021 07:55-0400 Body height 162.[address] Kirby Mcclain Work Phone: [facility] Work Phone: 12-23-2021 07:55-0400 Body mass index (BMI) [Ratio] 28.6 kg/m2 Dr. Kirby Mcclain Work Phone: [facility] Work Phone: 12-23-2021 07:55-0400 Body weight 75.[address] Kirby Mcclain Work Phone: [facility] Work Phone: 12-23-2021 07:55-0400 Heart rate 68 /min Dr. Kirby Mcclain Work Phone: [facility] Work Phone: 12-23-2021 07:55-0400 SaO2% (BldA) [Mass fraction] 96 % Dr. Kirby Mcclain Work Phone: [facility] Work Phone: 08-11-2021 11:11-0400 Body height 162.6 cm Mary Curtis MD Work Phone: [facility] 08-11-2021 11:11-0400 Body weight 76.5 kg Mary Curtis MD Work Phone: [facility] 08-11-2021 11:11-0400 Diastolic blood pressure 84 mm[Hg] Mary Curtis MD Work Phone: [facility] 08-11-2021 11:11-0400 Heart rate 76 /min Mary Curtis MD Work Phone: [facility] 08-11-2021 11:11-0400 SaO2% (BldA) [Mass fraction] 97 % Mary Curtis MD Work Phone: [facility] 08-11-2021 11:11-0400 Systolic blood pressure 138 mm[Hg] Mary Curtis MD Work Phone: [facility] 07-21-2021 08:58-0400 Body height 162.6 cm Tacos Jules PA-C Work Phone: [facility] 07-21-2021 08:58-0400 Body weight 76.2 kg Tacos Jules PA-C Work Phone: [facility] 07-21-2021 08:58-0400 Diastolic blood pressure 81 mm[Hg] Tacos Jules PA-C Work Phone: [facility] 07-21-2021 08:58-0400 Heart rate 88 /min Tacos Jules PA-C Work Phone: [facility] 07-21-2021 08:58-0400 Respiratory rate 16 /min Tacos Jules PA-C Work Phone: [facility] 07-21-2021 08:58-0400 SaO2% (BldA) [Mass fraction] 98 % Tacos Jules PA-C Work Phone: [facility] 07-21-2021 08:58-0400 Systolic blood pressure 132 mm[Hg] Tacos Jules PA-C Work Phone: [facility] Encounters Encounter Date Encounter Type Care Provider Facility Start: 12-31-2024 End: 12-31-2024 ambulatory SHAE MENDEZ [facility] Start: 12-25-2024 End: 12-25-2024 ambulatory PAOLA JAIN [facility] Start: 12-25-2024 End: 12-25-2024 ambulatory SHAE MENDEZ [facility] Start: 12-18-2024 ambulatory SHAE Mitchell [facility] Start: 12-03-2024 End: 12-03-2024 ambulatory SHAE GIVENS QUINN [facility] Start: 10-20-2024 End: 10-21-2024 ambulatory YASSER MD OMRAN [facility] Start: 10-20-2024 Emergency department patient visit MACK RODRIGUEZ [facility] Start: 09-11-2024 End: 09-11-2024 ambulatory [facility] Facility:[facility] Start: 09-03-2024 End: 09-03-2024 Telephone encounter Pippa Ness APRN.SCHEDULE ANALYST Work Phone: [facility] [place] Comment on above: Cardiac Clearance Start: 08-18-2024 End: 08-18-2024 ambulatory JEWELS DAIJA BARRERA Facility:[facility] Start: 08-14-2024 End: 10-14-2024 Follow-up encounter Pippa Ness APRN.SCHEDULE ANALYST Work Phone: [facility] Comment on above: Results Start: 08-13-2024 End: 08-13-2024 Patient encounter procedure [facility] Provider [facility] Department Start: 08-13-2024 End: 08-13-2024 ambulatory [facility] Facility[facility] Start: 08-11-2024 End: 09-23-2024 Patient encounter procedure Bert Ward MD Work Phone: [facility] Comment on above: Coronary artery dise ase involving [place] coronary artery of [place] heart without angina pectoris (Primary Dx); Mixed hyperlipidemia; Primary hypertension; Pulmonary embolism on right (HCC); Embolus to lower extremity (HCC); HERNANDEZ (dyspnea on exertion) Refill Request Start: 08-11-2024 End: 08-11-2024 ambulatory BERT WARD Facility:[facility] Start: 06-06-2024 End: 06-06-2024 ambulatory SABI LAWS [facility] Start: 04-15-2024 End: 04-18-2024 ambulatory SHAE GIVENS QUINN [facility] Start: 02-11-2024 End: 02-11-2024 Patient encounter procedure Bert Ward MD Work Phone: [facility] Comment on above: Primary hypertension (Primary Dx); Mixed hyperlipidemia; Panlobular emphysema (HCC); Chronic anticoagulation; Pulmonary embolism on right (HCC) Start: 02-11-2024 End: 02-11-2024 ambulatory BERT ANABEL WARD Facility:[facility] Start: 02-09-2024 End: 02-09-2024 Emergency department patient visit CRISTOFER Mckeon MAYANKINDIGO [facility] Start: 02-01-2024 End: 02-03-2024 Evaluation and management of inpatient VIKTOR SOMMER [facility] Start: 01-28-2024 End: 01-28-2024 Telephone encounter Chelsie Belle APRN.SCHEDULE ANALYST Work Phone: [facility] [place] Comment on above: Results Start: 01-28-2024 End: 01-28-2024 Nursing evaluation of patient and report Nurse Card Admin [facility] Work Phone: Cardiology Comment on above: HERNANDEZ (dyspnea on exer tion); Mixed hyperlipidemia; Pulmonary embolism on right (HCC); Panlobular emphysema (HCC); Coronary artery disease due to lipid rich plaque; Pre-operative cardiovascular examination Start: 01-28-2024 End: 01-28-2024 Patient encounter status Nurse Card Admin [facility] Work Phone: [facility] Start: 01-28-2024 End: 01-28-2024 ambulatory [facility] Facility[facility] Start: 01-28-2024 End: 01-28-2024 ambulatory [facility] Facility:[facility] Start: 01-28-2024 Encounter for preprocedural cardiovascular examination [facility] Start: 01-28-2024 End: 01-28-2024 Patient encounter status Injection Wstr Work Phone: [facility] Start: 01-28-2024 End: 01-28-2024 Subsequent hospital visit by physician [facility] Work Phone: Nuclear Medicine Comment on above: HERNANDEZ (dyspnea on exer tion) [R06.09] Start: 01-22-2024 End: 01-24-2024 Telephone encounter Nurse Card Admin [facility] Work Phone: Cardiology Comment on above: Stress Test Instruct ions for 01/28/24 Start: 01-21-2024 End: 01-21-[facility]: 10-08-[facility]23 Telephone encounter Bert Ward MD Work Phone: [facility] Comment on above: Orders (Lab orders) Start: 10-08-2023 End: 10-08-2023 Patient encounter procedure Bert Ward MD Work Phone: [facility] Comment on above: HERNANDEZ (dyspnea on exer tion) (Primary Dx); Mixed hyperlipidemia; Pulmonary embolism on right (HCC); Panlobular emphysema (HCC); Coronary artery disease due to lipid rich plaque; Pre-operative cardiovascular examination Start: 10-08-2023 End: 10-08-2023 Patient encounter status Bert Ward MD Work Phone: [facility] Start: 10-08-2023 End: 10-08-2023 ambulatory BERT WARD Facility:[facility] Start: 10-08-2023 Encounter for preprocedural cardiovascular examination BERT WARD [facility] Start: 10-08-2023 End: 10-08-2023 ambulatory Anastasialubna Mendez Facility:[facility] Start: 10-01-2023 Telephone encounter Bert Ward MD Work Phone: [facility] [place] Comment on above: Cardiac Clearance Start: 08-28-2023 ambulatory Shae Mendez Facility:[facility] Start: 05-03-2023 End: 05-03-[address] Shae Mendez Work Phone: [facility] Work Phone: Start: 05-03-2023 End: 05-03-[address] Shae Mendez Work Phone: [facility], [facility] Work Phone: Start: 05-03-2023 End: 05-03-2023 ambulatory Shae Mendez Facility:[facility] Start: 04-19-2023 End: 04-19-[address] Shae Mendez Work Phone: [facility] Work Phone: Start: 04-19-2023 End: 04-19-[address] Shae Mendez Work Phone: [facility] Specimen Work Phone: Start: 04-19-2023 End: 04-19-2023 ambulatory Shae Mendez Facility:[facility] Start: 04-04-2023 End: 04-04-2023 Admission to same day surgery center Dr. Shae Mendez Work Phone: [facility] Start: 04-04-2023 End: 04-04-[address] Shae Mendez Work Phone: [facility] Work Phone: Start: 03-27-2023 End: 03-27-2023 ambulatory Shae Mendez Facility:[facility] Start: 03-27-2023 End: 03-27-2023 Non-patient / Non-visit Dr. Shae Mendez Work Phone: [facility] Work Phone: Start: 04-18-2022 Patient encounter procedure [facility] Provider [facility] Start: 04-14-2022 End: 04-14-2022 Patient encounter procedure Chelsie Belle APRN.SCHEDULE ANALYST Work Phone: [facility] [place] Comment on above: PVD (peripheral vasc ular disease) (HCC) (Primary Dx); Coronary artery disease involving [place] heart without angina pectoris, unspecified vessel or lesion type; PAT (paroxysmal atrial tachycardia) (HCC); Chronic anticoagulation; Mixed hyperlipidemia Start: 03-07-2022 Refill Chelsie Belle APRN.SCHEDULE ANALYST Work Phone: [facility] [place] Comment on above: Refill Request Start: 03-07-2022 Telephone encounter Bert Ward MD Work Phone: [facility] Comment on above: Appointment Start: 02-15-2022 Non-patient / Non-visit Dr. Christophe Mcclain Work Phone: [facility] Start: 02-15-2022 End: 02-15-2022 Admission to same day surgery center Dr. Kirby Mcclain Work Phone: [facility] Start: 02-15-2022 End: 02-15-[address] Kirby Mcclain Work Phone: [facility] Work Phone: Start: 01-17-2022 Refill Bert Ward MD Work Phone: [facility] Cardiology [place] Comment on above: Opened In Error Start: 12-23-2021 End: 12-23-[address] Kirby Mcclain Work Phone: [facility] Work Phone: Start: 12-23-2021 End: 12-23-[address] Kirby Mcclain Work Phone: [facility] Start: 12-23-2021 End: 12-23-[address] Kirby Mcclain Work Phone: [facility] Gastroenterology Start: 08-11-2021 End: 08-11-2021 Patient encounter procedure Mary Camacho MD Work Phone: [facility] Comment on above: Acute midline low ba ck pain with bilateral sciatica (Primary Dx); Spinal stenosis of lumbar region without neurogenic claudication Start: 08-11-2021 End: 08-11-2021 Subsequent hospital visit by physician Mri [place] Ross Carrier Driver [employer] [facility] [employer] WATCH[employer] Comment on above: Abnormal findings on diagnostic imaging of other parts of musculoskeletal system [R93.7] Start: 07-21-2021 End: 07-21-2021 Subsequent hospital visit by physician Xr [place] Ross Carrier Driver [employer] GENERAL [employer] [employer] WATCH[employer] Comment on above: Lumbar spondylosis [ M47.816] Start: 07-21-2021 End: 07-21-2021 Patient encounter procedure Tacos Jules PA-C Work Phone: [facility] Comment on above: Lumbar spondylosis ( Primary Dx); Abnormal findings on diagnostic imaging of other parts of musculoskeletal system Start: 06-28-2018 End: 06-28-2018 Patient encounter procedure BERT X WARD Facility:[facility] Start: 06-14-2018 Patient encounter procedure BERT X WARD Facility:[facility] Start: 03-14-2018 End: 03-14-2018 Patient encounter procedure BERT X WARD Facility:[facility] Start: 01-04-2018 Patient encounter procedure BERT X WARD Facility:[facility] Procedures Date Procedure Procedure Detail Performing Clinician Start: 12-03-2024 Urinalysis CRISTOFER CONKLIN Comment on above: Result Comment: URIN ALYSIS Performed By: #### 2 [id number] ####[place] [address] Start: 10-20-2024 Urinalysis CRISTOFER CONKLIN Comment on above: Result Comment: URIN ALYSIS Performed By: #### 2 [id number] ####[place] [address] Start: 08-13-2024 Lipid 1996 panel - S tiffanie or Plasma Pippa Ness TRUCK CLEANER.SCHEDULE ANALYST Work Phone: Start: 04-15-2024 Urinalysis CRISTOFER CONKLIN Comment on above: Result Comment: URIN ALYSIS Performed By: #### 2 [id number] ####[place] [address] Start: 02-09-2024 Urinalysis CRISTOFER CONKLIN Comment on above: Result Comment: URIN ALYSIS Performed By: #### 2 [id number] ####[place] [address] Start: 02-01-2024 Urinalysis CRISTOFER CONKLIN Comment on above: Result Comment: URIN ALYSIS Performed By: #### 2 [id number] ####[facility],[address] [place] [address] Start: 01-28-2024 Myocardial spect mul tiple studies Bert Ward MD Work Phone: Start: 05-03-2023 Computed tomography of abdomen and pelvis with contrast Dr. Shae Mendez Work Phone: Start: 04-19-[address] Noreen Mendez Work Phone: Start: 04-04-2023 Plain chest X-ray Dr. London Mendez Work Phone: Start: 04-04-2023 Cysto,Fascia Vaginal Sling (Not Applicable) Dr. Shae Mendez Work Phone: Start: 02-15-[address] Kirby Mcclain Work Phone: Start: 08-11-2021 Mri spinal canal lum bar w/o & w/contr matrl Tacos Jules PA-C Work Phone: Start: 07-21-2021 Radex spine lumbosac ral minimum 4 views Tacos Jules PA-C Work Phone: Start: 10-03-2019 Mammography Tacos borrero PA-C Work Phone: Start: 08-08-2019 Lipid 1996 panel - S tiffanie or Plasma Bert Ward MD Work Phone: Plan of Treatment Date Care Activity Detail Author Start: 08-13-2029 Lipid panel Lipid Screening [facility] Start: 08-14-2027 Diabetes Screening Diabetes Screening [facility] Start: 2025 Pneumococcal vaccination Pneumococcal Vaccine (3 of 3 - PPSV23 or PCV20) [facility] Start: 10-30-2025 Diabetes Screening Diabetes Screening [facility] Start: 08-13-2025 Hepatitis B surface antibody level LDL Cholesterol [facility] Start: 02-10-2025 BP Controlled (<130/80) BP Controlled (<130/80) [facility] Start: 11-10-2024 Influenza vaccination Influenza Vaccine (#1) [facility] Start: 09-22-2024 End: 09-22-2024 Patient encounter procedure 09/22/2024 7:30 AM EDT Office Visit [facility] [address] [place] [address] Pippa Ness APRN.SCHEDULE ANALYST [address] [place], [place] [phone] (Fax) 6wk CAD srs [facility] Comment on above: 6wk CAD srs Start: 09-11-2024 End: 09-11-2024 Patient encounter procedure 09/11/2024 8:00 AM EDT Office Visit Cardiology [address] [place] [address] ECHO Cardiology Comment on above: ECHO Start: 08-18-2024 End: 08-18-2024 Admission to same day surgery center 08/18/2024 8:00 AM EDT - 08/18/2024 9:30 AM EDT Surgery [place] 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 [address] [place] [address] Jewels Barrera MD [address] [place] [phone] (Fax) LEFT HEART CATH INTRAPROCEDURAL INJECT W/ LEFT VENTRICULOGRAPHY IMAGE SUPERVISION/INTERPRETATIO N [place] 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 Comment on above: LEFT HEART CATH INTRAPROCEDURAL INJECT W / LEFT VENTRICULOGRAPHY IMAGE SUPERVISION/INTERPRETATION Start: 08-18-2024 End: 08-18-2024 L hrt cath w/njx l ventriculography img s&i LEFT HEART CATH INTRAPROCEDURAL INJECT W/ LEFT VENTRICULOGRAPHY IMAGE SUPERVISION/INTERPRETATIO N Dyspnea on exertion 08/18/2024 8:00 AM EDT [place] 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 Start: 08-18-2024 Subsequent hospital visit by physician 08/18/2024 8:00 AM EDT Hospital Encounter [place] 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 [address] [place] [address] Jewels Barrera MD [address] [place] [address] Dyspnea on exertion [R06.09] [place] 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 Comment on above: Dyspnea on exertion [R06.09] Start: 08-11-2024 End: 08-11-2025 CBC panel - Blood by Automated count COMPLETE BLOOD COUNT Lab Routine Coronary artery disease involving [place] coronary artery of [place] heart without angina pectoris Mixed hyperlipidemia Primary hypertension Pulmonary embolism on right (HCC) Embolus to lower extremity (HCC) HERNANDEZ (dyspnea on exertion) Expected: 08/11/2024, Expires: 08/11/2025 [facility] Comment on above: Expected: 08/11/2024, Expires: Start: 08-11-2024 End: 08-11-2025 Comprehensive metabolic 2000 panel - Serum or Plasma COMPREHENSIVE METABOLIC PANEL Lab Routine Coronary artery disease involving [place] coronary artery of [place] heart without angina pectoris Mixed hyperlipidemia Primary hypertension Pulmonary embolism on right (HCC) Embolus to lower extremity (HCC) HERNANDEZ (dyspnea on exertion) Expected: 08/11/2024, Expires: 08/11/2025 [facility] Comment on above: Expected: 08/11/2024, Expires: Start: 08-11-2024 End: 11-10-2024 Lipid 1996 panel - Serum or Plasma LIPID PANEL, FASTING Lab Routine Coronary artery disease involving [place] coronary artery of [place] heart without angina pectoris Mixed hyperlipidemia Primary hypertension Pulmonary embolism on right (HCC) Embolus to lower extremity (HCC) HERNANDEZ (dyspnea on exertion) Expected: 08/11/2024, Expires: 11/10/2024 [facility] Work Phone: Comment on above: Expected: 08/11/2024, Expires: Start: 08-11-2024 End: 08-11-2024 Patient encounter procedure 08/11/2024 8:00 AM EDT Office Visit [facility] Zeke Billy [address] [place] [address] Bert Ward MD [address] [place] [address] 6 month follow up [facility] Zeke Billy Comment on above: 6 month follow up Start: 08-07-2024 Lipid panel Lipid Screening [facility] Start: 08-07-2024 LIPID SCREEN LIPID SCREEN [facility] Start: 06-08-2024 DIABETES SCREEN DIABETES SCREEN [facility] Start: 02-11-2024 End: 02-11-2024 Patient encounter procedure [facility] Zeke Billy Comment on above: overdue 2 month follow up r;/s srs overdue 2 month foll ow up r;/s srs jt Start: 01-28-2024 End: 01-28-2024 Nursing evaluation of patient and report 01/28/2024 8:45 AM EST Nurse Visit Cardiology [address] [place] [phone] Wstr, Nurse Card Admin [facility] [address] [place] [address] HERNANDEZ (dyspnea on exertion) [R06.09]; Mixed hyperlipidemia [E78.2]; Pulmonary embolism on right (HCC) [I26.99]; Panlobular emphysema (HCC) [J43.1]; Coronary artery disease due to lipid rich plaque [I25.10, I25.83]; Pre-operative cardiovascular examination [Z01.810] Cardiology Comment on above: HERNANDEZ (dyspnea on exertion) [R06.09]; Mixe d hyperlipidemia [E78.2]; Pulmonary embolism on right (HCC) [I26.99]; Panlobular emphysema (HCC) [J43.1]; Coronary artery disease due to lipid rich plaque [I25.10, I25.83]; Pre-operative cardiovascular examination [Z01.810] Start: 01-28-2024 End: 01-28-2024 Patient encounter procedure [facility] Comment on above: HERNANDEZ (dyspnea on exertion) [R06.09]; Mixe d hyperlipidemia [E78.2]; Pulmonary embolism on right (HCC) [I26.99]; Panlobular emphysema (HCC) [J43.1]; Coronary artery disease due to lipid rich plaque [I25.10, I25.83]; Pre-operative cardiovascular examination [Z01.810] Start: 01-11-2024 Pneumococcal Vaccine: 50+ (3 of 3 - PCV20 or PCV21) Pneumococcal Vaccine: 50+ (3 of 3 - PCV20 or PCV21) [facility] Start: 12-17-2023 End: 12-17-2023 Patient encounter procedure 12/17/2023 8:00 AM EDT Office Visit [facility] [address] [place] [address] Bert Ward MD [address] [place] [address] 2 month follow up [facility] Comment on above: 2 month follow up Start: 11-11-2023 Covid-19 Vaccine () Covid-19 Vaccine () [facility] Start: 11-11-2023 Influenza vaccination Influenza Vaccine (#1) [facility] Start: 10-08-2023 End: 10-07-2024 CBC panel - Blood by Automated count COMPLETE BLOOD COUNT Lab Routine HERNANDEZ (dyspnea on exertion) Mixed hyperlipidemia Coronary artery disease due to lipid rich plaque Expected: 10/08/2023, Expires: 10/07/2024 [facility] Comment on above: Expected: 10/08/2023, Expires: Start: 10-08-2023 End: 10-07-2024 Comprehensive metabolic 2000 panel - Serum or Plasma COMPREHENSIVE METABOLIC PANEL Lab Routine HERNANDEZ (dyspnea on exertion) Mixed hyperlipidemia Coronary artery disease due to lipid rich plaque Expected: 10/08/2023, Expires: 10/07/2024 [facility] Comment on above: Expected: 10/08/2023, Expires: Start: 10-08-2023 End: 10-07-2024 Lipid 1996 panel - Serum or Plasma LIPID PANEL BASIC Lab Routine HERNANDEZ (dyspnea on exertion) Mixed hyperlipidemia Coronary artery disease due to lipid rich plaque Expected: 10/08/2023, Expires: 10/07/2024 [facility] Comment on above: Expected: 10/08/2023, Expires: Start: 10-08-2023 End: 10-08-2023 Patient encounter procedure 10/08/2023 9:00 AM EDT Office Visit [facility] [address] [place] [address] Bert Ward MD [address] [place] [address] Overdue f/u, clearance for pain managment procedure, date TBD. Clearance scanned in. [facility] Comment on above: Overdue f/u, clearance for pain managmen t procedure, date TBD. Clearance scanned in. Start: 04-04-2023 Anes extraperitoneal lwr abd w/urinary tract nos ANESTH SURGERY OF ABDOMEN [facility] Start: 04-04-2023 Laparoscopy urethral suspension stress incont LAPARO URETHRAL SUSPENSION [facility] Start: 04-04-2023 End: 04-04-2023 [facility] Start: 04-04-2023 Patient discharge [facility] Start: 04-04-2023 Ambulation without limitation [facility] Start: 04-04-2023 Medication education [facility] Start: 04-04-2023 Planned voiding [facility] Start: 04-04-2023 Taking patient vital signs [facility] Start: 04-04-2023 [facility] Start: 03-12-2023 Behavioral Health Screening Behavioral Health Screening [facility] Start: 11-10-2022 Covid-19 Vaccine () Covid-19 Vaccine () [facility] Start: 04-14-2022 End: 06-14-2022 CBC W Auto Differential panel - Blood CBC + DIFF Lab Routine Chronic anticoagulation Expected: 04/14/2022, Expires: 06/14/2022 [facility] Work Phone: Comment on above: Expected: 04/14/2022, Expires: 3 Start: 04-14-2022 End: 06-14-2022 Hepatic function 2000 panel - Serum or Plasma HEPATIC FUNCTION PNL Lab Routine Mixed hyperlipidemia Expected: 04/14/2022, Expires: 06/14/2022 [facility] Work Phone: Comment on above: Expected: 04/14/2022, Expires: 3 Start: 04-14-2022 End: 06-14-2022 Lipid 1996 panel - Serum or Plasma LIPID PANEL BASIC Lab Routine Mixed hyperlipidemia Expected: 04/14/2022, Expires: 06/14/2022 [facility] Work Phone: Comment on above: Expected: 04/14/2022, Expires: 3 Start: 03-12-2022 DEPRESSION ASSESSMENT DEPRESSION ASSESSMENT [facility] Start: 02-15-2022 Patient discharge [facility] Work Phone: Start: 12-23-2021 Immunoglobulin measurement [facility] Work Phone: Start: 12-23-2021 Serum immunofixation [facility] Work Phone: Start: 11-10-2021 Influenza vaccination [facility] Start: 11-06-2021 Urine microalbumin profile DTaP,Tdap,Td Vaccine (2 - Td or Tdap) [facility] Start: 03-12-2021 DEPRESSION ASSESSMENT DEPRESSION ASSESSMENT [facility] Start: 2020 RSV Vaccine (1 - 1-dose 60+ series) RSV Vaccine (1 - 1-dose 60+ series) [facility] Start: 2020 RSV Vaccine (1 - Risk 60-74 years 1-dose series) RSV Vaccine (1 - Risk 60-74 years 1-dose series) [facility] Start: 11-24-2020 COVID-19 VACCINE (3 - Booster for Moderna series) COVID-19 VACCINE (3 - Booster for Moderna series) [facility] Start: 10-02-2020 Mammography MAMMOGRAM [facility] Start: 10-02-2020 Screening for malignant neoplasm of breast Mammogram Screening [facility] Start: 08-19-2020 COVID-19 VACCINE (3 - Booster for Moderna series) COVID-19 VACCINE (3 - Booster for Moderna series) [facility] Start: 08-07-2020 Hepatitis B surface antibody level LDL CHOLESTEROL [facility] Start: 2010 SHINGRIX VACCINE (1 of 2) SHINGRIX VACCINE (1 of 2) [facility] Start: 2005 COLOGUARD (FIT-DNA) COLOGUARD (FIT-DNA) [facility] Start: 2005 Colonoscopy COLONOSCOPY [facility] Start: 2005 COLORECTAL CANCER SCREENING COLORECTAL CANCER SCREENING [facility] Start: [address] COLONOGRAPHY [facility] Start: 2005 FECAL OCCULT BLOOD FECAL OCCULT BLOOD [facility] Start: 2005 Screening for malignant neoplasm of colon [facility] Start: 2005 SIGMOIDOSCOPY SIGMOIDOSCOPY [facility] Start: 1990 HPV TESTING HPV TESTING [facility] Start: 1990 Zoledronic acid therapy ALPHA-1 ANTITRYPSIN DEFICIENCY SCREENING [facility] Start: 1981 PAP TESTING PAP TESTING [facility] Start: 1981 Screening for malignant neoplasm of cervix Cervical Cancer Screening [facility] Start: 11-27-1979 Urine microalbumin profile DTAP,TDAP,TD (1 - Tdap) [facility] Start: 1978 ANNUAL PCP TEAM CHRONIC DISEASE VISIT ANNUAL PCP TEAM CHRONIC DISEASE VISIT [facility] Start: 1978 Anxiety Screening Anxiety Screening [facility] Start: 1978 BP CONTROLLED (<130/80) BP CONTROLLED (<130/80) [facility] Start: 1978 Depression Screening Depression Screening [facility] Start: 1978 HEPATITIS C SCREENING HEPATITIS C SCREENING [facility] Start: 1978 Hepatitis C screening Hepatitis C Screening [facility] Start: 1978 HIV SCREENING HIV SCREENING [facility] Start: 1978 HIV screening HIV Screening [facility] Start: 1978 SPIROMETRY SPIROMETRY [facility] Start: 1972 Adult depression screening assessment DEPRESSION SCREENING [facility] Start: 1966 PNEUMOCOCCAL (1 - PCV) PNEUMOCOCCAL (1 - PCV) [facility] ic Albumin [Moles/volum e] in Serum or Plasma [facility] Work Phone: Albumin/Globulin ratio [facility] Work Phone: ECG B/O W INTERP (ME D OFFICE) ECG B/O W INTERP (MED OFFICE) ECG Routine Pre-operative cardiovascular examination Ordered: 10/08/2023 [facility] Work Phone: Comment on above: Ordered: 10/08/2023 End: 08-11-2025 Echocardiography ECHO Cardiology Routine HERNANDEZ (dyspnea on exertion) 1 Occurrences starting 08/11/2024 until 08/11/2025 [facility] Comment on above: 1 Occurrences starting 08/11/2024 until 08/11/2025 Electrophoresis: [id number] [facility] Work Phone: Electrophoresis: torres ma globulin [facility] Work Phone: Globulin measurement [facility] Work Phone: IgA [Mass/volume] in Serum or Plasma [facility] Work Phone: IgE [Units/volume] i n Serum or Plasma [facility] Work Phone: IgG [Mass/volume] in Serum or Plasma [facility] Work Phone: IgM [Mass/volume] in Serum or Plasma [facility] Work Phone: Lactoferrin [Presenc e] in Stool by Immunoassay [facility] Work Phone: End: 08-20-2022 Mri spinal canal lumbar w/o & w/contr matrl MRI LUMBAR SPINE WO/W IVCON Radiology Routine Abnormal findings on diagnostic imaging of other parts of musculoskeletal system 1 Occurrences starting 07/21/2021 until 08/20/2022 [facility] Work Phone: Comment on above: 1 Occurrences starting 07/21/2021 until 08/20/2022 End: 11-06-2024 NM Heart Perfusion W stress and W radionuclide IV NM CARDIAC PERF STRESS/PHARM Radiology Routine HERNANDEZ (dyspnea on exertion) Mixed hyperlipidemia Pulmonary embolism on right (HCC) Panlobular emphysema (HCC) Coronary artery disease due to lipid rich plaque Pre-operative cardiovascular examination 1 Occurrences starting 10/08/2023 until 11/06/2024 [facility] Comment on above: 1 Occurrences starting 10/08/2023 until 11/06/2024 Patient referral [facility] Work Phone: Protein electrophore sis panel - Serum or Plasma [facility] Work Phone: Protein measurement [facility] Work Phone: Radex spine lumbosac ral minimum 4 views XR LUMBAR MOTION 4V AP/LAT/ FLEX/EXT Radiology Routine Lumbar spondylosis 07/21/2021 9:49 AM EDT [facility] Work Phone: Serum protein electrophoresis [facility] Work Phone: [facility] Immunizations Immunization Date Immunization Notes Care Provider Fa [facility] 01-29-2024 influenza virus vacc ine, unspecified formulation Bert Ward MD Work Phone: [facility] 01-06-2022 influenza virus vacc ine, unspecified formulation Bert Ward MD Work Phone: [facility] Payers Date Payer Category Payer Self-pay [id number] 2021 [employer] BLUE ACCE PPO [id number] 2021 Unknown [employer] BLUE ACCE SS PPO [id number] 2021-Present [phone] [id number] 2021 Unknown ANTHEM BLUE ACCE SS PPO [id number] 2021-Present [phone] [address] [facility] [id number] 2013 Unknown [id number] 1960 Unknown [id number] 2.16.840.1.199892.3.579. 2.278 1960 Unknown [id number] 2.16.840.1.784354.3.579. 2.278 1960 Unknown [id number] 2.16.840.1.734062.3.579. 2.278 1960 Unknown [id number] 2.16.840.1.523404.3.579. 2.278 1960 Unknown [id number] 2.16.840.1.973457.3.579. 2.65 1960 Unknown [id number] 2.16.840.1.399246.3.579. 2.65 1960 Unknown [id number] 2.16.840.1.975055.3.579. 2.65 1960 Unknown [id number] 2.16.840.1.171124.3.579. 2.651 1960 Unknown [id number] 2.16.840.1.283377.3.579. 2.651 1960 Unknown [id number] 2.16.840.1.016929.3.579. 2.651 1960 Unknown [id number] 2.16.840.1.288830.3.579. 2.651 1960 Unknown [id number] 2.16.840.1.250522.3.579. 2.651 1960 Unknown [id number] 2.16.840.1.567417.3.579. 2.651 1960 Unknown [id number] 2.16.840.1.652487.3.579. 2.651 1960 Unknown [id number] 2.16.840.1.074395.3.579. 2.651 1960 Unknown [id number] 2.16.840.1.787564.3.579. 2.651 1960 Unknown [id number] 2.16.840.1.888335.3.579. 2.651 Unknown [id number] Unknown [id number] 2.16.840.1.459092.3.579. 2.462 Unknown [id number] 2.16.840.1.693132.3.579. 2.462 Unknown [id number] 2.16.840.1.272775.3.579. 2.462 Unknown [id number] 2.16.840.1.933142.3.579. 2.462 Unknown [id number] 2.16840.1.157294.3.579. 2.462 Unknown [id number] 2.840.1.941684.3.579. 2.462 Social History Date Type Detail Facility Start: 05-31-2016 End: 04-14-2022 Tobacco smoking status NHIS Ex-smoker [facility] Start: 04-02-1976 End: 04-02-2016 History of tobacco use Current smoker [facility] Start: 04-02-1976 End: 04-02-2016 History of tobacco use Cigarette Smoker [facility] Start: 05-31-2016 End: 04-14-2022 Tobacco use and exposure Smokeless tobacco non-user [facility] Start: 07-21-2021 End: 08-11-2024 Alcohol intake Current drinker of alcohol (finding) [facility] Start: 04-28-2016 History SDOH Alcohol Comment social [facility] Start: 1960 Sex Assigned At Not on file [facility] Start: 07-11-2021 End: 08-11-2021 Exposure to SARS-CoV-2 (event) Not sure [facility] Start: 12-23-2021 End: 03-26-2023 Tobacco smoking status NCIS Unknown if ever smoked [facility] Start: 12-28-2017 Occasional [place] [facility] Start: 12-28-2017 None [facility] Start: 12-28-2017 Alone [facility] Start: 12-30-2017 Cigarettes [facility] Start: 1960 Sex Assigned At Female [facility] Start: 04-14-2022 End: 10-08-2023 History of Social function [facility] Start: 04-14-2022 End: 10-08-2023 Tobacco use panel [facility] National Score (1-100), lower number is lower risk 73 [facility] NEGATED: Highlighted row [facility] Medical Equipment Procedure Code Equipment Code Equipment Origin al Text Equipment Identifier Dates SLING,VAG,ANGELICA A DESARA FDA Start: 04-04-2023 SLING,VAG,ANGELICA A DESARA FDA Start: 04-04-2023 Goals Date Patient Goal Desired Activity /State Personal health goal Mental Status Date Assessment Result Facility 04-04-2023 Cognitive function Voice/Name [facility] Work Phone: 02-15-2022 Cognitive function Voice/Name [facility] Work Phone: Clinical Notes 07-21-2021 to 10-25-2024 Telephone Encounter - Marli Cooper - 09/03/2024 11:04 AM EDTTelephone Encounter - Marli Cooper - 09/03/2024 11:04 AM EDTTelephone Encounter - Ernestine Lewis LPN - 08/14/2024 2:48 PM EDT Note Date & Type Note Facility 10-25-2024 Note . MICRO - Microbiology PROCEDURE: Blood Culture (bacterial) [*1] SOURCE: Blood BODY SITE: COLLECTED DATE/TIME: 10/20/2024 09:16 EDT RECEIVED DATE/TIME: 10/20/2024 15:26 EDT START DATE/TIME: 10/20/2024 15:27 EDT FREE TEXT SOURCE: FINAL REPORTS Final Report [] Verified Date/Time/Personnel: 10/25/2024 15:59 EDT Blood Culture: No Growth at 5 days. PRELIMINARY REPORTS Preliminary Report [] Verified Date/Time/Personnel: 10/20/2024 15:59 EDT Culture has been received in lab and is no growth to date. Routine cultures are held for 5 days. Performing Locations *1: This test was performed at: [facility], [address] [place] [address], [id number] , [place] [facility] 09-03-2024 Telephone encounter Note Cardiac Clearance received from [facility] [place] for pain management procedure on TBD Form [facility]. Marli Cooper [facility] 09-03-2024 Miscellaneous Notes Cardiac Clearance received from [facility] for pain management procedure on TBD Form scanned and placed in Pippa Ness box for review. Marli Cooper documented in this encounter [facility] 08-14-2024 Telephone encounter Note Informed patient that prescription was hand written and signed by Dr. Ward and placed in the mail on Sunday. Patient verbalizes understanding- will await a few days, if not received by Sunday she will call office back. Ernestine Lewis LPN [facility] 08-14-2024 Miscellaneous Notes Informed patient that prescription was hand written and signed by Dr. Ward and placed in the mail on Sunday. Patient verbalizes understanding- will await a few days, if not received by Sunday she will call office back. Ernestine Lewis LPN ----- Message from Pippa Ness APRN.SCHEDULE ANALYST sent at 08/14/2024 2:10 PM EDT ----- Dr. Ward hand wrote a prescription for her on Sunday and staff put it in the mail for her because our prescription printer was not working I did check with Mukesh and he did confirm it when out in the mail on Sunday can you please call the patient and let her know that she should have it in the few days if she does not receive it by Sunday please call back to the office Pippa Ness APRN.ANIKA ----- Message ----- From: Ernestine Lewis LPN Sent: 08/14/2024 2:08 PM EDT To: Pippa Ness APRN.SCHEDULE ANALYST ----- Message from Ernestine Lewis LPN sent at 08/14/2024 2:08 PM EDT ----- Please call the patient, and let them know the results of the blood work does show her LDL is elevated at 121, I am covering for Dr. Ward, I think she was just started on her Crestor therapy please confirm this she has upcoming heart catheterization for review, if she is found to have obstructive disease her milligram dose may need to be increased in the future Patient's request for medication is as follows: Requested Prescriptions Pending Prescriptions Disp Refills rivaroxaban (XARELTO) 20 mg tablet 90 tablet 3 Sig: Take 1 tablet by mouth once daily. Please print RX and sign and mail to patient. Patient needs to send of prescription to insurance. Thank you Prescription(s) as above. Please process accordingly. Ernestine Lewis LPN Spoke with patient about test results. Patient verbalizes understanding. Patient reports she did start Crestor. Ernestine Lewis LPN ----- Message from Pippa Ness APRN.SCHEDULE ANALYST sent at 08/14/2024 1:28 PM EDT ----- Please call the patient, and let them know the results of the blood work does show her LDL is elevated at 121, I am covering for Dr. Ward, I think she was just started on her Crestor therapy please confirm this she has upcoming heart catheterization for review, if she is found to have obstructive disease her milligram dose may need to be increased in the future Please call the patient, and let them know the results of the blood work does show her LDL is elevated at 121, I am covering for Dr. Ward, I think she was just started on her Crestor therapy please confirm this she has upcoming heart catheterization for review, if she is found to have obstructive disease her milligram dose may need to be increased in the future documented in this encounter [facility] 08-14-2024 Telephone encounter Note ----- Message from Pippa Ness APRN.CNP sent at 08/14/2024 2:10 PM EDT ----- Dr. Ward hand wrote a prescription for her on Sunday and staff put it in the mail for her because our prescription printer was not working I did check with Mukesh and he did confirm it when out in the mail on Sunday can you please call the patient and let her know that she should have it in the few days if she does not receive it by Sunday please call back to the office Pippa Ness APRN.CNP ----- Message ----- From: Ernestine Lewis LPN Sent: 08/14/2024 2:08 PM EDT To: Pippa Ness APRN.CNP ----- Message from Ernestine Lewis LPN sent at 08/14/2024 2:08 PM EDT ----- Please call the patient, and let them know the results of the blood work does show her LDL is elevated at 121, I am covering for Dr. Ward, I think she was just started on her Crestor therapy please confirm this she has upcoming heart catheterization for review, if she is found to have obstructive disease her milligram dose may need to be increased in the future [facility] 08-14-2024 Telephone encounter Note Patient's request for medication is as follows: Requested Prescriptions Pending Prescriptions Disp Refills rivaroxaban (XARELTO) 20 mg tablet 90 tablet 3 Sig: Take 1 tablet by mouth once daily. Please print RX and sign and mail to patient. Patient needs to send of prescription to insurance. Thank you Prescription(s) as above. Please process accordingly. Ernestine Lewis LPN [facility] 08-14-2024 Telephone encounter Note Spoke with patient about test results. Patient verbalizes understanding. Patient reports she did start Crestor. Ernestine Lewis LPN [facility] 08-14-2024 Telephone encounter Note ----- Message from Pippa Ness APRN.SCHEDULE ANALYST sent at 08/14/2024 1:28 PM EDT ----- Please call the patient, and let them know the results of the blood work does show her LDL is elevated at 121, I am covering for Dr. Ward, I think she was just started on her Crestor therapy please confirm this she has upcoming heart catheterization for review, if she is found to have obstructive disease her milligram dose may need to be increased in the future T [facility] 08-14-2024 Progress note Formatting of t his note might be different from the original. Please call the patient, and let them know the results of the blood work does show her LDL is elevated at 121, I am covering for Dr. Ward, I think she was just started on her Crestor therapy please confirm this she has upcoming heart catheterization for review, if she is found to have obstructive disease her milligram dose may need to be increased in the future [facility] 08-11-2024 Note Addended by: PIPPA NESS on: 08/11/2024 01:04 PM Modules accepted: Orders [facility] 08-11-2024 Miscellaneous Notes Addended by: PIPPA NESS on: 08/11/2024 01:04 PM Modules accepted: Orders Addended by: PIPPA NESS on: 08/11/2024 10:09 AM Modules accepted: Orders Addended by: BERT WARD on: 08/11/2024 10:08 AM Modules accepted: Orders documented in this encounter [facility] 08-11-2024 Note Addended by: PIPPA NESS on: 08/11/2024 10:09 AM Modules accepted: Orders [facility] 08-11-2024 Note Addended by: BERT WARD on: 08/11/2024 10:08 AM Modules accepted: Orders [facility] 08-11-2024 History of Presen t illness Narrative PRIMARY CARE PHYSICIAN: Shae Mendez ([place]) [address] [address] HISTORY OF PRESENT ILLNESS: Ms. Hinds is a 63 year old female who presents today for a cardiovascular medicine scheduled visit. CARDIOVASCULAR PROBLEMS: 1. Coronary artery disease involving [place] coronary artery of [place] heart without angina pectoris - ICD9: 414.01, ICD10: I25.10 (primary diagnosis) 2. Mixed hyperlipidemia - ICD9: 272.2, ICD10: E78.2 3. Primary hypertension - ICD9: 401.9, ICD10: I10 4. Pulmonary embolism on right (HCC) - ICD9: 415.19, ICD10: I26.99 5. Embolus to lower extremity (HCC) - ICD9: 444.22, ICD10: I74.3 Has been experiencing exertional shortness of breath when going up steps and walking. No chest pressure or chest pain. She claims that it may be secondary to her chronic COPD and is requesting an evaluation by his pulmonary. She has a history of coronary arthrosclerosis. A cardiac catheterization done in 2017 she had 50% occlusive disease in all 3 major coronary arteries. She had been on statin therapy chronically ;however , because of myalgias, this was discontinued latter part of last year. She is currently not taking any statins.. Opal denies any other active cardiac symptoms. Specifically, the patient denies orthopnea, cough, edema, palpitations, lightheadedness or syncope. The Patient claims compliance with medications and reports no side effects or allergies. Test results were reviewed with the patient. No current lipid levels.. Implications of findings were explained in layman's terms.. She is chronically anticoagulated for a history of arterial embolism and a subclinical pulmonary embolism as well. She is a former smoker. She has not smoked in nearly 10 years. HISTORICAL DATA UPDATED: 07/28/2024 Smoking: Quit smoking 2016. Diabetes: No Lipids: Yes Obesity: No HTN: Yes Sedentary Lifestyle: No Family History of M.A.C.E: Yes CHF: No Stroke /TIA: No, History of pulmonary embolism and arterioles systemic embolization as well. MOST RECENT CARDIAC TESTING: Echo: Normal EF, 2016 Cardiac Catheterization: Mar 2016: 50% LAD, cx, rca Normal EF 60% Holter / Event Recorder : - Stress Test : 01/28/24: CONCLUSIONS: 1. SPECT Perfusion Study: Normal. 2. There is no scintigraphic evidence for inducible ischemia. 3. No evidence of scarred myocardium. 4. Left ventricle is small. The left ventricle systolic function is hyperdynamic. 5. Right ventricle is normal in size. The right ventricle systolic function is normal. 6. This is a low risk scan. Gated Stress FBP Gated Rest FBP LVEF % 68 73 2017, normal, normal EF TILT: - Device: - PAST CARDIAC EVENTS: 2017 arterial embolization. Status post embolectomy. 2017 subclinical pulmonary embolism found during the same hospitalization. ALLERGIES Allergen Reactions Metoprolol Intolerance Significant joint pain Prednisone Mental Status Change MEDICATIONS: amLODIPine (NORVASC) 5 mg tablet Take 5 mg by mouth once daily. rivaroxaban (XARELTO) 20 mg tablet Take 1 tablet by mouth once daily. tiZANidine (ZANAFLEX) 4 mg tablet TAKE 1 TABLET BY MOUTH UP TO THREE TIMES DAILY NEEDED FOR SPASM traZODone (DESYREL) 50 mg tablet Take 50 mg by mouth daily at bedtime. levothyroxine (SYNTHROID) 88 mcg tablet 1 tablet by mouth daily ipratropium-albuterol (DUONEB) 0.5 mg-3 mg(2.5 mg base)/3 [...] every 4 hours as needed for Pain. budesonide, enteric coated (ENTOCORT EC) 3 mg 24 hr capsule TAKE 3 CAPSULES BY MOUTH ONCE DAILY IN THE MORNING (Patient not taking: Reported on 02/11/2024) iv contrast (will be provided with radiology [...] in the MR contrast administration guidelines link. (Patient not taking: Reported on 08/11/2024) lisinopril (ZESTRIL, PRINIVIL) 10 mg tablet Take 1 tablet by mouth once daily. (Patient not taking: Reported on 08/11/2024) celecoxib (CELEBREX) 200 mg capsule Take 200 mg by mouth twice daily. (Patient not taking: Reported on 02/11/2024) REVIEW OF SYSTEMS: I have edited template to reflect patient's findings GENERAL: Negative for: Weight loss or gain, Fever or Chills, Weakness and Sleep difficulties. HEENT: Negative for: Headache, Impaired Vision, Glasses, Hearing Impairment, Ringing in Ears, Nosebleeds, Poor dental care, Bleeding Gums, Dentures NECK: Negative for: Swelling, Pain, Stiffness RESPIRATORY: Negative for: Cough, Blood in Sputum, Shortness of breath, Wheezing, Apnea GASTROINTESTINAL: Negative for: Trouble swallowing, Heartburn, Change in bowel habits, Blood in stool, Dark black stools MUSCULOSKELETAL: Negative for: Muscle or joint pain, Stiffness , Joint swelling NEUROLOGIC/PSYCHIATRIC: Negative for: Weakness, Paralysis, Numbness, Tingling, Tremor, Nervousness, Depressed mood, Memory loss SKIN: Negative for: Rashes, Itching HEMATOLOGICAL/LYMPHATIC: Negative for: Easy bruising , Easy bleeding ENDOCRINE: Negative for: Heat or cold intolerance, Excessive sweating, Frequent urination, Frequent thirst PHYSICAL EXAMINATION: BP 150/86 Pulse 89 Wt 167 lb (75.8kg) SpO2 97% I have edited template to reflect patient's findings General: Well appearing, in no acute distress. Skin: No clubbing, no cyanosis. Eyes: Extra ocular movements intact Oropharynx: Teeth in good repair. Neck: No jugular venous distention, no carotid bruits, carotids have a normal upstroke, no palpable thyromegaly. Lungs: Clear to auscultation bilaterally, no wheezing or rhonchi. Heart: Regular rhythm, PMI not displaced, S1, S2 normal, no S3, no S4, no heaves, no rub and no murmur. Abdomen: Soft, nontender, bowel sounds normal, no palpable organomegaly, no bruits. Extremities: No peripheral edema . Grade 2/4 distal pulses bilaterally. Neuro: Oriented to person, place and time, alert, cooperative, gait coordinated. CARDIOVASCULAR MEDICINE TESTING: No Cardiovascular testing perfomed today. I have personally reviewed the Laboratory Testing. Cholesterol, Total (mg/dL) Date Value 08/08/2019 159 06/07/2018 127 HDL Cholesterol (mg/dL) Date Value 08/08/2019 36 06/07/2018 38 LDL Cholesterol, Calculated (mg/dL) Date Value 08/08/2019 77 06/07/2018 69 Triglyceride (mg/dL) Date Value 08/08/2019 230 06/07/2018 99 CMP: Glucose 110 08/08/2019 BUN 25 08/08/2019 Creatinine 0.85 08/08/2019 Sodium 145 08/08/2019 Potassium 4.0 08/08/2019 Chloride 112 08/08/2019 CO2 22 08/08/2019 Protein, Total 6.9 08/08/2019 Albumin 4.4 08/08/2019 Calcium 9.3 08/08/2019 Alkaline Phosphatase 99 08/08/2019 Bilirubin, Total <0.2 08/08/2019 AST 18 08/08/2019 ALT 18 08/08/2019 Hemoglobin (g/dL) Date Value 08/08/2019 13.6 Hematocrit (%) Date Value 08/08/2019 40.6 WBC (k/uL) Date Value 08/08/2019 8.07 Platelet Count (k/uL) Date Value 08/08/2019 315 Hemoglobin A1C (%) Date Value 10/30/2022 5.6 06/08/2021 5.1 TSH Date Value Ref Range Status 08/08/2019 1.070 0.270 - 4.200 uU/mL Final IMPRESSION: Ms. Hinds is a 63 year old female with history of exertional dyspnea. This is suspicious for coronary artery disease progression. She had 50% occlusive burden coronary catheterization done 8 years ago. She is currently not taking statins due to myalgia. Will reintroduce rosuvastatin at a lower dose. She had a negative stress test a year ago but her symptoms of exertional dyspnea persist. I believe we need to proceed with diagnostic cardiac catheterization. Consider right and left catheterization. The patient agrees to proceed. She understands that we may have to stop anticoagulation a couple days prior to testing. Orders for sublingual nitroglycerin and metoprolol were given. I have ordered an echocardiogram to assess right ventricular systolic pressure and RV function. Will order consultation with pulmonary medicine for evaluation of COPD and possible pulmonary hypertension Preprocedure blood work has been ordered. 1. Coronary artery disease involving [place] coronary artery of [place] heart without angina pectoris - ICD9: 414.01, ICD10: I25.10 (primary diagnosis) 2. Mixed hyperlipidemia - ICD9: 272.2, ICD10: E78.2 3. Primary hypertension - ICD9: 401.9, ICD10: I10 4. Pulmonary embolism on right (HCC) - ICD9: 415.19, ICD10: I26.99 5. Embolus to lower extremity (HCC) - ICD9: 444.22, ICD10: I74.3 6. HERNANDEZ (dyspnea on exertion) - ICD9: 786.09, ICD10: R06.09 During this 20 minute visit with greater than 50% of the time was spent in direct, [id number], contact with the patient for management and counseling. Bert Ward M.D. [facility] This note was partially generated using [employer] voice recognition system, and there may be some incorrect words, spellings, and punctuation that were not noted in checking the note before saving. documented in this encounter [facility] 08-11-2024 Note HNO ID: [id number] Author: BERT WARD MD Service: ? Author Type: Physician Type: Progress Notes Filed: 08/11/2024 09:58 Note Text: PRIMARY CARE PHYSICIAN: Shae Mendez ([facility]) [address] [address] HISTORY OF PRESENT ILLNESS: Ms. Hinds is a 63 year old female who presents today for a cardiovascular medicine scheduled visit. CARDIOVASCULAR PROBLEMS: 1. Coronary artery disease involving [place] coronary artery of [place] heart without angina pectoris - ICD9: 414.01, ICD10: I25.10 (primary diagnosis) 2. Mixed hyperlipidemia - ICD9: 272.2, ICD10: E78.2 3. Primary hypertension - ICD9: 401.9, ICD10: I10 4. Pulmonary embolism on right (HCC) - ICD9: 415.19, ICD10: I26.99 5. Embolus to lower extremity (HCC) - ICD9: 444.22, ICD10: I74.3 Has been experiencing exertional shortness of breath when going up steps and walking. No chest pressure or chest pain. She claims that it may be secondary to her chronic COPD and is requesting an evaluation by his pulmonary. She has a history of coronary arthrosclerosis. A cardiac catheterization done in 2017 she had 50% occlusive disease in all 3 major coronary arteries. She had been on statin therapy chronically ;however , because of myalgias, this was discontinued latter part of last year. She is currently not taking any statins.. Opal denies any other active cardiac symptoms. Specifically, the patient denies orthopnea, cough, edema, palpitations, lightheadedness or syncope. The Patient claims compliance with medications and reports no side effects or allergies. Test results were reviewed with the patient. No current lipid levels.. Implications of findings were explained in layman's terms.. She is chronically anticoagulated for a history of arterial embolism and a subclinical pulmonary embolism as well. She is a former smoker. She has not smoked in nearly 10 years. HISTORICAL DATA UPDATED: 07/28/2024 Smoking: Quit smoking 2016. Diabetes: No Lipids: Yes Obesity: No HTN: Yes Sedentary Lifestyle: No Family History of M.A.C.E: Yes CHF: No Stroke /TIA: No, History of pulmonary embolism and arterioles systemic embolization as well. MOST RECENT CARDIAC TESTING: Echo: Normal EF, 2017 Cardiac Catheterization: Mar 2016: 50% LAD, cx, rca Normal EF 60% Holter / Event Recorder : - Stress Test : 01/28/24: CONCLUSIONS: 1. SPECT Perfusion Study: Normal. 2. There is no scintigraphic evidence for inducible ischemia. 3. No evidence of scarred myocardium. 4. Left ventricle is small. The left ventricle systolic function is hyperdynamic. 5. Right ventricle is normal in size. The right ventricle systolic function is normal. 6. This is a low risk scan. Gated Stress FBP Gated Rest FBP LVEF % 68 73 2016, normal, normal EF TILT: - Device: - PAST CARDIAC EVENTS: 2017 arterial embolization. Status post embolectomy. 2017 subclinical pulmonary embolism found during the same hospitalization. ALLERGIES Allergen Reactions Metoprolol Intolerance Significant joint pain Prednisone Mental Status Change MEDICATIONS: amLODIPine (NORVASC) 5 mg tablet Take 5 mg by mouth once daily. rivaroxaban (XARELTO) 20 mg tablet Take 1 tablet by mouth once daily. tiZANidine (ZANAFLEX) 4 mg tablet TAKE 1 TABLET BY MOUTH UP TO THREE TIMES DAILY NEEDED FOR SPASM traZODone (DESYREL) 50 mg tablet Take 50 mg by mouth daily at bedtime. levothyroxine (SYNTHROID) 88 mcg tablet 1 tablet by mouth daily ipratropium-albuterol (DUONEB) 0.5 mg-3 mg(2.5 mg base)/3 [...] every 4 hours as needed for Pain. budesonide, enteric coated (ENTOCORT EC) 3 mg 24 hr capsule TAKE 3 CAPSULES BY MOUTH ONCE DAILY IN THE MORNING (Patient not taking: Reported on 02/11/2024) iv contrast (will be provided with radiology [...] in the MR contrast administration guidelines link. (Patient not taking: Reported on 08/11/2024) lisinopril (ZESTRIL, PRINIVIL) 10 mg tablet Take 1 tablet by mouth once daily. (Patient not taking: Reported on 08/11/2024) celecoxib (CELEBREX) 200 mg capsule Take 200 mg by mouth twice daily. (Patient not taking: Reported on (more content not included)... [facility] 04-19-2024 Note . MICRO - Microbiology PROCEDURE: Stool Culture [^1 *1] SOURCE: Stool BODY SITE: COLLECTED DATE/TIME: 04/16/2024 05:13 EST RECEIVED DATE/TIME: 04/16/2024 18:12 EST START DATE/TIME: 04/16/2024 18:12 EST FREE TEXT SOURCE: FINAL REPORTS Final Report [] Verified Date/Time/Personnel: 04/19/2024 11:37 EST Normal stool halie present - coliforms absent. Salmonella: Negative Shigella: Negative Campylobacter: Negative PRELIMINARY REPORTS Preliminary Report [] Verified Date/Time/Personnel: 04/18/2024 10:03 EST Normal stool halie present - coliforms absent. Negative for stool pathogens at 48 hours. Final report to follow. Interpretive Data ^1: Culture Stool Requests for alternative pathogens including Yersinia, E. coli 0157, C. difficile toxin, Rotavirus, Giardia and parasites require specific requests. Performing Locations *1: This test was performed at: [address], [address] [place] [address] 04-17-2024 Note . MICRO - Microbiology PROCEDURE: Shiga Toxins 1 and 2 [[id number]: [id number] ^1 *1] SOURCE: Stool BODY SITE: COLLECTED DATE/TIME: 04/16/2024 18:12 EST RECEIVED DATE/TIME: 04/16/2024 18:12 EST START DATE/TIME: 04/16/2024 18:12 EST FREE TEXT SOURCE: FINAL REPORTS Final Report [] Verified Date/Time/Personnel: 04/17/2024 11:15 EST Absence of Shiga toxin 1 Absence of Shiga toxin 2 Order Comments O1: Shiga Toxins 1 and 2 ordered by lab as part of Culture Stool Panel Interpretive Data ^1: Shiga Toxins 1 and 2 Testing performed by immunochromatography. Performing Locations *1: This test was performed at: [address], [address] [place] [address] 02-11-2024 History of Presen t illness Narrative PRIMARY CARE PHYSICIAN: Shae Mendez ([facility]) Levi Bryant [address] [address] HISTORY OF PRESENT ILLNESS: Ms. Hinds is a 63 year old female who presents today for a cardiovascular medicine scheduled visit. CARDIOVASCULAR PROBLEMS: 1. Mixed hyperlipidemia - ICD9: 272.2, ICD10: E78.2 (primary diagnosis) 2. Chronic anticoagulation - ICD9: V58.61, ICD10: Z79.01 3. Pulmonary embolism on right (HCC) - ICD9: 415.19, ICD10: I26.99 The patient states that she was hospitalized at [facility] earlier and January. First admission was due to generalized body aches , dehydration. She was found to have bilateral pneumonia was treated accordingly. She was readmitted approximately a week after that with diarrhea profound dehydration and hypomagnesemia. She was reportedly treated with intravenous antibiotics and intravenous fluids. At time of this dictation I do not have any records from that admission. We have obtained consent from the patient for release of records and will submit a request to the appropriate hospitals if nothing but for our recordkeeping. From the cardiac standpoint, we were working her up for shortness of breath this is a chronic problem from her. She has a history of emphysema due to remote history of smoking. Since 2017, the patient quit smoking about carries a diagnosis of COPD. She also has history of chronic anticoagulation due to embolization of the lower extremities and incidental finding of right pulmonary embolism.. She has documented LAD 50% stenosis and by the last cath. We had opted to obtain a stress perfusion study to exclude any ongoing ischemia as the cause of her shortness of breath. Per most recent reports. Her stress test is normal and she continues to enjoy normal left ventricular function. Opal denies any other active cardiac symptoms. Specifically, the patient denies abdominal distention, chest pain, cough, edema, palpitations, lightheadedness or syncope. The Patient claims compliance with medications and reports no side effects or allergies. Test results were reviewed with the patient. Stress perfusion study reviewed. Except for a negative titer for Lyme disease from [facility] we do not have any other blood work.. Implications of findings were explained in layman's terms.. She stopped taking atorvastatin during her initial admission due to profound muscle aches. She is still not taking it. I believe it may be reasonable to atorvastatin until her myalgias and arthralgias resolve. I suspect they may be due to her recent viral illness. HISTORICAL DATA UPDATED: 01/28/2024 HISTORICAL DATA UPDATED: 10/01/2023 Smoking: Quit smoking 2016. Diabetes: No Lipids: Yes Obesity: No HTN: Yes Sedentary Lifestyle: No Family History of M.A.C.E: Yes CHF: No Stroke /TIA: No, History of pulmonary embolism and arterioles systemic embolization as well. MOST RECENT CARDIAC TESTING: Echo: Normal EF, 2016 Cardiac Catheterization: Mar 2016: 50% LAD, cx, rca Normal EF 60% Holter / Event Recorder : - Stress Test : 01/28/24: CONCLUSIONS: 1. SPECT Perfusion Study: Normal. 2. There is no scintigraphic evidence for inducible ischemia. 3. No evidence of scarred myocardium. 4. Left ventricle is small. The left ventricle systolic function is hyperdynamic. 5. Right ventricle is normal in size. The right ventricle systolic function is normal. 6. This is a low risk scan. Gated Stress FBP Gated Rest FBP LVEF % 68 73 2016, normal, normal EF TILT: - Device: - PAST CARDIAC EVENTS: 2017 arterial embolization. Status post embolectomy. 2017 subclinical pulmonary embolism found during the same hospitalization. ALLERGIES Allergen Reactions Metoprolol Intolerance Significant joint pain Prednisone Mental Status Change MEDICATIONS: amLODIPine (NORVASC) 5 mg tablet Take 5 mg by mouth once daily. rivaroxaban (XARELTO) 20 mg tablet Take 1 tablet by mouth once daily. atorvastatin (LIPITOR) 10 mg tablet TAKE 1 TABLET BY MOUTH ONCE DAILY. NEED FOLLOW UP APPOINTMENT WITH tiZANidine (ZANAFLEX) 4 mg tablet TAKE 1 TABLET BY MOUTH UP TO THREE TIMES DAILY NEEDED FOR SPASM traZODone (DESYREL) 50 mg tablet Take 50 mg by mouth daily at bedtime. lisinopril (ZESTRIL, PRINIVIL) 10 mg tablet Take 1 tablet by mouth once daily. levothyroxine (SYNTHROID) 88 mcg tablet 1 tablet by mouth daily ipratropium-albuterol (DUONEB) 0.5 mg-3 mg(2.5 mg base)/3 [...] every 4 hours as needed for Pain. budesonide, enteric coated (ENTOCORT EC) 3 mg 24 hr capsule TAKE 3 CAPSULES BY MOUTH ONCE DAILY IN THE MORNING (Patient not taking: Reported on 02/11/2024) iv contrast (will be provided with radiology [...] in the MR contrast administration guidelines link. celecoxib (CELEBREX) 200 mg capsule Take 200 mg by mouth twice daily. (Patient not taking: Reported on 02/11/2024) REVIEW OF SYSTEMS: I have edited template to reflect patient's findings GENERAL: Negative for: Weight loss or gain, Fever or Chills, Weakness and Sleep difficulties. HEENT: Negative for: Headache, Impaired Vision, Glasses, Hearing Impairment, Ringing in Ears, Nosebleeds, Poor dental care, Bleeding Gums, Dentures NECK: Negative for: Swelling, Pain, Stiffness RESPIRATORY: Negative for: Cough, Blood in Sputum, Shortness of breath, Wheezing, Apnea GASTROINTESTINAL: Liquid diarrhea has resolved. Patient attributes this to magnesium replenishment during her last admission. She has C. difficile titers pending. MUSCULOSKELETAL: Endorses persistent joint pain no swelling no redness in any of the major joints. Denies weakness, Paralysis, Numbness, Tingling, Tremor, Nervousness, Depressed mood, Memory loss SKIN: Negative for: Rashes, Itching HEMATOLOGICAL/LYMPHATIC: Negative for: Easy bruising , Easy bleeding ENDOCRINE: Negative for: Heat or cold intolerance, Excessive sweating, Frequent urination, Frequent thirst PHYSICAL EXAMINATION: BP 111/75 Pulse 85 Resp 18 Ht 5' 4 (1.63m) Wt 160 lb 2.6 oz (72.7kg) SpO2 97% BMI 27.48 kg/(m^2). I have edited template to reflect patient's findings General: Well appearing, in no acute distress. Skin: No clubbing, no cyanosis. Eyes: Extra ocular movements intact Oropharynx: Teeth in good repair. Neck: No jugular venous distention, no carotid bruits, carotids have a normal upstroke, no palpable thyromegaly. Lungs: Clear to auscultation bilaterally, no wheezing or rhonchi. Heart: Regular rhythm, PMI not displaced, S1, S2 normal, no S3, no S4, no heaves, no rub and no murmur. Abdomen: Soft, nontender, bowel sounds normal, no palpable organomegaly, no bruits. Extremities: No peripheral edema . Grade 2/4 distal pulses bilaterally. Neuro: Oriented to person, place and time, alert, cooperative, gait coordinated. CARDIOVASCULAR MEDICINE TESTING: No Cardiovascular testing perfomed today. I have personally reviewed the Stress Test: Nuclear (Non-PET). Cholesterol, Total (mg/dL) Date Value 08/08/2019 159 06/07/2018 127 HDL Cholesterol (mg/dL) Date Value 08/08/2019 36 06/07/2018 38 LDL Cholesterol (mg/dL) Date Value 08/08/2019 77 06/07/2018 69 Triglyceride (mg/dL) Date Value 08/08/2019 230 06/07/2018 99 CMP: Glucose 110 08/08/2019 BUN 25 08/08/2019 Creatinine 0.85 08/08/2019 Sodium 145 08/08/2019 Potassium 4.0 08/08/2019 Chloride 112 08/08/2019 CO2 22 08/08/2019 Protein, Total 6.9 08/08/2019 Albumin 4.4 08/08/2019 Calcium 9.3 08/08/2019 Alkaline Phosphatase 99 08/08/2019 Bilirubin, Total <0.2 08/08/2019 AST 18 08/08/2019 ALT 18 08/08/2019 Hemoglobin (g/dL) Date Value 08/08/2019 13.6 Hematocrit (%) Date Value 08/08/2019 40.6 WBC (k/uL) Date Value 08/08/2019 8.07 Platelet Count (k/uL) Date Value 08/08/2019 315 Hemoglobin A1C (%) Date Value 10/30/2022 5.6 06/08/2021 5.1 TSH Date Value Ref Range Status 08/08/2019 1.070 0.270 - 4.200 uU/mL Final IMPRESSION: Ms. Hinds is a 63 year old female with a history of coronary arthrosclerosis hypertension hyperlipidemia. This 3 issues appear currently stable on current therapy. Atorvastatin continues to be on hold due to episode of myalgias. This may be restarted until her viral syndrome or fully results. Her hypertension is to be stable on a combination of amlodipine and low-dose lisinopril. Reportedly, her renal function has returned to baseline. We have requested copies of most recent blood work from [facility]. Other chronic problems include history of lower extremity embolization and pulmonary embolization she is on chronic anticoagulation without signs of intolerance or complication. This may need to be continue for lifetime. I would like to see her in 6 months to reassess any cardiac issues. Further workup of the patient's most recent pneumonia, viral injuries in gastrointestinal issues deferred to primary and other specialist. As always, for recordkeeping, please send copy of the most recent blood work. 1. Primary hypertension - ICD9: 401.9, ICD10: I10 (primary diagnosis) 2. Mixed hyperlipidemia - ICD9: 272.2, ICD10: E78.2 3. Panlobular emphysema (HCC) - ICD9: 492.8, ICD10: J43.1 4. Chronic anticoagulation - ICD9: V58.61, ICD10: Z79.01 5. Pulmonary embolism on right (HCC) - ICD9: 415.19, ICD10: I26.99 During this 20 minute visit with greater than 50% of the time was spent in direct, [id number], contact with the patient for management and counseling. Bert Ward M.D. [facility] This note was partially generated using [employer] voice recognition system, and there may be some incorrect words, spellings, and punctuation that were not noted in checking the note before saving. documented in this encounter [facility] 02-11-2024 Note HNO ID: [id number] Author: BERT WARD MD Service: ? Author Type: Physician Type: Progress Notes Filed: 02/11/2024 08:44 Note Text: PRIMARY CARE PHYSICIAN: Shae Mendez ([facility]) [address] [place] [address] HISTORY OF PRESENT ILLNESS: Ms. Hinds is a 63 year old female who presents today for a cardiovascular medicine scheduled visit. CARDIOVASCULAR PROBLEMS: 1. Mixed hyperlipidemia - ICD9: 272.2, ICD10: E78.2 (primary diagnosis) 2. Chronic anticoagulation - ICD9: V58.61, ICD10: Z79.01 3. Pulmonary embolism on right (HCC) - ICD9: 415.19, ICD10: I26.99 The patient states that she was hospitalized at [facility] earlier and January. First admission was due to generalized body aches , dehydration. She was found to have bilateral pneumonia was treated accordingly. She was readmitted approximately a week after that with diarrhea profound dehydration and hypomagnesemia. She was reportedly treated with intravenous antibiotics and intravenous fluids. At time of this dictation I do not have any records from that admission. We have obtained consent from the patient for release of records and will submit a request to the appropriate hospitals if nothing but for our recordkeeping. From the cardiac standpoint, we were working her up for shortness of breath this is a chronic problem from her. She has a history of emphysema due to remote history of smoking. Since 2017, the patient quit smoking about carries a diagnosis of COPD. She also has history of chronic anticoagulation due to embolization of the lower extremities and incidental finding of right pulmonary embolism.. She has documented LAD 50% stenosis and by the last cath. We had opted to obtain a stress perfusion study to exclude any ongoing ischemia as the cause of her shortness of breath. Per most recent reports. Her stress test is normal and she continues to enjoy normal left ventricular function. Opal denies any other active cardiac symptoms. Specifically, the patient denies abdominal distention, chest pain, cough, edema, palpitations, lightheadedness or syncope. The Patient claims compliance with medications and reports no side effects or allergies. Test results were reviewed with the patient. Stress perfusion study reviewed. Except for a negative titer for Lyme disease from [facility] we do not have any other blood work.. Implications of findings were explained in layman's terms.. She stopped taking atorvastatin during her initial admission due to profound muscle aches. She is still not taking it. I believe it may be reasonable to atorvastatin until her myalgias and arthralgias resolve. I suspect they may be due to her recent viral illness. HISTORICAL DATA UPDATED: 01/28/2024 HISTORICAL DATA UPDATED: 10/01/2023 Smoking: Quit smoking 2016. Diabetes: No Lipids: Yes Obesity: No HTN: Yes Sedentary Lifestyle: No Family History of M.A.C.E: Yes CHF: No Stroke /TIA: No, History of pulmonary embolism and arterioles systemic embolization as well. MOST RECENT CARDIAC TESTING: Echo: Normal EF, 2016 Cardiac Catheterization: Mar 2016: 50% LAD, cx, rca Normal EF 60% Holter / Event Recorder : - Stress Test : 01/28/24: CONCLUSIONS: 1. SPECT Perfusion Study: Normal. 2. There is no scintigraphic evidence for inducible ischemia. 3. No evidence of scarred myocardium. 4. Left ventricle is small. The left ventricle systolic function is hyperdynamic. 5. Right ventricle is normal in size. The right ventricle systolic function is normal. 6. This is a low risk scan. Gated Stress FBP Gated Rest FBP LVEF % 68 73 2016, normal, normal EF TILT: - Device: - PAST CARDIAC EVENTS: 2017 arterial embolization. Status post embolectomy. 2017 subclinical pulmonary embolism found during the same hospitalization. ALLERGIES Allergen Reactions Metoprolol Intolerance Significant joint pain Prednisone Mental Status Change MEDICATIONS: amLODIPine (NORVASC) 5 mg tablet Take 5 mg by mouth once daily. rivaroxaban (XARELTO) 20 mg tablet Take 1 tablet by mouth once daily. atorvastatin (LIPITOR) 10 mg tablet TAKE 1 TABLET BY MOUTH ONCE DAILY. NEED FOLLOW UP APPOINTMENT WITH tiDENIANidine (ZANAFLEX) 4 mg tablet TAKE 1 TABLET BY MOUTH UP TO THREE TIMES DAILY NEEDED FOR SPASM traZODone (DESYREL) 50 mg tablet Take 50 mg by mouth daily at bedtime. lisinopril (ZESTRIL, PRINIVIL) 10 mg tablet Take 1 tablet by mouth once daily. levothyroxine (SYNTHROID) 88 mcg tablet 1 tablet by mouth daily ipratropium-albuterol (DUONEB) 0.5 mg-3 mg(2.5 mg base)/3 mL nebu three times daily. As needed. albuterol HFA (PROVENTIL HFA, VENTOLIN HFA) 90 mcg/actuation inhaler Inhale 2 Puffs as instructed every 4 hours as needed. gabapentin (NEURONTIN) 400 mg capsule Take 800 mg by mouth three times daily. sertraline (ZOLOFT) 100 mg tablet T (more content not included)... [facility] 02-11-2024 Nurse Note Patient denies any cardiac issues or symptoms. [facility] 02-11-2024 Nurse Note Patient denies any cardiac issues or symptoms. documented in this encounter [facility] 01-28-2024 Telephone encounter Note Spoke with Opal Hinds on January 28, 2024. Informed of results / instructions as stated above. Patient notes that's she has shortness of breath upon going up a flight of steps. Sri Piña LPN [facility] 01-28-2024 Miscellaneous Notes Spoke with Opal Hinds on January 28, 2024. Informed of results / instructions as stated above. Patient notes that's she has shortness of breath upon going up a flight of steps. Sri Piña LPN Covering for Dr. Ward: Please let patient know I reviewed her stress test results, stress test look good no evidence of inducible ischemia, no myocardial scar normal LV function. I believe stress test was done for shortness of breath with exertion. Please ask patient how her symptoms are?, She should follow-up for appointment with Dr. Ward otherwise. Thank you, Chelsie Belle APRN.SCHEDULE ANALYST documented in this encounter [facility] 01-28-2024 Telephone encounter Note Covering for Dr. Ward: Please let patient know I reviewed her stress test results, stress test look good no evidence of inducible ischemia, no myocardial scar normal LV function. I believe stress test was done for shortness of breath with exertion. Please ask patient how her symptoms are?, She should follow-up for appointment with Dr. Ward otherwise. Thank you, Chelsie Belle APRN.SCHEDULE ANALYST [facility] 01-28-2024 History of Presen t illness Narrative RADIOLOGY SERVICE PROGRESS NOTE SERVICE DATE: 01/28/2024 SERVICE TIME: 07:30 AM PATIENT IDENTITY VERIFICATION COMPLETED USING TWO (2) STANDARD IDENTIFIERS: Name and Date of confirmed by patient verbally FALL SCREENING: Has the patient had 2 falls in the last year or 1 fall with injury or currently using an Ambulatory Assistive Device (Walker, Cane, Wheelchair, Crutches, etc.)? No PATIENT GENDER DATA: .female : No ALLERGIES: Reviewed and unchanged MEDICATIONS REVIEWED: No PATIENT RELEVANT IMPLANT DATA REVIEWED: Not Applicable PATIENT PRESENTS WITH AN IMPLANTABLE OR ATTACHED RIVET THROWER: n/a CREATININE: Creatinine Date Value Ref Range Status 08/08/2019 0.85 0.58 - 0.96 mg/dL Final 06/07/2018 0.84 0.58 - 0.96 mg/dL Final 10/04/2016 0.90 0.58 - 0.96 mg/dL Final eGFR-All Other Races Date Value Ref Range Status 08/08/2019 >60 . Final Comment: eGFR (Estimated GFR) Units of measure: mL/min/1.73 meters squared eGFR is derived from the reexpressed MDRD Study equation using the following parameters: serum creatinine, age, gender and race. The creatinine assay has been calibrated to be traceable to IDMS. An eGFR <60 mL/min/1.73m2 for >3 months is consistent with chronic kidney disease. Refer to KDOQI guidelines for clinical interpretation. In patients with unstable renal function, e.g. those with acute kidney injury, the eGFR may not accurately reflect actual GFR. eGFR- Date Value Ref Range Status 08/08/2019 >[address] PERFORMED: No IV SITE: Ambulatory: A peripheral IV was started in the Left antecubital site with a Angio cath: 22 gauge. POST EXAM PIV STATUS: Discontinued PROCEDURE TYPE: NM Stress: 14 mCi [id number] was administered IV for Rest Imaging at 07:40 by Alexis Gottlieb. 35 mCi [id number] was administered IV for Stress Imaging at 08:50 by Alexis Gottlieb. PATIENT DISCHARGED TO: Ambulatory patient, left [place] department area. Is this a therapy: No A Diagnostic radioactive procedure has taken place, with no further precautions necessary other than routine body substance precautions. More information regarding radiation safety can be found using this link: [email or web address] uclear%[email or web address] df SIGNATURE: ERIBERTO Cuellar) PATIENT NAME: Opal Hinds DATE: January 28, 2024 TIME: 12:14 PM PAGER/CONTACT #: documented in this encounter [facility] 01-28-2024 Note HNO ID: [id number] Author: ALEXIS GOTTLIEB RT (R) Service: Nuclear Medicine Author Type: Technologist Type: Progress Notes Filed: 01/28/2024 12:18 Note Text: RADIOLOGY SERVICE PROGRESS NOTE SERVICE DATE: 01/28/2024 SERVICE TIME: 07:30 AM PATIENT IDENTITY VERIFICATION COMPLETED USING TWO (2) STANDARD IDENTIFIERS: Name and Date of confirmed by patient verbally FALL SCREENING: Has the patient had 2 falls in the last year or 1 fall with injury or currently using an Ambulatory Assistive Device (Walker, Cane, Wheelchair, Crutches, etc.)? No PATIENT GENDER DATA: .female : No ALLERGIES: Reviewed and unchanged MEDICATIONS REVIEWED: No PATIENT RELEVANT IMPLANT DATA REVIEWED: Not Applicable PATIENT PRESENTS WITH AN IMPLANTABLE OR ATTACHED RIVET THROWER: n/a CREATININE: Creatinine Date Value Ref Range Status 08/08/2019 0.85 0.58 - 0.96 mg/dL Final 06/07/2018 0.84 0.58 - 0.96 mg/dL Final 10/04/2016 0.90 0.58 - 0.96 mg/dL Final eGFR-All Other Races Date Value Ref Range Status 08/08/2019 >60 . Final Comment: eGFR (Estimated GFR) Units of measure: mL/min/1.73 meters squared eGFR is derived from the reexpressed MDRD Study equation using the following parameters: serum creatinine, age, gender and race. The creatinine assay has been calibrated to be traceable to IDMS. An eGFR <60 mL/min/1.73m2 for >3 months is consistent with chronic kidney disease. Refer to KDOQI guidelines for clinical interpretation. In patients with unstable renal function, e.g. those with acute kidney injury, the eGFR may not accurately reflect actual GFR. eGFR- Date Value Ref Range Status 08/08/2019 >[address] PERFORMED: No IV SITE: Ambulatory: A peripheral IV was started in the Left antecubital site with a Angio cath: 22 gauge. POST EXAM PIV STATUS: Discontinued PROCEDURE TYPE: NM Stress: 14 mCi [id number] was administered IV for Rest Imaging at 07:40 by Alexis Gottlieb. 35 mCi [id number] was administered IV for Stress Imaging at 08:50 by Alexis Gottlieb. PATIENT DISCHARGED TO: Ambulatory patient, left [place] department area. Is this a therapy: No A Diagnostic radioactive procedure has taken place, with no further precautions necessary other than routine body substance precautions. More information regarding radiation safety can be found using this link: [email or web address] 20Diagnostic%20Nuclear%20Medicin e%20Procedures.pdf SIGNATURE: RT Alisa(R) PATIENT NAME: Opal Hinds DATE: January 28, 2024 TIME: 12:14 PM PAGER/CONTACT #: [facility] 01-24-2024 Telephone encounter Note patient notified and verbalized all understanding of instructions. Kate Peraza LPN [facility] 01-24-2024 Miscellaneous Notes patient notified and verbalized all understanding of instructions. Kate Peraza LPN Called and left VM asking patient to call back. If the patient calls back please review the below instructions with her. Miri Artis RN You are scheduled for a stress test on 01/28/24 at 7:30am. This stress test will appear as 3 appointments on your schedule. You may get multiple reminder calls, but please arrive at the earliest scheduled appointment. Please follow below instructions: *NOTHING BY MOUTH 4 HOURS prior to this test. (you may have sips of water) *NO CAFFEINE FOR 24 HOURS PRIOR TO TESTING (including TEA even decaf, COFFEE- even decaf, CHOCOLATE, KEVIN- even decaf) *Do NOT take MEDICATIONS CONTAINING CAFFEINE/XANTHINE for 24 HOURS prior to testing: Theophylline, Trental, Excedrin, Anacin, Goody Powders, No Doz, Vivarin, Midol, Diurex, Fiorinal, Fioricet, Esgic (butalbital) *Do NOT take Calcium Channel Blockers 24 HOURS prior to test. *Do NOT take Beta blockers 24 HOURS prior to test UNLESS your doctor tells you otherwise. *Do NOT use the following medications 48 HOURS prior to this test: Viagra(Sildenafil citrate), Cialis(Tadalafil), Vardenafil (Levitra, Stanyx), Avanfil (Stendra). *Do not take any of these meds prior to test unless provider directs you otherwise; Nitroglycerine (ex:Deponit, Nitrostat) Isosorbide (ex:Isordil, Sorbitrate,Imdur,Ismo). Medications on your list you should hold for 24 HOURS: None *All other medications may be taken as you normally would. *Guidelines for Diabetics: If you take insulin to control your blood sugar, ask you physician what amount you should take the day of the test. If you take pills to control blood sugar, on the day of the test, do NOT take them until AFTER the test. *FAILURE TO FOLLOW THESE INSTRUCTIONS WILL RESULT IN HAVING TO RESCHEDULE THE TEST. *If you use an inhaler, bring it along with you just in case *THIS TEST MAY TAKE UP TO 3 HOURS TO COMPLETE. Please check in on the first floor at Radiology: [address]; [place] [address] * If you need to cancel or reschedule this test or have any questions regarding this test, please call [phone]. documented in this encounter [facility] 01-22-2024 Telephone encounter Note Called and left VM asking patient to call back. If the patient calls back please review the below instructions with her. Miri Artis RN You are scheduled for a stress test on 01/28/24 at 7:30am. This stress test will appear as 3 appointments on your schedule. You may get multiple reminder calls, but please arrive at the earliest scheduled appointment. Please follow below instructions: *NOTHING BY MOUTH 4 HOURS prior to this test. (you may have sips of water) *NO CAFFEINE FOR 24 HOURS PRIOR TO TESTING (including TEA even decaf, COFFEE- even decaf, CHOCOLATE, KEVIN- even decaf) *Do NOT take MEDICATIONS CONTAINING CAFFEINE/XANTHINE for 24 HOURS prior to testing: Theophylline, Trental, Excedrin, Anacin, Goody Powders, No Doz, Vivarin, Midol, Diurex, Fiorinal, Fioricet, Esgic (butalbital) *Do NOT take Calcium Channel Blockers 24 HOURS prior to test. *Do NOT take Beta blockers 24 HOURS prior to test UNLESS your doctor tells you otherwise. *Do NOT use the following medications 48 HOURS prior to this test: Viagra(Sildenafil citrate), Cialis(Tadalafil), Vardenafil (Levitra, Stanyx), Avanfil (Stendra). *Do not take any of these meds prior to test unless provider directs you otherwise; Nitroglycerine (ex:Deponit, Nitrostat) Isosorbide (ex:Isordil, Sorbitrate,Imdur,Ismo). Medications on your list you should hold for 24 HOURS: None *All other medications may be taken as you normally would. *Guidelines for Diabetics: If you take insulin to control your blood sugar, ask you physician what amount you should take the day of the test. If you take pills to control blood sugar, on the day of the test, do NOT take them until AFTER the test. *FAILURE TO FOLLOW THESE INSTRUCTIONS WILL RESULT IN HAVING TO RESCHEDULE THE TEST. *If you use an inhaler, bring it along with you just in case *THIS TEST MAY TAKE UP TO 3 HOURS TO COMPLETE. Please check in on the first floor at Radiology: [address]; [place] [address] * If you need to cancel or reschedule this test or have any questions regarding this test, please call [phone]. [facility] 10-08-2023 Telephone encounter Note Notified patient Dr. Ward placed fasting lab orders for her to have completed. Patient verbally agreed. Sara Lewis MA October 08, 2023 10:03 AM [facility] 10-08-2023 Miscellaneous Notes Notified patient Dr. Ward placed fasting lab orders for her to have completed. Patient verbally agreed. Sara Lewis MA October 08, 2023 10:03 AM documented in this encounter [facility] 10-08-2023 History of Presen t illness Narrative PRIMARY CARE PHYSICIAN: Shae Mendez ([facility]) [address] [place] [address] HISTORY OF PRESENT ILLNESS: Ms. Hinds is a 62 year old female who presents today for a cardiovascular medicine preprocedural visit. CARDIOVASCULAR PROBLEMS: 1. HERNANDEZ (dyspnea on exertion) - ICD9: 786.09, ICD10: R06.09 (primary diagnosis) 2. Mixed hyperlipidemia - ICD9: 272.2, ICD10: E78.2 3. Pulmonary embolism on right (HCC) - ICD9: 415.19, ICD10: I26.99 4. Panlobular emphysema (HCC) - ICD9: 492.8, ICD10: J43.1 5. Coronary artery disease due to lipid rich plaque - ICD9: 414.00, 414.3, ICD10: I25.10, I25.83 6. Pre-operative cardiovascular examination - ICD9: V72.81, ICD10: Z01.810 She is contemplating having a shoulder injections. Pain management booster wishes to hold Xarelto for 2 days prior. Benefits favor holding the medication prior to injection if necessary. It is noted the patient had a past history of pulmonary embolism and arterial embolism 7 years ago. Consider bridging. He endorses exertional shortness of breath specially when walking up at her home. No chest pain no squeezing sensation syncope or near syncope. 7 years ago, she was diagnosed as having 50% disease in all major coronary trunks. She had been maintained on medications.. Opal denies any other active cardiac symptoms. Specifically, the patient denies orthopnea, cough, edema, palpitations, lightheadedness or syncope. The Patient claims compliance with medications and reports no side effects or allergies. Test results were reviewed with the patient. Lipids are monitored through her primary requested copy of results. She bit hypertensive on today's visit she works third shift at [employer]. Not taken her medications yet she usually takes them after she gets out of work. HISTORICAL DATA UPDATED: 10/01/2023 Smoking: Quit smoking 2017. Diabetes: No Lipids: Yes Obesity: No HTN: Yes Sedentary Lifestyle: No Family History of M.A.C.E: Yes CHF: No Stroke /TIA: No, History of pulmonary embolism and arterioles systemic embolization as well. MOST RECENT CARDIAC TESTING: Echo: Normal EF, 2016 Cardiac Catheterization: Mar 2016: 50% LAD, cx, rca Normal EF 60% Holter / Event Recorder : - Stress Test : 2017, normal, normal EF TILT: - Device: - PAST CARDIAC EVENTS: 2017 arterial embolization. Status post embolectomy. 2017 subclinical pulmonary embolism found during the same hospitalization. ALLERGIES Allergen Reactions Metoprolol Intolerance Significant joint pain Prednisone Mental Status Change MEDICATIONS: atorvastatin (LIPITOR) 10 mg tablet TAKE 1 [...] in the MR contrast administration guidelines link. tiZANidine (ZANAFLEX) 4 mg tablet TAKE 1 [...] Take 1 tablet by mouth once daily. budesonide, enteric coated (ENTOCORT EC) 3 mg 24 hr capsule TAKE 3 CAPSULES BY MOUTH ONCE DAILY IN THE MORNING REVIEW OF SYSTEMS: I have edited template to reflect patient's findings GENERAL: Negative for: Weight loss or gain, Fever or Chills, Weakness and Sleep difficulties. HEENT: Negative for: Headache, Impaired Vision, Glasses, Hearing Impairment, Ringing in Ears, Nosebleeds, Poor dental care, Bleeding Gums, Dentures NECK: Negative for: Swelling, Pain, Stiffness RESPIRATORY: Endorses exertional shortness of breath GASTROINTESTINAL: Negative for: Trouble swallowing, Heartburn, Change in bowel habits, Blood in stool, Dark black stools MUSCULOSKELETAL: Negative for: Muscle or joint pain, Stiffness , Joint swelling NEUROLOGIC/PSYCHIATRIC: Negative for: Weakness, Paralysis, Numbness, Tingling, Tremor, Nervousness, Depressed mood, Memory loss SKIN: Negative for: Rashes, Itching HEMATOLOGICAL/LYMPHATIC: Negative for: Easy bruising , Easy bleeding ENDOCRINE: Negative for: Heat or cold intolerance, Excessive sweating, Frequent urination, Frequent thirst PHYSICAL EXAMINATION: BP 145/86 Pulse 81 Resp 16 Ht 5' 4 (1.63m) Wt 165 lb (74.8kg) SpO2 93% BMI 28.31 kg/(m^2). I have edited template to reflect patient's findings General: Well appearing, in no acute distress. Skin: No clubbing, no cyanosis. Eyes: Extra ocular movements intact Oropharynx: Teeth in good repair. Neck: No jugular venous distention, no carotid bruits, carotids have a normal upstroke, no palpable thyromegaly. Lungs: Clear to auscultation bilaterally, no wheezing or rhonchi. Heart: Regular rhythm, PMI not displaced, S1, S2 normal, no S3, no S4, no heaves, no rub and no murmur. Abdomen: Soft, nontender, bowel sounds normal, no palpable organomegaly, no bruits. Extremities: No peripheral edema . Grade 2/4 distal pulses bilaterally. Neuro: Oriented to person, place and time, alert, cooperative, gait coordinated. CARDIOVASCULAR MEDICINE TESTING: Electrocardiogram: Sinus rhythm with loss of R wave V1 V2 otherwise unremarkable tracing I have personally reviewed the Electrocardiogram. LAst lipids thru PCP. Reportedly adequate levels. Will ask for copy of results. No current metabolic data on our system IMPRESSION: Ms. Hinds is a 62 year old female with a history of previously stable coronary artery disease 50% occlusive burden and the major coronary trunks as of catheterization from 2017. She is now endorsing exertional dyspnea which is a new factor for her. Will, therefore, order pharmacologic stress test. I do not believe she is able to run on her treadmill due to hip arthritis. Her blood pressure is a bit elevated on today's visit. I have requested that she provides us with daily blood pressure records at home or work prior to further medication adjustment. She is to continue 10 mg of lisinopril daily. With regards to her future injection, risk benefits favor this is holding Xarelto 2 days prior to the procedure. Consider bridging her with LMWH at your discretion and restart anticoagulation soon as feasible. Will review stress test results when available. The patient understands that if it is significantly abnormal, higher levels of testing may be indicated. Follow-up 2 months 1. HERNANDEZ (dyspnea on exertion) - ICD9: 786.09, ICD10: R06.09 (primary diagnosis) 2. Mixed hyperlipidemia - ICD9: 272.2, ICD10: E78.2 3. Pulmonary embolism on right (HCC) - ICD9: 415.19, ICD10: I26.99 4. Panlobular emphysema (HCC) - ICD9: 492.8, ICD10: J43.1 5. Coronary artery disease due to lipid rich plaque - ICD9: 414.00, 414.3, ICD10: I25.10, I25.83 6. Pre-operative cardiovascular examination - ICD9: V72.81, ICD10: Z01.810 Bert Ward MD During this 20 minute visit with greater than 50% of the time was spent in direct, [id number], contact with the patient for management and counseling. Bert Ward M.D. [facility] This note was partially generated using [employer] voice recognition system, and there may be some incorrect words, spellings, and punctuation that were not noted in checking the note before saving. documented in this encounter [facility] 10-08-2023 Note HNO ID: [id number] Author: BERT WARD MD Service: ? Author Type: Physician Type: Progress Notes Filed: 10/08/2023 09:43 Note Text: PRIMARY CARE PHYSICIAN: Shae Mendez ([facility]) [address] [address] HISTORY OF PRESENT ILLNESS: Ms. Hinds is a 62 year old female who presents today for a cardiovascular medicine preprocedural visit. CARDIOVASCULAR PROBLEMS: 1. HERNANDEZ (dyspnea on exertion) - ICD9: 786.09, ICD10: R06.09 (primary diagnosis) 2. Mixed hyperlipidemia - ICD9: 272.2, ICD10: E78.2 3. Pulmonary embolism on right (HCC) - ICD9: 415.19, ICD10: I26.99 4. Panlobular emphysema (HCC) - ICD9: 492.8, ICD10: J43.1 5. Coronary artery disease due to lipid rich plaque - ICD9: 414.00, 414.3, ICD10: I25.10, I25.83 6. Pre-operative cardiovascular examination - ICD9: V72.81, ICD10: Z01.810 She is contemplating having a shoulder injections. Pain management booster wishes to hold Xarelto for 2 days prior. Benefits favor holding the medication prior to injection if necessary. It is noted the patient had a past history of pulmonary embolism and arterial embolism 7 years ago. Consider bridging. He endorses exertional shortness of breath specially when walking up at her home. No chest pain no squeezing sensation syncope or near syncope. 7 years ago, she was diagnosed as having 50% disease in all major coronary trunks. She had been maintained on medications.. Opal denies any other active cardiac symptoms. Specifically, the patient denies orthopnea, cough, edema, palpitations, lightheadedness or syncope. The Patient claims compliance with medications and reports no side effects or allergies. Test results were reviewed with the patient. Lipids are monitored through her primary requested copy of results. She bit hypertensive on today's visit she works third shift at [employer]. Not taken her medications yet she usually takes them after she gets out of work. HISTORICAL DATA UPDATED: 10/01/2023 Smoking: Quit smoking 2017. Diabetes: No Lipids: Yes Obesity: No HTN: Yes Sedentary Lifestyle: No Family History of M.A.C.E: Yes CHF: No Stroke /TIA: No, History of pulmonary embolism and arterioles systemic embolization as well. MOST RECENT CARDIAC TESTING: Echo: Normal EF, 2016 Cardiac Catheterization: Mar 2016: 50% LAD, cx, rca Normal EF 60% Holter / Event Recorder : - Stress Test : 2017, normal, normal EF TILT: - Device: - PAST CARDIAC EVENTS: 2017 arterial embolization. Status post embolectomy. 2017 subclinical pulmonary embolism found during the same hospitalization. ALLERGIES Allergen Reactions Metoprolol Intolerance Significant joint pain Prednisone Mental Status Change MEDICATIONS: atorvastatin (LIPITOR) 10 mg tablet TAKE 1 [...] in the MR contrast administration guidelines link. tiZANidine (ZANAFLEX) 4 mg tablet TAKE 1 [...] Take 1 tablet by mouth once daily. budesonide, enteric coated (ENTOCORT EC) 3 mg 24 hr capsule TAKE 3 CAPSULES BY MOUTH ONCE DAILY IN THE MORNING REVIEW OF SYSTEMS: I have edited template to reflect patient's findings GENERAL: Negative for: Weight loss or gain, Fever or Chills, Weakness and Sleep difficulties. HEENT: Negative for: Headache, Impaired Vision, Glasses, Hearing Impairment, Ringing in Ears, Nosebleeds, Poor dental care, Bleeding Gums, Dentures NECK: Negative for: Swelling, Pain, Stiffness RESPIRATORY: Endorses exertional shortness of breath GASTROINTESTINAL: Negative for: Trouble swallowing, Heartburn, Abad (more content not included)... [facility] 10-08-2023 Nurse Note Patient has no cardiac complaints today. Sara Lewis CMA [facility] 10-08-2023 Nurse Note Patient has no cardiac complaints today. Sara Lewis CMA documented in this encounter [facility] 10-01-2023 Telephone encounter Note Clearance received from [facility] [place] asking to hold Xarleto for a pain management procedure, date TBD. Clearance scanned in for ludy w/ Dr. Ward on 10/08/23 @9 am in [place]. Jenni Lewis October 01, 2023 2:22 PM [facility] 10-01-2023 Miscellaneous Notes Clearance received from [facility] [place] asking to hold Xarleto for a pain management procedure, date TBD. Clearance scanned in for ludy w/ Dr. Ward on 10/08/23 @9 am in [place]. Jenni Lewis October 01, 2023 2:22 PM documented in this encounter [facility] 04-04-2023 Discharge summary Note Date/Time April 04, 2023 11:20am [facility] Medical Records Department [address] [place] [id number] Instructions for Home/Discharge Instructions 04/04/23 1120 MR#: [id number] Acct: [id number] Name: OPAL HINDS OJ Rep #:[id number] : 1960 62 From: Freedom Luciano MD PCP: Dr. Shae Mendez MD Status:REG S DC Discharge Instructions Diet Discharge Diet: No restrictions Activity Discharge Activity: Return to Normal Activity and May Not Drive (while taking narcotic pain medications.) Dressing / Incision Call your doctor if you observe: Fever of 101 or Higher Follow Up Care Please Follow Up With: Freedom Luciano MD When: Call [phone] for an appointment Test Results: Test results from this visit will be discussed in further detail at your follow-up appointment, if applicable. Discharge Plan Admission Primary Reason for Your Visit: TVT sling Attending Provider: Freedom Luciano Primary Care Provider: Shae Mendez Discharge Orders/Prescriptions Prescriptions: Continued lisinopril 10 mg tablet 20 mg PO DAILY celecoxib [Celebrex] 200 mg capsule 200 mg PO BID levothyroxine 88 mcg capsule 88 mcg PO QHS trazodone 50 mg tablet 50 mg PO QHS PRN (Reason: Sleep) atorvastatin 10 mg tablet 10 mg PO DAILY melatonin 10 mg capsule 10 mg PO HS PRN (Reason: Sleep) tizanidine 4 mg capsule 4 mg PO TID PRN (Reason: MUSCLE RELAX) budesonide 3 mg capsule,delayed,extend.release 9 mg PO QAM Qty: 270 3RF oxycodone-acetaminophen 1 TABLET tablet 1 tab PO BID Patient Comments: PAIN albuterol sulfate [Proventil HFA] 6.7 GM HFA aerosol inhaler 2 puff IH Q4H PRN PRN (Reason: Sob &/Or Wheezing) Patient Comments: COPD Xarelto 20 MG tablet 20 mg PO DAILY Patient Comments: BLOOD THINNER ipratropium-albuterol 3 ML solution for nebulization 3 ml inhalation TID PRN (Reason: SOB) gabapentin [Neurontin] 400 MG capsule 800 mg PO QHS amlodipine 5 mg tablet 5 mg PO DAILY Patient Comments: TAKE ONE TABLET BY MOUTH DAILY Held sertraline 100 MG tablet 100 mg PO DAILY Hold Instructions: Resume on 04/11/23. Referrals / Follow Up: Freedom Luciano MD [Med Staff - Active Staff] - Shae Mendez MD [Primary Care Provider] - Disposition Disposition (needs filled in before D/C Order can be placed): Home, Self Care 04/04/23 1120<Electronically signed by Freedom Luciano MD>Freedom Luciano MD CC: Dr. Shae Mendez MD ~ Signed [facility] Work Phone: [phone]) 187-406701-24-2024 History and physical note Author Freedom Luciano [facility] April 04, 2023 11:20am Note Date/Time April 04, 2023 1 1:20am [facility] Medical Records Department [address] [place] [id number] History & Physical Exam 04/04/23 1119 MR#: [id number] Acct: [id number] Name: OPAL HINDS Rep #:[id number] : 1960 62 From: Freedom Luciano MD PCP: Dr. Shae Mendez MD Status:REG S DC Location: [place] [address] HPI - General General Date of Admission: 04/04/23 Chief Complaint: Significant stress incontinence and urgency HPI Narrative OPAL HINDS, is a 62 F who presents for placement of a tension-free vaginal sling on cystoscopy and exam she was found to have significant stress incontinence she does report also a lot of urgency she understands the sling will help with her stress incontinence but it may not address her urgency incontinence and this will be have to manage with other methods such as pharmaceutical methods or interventions but for now organ to proceed with a tension-free vaginal sling to improve her bladder control and stress incontinence [facility] Medical History Alcohol use Arthritis Back pain Bite from insect CAD (coronary artery disease) Cardiology follow-up encounter COPD (chronic obstructive pulmonary disease) Depression HERNANDEZ (dyspnea on exertion) DVT (deep venous thrombosis) Easy bruising Former smoker History of atrial fibrillation History of colon polyps History of hiatal hernia History of stress test Hyperglycemia Hypertension Hypothyroidism IBS (irritable bowel syndrome) 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 Neuropathy Other pulmonary embolism without acute cor pulmonale Pain PAT (paroxysmal atrial tachycardia) Renal insufficiency Wears glasses Weight gain Home Medications albuterol sulfate 90 mcg/actuation aerosol inhaler (Proventil HFA) 2 puff IH Q4HPRN PRN Sob &/Or Wheezing 12/28/17 [History Last Taken Unknown] gabapentin 400 mg capsule (Neurontin) 800 mg PO QHS 12/28/17 [History Last Taken 04/03/23] ipratropium 0.5 mg-albuterol 3 mg (2.5 mg base)/3 mL nebulization soln 3 ml inhalation TID PRN SOB 12/28/17 [History Last Taken Unknown] oxycodone-acetaminophen 5 mg-325 mg tablet 1 tab PO BID Pain 12/28/17 [History Last Taken 04/03/23] rivaroxaban 20 mg tablet (Xarelto) 20 mg PO DAILY 12/28/17 [History Last Taken 03/31/23] sertraline 100 mg tablet 100 mg PO DAILY 12/28/17 [History Last Taken 04/03/23] atorvastatin 10 mg tablet 10 mg PO DAILY 11/23/21 [History Last Taken 04/04/23] celecoxib 200 mg capsule (Celebrex) 200 mg PO BID 11/23/21 [History Last Taken 04/03/23] levothyroxine 88 mcg capsule 88 mcg PO QHS 11/23/21 [History Last Taken 04/03/23] lisinopril 10 mg tablet 20 mg PO DAILY 11/23/21 [History Last Taken 04/04/23] melatonin 10 mg capsule 10 mg PO HS PRN Sleep 11/23/21 [History Last Taken 04/03/23] tizanidine 4 mg capsule 4 mg PO TID PRN MUSCLE RELAX 11/23/21 [History Last Taken Unknown] trazodone 50 mg tablet 50 mg PO QHS PRN Sleep 11/23/21 [History Last Taken Unknown] budesonide 3 mg capsule,delayed,extended release 9 mg (3 x 3 mg) PO QAM 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 ea 08/28/22 [Rx Last Taken 04/04/23] amlodipine 5 mg tablet 5 mg PO DAILY 03/26/23 [History Last Taken 04/04/23] Allergy/AdvReac Type Severity Reaction Status Date / Time No Known Allergies Allergy Verified 04/04/23 08:47 Family History Mother Diabetes Surgical History History of cholecystectomy Hx of colonoscopy Social History Smoking Status: Former smoker alcohol intake: current alcohol intake frequency: a few times a week Vital Signs Vital Signs Vital Signs: 04/04/23 09:12 04/04/23 09:12 Temperature 98.6 F Temperature Source Temporal Pulse Rate 87 Respiratory Rate 17 Respiratory Pattern Normal Blood Pressure 141/85 H Blood Pressure Mean 103 Blood Pressure Source Monitor Blood Pressure Position Semi-Fowlers Blood Pressure Location Left Arm Pulse Ox 95 Oxygen Delivery Method Room Air Weight Weight: 78 kg Body Mass Index (BMI) 29.5 Results Lab / Micro Data 03/27/23 07:50 03/27/23 07:50 04/04/23 1120 <Electronically signed by Freedom Luciano MD> Cosigner Signature (if applicable): CC: Dr. Freedom Luciano MD; Dr. Shae Mendez MD~ Signed [facility] Work Phone: 1(319) 469-773001-24-2024 Procedure [facility] 04-04-2023 [facility] Medical Records Department [address] [place] [address] History Physical Exam 04/04/23 1119 MR#: [id number] Acct: [id number] Name: OPAL HINDS Rep #: [id number] : 1960 62 From: Freedom Luciano MD PCP: Dr. Shae Mendez MD Status:[facility] Location: [place] [address] HPI - General General Date of Admission: 04/04/23 Chief Complaint: Significant stress incontinence and urgency HPI Narrative OPAL HINDS, is a 62 F who presents for placement of a tension-free vaginal sling on cystoscopy and exam she was found to have significant stress incontinence she does report also a lot of urgency she understands the sling will help with her stress incontinence but it may not address her urgency incontinence and this will be have to manage with other methods such as pharmaceutical methods or interventions but for now organ to proceed with a tension-free vaginal sling to improve her bladder control and stress incontinence [facility] Medical History Alcohol use Arthritis Back pain Bite from insect CAD (coronary artery disease) Cardiology follow-up encounter COPD (chronic obstructive pulmonary disease) Depression HERNANDEZ (dyspnea on exertion) DVT (deep venous thrombosis) Easy bruising Former smoker History of atrial fibrillation History of colon polyps History of hiatal hernia History of stress test Hyperglycemia Hypertension Hypothyroidism IBS (irritable bowel syndrome) 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 Neuropathy Other pulmonary embolism without acute cor pulmonale Pain PAT (paroxysmal atrial tachycardia) Renal insufficiency Wears glasses Weight gain Home Medications albuterol sulfate 90 mcg/actuation aerosol inhaler (Proventil HFA) 2 puff IH Q4H PRN PRN Sob /Or Wheezing 12/28/17 [History Last Taken Unknown] gabapentin 400 mg capsule (Neurontin) 800 mg PO QHS 12/28/17 [History Last Taken 04/03/23] ipratropium 0.5 mg-albuterol 3 mg (2.5 mg base)/3 mL nebulization soln 3 ml inhalation TID PRN SOB 12/28/17 [History Last Taken Unknown] oxycodone-acetaminophen 5 mg-325 mg tablet 1 tab PO BID Pain 12/28/17 [History Last Taken 04/03/23] rivaroxaban 20 mg tablet (Xarelto) 20 mg PO DAILY 12/28/17 [History Last Taken 03/31/23] sertraline 100 mg tablet 100 mg PO DAILY 12/28/17 [History Last Taken 04/03/23] atorvastatin 10 mg tablet 10 mg PO DAILY 11/23/21 [History Last Taken 04/04/23] celecoxib 200 mg capsule (Celebrex) 200 mg PO BID 11/23/21 [History Last Taken 04/03/23] levothyroxine 88 mcg capsule 88 mcg PO QHS 11/23/21 [History Last Taken 04/03/23] lisinopril 10 mg tablet 20 mg PO DAILY 11/23/21 [History Last Taken 04/04/23] melatonin 10 mg capsule 10 mg PO HS PRN Sleep 11/23/21 [History Last Taken 04/03/23] tizanidine 4 mg capsule 4 mg PO TID PRN MUSCLE RELAX 11/23/21 [History Last Taken Unknown] trazodone 50 mg tablet 50 mg PO QHS PRN Sleep 11/23/21 [History Last Taken Unknown] budesonide 3 mg capsule,delayed,extended release 9 mg (3 x 3 mg) PO QAM 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 ea 08/28/22 [Rx Last Taken 04/04/23] amlodipine 5 mg tablet 5 mg PO DAILY 03/26/23 [History Last Taken 04/04/23] Allergy/AdvReac Type Severity Reaction Status Date / Time No Known Allergies Allergy Verified 04/04/23 08:47 Family History Mother Diabetes Surgical History History of cholecystectomy Hx of colonoscopy Social History Smoking Status: Former smoker alcohol intake: current alcohol intake frequency: a few times a week Vital Signs Vital Signs Vital Signs: 04/04/23 09:12 04/04/23 09:12 Temperature 98.6 F Temperature Source Temporal Pulse Rate 87 Respiratory Rate 17 Respiratory Pattern Normal Blood Pressure 141/85 H Blood Pressure Mean 103 Blood Pressure Source Monitor Blood Pressure Position Semi-Fowlers Blood Pressure Location Left Arm Pulse Ox 95 Oxygen Delivery Method Room Air Weight Weight: 78 kg Body Mass Index (BMI) 29.5 Results Lab / Micro Data 03/27/23 07:50 03/27/23 07:50 04/04/23 1120 Cosigner Signature (if applicable): CC: Dr. Freedom Luciano MD; Dr. Shea Mendez MD [facility]02-03-2023 Instructions* Patient Instructions* Chelsie Belle APRN.[facility] [facility] - 04/14/2022 8:58 AM EST Images from the original note were not included. Coronary Artery Disease View image View image What is coronary artery disease? Coronary artery disease (CAD) is a type of heart disease caused by a problem with the blood vesselsthat bring blood and oxygen to the heart muscle. These arteries are called the coronary arteries. This disease increases your risk for heart attack and sudden . What is the cause? Fatty deposits called plaque may build up in blood vessels and make them narrower. The narrowing decreases the amount of blood flow to the heart. Plaque also increases the chance that blood clots mayform and block a blood vessel, which can [...] there are symptoms, the most common one ischest pain, called angina. You may feel: A feeling of tightness or heaviness in the chest Squeezing, pressure, or burning in the chest Angina symptoms usually: Last for 5 minutes or less and go away with rest or medicine such as nitroglycerin. Happen when the heart has to work harder, such as after a heavy meal or during physical activity oremotional stress. Angina may also happen when you [...] Taking an aspirin every day may lower yourrisk for a heart attack or stroke. Not everyone should take aspirin. Daily use of aspirin can causeproblems, such as stomach irritation, bleeding, and hearing [...] the health of your heart. Developed by [employer]. Published by [employer]. Copyright 2014 [employer] and/or one of its subsidiaries. All rights reserved. [facility]* Ernestine Lewis LPN - 04/14/2022 8:36 AM EST Patient denies any cardiac complains or symptoms. Ernestine Lewis LPN [facility] History of Present illness Narrative* Chelsie Belle APRN.CNP - 04/14/2022 8:30 AM EST Chief Complaint: Patient presents with: Cardiology Follow Up : Mixed hyperlipidemia History of Present Illness: Opal Hinds is a 61 year old female with history of paroxysmal atrial tachycardia -found on [id number] monitor, after having findings of thrombus requiring [...] seems stable today, I did caution her ifshe would fall again and hit her head likely should should be evaluated given her use of Xarelto. 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 Recently she has had some diarrhea issues [...] and Left CHOLECYSTECTOMY ECHO TRANSESOPHAG [facility] IMGNG I&R 04/10/2016 EVENT MONITOR 05/17/2016 [...] Cuff Size: Regular Adult) Pulse 87 Ht 5'4 (1.626 m) Wt 172 lb (78 kg) [...] to her ankles, resting ankle indices normal, rightdigital branch normal, left digital branch with marked diminished waveforms, suggestive of severe distal small vessel arterial closer disease left lower extremity. 30-day event monitor 04/17/2016 through 05/17/2016: Sinus rhythm with bursts of PAT, 69 beats, rates to180 Recommendations: 1. CAD: She presented as above, she had cardiac cath by Dr. Ward in 2016 with findings of moderatenonobstructive CAD recommended for medical treatment, she is on Xarelto and lieu of aspirin, she kanu lisinopril and statin. She has thankfully quit [...] establish as new with Dr. Astudillo in [place], she is instructed to call with other symptoms or complaints. Thank you Chelsie Belle APRN.SCHEDULE ANALYST Please Note: This office note has been created using [employer], a speech recognition software program, and may contain errors including punctuation, grammar, spelling, gender, and inappropriate words or phrases that pertain to the sytem. documented in this [facility]12-27-2022 Miscellaneous Notes* Telephone Encounter - Calli Galvan LPN - 03/07/2022 11:40 AM EST Last seen 02/15/2021. Patient missed appointment scheduled for 02/15/2022. Please call patient withover due appointment. Calli Galvan LPN documented in this [facility]12-27-2022 Miscellaneous Notes* Telephone Encounter - Calli Galvan LPN - 03/07/2022 11:38 AM EST Patient's request for medication is as follows: Requested Prescriptions Pending Prescriptions Disp Refills XARELTO 20 mg tablet [Pharmacy Med Name: Xarelto 20 MG Oral Tablet] 30 tablet 0 Sig: Take 1 tablet by mouth once daily Last seen 02/15/2021. Patient missed appointment scheduled for 02/15/2022. Message sent to clericalrequesting they call patient with over due appointment. Prescription(s) as above. Please process accordingly. Calli Galvan LPN documented in this [facility]11-08-2022 Miscellaneous Notes* Telephone Encounter - Yina Louis LPN - 01/17/2022 9:03 AM EST Opened in Error Yina Louis LPN documented in this [facility]06-02-2022 History of Present illness Narrative* Mary Camacho I, MD - 08/11/2021 12:45 PM EDT Images from the original note were not included. NEUROSURGERY FOLLOW UP OFFICE NOTE Chair, Clinical Neurosciences Director, Spinal Neurosurgery [facility] [place] Date of visit: August 11, 2021 Patient Name: Ms.Marilee Micheal Hinds Date of : 1960 Current Age: [age] year old Sex: female MRN/E# [id number] Last Office Visit: 07/21/2021 Chief Complaint: Patient presents with: Established Patient Past Medical/Surgical History: Opal Hinds is a 60 year old female who is self-referred for neurosurgical evaluation of lumbarspine. She has a known history of DVT, PE, thrombectomy on Xarelto, pain management, nonobstructiveCAD, COPD and former smoker. She reports social alcohol use. HPI: She presented to the office as a new patient 07/21/2021 and was seen by VICENTE Jesus a prior history of lumbar fusion in the 80s followed by L3-S1 fusion by Dr. Proctor in 2012. Shefound both surgeries to be very helpful. She reported a 3 to 4-week history of central low back pain which started when she awoke from sleep. Her pain was worse if she leaned forward. She had radicula r leg pain worse on the left with discomfort that traveled down the back of her left leg stopping at the knee. She had not had any leg pain over the past week. She denied any motor weakness. No fever, chills, weight loss or recent injury. She did have some discomfort to her left hip and stated thatshe had bad arthritis and had been told [...] states they feel very similar to her preoperativesymptoms and this was concerning to her. She describes midline low back pain into the bilateral gluteal regions that travels the posterior thighs stopping at the knee L>R. She states the the bilate ral gluteal regions can be the most bothersome to her when sitting. She denies any numbness or tingling. Reports some discomfort in the left hip. She denies any bowel/bladder incontinence but reportsurinary/bowel urgency. She has not had any recent [...] Location: Back-Lower L leg, L buttock Description: Numbness;Tingling;Aching;Radiating Duration Amount of Time: 2 Duration Units: [...] and Left CHOLECYSTECTOMY ECHO TRANSESOPHAG [facility] IMGNG I&R 04/10/2016 EVENT MONITOR 05/17/2016 [...] disease at L to 3. It does resultin narrowing of the spinal canal at that [...] epidural steroid at L2-3. Failing that then shewould be a candidate for a surgical approach. Possibly laminectomy alone versus an extension of herfusion. After thorough discussion she is elected to try nonsurgical intervention first and will follow up with her pain management physician next week to discuss injection. She is also willing to tryphysical therapy and we prescribed some core muscle strengthening for her at today's visit. If her symptoms are not improved with these then she will give us a call to follow-up in 6 to 8 weeks time.At that time I will have her undergo [...] history were reviewed, confirmed, and updated as necessary:allergies, current medications, past family history, past medical history, past social history, past surgical history, problem list, HPI, and ROS obtained by others. Some elements may be copied from a previous office note and have been reviewed/updated where appropriate. All portions reflect current medical decision making from today. The clinical and radiographic findings as well as the risks, benefits and alternatives of treatmenthave been reviewed in detail with the patient. Advised to call the office if symptoms worsen or new symptoms develop. Patient expressed understanding and is in agreement with plan. Mary Camacho MD Chair, Clinical Neurosciences Director, Spinal Neurosurgery [facility] This note was partially generated using [employer] voice recognition system, and there may be some incorrect words, spellings, and punctuation that were not noted in checking the note before saving. [facility] History of Present illness Narrative* RT Evin(R) - 08/11/2021 10:15 AM EDT Radiology Service Progress Note DATE OF SERVICE: [...] Lumbar spine SIGNATURE: RT Evin(R) PATIENT NAME: Opal Hinds DATE: August 11, 2021 TIME: 10:22 AM documented in this [facility]05-12-2022 History of Present illness Narrative* Tacos Jules PA-C - 07/21/2021 9:16 AM EDT NEUROSURGERY CONSULT NOTE Tacos Jules PA-C Date of visit: July 21, 2021 Patient Name: Ms.Marilee Micheal Hinds Date of : 1960 Current Age: [age] year old Sex: female MRN/E# [id number] Chief Complaint: Patient presents with: New Patient [...] low back pain which started when she awokefrom sleep. Her pain is worse if she [...] tells me that she has bad arthritis andhas been told that she needs a hip [...] and Left CHOLECYSTECTOMY ECHO TRANSESOPHAG [facility] IMGNG I&R 04/10/2016 EVENT MONITOR 05/17/2016 [...] speech and language. Spontaneous speech and comprehension normal.Fund of knowledge intact for pt level of [...] with the patient, history, physical exam, the imagesand the chart. ASSESSMENT/PLAN: 1. Lumbar spondylosis - [...] spine MRI. She would like to figure outwhat is going on with her back and has subsequently opted to undergo MRI. I have ordered lumbar spine MRI with and without contrast. She will follow-up with Dr. Camacho afterwards to discuss results and treatment options. Tacos Jules PA-C [facility]* Diagnosis Lumbar spondylosis- Primary Lumbosacral spondylosis without myelopathy Abnormal findings on diagnostic imaging of other parts of musculoskeletal system documented in this encounter [facility] note* Diagnosis Acute midline low back pain with bilateral sciatica- Primary Spinal stenosis of lumbar region without neurogenic claudication Spinal stenosis, lumbar region, without neurogenic claudication documented [facility] [place] [facility]* Diagnosis Abnormal findings on diagnostic imaging of other parts of musculoskeletal system documented in this encounter [facility] note* Diagnosis Onset Date Resolution Status Chronic diarrhea [facility] Work Phone: Evaluation note* Diagnosis PVD (peripheral vascular disease) ([facility])- Primary Peripheral vascular disease, unspecified Coronary artery disease involving [place] heart without angina pectoris, unspecified vessel or lesion type PAT (paroxysmal atrial tachycardia) ([facility]) Paroxysmal supraventricular tachycardia Chronic anticoagulation Long-term (current) use of 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 Mixed hyperlipidemia documented in this encounter [facility] noteNo assessment information availableWMedina [facility] Work Phone: Evaluation note* Diagnosis HERNANDEZ (dyspnea on exertion)- Primary Other dyspnea and respiratory abnormality Mixed hyperlipidemia Pulmonary embolism on right ([facility]) Other pulmonary embolism and infarction Panlobular emphysema (HCC) Other emphysema Coronary artery disease due to lipid rich plaque Pre-operative cardiovascular examination [facility]* Diagnosis HERNANDEZ (dyspnea on exertion) Other dyspnea and respiratory abnormality Mixed hyperlipidemia Pulmonary embolism on right (HCC) Other pulmonary embolism and infarction Panlobular emphysema (HCC) Other emphysema Coronary artery disease due to lipid rich plaque Pre-operative cardiovascular examination documented in this encounter [facility] [place] [facility]* Diagnosis HERNANDEZ (dyspnea on exertion) Other dyspnea and respiratory abnormality Mixed hyperlipidemia Pulmonary embolism on right (HCC) Other pulmonary embolism and infarction Panlobular emphysema (HCC) Other emphysema Coronary artery disease due to lipid rich plaque Pre-operative cardiovascular examination documented in this [facility] [place] [facility]* Diagnosis Primary hypertension- Primary Unspecified essential hypertension Mixed hyperlipidemia Panlobular emphysema (HCC) Other emphysema Chronic anticoagulation Long-term (current) use of 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 Pulmonary embolism on right (HCC) Other pulmonary embolism and infarction documented in this encounter [facility] [place] [facility]* Diagnosis Coronary artery disease involving [place] coronary artery of [place] heart without angina pectoris- Primary Mixed hyperlipidemia Primary hypertension Unspecified essential hypertension Pulmonary embolism on right (HCC) Other pulmonary embolism and infarction Embolus to lower extremity (HCC) Embolism and thrombosis of arteries of lower extremity HERNANDEZ (dyspnea on exertion) Other dyspnea and respiratory abnormality Dyspnea on exertion Other dyspnea and respiratory abnormality documented in this encounter [facility] [place] [facility]* Diagnosis Coronary artery disease involving [place] coronary artery of [place] heart without angina pectoris Mixed hyperlipidemia Primary hypertension Unspecified essential hypertension Pulmonary embolism on right (HCC) Other pulmonary embolism and infarction Embolus to lower extremity (HCC) Embolism and thrombosis of arteries of lower extremity HERNANDEZ (dyspnea on exertion) Other dyspnea and respiratory abnormality documented in this encounter [facility] Discharge instructions Additional Instructions Im[facility]?: [facility] Work Phone: Reason for referral (narrative)* Diagnostic Procedure Only (Routine) - Closed Specialty Diagnoses / Procedures Referred By Phu t Referred To Contact XR IMAGING Diagnoses Lumbar spondylosis Procedures XR LUMBAR MOTION 4V AP/LAT/ FLEX/EXT RADEX SPINE LUMBOSACRAL MINIMUM 4 VIEWS Tacos Jules PA-C [address] [facility] [place] [address] Xr Imaging Referral ID Status Reason Start Date Expiration Date V isits Requested Visits Authorized [id number] Closed Auto-Generate d Referral 07/21/2021 08/20/2022 1 1 * MRI/CT (Routine) - Additional Clinical Info Needed Specialty Diagnoses / Procedures Referred By Contac t Referred To Contact MR IMAGING Diagnoses Abnormal findings on diagnostic imaging of other parts of musculoskeletal system Procedures MRI LUMBAR SPINE WO/W IVCON MRI SPINAL CANAL LUMBAR W/O & W/CONTR MATRL Tacos Jules PA-C [address] [facility] [place] [address] Mr Imaging Referral ID Status Reason Start Date Expiration Date Visits Requested Visits Authorized [id number] Additional Clinical Info Needed Auto-Generat ed Referral 07/21/2021 08/20/[address] [facility] for referral (narrative)* Diagnostic Procedure Only (Routine) - New Request Specialty Diagnoses / Procedures Referred By Contac t Referred To Contact MOLECULAR & FUNCTIONAL IMAGING Diagnoses HERNANDEZ (dyspnea on exertion) Mixed hyperlipidemia Pulmonary embolism on right (HCC) Panlobular emphysema (HCC) Coronary artery disease due to lipid rich plaque Pre-operative cardiovascular examination Procedures NM CARDIAC PERF STRESS/PHARM MYOCARDIAL SPECT MULTIPLE STUDIES Bert Ward MD [address] [facility]. [address] [address] Molecular & Functional Imaging [address] [place] [address] Referral ID Status Reason Start Date Expiration Date Visits Requested Visits Authorized [id number] New Request Auto-Generat ed Referral 10/08/2023 11/06/[address] [facility] for referral (narrative)* Diagnostic Procedure Only (Routine) - Closed Specialty Diagnoses / Procedures Referred By Contac t Referred To Contact MOLECULAR & FUNCTIONAL IMAGING Diagnoses HERNANDEZ (dyspnea on exertion) Mixed hyperlipidemia Pulmonary embolism on right (HCC) Panlobular emphysema (HCC) Coronary artery disease due to lipid rich plaque Pre-operative cardiovascular examination Procedures NM CARDIAC PERF STRESS/PHARM MYOCARDIAL SPECT MULTIPLE STUDIES Bert Ward MD [address] [place] [address] Molecular & Functional Imaging [address] [place] [address] Referral ID Status Reason Start Date Expiration Date V isits Requested Visits Authorized [id number] Closed Auto-Generate d Referral 10/08/2023 11/06/[address] [facility] for visit Narrative* Diagnostic Procedure Only (Routine) - Closed Specialty Diagnoses / Procedures Referred By Contac t Referred To Contact XR IMAGING Diagnoses Lumbar spondylosis Procedures XR LUMBAR MOTION 4V AP/LAT/ FLEX/EXT RADEX SPINE LUMBOSACRAL MINIMUM 4 VIEWS Tacos Jules PA-C [address] [facility] [place] [place] [address] Xr Imaging Referral ID Status Reason Start Date Expiration Date V isits Requested Visits Authorized [id number] Closed Auto-Generate d Referral 07/21/2021 08/20/[address] [facility] for visit Narrative* Diagnostic Procedure Only (Routine) - Closed Specialty Diagnoses / Procedures Referred By Contac t Referred To Contact MOLECULAR & FUNCTIONAL IMAGING Diagnoses HERNANDEZ (dyspnea on exertion) Mixed hyperlipidemia Pulmonary embolism on right (HCC) Panlobular emphysema (HCC) Coronary artery disease due to lipid rich plaque Pre-operative cardiovascular examination Procedures NM CARDIAC PERF STRESS/PHARM MYOCARDIAL SPECT MULTIPLE STUDIES Bert Ward MD [address] [place] [address] Molecular & Functional Imaging [address] [place] [address] Referral ID Status Reason Start Date Expiration Date V isits Requested Visits Authorized [id number] Closed Auto-Generate d Referral 10/08/2023 11/06/2024 1 1 [facility] Summary Purpose Family History No Family History Records Found Relationship Condition Age at Onset Recorded Date/T allyson mother Diabetes mellitus Unknown Advance Directives No Advanced Directives Records Found Advance Directive Response Recorded Date/ Time Living Will Yes December 28 11:35am Power of Gunner Mate Yes December 28, 2017 11:35am Advance Directive Response Recorded Date/ Time Name of Medical Power of Gunner Mate BOSTON GHOTRA February 13, 2022 4:46pm Living Will Yes February 13 4:46pm Power of Gunner Mate Yes February 13, 2022 4:46pm Advance Directive Response Recorded Date/ Time Name of Medical Power of Gunner Mate JERO GHOTRA March 26, 2023 8:01am Living Will Yes March 26 8:01am Power of Gunner Mate Yes March 26, 2023 8:01am Reason for Referral Specialty Diagnoses / Procedures Referred By Contac t Referred To Contact [facility] Diagnoses Acute midline low back pain with bilateral sciatica Procedures CONSULT TO PHYSICAL THERAPY PHYSICAL THERAPY EVALUATION HIGH COMPLEX 45 MINS Mary Camacho I, MD [address] [facility] [place] [address] [facility] [place] [address] [place] [address] Referral ID Status Reason Start Date Expiration Date Visits Requested Visits Authorized [id number] Pending Review Auto-Generat ed Referral 08/11/2021 08/11/2022 1 1 Specialty Diagnoses / Procedures Referred By Phu urena Referred To Contact MR IMAGING Diagnoses Abnormal findings on diagnostic imaging of other parts of musculoskeletal system Procedures MRI LUMBAR SPINE WO/W IVCON MRI SPINAL CANAL LUMBAR W/O & W/CONTR Tacos Hall PA-C [address] [address] Mr Imaging Referral ID Status Reason Start Date Expiration Date V isits Requested Visits Authorized [id number] Closed Auto-Generate d Referral 07/21/2021 08/19/2021 1 1 Chief Complaint and Reason for Visit Chief Complaint HISTORY OF COLON [facility] Reason for Visit Chronic diarrhea Chief Complaint PREOP Vaginal Sling Placement Chief Complaint PREOP Vaginal Sling Placement LOWER ABDOMINAL PAIN *ORAL & IV* Additional Source Comments INFORMATION SOURCE (unrecogn ized section and content) DATE CREATED AUTHOR 06/29/2018 [facility] DATE CREATED AUTHOR AUTHOR'S ORGANIZ ATION 08/14/[address] [facility] ([place]) DATE CREATED AUTHOR AUTHOR'S ORGANIZ ATION 03/19/2021 [facility] DATE CREATED AUTHOR AUTHOR'S ORGANIZ ATION 11/01/2023 [facility] DATE CREATED AUTHOR AUTHOR'S ORGANIZ ATION 10/01/2024 [facility] DATE CREATED AUTHOR AUTHOR'S ORGANIZ ATION 10/20/2024 [facility] DATE CREATED AUTHOR AUTHOR'S ORGANIZ ATION 10/22/[address] [facility] DATE CREATED AUTHOR AUTHOR'S ORGANIZ ATION 12/13/2024 [facility] DATE CREATED AUTHOR AUTHOR'S ORGANIZ ATION 01/01/2025 [facility] Source Comments (unrecognize d section and content) In the event this informatio n is protected by the Federal Confidentiality of Alcohol and Drug Abuse Patient Records regulations: The Federal rules restrict any use of the information to criminally investigate or prosecute any alcohol or drug abuse patient.[facility] System[facility] the event this information is protected by the Federal Confidentiality of Alcohol and Drug Abuse Patient Records regulations: The Federal rules restrict any use of the information to criminally investigate or prosecute any alcohol or drug abuse patient.[facility] SystemIn the event this information is protected by the Federal Confidentiality of Alcohol and Drug Abuse Patient Records regulations: The Federal rules restrict any use of the information to criminally investigate or prosecute any alcohol or drug abuse patient.[facility] SystemIn the event this information is protected by the Federal Confidentiality of Alcohol and Drug Abuse Patient Records regulations: The Federal rules restrict any use of the information to criminally investigate or prosecute any alcohol or drug abuse patient.[facility] SystemIn the event this information is protected by the Federal Confidentiality of Alcohol and Drug Abuse Patient Records regulations: The Federal rules restrict any use of the information to criminally investigate or prosecute any alcohol or drug abuse patient.[facility] SystemIn the event this information is protected by the Federal Confidentiality of Alcohol and Drug Abuse Patient Records regulations: The Federal rules restrict any use of the information to criminally investigate or prosecute any alcohol or drug abuse patient.[facility] SystemIn the event this information is protected by the Federal Confidentiality of Alcohol and Drug Abuse Patient Records regulations: The Federal rules restrict any use of the information to criminally investigate or prosecute any alcohol or drug abuse patient.[facility] SystemIn the event this information is protected by the Federal Confidentiality of Alcohol and Drug Abuse Patient Records regulations: The Federal rules restrict any use of the information to criminally investigate or prosecute any alcohol or drug abuse patient.[facility] SystemIn the event this information is protected by the Federal Confidentiality of Alcohol and Drug Abuse Patient Records regulations: The Federal rules restrict any use of the information to criminally investigate or prosecute any alcohol or drug abuse patient.[facility] SystemIn the event this information is protected by the Federal Confidentiality of Alcohol and Drug Abuse Patient Records regulations: The Federal rules restrict any use of the information to criminally investigate or prosecute any alcohol or drug abuse patient.[facility] SystemIn the event this information is protected by the Federal Confidentiality of Alcohol and Drug Abuse Patient Records regulations: The Federal rules restrict any use of the information to criminally investigate or prosecute any alcohol or drug abuse patient.[facility] SystemIn the event this information is protected by the Federal Confidentiality of Alcohol and Drug Abuse Patient Records regulations: The Federal rules restrict any use of the information to criminally investigate or prosecute any alcohol or drug abuse patient.[facility] SystemIn the event this information is protected by the Federal Confidentiality of Alcohol and Drug Abuse Patient Records regulations: The Federal rules restrict any use of the information to criminally investigate or prosecute any alcohol or drug abuse patient.[facility] SystemIn the event this information is protected by the Federal Confidentiality of Alcohol and Drug Abuse Patient Records regulations: The Federal rules restrict any use of the information to criminally investigate or prosecute any alcohol or drug abuse patient.[facility] SystemIn the event this information is protected by the Federal Confidentiality of Alcohol and Drug Abuse Patient Records regulations: The Federal rules restrict any use of the information to criminally investigate or prosecute any alcohol or drug abuse patient.[facility] SystemIn the event this information is protected by the Federal Confidentiality of Alcohol and Drug Abuse Patient Records regulations: The Federal rules restrict any use of the information to criminally investigate or prosecute any alcohol or drug abuse patient.[facility] SystemIn the event this information is protected by the Federal Confidentiality of Alcohol and Drug Abuse Patient Records regulations: The Federal rules restrict any use of the information to criminally investigate or prosecute any alcohol or drug abuse patient.[facility] SystemIn the event this information is protected by the Federal Confidentiality of Alcohol and Drug Abuse Patient Records regulations: The Federal rules restrict any use of the information to criminally investigate or prosecute any alcohol or drug abuse patient.[facility] SystemIn the event this information is protected by the Federal Confidentiality of Alcohol and Drug Abuse Patient Records regulations: The Federal rules restrict any use of the information to criminally investigate or prosecute any alcohol or drug abuse patient.[facility] System[facility] the event this information is protected by the Federal Confidentiality of Alcohol and Drug Abuse Patient Records regulations: The Federal rules restrict any use of the information to criminally investigate or prosecute any alcohol or drug abuse patient.[facility] SystemIn the event this information is protected by the Federal Confidentiality of Alcohol and Drug Abuse Patient Records regulations: The Federal rules restrict any use of the information to criminally investigate or prosecute any alcohol or drug abuse patient.[facility] SystemIn the event this information is protected by the Federal Confidentiality of Alcohol and Drug Abuse Patient Records regulations: The Federal rules restrict any use of the information to criminally investigate or prosecute any alcohol or drug abuse patient.[facility] SystemIn the event this information is protected by the Federal Confidentiality of Alcohol and Drug Abuse Patient Records regulations: The Federal rules restrict any use of the information to criminally investigate or prosecute any alcohol or drug abuse patient.[facility] Reason for Visit (unrecogniz ed section and content) Reason Comments New Patient Specialty Diagnoses / Procedures Referred By Contac t Referred To Contact Neurosurgery / NEUROSURGERY Diagnoses Lumbar getting worse saw 2013 - needs work up Procedures OFFICE/OUTPATIENT NEW MODERATE MDM 45-59 MINUTES NEW PATIENT Self Tacos Jules PA-C [address] [place] [address] Referral ID Status Reason Start Date Expiration Date V isits Requested Visits Authorized [id number] Closed Financial Clearance Required - Self Pay Patient Cleared - 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 advise to proceed 07/18/2021 10/16/2021 1 1 Reason Comments Established Patient Specialty Diagnoses / Procedures Referred By Contac t Referred To Contact XR IMAGING Diagnoses Lumbar spondylosis Procedures XR LUMBAR MOTION 4V AP/LAT/ FLEX/EXT RADEX SPINE LUMBOSACRAL MINIMUM 4 VIEWS Tacos Jules PA-C [address] [facility] [place] [address] Xr Imaging Referral ID Status Reason Start Date Expiration Date V isits Requested Visits Authorized [id number] Closed Auto-Generate d Referral 07/21/2021 08/20/2022 1 1 Specialty Diagnoses / Procedures Referred By Contac t Referred To Contact MR IMAGING Diagnoses Abnormal findings on diagnostic imaging of other parts of musculoskeletal system Procedures MRI LUMBAR SPINE WO/W IVCON MRI SPINAL CANAL LUMBAR W/O & W/CONTR Tacos Hall PA-C [address] [facility] [place] [address] Mr Imaging Referral ID Status Reason Start Date Expiration Date V isits Requested Visits Authorized [id number] Closed Auto-Generate d Referral 07/21/2021 08/19/2021 1 1 Reason Onset Date Comments Opened In Error 01/17/2022 Reason Comments Appointment Reason Comments Refill Request Reason Comments Cardiology Follow Up Mixed hyperlipidemi a Reason Comments Cardiac Clearance Reason Comments Cardiac Clearance Pain mgmt procedure Reason Comments Orders Lab orders Reason Comments Stress Test Instructions for 01/28/24 Reason Comments Results Reason Comments Radiology NM Specialty Diagnoses / Procedures Referred By Contac t Referred To Contact MOLECULAR & FUNCTIONAL IMAGING Diagnoses HERNANDEZ (dyspnea on exertion) Mixed hyperlipidemia Pulmonary embolism on right (HCC) Panlobular emphysema (HCC) Coronary artery disease due to lipid rich plaque Pre-operative cardiovascular examination Procedures NM CARDIAC PERF STRESS/PHARM MYOCARDIAL SPECT MULTIPLE STUDIES Bert Ward MD [address] [facility]. [address] [place] [address] Molecular & Functional Imaging [address] [place] [address] Referral ID Status Reason Start Date Expiration Date V isits Requested Visits Authorized [id number] Closed Auto-Generate d Referral 10/08/2023 11/06/2024 1 1 Reason Comments Cardiology Follow Up Follow up to hernandez Reason Comments CARD Follow Up 6 Month Primary hypertens ion Reason Onset Date Comments Refill Request 08/11/2024 Reason Onset Date Comments Results 08/14/2024 Care Teams (unrecognized sec tion and content) Financial Engineer Relationship Specialty Start Date End Date Shae Mendez [address] [place] [address] PCP - General Infectious Diseases 12/19/19 Bert Ward MD [address] [place] [address] Cardiology 09/15/16 Financial Engineer Relationship Specialty Start Date End Date Shae Mendez [address] [place] [address] PCP - General Infectious Diseases 12/19/19 Bert Ward MD [address] [place] [address] Cardiology 09/15/16 Financial Engineer Relationship Specialty Start Date End Date Shae Mendez [address] [place] [address] PCP - General Infectious Diseases 12/19/19 Bert Ward MD [address] [place] [address] Cardiology 09/15/16 Syd Ramirez [address] [place] [address] Pain Management 08/11/21 Financial Engineer Relationship Specialty Start Date End Date Shae Mendez [address] [place] [address] PCP - General Infectious Diseases 12/19/19 Bert Ward MD [address] [place] [address] Cardiology 09/15/16 Syd Ramirez [address] [place] [address] Pain Management 08/11/21 Financial Engineer Relationship Specialty Start Date End Date Shae Mendez [address] [place] [address] PCP - General Infectious Diseases 12/19/19 Bert Ward MD [address] [place] [address] Cardiology 09/15/16 Syd Ramirez [address] [place] [address] Pain Management 08/11/21 Financial Engineer Relationship Specialty Start Date End Date Shae Mendez MD [address] [place] [address] PCP - General Infectious Diseases 12/19/19 Bert Ward MD [address] [place] [address] Cardiology 09/15/16 Syd Ramirez [address] [place] [address] Pain Management 08/11/21 Financial Engineer Relationship Specialty Start Date End Date Shae Mendez MD [address] [place] [address] PCP - General Infectious Diseases 12/19/19 Bert Ward MD [address] [place] [address] Cardiology 09/15/16 Syd Ramirez [address] [place] [address] Pain Management 08/11/21 Financial Engineer Relationship Specialty Start Date End Date Shae Mendez MD [address] [place] [address] PCP - General Infectious Diseases 12/19/19 Bert Ward MD [address] [place] [address] Cardiology 09/15/16 Syd Ramierz [address] [place] [address] Pain Management 08/11/21 Financial Engineer Relationship Specialty Start Date End Date Shae Mendez MD [address] [facility] [place] [address] PCP - General Infectious Diseases 12/19/19 Bert Ward MD [address] [place] [address] Cardiology 09/15/16 Syd Ramirez [address] [place], [place] [id number] Pain Management 08/11/21 Team Status: Active Member Role Status Dates Dr. Kirby Mcclain MD Family Provider Active Dr. Shae Mendez MD Primary Care Provider Active Team Status: Active Member Role Status Dates Dr. Shae Mendez MD Primary Care Provider Active Dr. Kehinde Brennan MD Attending Provider Active Dr. Freedom Luciano MD Referring Provider Active Team Status: Inactive Member Role Status Dates Dr. Shae Mendez MD Primary Care Provider Active Dr. Freedom Luciano MD Attending Provider, Referr ing Provider Active Financial Engineer Relationship Specialty Start Date End Date Shae Mendez MD PCP - General Infectious Diseases 12/19/19 Bert Ward MD Cardiology 09/15/16 Syd Ramirez MD [address] [place] [address] Pain Management 08/11/21 Financial Engineer Relationship Specialty Start Date End Date Shae Mendez MD PCP - General Infectious Diseases 12/19/19 Bert Ward MD Cardiology 09/15/16 Syd Ramirez MD [address] [place] [address] Pain Management 08/11/21 Financial Engineer Relationship Specialty Start Date End Date Shae Mendez MD PCP - General Infectious Diseases 12/19/19 Bert Ward MD Cardiology 09/15/16 Syd Ramirez MD [address] [place] [address] Pain Management 08/11/21 Financial Engineer Relationship Specialty Start Date End Date Shae Mendez MD PCP - General Infectious Diseases 12/19/19 Bert Ward MD Cardiology 09/15/16 Syd Ramirez MD [address] [place] [address] Pain Management 08/11/21 Financial Engineer Relationship Specialty Start Date End Date Shae Mendez MD PCP - General Infectious Diseases 12/19/19 Bert Ward MD Cardiology 09/15/16 Syd Ramirez MD [address] [place] [address] Pain Management 08/11/21 Financial Engineer Relationship Specialty Start Date End Date Shae Mendez MD PCP - General Infectious Diseases 12/19/19 Bert Ward MD Cardiology 09/15/16 Syd Ramirez MD [address] [place] [address] Pain Management 08/11/21 Financial Engineer Relationship Specialty Start Date End Date Shae Mendez MD PCP - General Infectious Diseases 12/19/19 Bert Ward MD Cardiology 09/15/16 Syd Ramirez MD [address] [place] [address] Pain Management 08/11/21 Financial Engineer Relationship Specialty Start Date End Date Shae Mendez MD PCP - General Infectious Diseases 12/19/19 Bert Ward MD Cardiology 09/15/16 Syd Ramirez MD [address] [place], [place] [address] Pain Management 08/11/21 Financial Engineer Relationship Specialty Start Date End Date Shae Mendez MD PCP - General Infectious Diseases 12/19/19 Bert Ward MD Cardiology 09/15/16 Syd Ramirez MD [address] [place] [address] Pain Management 08/11/21 Financial Engineer Relationship Specialty Start Date End Date Shae Mendez MD PCP - General Infectious Diseases 12/19/19 Bert Ward MD Cardiology 09/15/16 Syd Ramirez MD [address] [place] [address] Pain Management 08/11/21 Financial Engineer Relationship Specialty Start Date End Date Shae Mendez MD PCP - General Infectious Diseases 12/19/19 Bert Ward MD Cardiology 09/15/16 Syd Ramirez MD [address] [place], [place] [address] Pain Management 08/11/21 Financial Engineer Relationship Specialty Start Date End Date Shae Mendez MD PCP - General Infectious Diseases 12/19/19 Bert Ward MD Cardiology 09/15/16 Syd Ramirez MD [address] [place], [place] [address] Pain Management 08/11/21 Financial Engineer Relationship Specialty Start Date End Date Shae Mendez MD PCP - General Infectious Diseases 12/19/19 Bert Ward MD Cardiology 09/15/16 Syd Ramirez MD [address] [place], [place] [address] Pain Management 08/11/21 Goals (unrecognized section and content) Goals may be documented in a n alternate section FOR RECORDS PERTAINING TO PATIENTS WHO ARE [...] BE BASED ON THE PRIMARY CLINICAL RECORDS. [facility]. provides no warranty or guarantee of the accuracy or completeness of information in this document.
[2025-03-02] MEDS: Lactated Ringers 1,000 ML 15 ML IV (06:30)
--- NOTE | 2025-03-02 06:43 | PRE.ANES_ITS ---
ASA Classification* ASA Classification ASA Classification: 2 Assessment & Plan Anesthesia* Anesthesia Assessment Anesthesia Assessment: Discussed sedation and/or anesthesia options, risks, benefits, and alternatives with patient/parents/legal guardian/POA. Questions invited. The patient/parents/legal guardian/POA seems to understand and agrees to proceed with anesthesia plan. Reviewed the physical assessment, medical history, allergy history and patient home medications list prior to surgery/procedure/anesthetic and documented any changes. Performed airway and anesthesia risk assessments. Anesthesia Type Anesthesia Type: MAC Anesthesia Focused Assessment* Airway Assessment Mouth opens: >3 cm Mallampati Score: II Labs Anesthesia Preop lab: CBC WBC, (4.4-11.0) 11.5 K/mm3 H 03/27/23, 07:50 RBC, (4.2-5.4) 4.76 M/mm3 03/27/23, 07:50 Hgb, (12.0-15.0) 13.8 g/dL 03/27/23, 07:50 Hct, (37-47) 42.0 % 03/27/23, 07:50 Plt Count, (150-450) 236 K/mm3 03/27/23, 07:50 CHEMISTRY Potassium, (3.5-5.1) 4.4 mmol/L 03/27/23, 07:50 Sodium, (136-145) 137 mmol/L 03/27/23, 07:50 BUN, (7-18) 36 mg/dL H 03/27/23, 07:50 Creatinine, (0.55-1.02) 1.17 mg/dL H 03/27/23, 07:50 Glucose, (74-106) 159 mg/dL H 03/27/23, 07:50 TSH, (0.358-3.74) 0.83 uIU/mL 03/27/23, 07:50 COAG Pre-Assessment Diagnosis/Proposed Procedure Planned Operative Procedure(s): Colonoscopy Anesthesia History 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 When Was Last Pacemaker Check QUESTION #4 FULL TEXT: You/Your Family Experience fever (hyperthermia) with Anesthesia Last Oral Intake Last Oral intake: Last Oral Intake NPO since Meds taken in AM with sips of water? Meds patient instructed to take am of surgery PONV PONV - freight dispatcher: PONV - freight dispatcher Female HX of Motion Sickness HX of N/V After Surgery Non-Smoker Duration of Surgery greater than 60 minutes Number of Risk Factors PONV Score Height & Weight Height & Weight: Anesthesia: Height & Weight Height 5 ft 4 in 04/04/23 09:12 Respiratory Assessment Respiratory Assessment - freight dispatcher: Respiratory Tract Infection Hx - freight dispatcher Hx Respiratory Tract Infection No 03/26/23 08:01 STOP Sleep Apnea STOP Sleep Apnea - freight dispatcher: STOP Sleep Apnea - freight dispatcher Hx Hypertension Yes: CONTROLLED WITH MEDS 03/26/23 08:01 Hx Sleep Apnea No 04/04/23 16:30 CPAP BIPAP Do you snore loudly (louder than talking or can be heard Do you often feel tired/ fatigued/ sleepy during daytime? Has anyone observed you stop breathing during sleep? STOP Results QUESTION #5 FULL TEXT : Do you snore loudly (louder than talking or can be heard through closed doors)? Tobacco Use History Tobacco Use History - freight dispatcher: Tobacco Use History - freight dispatcher Tobacco Use Smoking Status Former smoker 02/13/25 07:44 Hx Tobacco Use No 03/26/23 08:01 Years Smoking Packs Smoked per Day Smoking Cessation Date was within the last 15 years Hx Smoking Cessation Date 03/12/16 03/26/23 08:01 Hx Smoking Cessation No 03/26/23 08:01 Counseling Hematologic Medial History Hematologic Hx - freight dispatcher: Hematologic Medical Hx - documentation improvement specialist Hx of Blood Transfusion Hx of Transfusion in last 3 Months Date of Last Transfusion (if within last 3 months) Ever experience any problems with transfusion(s)? Specify any problems Hx of Preganancy in last 3 Months Nurse Filling Out Transfusion & Questions: Date: Time: Patient unable to answer at this time (ie. confused, unrespo /Reproduction History /Reproductive History - freight dispatcher: /Reproductive Hx- freight dispatcher Hx Now Gestational Age (in weeks): EDC: Hx Hx Para Hx Section SAB No 03/26/23 08:01 Does the father of the baby or his family experience fever w Father of the baby Malignant Hypertension history comment Active Medications Active Medications: Current Medications Generic Name Dose Route Start Last Admin Trade Name Freq PRN Reason Stop Dose Admin Lactated Ringer's 1,000 mls @ 15 mls/hr 03/02/25 06:30 IV .Q48H [facility] PFSH Medical History Bite from insect History of hiatal hernia Pain Wears glasses Alcohol use Arthritis Hypertension Easy bruising Back pain Former smoker Leg cramps History of stress test Cardiology follow-up encounter History of atrial fibrillation Hypothyroidism Depression Neuropathy CAD (coronary artery disease) Other pulmonary embolism without acute cor pulmonale PAT (paroxysmal atrial tachycardia) DVT (deep venous thrombosis) COPD (chronic obstructive pulmonary disease) Renal insufficiency ROY (dyspnea on exertion) Weight gain Hyperglycemia 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 History of colon polyps IBS (irritable bowel syndrome) Home Medications ?Medication ?Instructions ?Recorded ?Last Taken ?Type albuterol sulfate 90 mcg/actuation 2 puff IH Q4H PRN P RN Sob &/Or 12/28/17 Unknown History aerosol inhaler (Proventil HFA) Wheezing ipratropium 0.5 mg-albuterol 3 mg 3 ml inhalation TID PRN SOB 12/28/17 Unknown History (2.5 mg base)/3 mL nebulization soln oxycodone-acetaminophen 5 mg-325 1 tab PO BID Pain 04/03/23 History mg tablet rivaroxaban 20 mg tablet (Xarelto) 20 mg PO DAILY 12/1003/31/23 History sertraline 100 mg tablet 100 mg PO DAILY 12/28/17 History Held on 04/04/23. Instructions: Resume on 04/11/23. levothyroxine 88 mcg capsule 88 mcg PO QHS 11/23/21 History lisinopril 10 mg tablet 20 mg PO DAILY 11/23/2103/13 History melatonin 10 mg capsule 10 mg PO HS PRN Sleep 04/03/23 History tizanidine 4 mg capsule 4 mg PO TID PRN MUSCLE RELAX 11/23/21 Unknown History trazodone 50 mg tablet 50 mg PO QHS PRN Sleep 11/23 Unknown History budesonide-formoterol HFA 80 2 puff inhalation Q12H Unknown History mcg-4.5 mcg/actuation aerosol inhaler (Symbicort) gabapentin 600 mg tablet 600 mg PO TID 12/29/24 Unkno wn History prednisone 10 mg tablet 10 mg PO QDAY 12/29/24 Unkno wn History rosuvastatin 5 mg tablet 5 mg PO DAILY 02/13/25 Unkno wn History Allergy/AdvReac Type Severity Reaction Status Date / Time No Known Allergies Allergy Verified 03/02/25 06:39 Family History Mother Diabetes Surgical History Hx of colonoscopy History of cholecystectomy Social History Smoking Status: Former smoker alcohol intake: current alcohol intake frequency: holidays/special occasions only substance use type: does not use what type of physical activity do you participate in: none Review of Systems (Anesthesia) ROS Narrative System reviewed and no additional complaints, except as documented.
--- NOTE | 2025-03-02 07:13 | PCM.PRE.AN2 ---
ASA Classification* ASA Classification ASA Classification: 2 Assessment & Plan Anesthesia* Anesthesia Assessment Anesthesia Assessment: Discussed sedation and/or anesthesia options, risks, benefits, and alternatives with patient/parents/legal guardian/POA. Questions invited. The patient/parents/legal guardian/POA seems to understand and agrees to proceed with anesthesia plan. Reviewed the physical assessment, medical history, allergy history and patient home medications list prior to surgery/procedure/anesthetic and documented any changes. Performed airway and anesthesia risk assessments. Anesthesia Type Anesthesia Type: MAC Anesthesia Focused Assessment* Temperature: 978.3 F Pulse Rate: 86 Blood Pressure: 156/99 Respiratory Rate: 16 Pulse Ox: 93 Airway Assessment Mouth opens: >3 cm Mallampati Score: II Labs Anesthesia Preop lab: CBC WBC, (4.4-11.0) 11.5 K/mm3 H 03/27/23, 07:50 RBC, (4.2-5.4) 4.76 M/mm3 03/27/23, 07:50 Hgb, (12.0-15.0) 13.8 g/dL 03/27/23, 07:50 Hct, (37-47) 42.0 % 03/27/23, 07:50 Plt Count, (150-450) 236 K/mm3 03/27/23, 07:50 CHEMISTRY Potassium, (3.5-5.1) 4.4 mmol/L 03/27/23, 07:50 Sodium, (136-145) 137 mmol/L 03/27/23, 07:50 BUN, (7-18) 36 mg/dL H 03/27/23, 07:50 Creatinine, (0.55-1.02) 1.17 mg/dL H 03/27/23, 07:50 Glucose, (74-106) 159 mg/dL H 03/27/23, 07:50 TSH, (0.358-3.74) 0.83 uIU/mL 03/27/23, 07:50 COAG Pre-Assessment Diagnosis/Proposed Procedure Planned Operative Procedure(s): Colonoscopy Anesthesia History Anesthesia History - costume technician: Anesthesia History - costume technician Hx Hospitalization No 03/26/23 08:01 Any Problems With Anesthesia No 03/26/23 08:01 Cholinesterase deficiency No 03/26/23 08:01 You/Your Family Experience No 03/26/23 08:01 fever (hyperthermia) with Relationship Recent Exposure to Contagious No 04/04/23 09:12 Disease Does patient have nerve No 03/26/23 08:01 stimulator Patient instructed to have device shut off --Does patient have Pacemaker No 03/02/25 06:41 or ICD? When Was Last Pacemaker Check QUESTION #4 FULL TEXT: You/Your Family Experience fever (hyperthermia) with Anesthesia Last Oral Intake Last Oral intake: Last Oral Intake NPO since 23:00 03/02/25 06:41 Meds taken in AM with sips of No 03/02/25 06:41 water? Meds patient instructed to take am of surgery PONV PONV - costume technician: PONV - costume technician Female HX of Motion Sickness HX of N/V After Surgery Non-Smoker Duration of Surgery greater than 60 minutes Number of Risk Factors PONV Score Height & Weight Height & Weight: Anesthesia: Height & Weight Height 5 ft 4 in 03/02/25 06:41 Weight: 79.8 kg 03/02/25 06:41 Body Mass Index (BMI) 30.2 03/02/25 06:41 Respiratory Assessment Respiratory Assessment - costume technician: Respiratory Tract Infection Hx - costume technician Hx Respiratory Tract Infection No 03/26/23 08:01 STOP Sleep Apnea STOP Sleep Apnea - costume technician: STOP Sleep Apnea - costume technician Hx Hypertension Yes: CONTROLLED WITH MEDS 03/26/23 08:01 Hx Sleep Apnea No 04/04/23 16:30 CPAP BIPAP Do you snore loudly (louder than talking or can be heard Do you often feel tired/ fatigued/ sleepy during daytime? Has anyone observed you stop breathing during sleep? STOP Results QUESTION #5 FULL TEXT : Do you snore loudly (louder than talking or can be heard through closed doors)? Tobacco Use History Tobacco Use History - costume technician: Tobacco Use History - costume technician Tobacco Use Smoking Status Former smoker 02/13/25 07:44 Hx Tobacco Use No 03/26/23 08:01 Years Smoking Packs Smoked per Day Smoking Cessation Date was within the last 15 years Hx Smoking Cessation Date 03/12/16 03/26/23 08:01 Hx Smoking Cessation No 03/26/23 08:01 Counseling Hematologic Medial History Hematologic Hx - costume technician: Hematologic Medical Hx - appraisal analyst Hx of Blood Transfusion Hx of Transfusion in last 3 Months Date of Last Transfusion (if within last 3 months) Ever experience any problems with transfusion(s)? Specify any problems Hx of Preganancy in last 3 Months Nurse Filling Out Transfusion & Questions: Date: Time: Patient unable to answer at this time (ie. confused, unrespo /Reproduction History /Reproductive History - costume technician: /Reproductive Hx- costume technician Hx Now Gestational Age (in weeks): EDC: Hx Hx Para Hx Section SAB No 03/26/23 08:01 Does the father of the baby or his family experience fever w Father of the baby Malignant Hypertension history comment Active Medications Active Medications: Current Medications Generic Name Dose Route Start Last Admin Trade Name Freq PRN Reason Stop Dose Admin Lactated Ringer's 1,000 mls @ 15 mls/hr 03/02/25 06:30 03/02/25 06:30 IV 15 mls/hr .Q48H SCOTT Administration PFSH Medical History Bite from insect History of hiatal hernia Pain Wears glasses Alcohol use Arthritis Hypertension Easy bruising Back pain Former smoker Leg cramps History of stress test Cardiology follow-up encounter History of atrial fibrillation Hypothyroidism Depression Neuropathy CAD (coronary artery disease) Other pulmonary embolism without acute cor pulmonale PAT (paroxysmal atrial tachycardia) DVT (deep venous thrombosis) COPD (chronic obstructive pulmonary disease) Renal insufficiency ROY (dyspnea on exertion) Weight gain Hyperglycemia custodial (current) use of 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 History of colon polyps IBS (irritable bowel syndrome) Home Medications ?Medication ?Instructions ?Recorded ?Last Taken ?Type albuterol sulfate 90 mcg/actuation 2 puff IH Q4H PRN PRN Sob &/Or 12/28/17 Unknown History aerosol inhaler (Proventil HFA) Wheezing ipratropium 0.5 mg-albuterol 3 mg 3 ml inhalation TID PRN SOB 12/28/17 Unknown History (2.5 mg base)/3 mL nebulization soln oxycodone-acetaminophen 5 mg-325 1 tab PO BID Pain 12/28/17 04/03/23 History mg tablet rivaroxaban 20 mg tablet (Xarelto) 20 mg PO DAILY 12/28/17 03/31/23 History sertraline 100 mg tablet 100 mg PO DAILY 12/28/17 04/03/23 History Held on 04/04/23. Instructions: Resume on 04/11/23. levothyroxine 88 mcg capsule 88 mcg PO QHS 11/23/21 04/03/23 History lisinopril 10 mg tablet 20 mg PO DAILY 11/23/21 04/04/23 History melatonin 10 mg capsule 10 mg PO HS PRN Sleep 11/23/21 04/03/23 History tizanidine 4 mg capsule 4 mg PO TID PRN MUSCLE RELAX 11/23/21 Unknown History trazodone 50 mg tablet 50 mg PO QHS PRN Sleep 11/23/21 Unknown History budesonide-formoterol HFA 80 2 puff inhalation Q12H 12/29/24 Unknown History mcg-4.5 mcg/actuation aerosol inhaler (Symbicort) gabapentin 600 mg tablet 600 mg PO TID 12/29/24 Unknown History prednisone 10 mg tablet 10 mg PO QDAY 12/29/24 Unknown History rosuvastatin 5 mg tablet 5 mg PO DAILY 02/13/25 Unknown History Allergy/AdvReac Type Severity Reaction Status Date / Time No Known Allergies Allergy Verified 03/02/25 06:39 Family History Mother Diabetes Surgical History Hx of colonoscopy History of cholecystectomy Social History Smoking Status: Former smoker alcohol intake: current alcohol intake frequency: holidays/special occasions only substance use type: does not use what type of physical activity do you participate in: none Review of Systems (Anesthesia) ROS Narrative System reviewed and no additional complaints, except as documented.
--- NOTE | 2025-03-02 07:30 | COLBX_PTH ---
PATIENT: SOFIA HINDS LOC: EN U#:[id number] AGE/SX: 64/F ROOM: RE03/02/[address]: Dr. Cruz Zavala DO : 1960 BED: DIS: 03/02/2025 SPEC #: [id number] RECD: 03/02/25 09:42 STATUS: YG REQ #: [id number] JOHNY: 03/02/25 07:[address]: Cruz Zavala DEPT: SURGICAL PATHOLOGY RECD BY: Drew Barney ENTERED: 03/02/25 10:35 SP TYPE: COLON BX OTHR DR: Dr. Shae Durham MD Tissues: A - Cecum, NOS B - Ileum, NOS C - COLON BIOPSY Procedures: Surgery Specimen Level IV HEADER OPERATION: Colonoscopy with biopsy PRE-OP DIAGNOSIS: Colon polyps and diarrhea TISSUE SUBMITTED: A. Cecal polyp biopsy, B. Terminal ileum biopsy, C. Random colon biopsy MICROSCOPIC DIAGNOSIS A. Colon, cecum, polyp, biopsy: - Tubular adenoma. B. Small intestine, terminal ileum, biopsy: - No specific pathologic change. C. Colon, random, biopsy: - No specific pathologic change. - Trichrome stain is negative for significant thickening of the subepithelial collagen plate. MICROSCOPIC DESCRIPTION Slides are reviewed. All matched controls reacted appropriately. These tests were developed and their performance characteristics determined by [facility]. They may not have been cleared or approved by the U.S. Food and Drug Administration. The FDA has determined that such clearance or approval is not necessary. The above immunohistochemical markers and/or special?stains have been reviewed by the Pathologist. GROSS DESCRIPTION A. Received is one container labeled with the patient name and designated cecal polyp. The specimen consists of two irregular fragments of jj tissue that measure 0.3 x 0.5cm. The specimen is totally submitted in one cassette. B: Received is one container labeled with the patient name and designated Terminal ileum biopsy. The specimen consists of two irregular fragments of jj tissue that measure 0.3 x 0.5 cm. The specimen is totally submitted in one cassette. C. Received is one container labeled with the patient name and designated Random colon biopsy. The specimen consists of multiple irregular fragments of jj tissue that in aggregate measure 1.3 x 0.6 x 0.1 cm. The specimen is totally submitted in one cassette. MN 03/02/2025 CPT:[id number]
--- NOTE | 2025-03-02 07:43 | PCM.HP.STD ---
HPI - General General Date of Admission: 03/02/25 Date of Service: 03/02/25 Chief Complaint: Colon polyps and diarrhea HPI Narrative OPAL HINDS, is a 64 F who presents [Chief Complaint: Colon polyps Last OV 08/28/2022 with Jenni Pa NP for 6-month follow-up for lymphocytic colitis. CT abdomen pelvis 10/20/2024 no nephrolithiasis or hydronephrosis, questionable rectal wall thickening versus underdistention. When the patient is clinically able recommend correlation with colorectal cancer screening. Bilateral bronchial wall thickening in the lung bases. Screening colonoscopy 12/03/2024 polyp slightly polypoid fragments of colonic mucosa with mild chronic inflammation nonspecific reactive change and a tubular adenoma. OV 02/13/25 patient admits to consistently having diarrhea over the past 6 months. She is having 3-4 episodes of diarrhea per day. Sometimes it may be urgent. She denies any other associated symptoms. Patient has had a upper respiratory infection over the past month and is currently being treated with prednisone. She denies family history of colon cancer. [facility] Medical History Bite from insect History of hiatal hernia Pain Wears glasses Alcohol use Arthritis Hypertension Easy bruising Back pain Former smoker Leg cramps History of stress test Cardiology follow-up encounter History of atrial fibrillation Hypothyroidism Depression Neuropathy CAD (coronary artery disease) Other pulmonary embolism without acute cor pulmonale PAT (paroxysmal atrial tachycardia) DVT (deep venous thrombosis) COPD (chronic obstructive pulmonary disease) Renal insufficiency ROY (dyspnea on exertion) Weight gain Hyperglycemia assisted (current) use of 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 History of colon polyps IBS (irritable bowel syndrome) Home Medications ?Medication ?Instructions ?Recorded ?Last Taken ?Type albuterol sulfate 90 mcg/actuation 2 puff IH Q4H PRN PRN Sob &/Or 12/28/17 Unknown History aerosol inhaler (Proventil HFA) Wheezing ipratropium 0.5 mg-albuterol 3 mg 3 ml inhalation TID PRN SOB 12/28/17 Unknown History (2.5 mg base)/3 mL nebulization soln oxycodone-acetaminophen 5 mg-325 1 tab PO BID Pain 12/28/17 04/03/23 History mg tablet rivaroxaban 20 mg tablet (Xarelto) 20 mg PO DAILY 12/28/17 03/31/23 History sertraline 100 mg tablet 100 mg PO DAILY 12/28/17 04/03/23 History Held on 04/04/23. Instructions: Resume on 04/11/23. levothyroxine 88 mcg capsule 88 mcg PO QHS 11/23/21 04/03/23 History lisinopril 10 mg tablet 20 mg PO DAILY 11/23/21 04/04/23 History melatonin 10 mg capsule 10 mg PO HS PRN Sleep 11/23/21 04/03/23 History tizanidine 4 mg capsule 4 mg PO TID PRN MUSCLE RELAX 11/23/21 Unknown History trazodone 50 mg tablet 50 mg PO QHS PRN Sleep 11/23/21 Unknown History budesonide-formoterol HFA 80 2 puff inhalation Q12H 12/29/24 Unknown History mcg-4.5 mcg/actuation aerosol inhaler (Symbicort) gabapentin 600 mg tablet 600 mg PO TID 12/29/24 Unknown History prednisone 10 mg tablet 10 mg PO QDAY 12/29/24 Unknown History rosuvastatin 5 mg tablet 5 mg PO DAILY 02/13/25 Unknown History Allergy/AdvReac Type Severity Reaction Status Date / Time No Known Allergies Allergy Verified 03/02/25 06:39 Family History Mother Diabetes Surgical History Hx of colonoscopy History of cholecystectomy Social History Smoking Status: Former smoker alcohol intake: current alcohol intake frequency: holidays/special occasions only substance use type: does not use what type of physical activity do you participate in: none ROS Constitutional Constitutional: Denies fatigue, fever(s), poor appetite, weight gain or weight loss Gastrointestinal Gastrointestinal: Denies belching, bloating, change in bowel habits, change in stool character, chewing difficulty, coffee ground emesis, constipation, cramping, diarrhea, dyspepsia, dysphagia, early satiety, excessive flatus, fecal incontinence, heartburn, hematemesis, hematochezia, hemorrhoids, loose stools, melena, nausea, odynophagia, rectal bleeding, tenesmus, vomiting or weight changes Patient's Goals Of Care . What would you like to achieve or improve as a result of your hospital stay?: none Vital Signs Vital Signs Vital Signs: 03/02/25 06:41 03/02/25 06:41 03/02/25 06:41 Temperature 978.3 F H Temperature Source Temporal Pulse Rate 86 Respiratory Rate 16 Respiratory Pattern Normal Blood Pressure 156/99 H Blood Pressure Mean 118 Blood Pressure Source Monitor Blood Pressure Position Semi-Fowlers Blood Pressure Location Right Arm Baseline BP 156/99 Pulse Ox 93 Oxygen Delivery Method Room Air 03/02/25 07:13 Temperature 978.3 F H Temperature Source Pulse Rate 86 Respiratory Rate 16 Respiratory Pattern Blood Pressure 156/99 H Blood Pressure Mean Blood Pressure Source Blood Pressure Position Blood Pressure Location Baseline BP Pulse Ox 93 Oxygen Delivery Method Weight Weight: 175 lb 14.862 oz Body Mass Index (BMI) 30.2 Physical Exam Const alert, oriented x3, no apparent distress and healthy appearing General Appearance: cooperative GI normal to inspection, nondistended, normoactive bowel sounds, soft to palpation, non-tender and non-distended Percussion: normal to percussion Rectal Exam: deferred Assessment & Plan Assessment/Plan (1) Colon polyp: (2) Lymphocytic colitis: (3) Chronic diarrhea: PLAN: Assessment and Plan Assessment and Plan (1) Chronic diarrhea: Status: Chronic Plan: Opal is a 64-year-old female patient with past medical history of lymphocytic colitis, hypertension, A-fib, hypothyroidism, coronary artery disease, DVT and hyperglycemia here today for follow-up. Patient last seen in 2022 for follow-up regarding her lymphocytic colitis which was well-controlled with budesonide. Patient underwent CT abdomen and pelvis with Dr. Axel Germain in October 2024 which demonstrated possible rectal wall thickening versus underdistention. She underwent screening colonoscopy due to this finding and was found to have 2 polyps. Pathology was consistent with tubular adenomas and slightly polypoid fragments of colonic mucosa with mild chronic inflammation. Patient was referred back to GI due to these results. On interview with patient, she was told that Dr. Germain would like her to have another colonoscopy due to abnormalities found. She does note consistently having diarrhea over the last 6 months. She has 3-4 episodes of urgent diarrhea per day. She will undergo repeat colonoscopy for further evaluation of her colon by a stave and bolt equalizer. - Colonoscopy - Follow-up as needed Note: Portions of this note may have been selectively carried forward from previous documentation to ensure continuity and accuracy of the clinical record. All imported information has been reviewed and updated as necessary to reflect the current patient status, findings, and clinical decision-making for this encounter. [employer] speech recognition aviation safety technician software was used to create portions of this document. Sound alike and misspelled words, as well as other aviation safety technician errors may be contained in the documentation. (2) Colon polyp: Status: Acute ]
--- NOTE | 2025-03-02 08:18 | PCM.POST.ANE ---
Anesthesia: Postop Eval I Current Vital Signs Temperature: 97 F Pulse Rate: 79 Blood Pressure: 110/75 Respiratory Rate: 16 Pulse Ox: 97 Oxygen Delivery Method: Room Air Assessment Airway patent: Yes Spontaneous unlabored respirations: Yes Mental status: Asleep nausea: No Vomiting: No Anesthesia Complication: No Fluid Hydration Crystalloid volume administer (ml): 500 Total IV fluid infused: 500 Progress Note Anesthesia document: Postop Eval 1 completed: Yes
--- NOTE | 2025-03-02 08:33 | PCM.POSTANE2 ---
Anesthesia Postop Eval I Sum Postop Eval Completion status Anesthesia document: Postop Eval 1 completed: Yes Anesthesia Postop Eval I Summary Anesthesia Postop Eval I Summary: Anesthesia Postop Eval I: Assessment Summary Airway patent Yes 03/02/25 08:19 [email or web address] Spontaneous unlabored Yes 03/02/25 08:19 [email or web address] respirations Mental status Asleep 03/02/25 08:19 [email or web address] nausea No 03/02/25 08:19 [email or web address] Vomiting No 03/02/25 08:19 [email or web address] Anesthesia Postop Eval I: Fluid Summary Crystalloid volume administer 500 03/02/25 08:19 [email or web address] (ml) Colloids volume administered ( ml) Blood Product volume administered (ml) Total IV fluid infused 500 03/02/25 08:19 [email or web address] Anesthesia Postop Eval I: Summary Notes Anesthesia Complication No 03/02/25 08:19 [email or web address] Anesthesia Complication Comment: Post-operative progress note Anesthesia: Postop Eval II Evaluation Mental status: Awake Pain Level: 0 nausea: No Vomiting: No
--- NOTE | 2025-03-02 08:58 | OP.PROVAT_ITS ---
03/02/2025 Shae Durham [address] [place] [address] Re : Colonoscopy procedure for Opal Snow Dear Dr. Durham This procedure was performed on Sunday, March 02, 2025. My impressions and recommendations are as follows: Impressions : - Diverticulosis in the recto-sigmoid colon, in the sigmoid colon, in the descending colon and at the splenic flexure. - One 9 mm polyp in the cecum, removed with a jumbo cold forceps. Resected and retrieved. - Congested mucosa in the recto-sigmoid colon, in the sigmoid colon, in the transverse colon and in the ascending colon. - Mild inflammation was found in the ileum secondary to ileitis. Biopsied. Recommendations : - Discharge patient to home. - Resume previous diet. - Continue present medications. - Await pathology results. - Repeat colonoscopy in 5 years for surveillance. - Return to GI office. My findings are described in the full procedure note, which is enclosed. If I can be of further assistance, please feel free to contact me at . Sincerely, Cruz Zavala, 03/02/2025 8:57:58 AM This report has been signed electronically.
--- NOTE | 2025-03-02 08:58 | OP.COLON_ITS ---
Patient Name: Opal Adamson Procedure Date: 03/02/2025 7:50 AM Date of : 1960 Age: 64 Procedure: Colonoscopy Indications: Clinically significant diarrhea of unexplained origin, Personal history of colonic polyps Providers: Cruz Zavala DO Medicines: Monitored Anesthesia Care Patient Profile: This is a 64 year old female. Refer to note in patient chart for documentation of history and physical. Last Colonoscopy: several years ago. Complications: No immediate complications. Procedure: Pre-Anesthesia Assessment: - Prior to the procedure, a History and Physical was performed, and patient medications and allergies were reviewed. The patient is competent. The risks and benefits of the procedure and the sedation options and risks were discussed with the patient. All questions were answered and informed consent was obtained. Patient identification and proposed procedure were verified by the physician in the pre-procedure area. Mental Status Examination: alert and oriented. Airway Examination: normal oropharyngeal airway and neck mobility. Respiratory Examination: clear to auscultation. CV Examination: normal. Prophylactic Antibiotics: The patient does not require prophylactic antibiotics. Prior Anticoagulants: The patient has taken no anticoagulant or antiplatelet agents except for NSAID medication. ASA Grade Assessment: II - A patient with mild systemic disease. After reviewing the risks and benefits, the patient was deemed in satisfactory condition to undergo the procedure. The anesthesia plan was to use monitored anesthesia care (MAC). Immediately prior to administration of medications, the patient was re-assessed for adequacy to receive sedatives. The heart rate, respiratory rate, oxygen saturations, blood pressure, adequacy of pulmonary ventilation, and response to care were monitored throughout the procedure. The physical status of the patient was re-assessed after the procedure. After I obtained informed consent, the scope was passed under direct vision. Throughout the procedure, the patient's blood pressure, pulse, and oxygen saturations were monitored continuously. The Colonoscope was introduced through the anus and advanced to the cecum, identified by appendiceal orifice and ileocecal valve. The colonoscopy was performed without difficulty. The patient tolerated the procedure well. The quality of the bowel preparation was adequate. The terminal ileum, ileocecal valve, appendiceal orifice, and rectum were photographed. Scope In: 7:54:55 AM Scope Withdrawal Time 0 hours 10 minutes 20 seconds Scope Out: 8:09:55 AM Total Procedure Duration Time 0 hours 15 minutes 0 seconds Findings: The perianal and digital rectal examinations were normal. A few small and large-mouthed diverticula were found in the recto-sigmoid colon, sigmoid colon, descending colon and splenic flexure. A 9 mm polyp was found in the cecum. The polyp was sessile. The polyp was removed with a jumbo cold forceps. Resection and retrieval were complete. Verification of patient identification for the specimen was done. Estimated blood loss was minimal. An area of mildly congested mucosa was found in the recto-sigmoid colon, in the sigmoid colon, in the transverse colon and in the ascending colon. Patchy mild inflammation was found in the terminal ileum. Biopsies were taken with a cold forceps for histology. Verification of patient identification for the specimen was done. Estimated blood loss was minimal. Impression: - Diverticulosis in the recto-sigmoid colon, in the sigmoid colon, in the descending colon and at the splenic flexure. - One 9 mm polyp in the cecum, removed with a jumbo cold forceps. Resected and retrieved. - Congested mucosa in the recto-sigmoid colon, in the sigmoid colon, in the transverse colon and in the ascending colon. - Mild inflammation was found in the ileum secondary to ileitis. Biopsied. Recommendation: - Discharge patient to home. - Resume previous diet. - Continue present medications. - Await pathology results. - Repeat colonoscopy in 5 years for surveillance. - Return to GI office. Procedure Code(s): --- Professional --- 67006, Colonoscopy, flexible; with biopsy, single or multiple CPT copyright 2021 [employer]. All rights reserved. The codes documented in this report are preliminary and upon unix developer review may be revised to meet current compliance requirements. Cruz Zavala DO 03/02/2025 8:57:58 AM This report has been signed electronically. Number of Addenda: 0 Note Initiated On: 03/02/2025 7:50 AM
== END 2025-03-02 09:25 | disposition home or self-care (01) ==
LOC: EN 06:17 → AC 06:18
PROVIDERS: PCP Internal Medicine Infectious Disease; Referring Provider Internal Medicine Infectious Disease; Visit Provider Internal Medicine Gastroenterology
PROC: 0DJD8ZZ Inspection of Lower Intestinal Tract, Via Natural or Artificial Opening Endoscopic (ICD-10-PCS; CPT 45378; principal; 2025-03-02 07:25)
DX: D12.0 Benign neoplasm of cecum (principal); J44.9 Chronic obstructive pulmonary disease, unspecified; I48.91 Unspecified atrial fibrillation; Z87.891 Personal history of nicotine dependence; K57.30 Diverticulosis of large intestine without perforation or abscess without bleeding; K52.832 Lymphocytic colitis; Z86.718 Personal history of other venous thrombosis and embolism; I25.10 Atherosclerotic heart disease of native coronary artery without angina pectoris; I10 Essential (primary) hypertension; E03.9 Hypothyroidism, unspecified; Z86.0101 Personal history of adenomatous and serrated colon polyps
CPT/HCPCS: 45380; 88305; 94640; J2405